=== PATIENT | male | born 1940 | race Caucasian/White ===

== ENCOUNTER → 2017-11-11 09:52 | Outpatient (CLI) | payer MEDICARE, SELFPAY ==
[2017-11-11 10:32] LABS: Absolute Lymphocyte Count 1.37 X10^3/ul (0.83-4.51); Absolute Neutrophil Count 3.7 X10^3/uL (2.0-7.7); Basophil# 0.04 X10^3/uL; Basophil% 0.7 % (0-1); Eosinophil# 0.11 X10^3/uL; Eosinophils% 1.9 % (0-5); Hematocrit 41.7 % (40-54); Hemoglobin 14.2 g/dl (13.0-16.5); Lymphocyte # 1.37 X10^3/ul (4.0); Lymphocyte % 23.7 % (19-41); Mean Corp Hgb Conc 34.1 g/gl (32-36); Mean Corpuscular Hgb 31.8 pg (27.0-32.0); Mean Corpuscular Volume 93.3 fL (80-94); Mean Platelet Vol. 10.1 fl (6.2-12.0); Monocyte# 0.54 X10^3/uL; Monocyte% 9.4 % (0-10); Neutrophil % 64.1 % (47-70); Platelet Count 175 K/mm3 (150-450); RBC Distribution Width CV 12.8 % (11.6-14.6); RBC Distribution Width SD 43.6 fl (35.1-43.9); Red Blood Count 4.47 M/mm3 (4.6-6.2); White Blood Count 5.8 K/mm3 (4.4-11.0)
[2017-11-11 10:34] LABS: POSITIVE COUNT NO; POSITIVE DIFFERENTIAL NO; POSITIVE MORPHOLOGY NO
[2017-11-11 10:56] LABS: AST(SGOT) 18 U/L (15-37); Alanine Aminotransfer ALT/SGPT 25 U/L (16-61); Albumin, Serum 3.9 g/dL (3.2-5.0); Alkaline Phosphatase 70 U/L (45-117); Anion Gap 8 (5-15); BUN 16 mg/dL (7-18); Calcium,Total 8.9 mg/dL (8.5-10.1); Chloride 100 mmol/L (98-107); Cholesterol 176 mg/dL (200); Creatinine, Serum 0.84 mg/dL (0.70-1.30); EST Glomerular Filtration Rate 94 mL/min (>60); Est Glom Filt Rate - Afr Amer 113 mL/min (>60); Glucose 153 mg/dL (74-106); High Density Lipoprotein 67 mg/dL; Potassium 4.1 mmol/L (3.5-5.1); Protein, Total 7.9 g/dL (6.4-8.2); Sodium Level 135 mmol/L (136-145); Triglycerides 114 mg/dL; Very Low Density Lipoprotein 23 mg/dL (5-40)
[2017-11-11 11:01] LABS: Hemoglobin A1c 5.9 % (4.2-6.3)
== END ==
PROVIDERS: Family Provider Family Medicine; PCP Family Medicine; Visit Provider Family Medicine
DX: E11.9 Type 2 diabetes mellitus without complications (principal); E78.5 Hyperlipidemia, unspecified; D64.9 Anemia, unspecified
CPT/HCPCS: 36415; 80053; 80061; 83036; 85025

== ENCOUNTER → 2018-01-29 11:37 | Outpatient (CLI) | payer MEDICARE, SELFPAY ==
--- NOTE | 2018-01-29 11:45 | RAD_ITS ---
STUDY: X-RAY - LUMBAR SPINE REASON FOR EXAM: Male, 77 years old. Low back pain TECHNIQUE: 5 view(s) of the lumbar spine were obtained. COMPARISON: None FINDINGS: Normal lumbar lordosis. There is no substantial scoliosis. There is a normal alignment of the vertebrae. There is diffuse endplate spondylosis. There is severe narrowing of the L3-4 through L5-S1 disc spaces, and moderately severe narrowing of the L2-3 disc space. There is no demonstrated spondylolysis of the pars interarticulares. There are calcified plaques of the abdominal aorta and common iliac arteries. RAD/L/S Spine Min 4 Views IMPRESSION: Degenerative changes of the spine, as detailed above. Electronically Signed: Vikram Don MD at 19:10 EDT , Service support ,
== END ==
PROVIDERS: Family Provider Family Medicine; PCP Family Medicine; Visit Provider Chiropractor
DX: M51.36 Other intervertebral disc degeneration, lumbar region (principal)
CPT/HCPCS: 72110

== ENCOUNTER 2018-02-14 11:00 | Outpatient (RCR) | payer MEDICARE, SELFPAY ==
--- NOTE | 2018-02-05 09:46 | HP.PTEVAL_ITS ---
Patient's Visit Information KERRI FINK is a 77 year old M referred to Physical Therapy by Vikram Burkett with a diagnosis of Lumbar DDD. Date of Evaluation: 01/24/18 Physical Therapist: Jake Wilson - Visit Plan Frequency: 2x /Week Duration: 3 Weeks Plan: Start with MET to increase pelvic positioing, core strengtheing in neutral spine, lumbar distraction, HS stretching, hip flexor strengthening. - Subjective Subjective: Pt. is here today for his initial evaluation with diagnosis of lumbar DDD. Pt. has a history of lumbar fusion and recent L knee replacement ~4 weeks ago. Pt. reports seeing chiropractor for last 2 weeks or so with mobilizations and SI rotation. pt. reports having a leg length discrepency. Pt. reports having increased pain with walking, getting up in mornings and progressively worse throughout the day. Pt. reports no mechanism of injury, but does report pain radiating across lumbar spine. No pain doing down either LE. Pt. denies N/T and no LE weakness. Pt. reports being able to sleep with minimal symptoms. Pt. reports no core strengtheing or stretching prior to PT. Pt. is hopeful to reduce symptoms in order to get back to all recreational activities without increase in symptoms. - Pain lumbar spine Pain Intensity (Out of 10): 3 Pain Intensity Range: 1, 5 - Objective POSTURE: Pt. has general flexed posture. Pt. has normal iliac crest heights. Pt. has slight anterior rotation L ilium. Pt. has decreased lumbar lordosis. PALPATION: Pt. has increased tenderness to palpation throughout lumbar spine, mild pain with spring testing to L4-S1 and lumbar parspsinal. No gluteal symptoms. Pt. has presence of diastisis recti with contraction of abdominals. NEUROLOGICAL: Pt. has normal sensation throughout BLEs to ligth and sharp touch. Pt. has 2+ bilateral achilles and patellar DTR bilaterally. Pt. is able to rise on heels and toe without issues. ROM: Lumbar spine: flexion min loss increase NW, ext mod loss NE, SB min loss bilat NE, rotation min/mod loss bilat NE. Pt. has normal hip ROM bilaterally. Pt. has tight HS bilaterally (L worse than R). MMT: Pt. has 5/5 strength throughout RLE. LLE- ankle 5/5 throughout; knee- ext 4+/5, flexion 4+/5; hip- flexion 4/5, abd 4/5, ext 4+/5. GAIT: Pt. presents drop off on L side with gait. Pt. has increased lumbar symptoms with walking, standing is worse. Pt. has decreased L knee flexion with swing phase. Pt. has R hip drop during L stance phase. - Special Tests L/S Slump test left side: Negative L/S Slump test right side: Negative L/S Left Straight Leg Raise: Negative L/S Right Straight Leg Raise: Negative Lumbar Standing: Flexion - Mechanical Response: No effect Lumbar Standing: Flexion - Symptoms During Testing: Abolishes Lumbar Standing: Flexion - Symptoms After Testing: No worse Lumbar Standing: Extension - Mechanical Response: No effect Lumbar Standing: Extension - Symptoms During Testing: No effect Lumbar Standing: Right Side Glides - Mechanical Response: No effect Lumbar Standing: Right Side [place] - Symptoms During Testing: No effect Lumbar Standing: Right Side [place] - Symptoms After Testing: No effect Lumbar Standing: Left Side [place] - Mechanical Response: No effect Lumbar Standing: Left Side [place] - Symptoms During Testing: No effect Lumbar Standing: Left Side [place] - Symptoms After Testing: No effect - Goals Goal 1:: Pt. to be I with HEP. Goal Time Frame: 2-4 Weeks Goal 2:: Pt. to have increased lumbar ROM by 25% in all directions with 0-2/10 pain allowing for increased tolerance to all mobility. Goal Time Frame: 2-4 Weeks Goal 3:: Pt. to have increased L hip flexor and core strength by 1/2 grade reducing stress applied to lumbar spine. Goal Time Frame: 2-4 Weeks Goal 4:: Pt. to have increased L HS length by 30deg in 90/90 positioning allowing for improved pelvic positioning. Goal Time Frame: 2-4 Weeks Goal 5:: Pt. to ambulate unlimited distances with 0-1/10 pain. Goal Time Frame: 2-4 Weeks - Rehabilitation Potential Physical Therapy Diagnosis: Pt. has signs and symptoms consistent with lumbar DDD. Pt. has SI rotation as well, most like exaccerbated after L TKR. Pt. has tight HS on L side, weak L hip flexors and weak core musculature. Pt. would benefit from PT to reduce pelvic rotation, and increase Lhip/core strength to reduce stres applied to lumbar spine with all functional mobility. Rehabilitation Potential: Good - Anticipated Interventions Patient/Client Instruction: Educate patient on: Condition, Plan of Care, Risk Factors, Benefits of Fitness Program For the Purpose of:: To improve health and function, To foster healthy habits, To improve decision making, To facilitate caregiver knowledge, To improve self management, To prevent re-injury, To improve ability to perform tasks related to life management, To improve tolerance to ADL's Therapeutic Exercise to Include: Strength training, Power training, Postural training, Flexibilty training, Gait and locomotor training, Passive ROM, Active ROM, Dynamic Lumbar Stabilization For the Purpose of:: To decrease pain, To increase ROM, To improve nutrient delivery to tissue, To increase oxygenation perfusion, To improve muscle performance and motor function, To improve ability of physical actions for home/ community/work/leisure, To improve gait and locomotor functions, To improve health of tissue, To decrease soft tissue restriction, To increase flexibility/ ROM Manual Therapy Techniques to Include: Mobilization, Passive ROM, Soft tissue mobilization For the Purpose of:: To decrease pain, To decrease swelling/inflammation, To increase ROM, To improve nutrient delivery to tissue, To increase oxygenation perfusion Ultrasound (thermal/non thermal): Yes For the Purpose of:: To decrease pain, To decrease swelling/inflammation, To increase ROM Thank you for the opportunity to evaluate your patient. For Medicare and Medicare HMO plans, please review the plan of care and approve it. It will need to be FAXED BACK to us at [phone] for Medicare purposes. Please let me know if there are questions or concerns regarding this plan of care. Physician Signature: Date:
--- NOTE | 2018-07-17 08:47 | HP.PT.NRP ---
HP - Discharge Summary (1) - Patient Information KERRI FINK was seen in my office for initial evaluation on 01/24/18. The following Plan of Care was established for this patient: Initial Frequency: 2x /Week Initial Duration: 3 Weeks - Anticipated Interventions Patient/Client Instruction: Educate patient on: Condition, Plan of Care, Risk Factors, Benefits of Fitness Program For the Purpose of:: To improve health and function, To foster healthy habits, To improve decision making, To facilitate caregiver knowledge, To improve self management, To prevent re-injury, To improve ability to perform tasks related to life management, To improve tolerance to ADL's Therapeutic Exercise to Include: Strength training, Power training, Postural training, Flexibilty training, Gait and locomotor training, Passive ROM, Active ROM, Dynamic Lumbar Stabilization For the Purpose of:: To decrease pain, To increase ROM, To improve nutrient delivery to tissue, To increase oxygenation perfusion, To improve muscle performance and motor function, To improve ability of physical actions for home/community/work/leisure, To improve gait and locomotor functions, To improve health of tissue, To decrease soft tissue restriction, To increase flexibility/ROM Manual Therapy Techniques to Include: Mobilization, Passive ROM, Soft tissue mobilization For the Purpose of:: To decrease pain, To decrease swelling/inflammation, To increase ROM, To improve nutrient delivery to tissue, To increase oxygenation perfusion Ultrasound (thermal/non thermal): Yes For the Purpose of:: To decrease pain, To decrease swelling/inflammation, To increase ROM This patient was last seen in our office 01/24/18. Pertinent comments regarding their Physical therapy will appear below: Pt. was seen for his DDD of his lumbar spine. Pt. was treated with directional exercises, core stability and stretching. Pt. was making minimal changes. I have not seen him in several months and will be DC from PT at this point in time. At this point I will be discontinuing this patient from physical therapy. I would be happy to see this patient again in the future if found appropriate by the physician. Thank you! Jake Wilson
== END 2018-02-14 19:00 | disposition home or self-care (01) ==
LOC: PT 11:00
PROVIDERS: Family Provider Family Medicine; PCP Family Medicine; Visit Provider Chiropractor
DX: M51.36 Other intervertebral disc degeneration, lumbar region (principal)
CPT/HCPCS: 97035; 97110; 97163

== ENCOUNTER → 2018-02-17 11:15 | Outpatient (CLI) | payer MEDICARE, SELFPAY ==
[2018-02-17 11:48] LABS: Protein, Urine (Random) 20.1 mg/dL (<11.9); Protein:Creat Ratio 307 mg/g CRE (0-200)
[2018-02-17 11:56] LABS: Hematocrit 37.5 % (40-54); Hemoglobin 12.9 g/dl (13.0-16.5); Mean Corp Hgb Conc 34.4 g/gl (32-36); Mean Corpuscular Hgb 31.8 pg (27.0-32.0); Mean Corpuscular Volume 92.4 fL (80-94); Platelet Count 209 K/mm3 (150-450); RBC Distribution Width CV 12.8 % (11.6-14.6); RBC Distribution Width SD 42.4 fl (35.1-43.9); Red Blood Count 4.06 M/mm3 (4.6-6.2); White Blood Count 9.2 K/mm3 (4.4-11.0)
[2018-02-17 11:57] LABS: Scan Indicated on CBC? Y/N NO
[2018-02-17 12:30] LABS: Vitamin D,25 Hydroxy 23.1 ng/mL (29.95-100.01)
[2018-02-17 13:01] LABS: Albumin, Serum 3.3 g/dL (3.2-5.0); BUN 14 mg/dL (7-18); BUN/Creat Ratio 14.7 RATIO (10-20); Calcium,Total 8.4 mg/dL (8.5-10.1); Chloride 100 mmol/L (98-107); Creatinine, Serum 0.95 mg/dL (0.70-1.30); EST Glomerular Filtration Rate 81 mL/min (>60); Est Glom Filt Rate - Afr Amer 98 mL/min (>60); Glucose 183 mg/dL (74-106); Magnesium 1.7 mg/dL (1.6-2.6); Phosphorus 2.4 mg/dL (2.5-4.9); Potassium 4.2 mmol/L (3.5-5.1); Sodium Level 134 mmol/L (136-145)
== END ==
PROVIDERS: Family Provider Family Medicine; PCP Family Medicine; Visit Provider Internal Medicine Nephrology
DX: Z13.0 Encounter for screening for diseases of the blood and blood-forming organs and certain disorders involving the immune mechanism (principal); N18.2 Chronic kidney disease, stage 2 (mild); E55.9 Vitamin D deficiency, unspecified
CPT/HCPCS: 36415; 80069; 82306; 82570; 83735; 84156; 85027

== ENCOUNTER → 2018-05-05 07:50 | Outpatient (CLI) | payer MEDICARE, SELFPAY ==
[2018-05-05 09:00] LABS: Absolute Lymphocyte Count 1.39 X10^3/ul (0.83-4.51); Basophil# 0.02 X10^3/uL; Basophil% 0.3 % (0-1); Eosinophil# 0.11 X10^3/uL; Eosinophils% 1.8 % (0-5); Hematocrit 39.7 % (40-54); Hemoglobin 14.2 g/dl (13.0-16.5); Lymphocyte # 1.39 X10^3/ul (4.0); Lymphocyte % 22.6 % (19-41); Mean Corp Hgb Conc 35.8 g/gl (32-36); Mean Corpuscular Hgb 32.6 pg (27.0-32.0); Mean Corpuscular Volume 91.1 fL (80-94); Mean Platelet Vol. 10.3 fl (6.2-12.0); Monocyte# 0.64 X10^3/uL; Monocyte% 10.4 % (0-10); Neutrophil # 3.96 X10^3/uL (2.7-7.7); Neutrophil % 64.6 % (47-70); Platelet Count 183 K/mm3 (150-450); RBC Distribution Width CV 12.7 % (11.6-14.6); RBC Distribution Width SD 41.7 fl (35.1-43.9); Red Blood Count 4.36 M/mm3 (4.6-6.2); White Blood Count 6.1 K/mm3 (4.4-11.0)
[2018-05-05 09:10] LABS: POSITIVE COUNT NO; POSITIVE DIFFERENTIAL NO; POSITIVE MORPHOLOGY NO
[2018-05-05 09:21] LABS: Hemoglobin A1c 5.8 % (4.2-6.3)
[2018-05-05 09:30] LABS: ALB/GLOB Ratio 0.9 RATIO (0.9-2.4); AST(SGOT) 19 U/L (15-37); Alanine Aminotransfer ALT/SGPT 21 U/L (16-61); Albumin, Serum 3.9 g/dL (3.2-5.0); Alkaline Phosphatase 81 U/L (45-117); Anion Gap 5 (5-15); BUN 19 mg/dL (7-18); BUN/Creat Ratio 22.4 RATIO (10-20); Calcium,Total 9.2 mg/dL (8.5-10.1); Chloride 100 mmol/L (98-107); Cholesterol 178 mg/dL (200); Creatinine, Serum 0.85 mg/dL (0.70-1.30); EST Glomerular Filtration Rate 92 mL/min (>60); Est Glom Filt Rate - Afr Amer 112 mL/min (>60); Globulin 4.3 g/dL (2.2-4.2); Glucose 131 mg/dL (74-106); High Density Lipoprotein 59 mg/dL; Potassium 4.3 mmol/L (3.5-5.1); Protein, Total 8.2 g/dL (6.4-8.2); Sodium Level 133 mmol/L (136-145); Triglycerides 115 mg/dL; Very Low Density Lipoprotein 23 mg/dL (5-40)
== END ==
PROVIDERS: Family Provider Family Medicine; PCP Family Medicine; Visit Provider Family Medicine
DX: E11.9 Type 2 diabetes mellitus without complications (principal); E78.5 Hyperlipidemia, unspecified; D64.9 Anemia, unspecified
CPT/HCPCS: 36415; 80053; 80061; 83036; 85025

== ENCOUNTER → 2018-08-12 12:00 | Outpatient (CLI) | payer MEDICARE, SELFPAY ==
[2018-08-12 12:30] LABS: Hematocrit 40.7 % (40-54); Hemoglobin 13.8 g/dl (13.0-16.5); Mean Corp Hgb Conc 33.9 g/gl (32-36); Mean Corpuscular Hgb 32.1 pg (27.0-32.0); Mean Corpuscular Volume 94.7 fL (80-94); Mean Platelet Vol. 9.8 fl (6.2-12.0); Platelet Count 152 K/mm3 (150-450); RBC Distribution Width CV 13.1 % (11.6-14.6); RBC Distribution Width SD 45.1 fl (35.1-43.9); White Blood Count 6.9 K/mm3 (4.4-11.0)
[2018-08-12 12:31] LABS: Color, Urine Yellow (Yellow); Glucose, Dipstick Normal (Normal); Ketone-Dipstick Negative (Negative); Leukocyte Esterase-Dipstick Negative /ul (Negative); Nitrite-Dipstick Negative (Negative); Occult Blood-Urine 10 /ul (Negative); Protein-Dipstick 15 mg/dl (Negative); Urine Bilirubin Dipstick Negative (Negative); Urine Clarity Clear (Clear); Urine Urobilinogen Normal (Normal)
[2018-08-12 12:33] LABS: Scan Indicated on CBC? Y/N NO
[2018-08-12 12:50] LABS: BUN 16 mg/dL (7-18); BUN/Creat Ratio 16.5 RATIO (10-20); Calcium,Total 8.8 mg/dL (8.5-10.1); Chloride 98 mmol/L (98-107); Creatinine, Serum 0.97 mg/dL (0.70-1.30); EST Glomerular Filtration Rate 79 mL/min (>60); Est Glom Filt Rate - Afr Amer 96 mL/min (>60); Glucose 113 mg/dL (74-106); Phosphorus 3.2 mg/dL (2.5-4.9); Potassium 4.1 mmol/L (3.5-5.1); Sodium Level 132 mmol/L (136-145)
[2018-08-12 12:52] LABS: Protein, Urine (Random) 11.1 mg/dL (<11.9); Protein:Creat Ratio 253 mg/g CRE (0-200)
[2018-08-12 13:00] LABS: Vitamin D,25 Hydroxy 42.2 ng/mL (29.95-100.01)
== END ==
PROVIDERS: Family Provider Family Medicine; PCP Family Medicine; Referring Provider Internal Medicine Nephrology; Visit Provider Internal Medicine Nephrology
DX: Z13.0 Encounter for screening for diseases of the blood and blood-forming organs and certain disorders involving the immune mechanism (principal); N18.2 Chronic kidney disease, stage 2 (mild); E55.9 Vitamin D deficiency, unspecified
CPT/HCPCS: 36415; 80069; 81002; 82306; 82570; 84156; 85027

== ENCOUNTER → 2018-10-03 09:07 | Outpatient (CLI) | payer MEDICARE, SELFPAY ==
[2018-10-03 09:50] LABS: Hemoglobin A1c 6.3 % (4.2-6.3)
[2018-10-03 10:16] LABS: Cholesterol 190 mg/dL (200); High Density Lipoprotein 61 mg/dL; PSA,Total - Annual Screen 3.67 ng/mL (0.00-4.00); Triglycerides 99 mg/dL; Very Low Density Lipoprotein 20 mg/dL (5-40)
== END ==
PROVIDERS: Family Provider Family Medicine; PCP Family Medicine; Referring Provider Family Medicine; Visit Provider Family Medicine
DX: E11.9 Type 2 diabetes mellitus without complications (principal); E78.5 Hyperlipidemia, unspecified; Z12.5 Encounter for screening for malignant neoplasm of prostate
CPT/HCPCS: 36415; 80061; 83036; 84153; G0103

== ENCOUNTER → 2019-03-31 09:07 | Outpatient (CLI) | payer MEDICARE, SELFPAY ==
[2019-01-05 11:43] VITALS: BMI 31.6
[2019-03-31 10:09] LABS: Absolute Lymphocyte Count 1.18 X10^3/ul (0.83-4.51); Basophil# 0.02 X10^3/uL; Basophil% 0.3 % (0-1); Eosinophil# 0.08 X10^3/uL; Eosinophils% 1.2 % (0-5); Hematocrit 38.8 % (40-54); Hemoglobin 13.4 g/dl (13.0-16.5); Lymphocyte # 1.18 X10^3/ul (4.0); Lymphocyte % 17.1 % (19-41); Mean Corp Hgb Conc 34.5 g/gl (32-36); Mean Corpuscular Volume 92.6 fL (80-94); Monocyte# 0.64 X10^3/uL; Monocyte% 9.3 % (0-10); Neutrophil # 4.97 X10^3/uL (2.7-7.7); Neutrophil % 71.8 % (47-70); Platelet Count 155 K/mm3 (150-450); RBC Distribution Width CV 12.4 % (11.6-14.6); Red Blood Count 4.19 M/mm3 (4.6-6.2); White Blood Count 6.9 K/mm3 (4.4-11.0)
[2019-03-31 10:13] LABS: POSITIVE COUNT NO; POSITIVE DIFFERENTIAL NO; POSITIVE MORPHOLOGY NO
[2019-03-31 10:38] LABS: Cholesterol 197 mg/dL (200); High Density Lipoprotein 54 mg/dL; Triglycerides 158 mg/dL; Very Low Density Lipoprotein 32 mg/dL (5-40)
[2019-03-31 10:39] LABS: Hemoglobin A1c 6.3 % (4.2-6.3)
== END ==
PROVIDERS: Family Provider Family Medicine; PCP Family Medicine; Referring Provider Family Medicine; Visit Provider Family Medicine
DX: E11.9 Type 2 diabetes mellitus without complications (principal); I25.10 Atherosclerotic heart disease of native coronary artery without angina pectoris; D64.9 Anemia, unspecified
CPT/HCPCS: 36415; 80061; 83036; 85025

== ENCOUNTER → 2019-05-05 11:54 | Outpatient (CLI) | payer MEDICARE, SELFPAY ==
[2019-01-05 11:43] VITALS: BMI 31.6
[2019-05-05 13:10] LABS: Hematocrit 38.8 % (40-54); Hemoglobin 13.6 g/dL (13.0-16.5); Mean Corp Hgb Conc 35.1 g/dL (32-36); Mean Corpuscular Hgb 32.5 pg (27.0-32.0); Mean Corpuscular Volume 92.8 fL (80-94); Mean Platelet Vol. 10.2 fl (6.2-12.0); Platelet Count 153 K/mm3 (150-450); RBC Distribution Width CV 11.9 % (11.6-14.6); RBC Distribution Width SD 40.8 fl (35.1-43.9); Red Blood Count 4.18 M/mm3 (4.6-6.2); White Blood Count 5.8 K/mm3 (4.4-11.0)
[2019-05-05 13:13] LABS: Color, Urine Yellow (Yellow); Glucose, Dipstick Normal (Normal); Ketone-Dipstick Negative (Negative); Leukocyte Esterase-Dipstick Negative /ul (Negative); Nitrite-Dipstick Negative (Negative); Occult Blood-Urine Negative /ul (Negative); Protein-Dipstick Negative (Negative); Urine Bilirubin Dipstick Negative (Negative); Urine Clarity Clear (Clear); Urine Urobilinogen Normal (Normal); Urine pH 6.5 (5.0 - 8.0)
[2019-05-05 13:29] LABS: Microalbumin:Creatinine Ratio 496.2 mg/g CRE (<30 mg/g CRE); Protein, Urine (Random) 10.1 mg/dL (<11.9); Protein:Creat Ratio 771 mg/g CRE (0-200)
[2019-05-05 13:38] LABS: Albumin, Serum 3.8 g/dL (3.2-5.0); BUN 16 mg/dL (7-18); BUN/Creat Ratio 16.3 RATIO (10-20); Calcium,Total 8.9 mg/dL (8.5-10.1); Chloride 96 mmol/L (98-107); Creatinine, Serum 0.98 mg/dL (0.70-1.30); EST Glomerular Filtration Rate 78 mL/min (>60); Est Glom Filt Rate - Afr Amer 95 mL/min (>60); Glucose 147 mg/dL (74-106); Phosphorus 3.2 mg/dL (2.5-4.9); Potassium 4.2 mmol/L (3.5-5.1); Sodium Level 131 mmol/L (136-145)
[2019-05-05 13:43] LABS: PTHIN 44.3 pg/mL (18.4-80.1)
[2019-05-05 13:44] LABS: Vitamin D,25 Hydroxy 41.3 ng/mL (29.95-100.01)
== END ==
PROVIDERS: Family Provider Family Medicine; PCP Family Medicine; Referring Provider Internal Medicine Nephrology; Visit Provider Internal Medicine Nephrology
DX: N18.2 Chronic kidney disease, stage 2 (mild) (principal); E55.9 Vitamin D deficiency, unspecified; Z13.0 Encounter for screening for diseases of the blood and blood-forming organs and certain disorders involving the immune mechanism
CPT/HCPCS: 36415; 80069; 81002; 82043; 82306; 82570; 83970; 84156; 85027

== ENCOUNTER 2019-05-25 14:02 | Day surgery (SDC) | payer MEDICARE, SELFPAY ==
[2019-01-05 11:43] VITALS: BMI 31.6
[2019-05-25] VITALS (10 sets, daily range): BP systolic 98–164; BP diastolic 51–73; PULSE 41–55; RESP 16–18; TEMP 36.7–37; O2SAT 94–98; BMI 31.2
[2019-05-25] MEDS: Cefazolin 2 GM in 0.9% Normal Saline 100 ML IV (15:00)
[2019-05-25 15:11] LABS: Bedside Glucose 159 mg/dL (70-110)
--- NOTE | 2019-05-25 15:22 | RAD_ITS ---
STUDY: SPINAL CORD STIMULATOR INSERTION REASON FOR EXAM: Male, 79 years old. Pain RADIATION DOSAGE (If Supplied By Facility): CTDIvol = ( ) mGy, DLP = ( ) mGycm. Individualized dose optimization techniques were used for this CT.? FLUOROSCOPY TIME (if supplied): (5:49) minutes/seconds TECHNIQUE: 3 intraoperative fluoroscopy image(s) acquired as permanent record. COMPARISON: None. FINDINGS: Intraoperative fluoroscopy utilized as image guidance during spinal cord stimulator insertion. Please refer to the procedure report regarding details of the procedure. RAD/Lumbar Spine 2 or 3 Views IMPRESSION: As above Electronically Signed: Gomez Ford MD at 18:38 EDT Tel [phone], Service support ,
[2019-05-25] MEDS: Bupivacaine 0.25% 30 ML Vial (15:40)
[2019-05-25] MEDS: HYDROcodone Bitartrate/Apap 5/325 Tablet PO (18:45)
--- NOTE | 2019-05-25 18:46 | OP.PCM_ITS ---
Problem List (1) Degeneration of intervertebral disc of lumbosacral region Status: Chronic (2) Radiculopathy of lumbosacral region Status: Chronic (3) Spinal stenosis of lumbosacral region Status: Chronic Report of Operation Date of Procedure: 05/25/19 Description of Surgical Findings:: Pre-Operative Diagnosis: Lumbosacral radiculopathy, lumbosacral degenerative disc disease, lumbosacral spinal stenosis, lumbosacral spondylosis Post-Operative Diagnosis: Lumbosacral radiculopathy, lumbosacral degenerative disc disease, lumbosacral spinal stenosis, l lumbosacral spondylosis Surgery/Procedure Performed:: 1-Spinal cord stimulator thoracal lumbar leads permanent placement x2,. 2-spinal cord stimulator generator implant. 3- fluoroscopic guidance Description of Surgical Findings:: PROCEDURES: 1. Spinal cord stimulator thoracolumbar leads placement x2 #2 spinal cord stimu lator Medtronic intellus generator placement #3 spinal cord stimulator generator pocket creation at the left gluteal region #4 spinal cord stimulator simple programming #5 fluoroscopic guidance PREOPERATIVE DIAGNOSES: Lumbosacral radiculopathy, lumbosacral degenerative disc disease, lumbosacral spinal stenosis. POSTOPERATIVE DIAGNOSES: Lumbosacral radiculopathy, lumbosacral degenerative disc disease, lumbosacral spinal stenosis. ANESTHESIA: MAC COMPLICATIONS: None BLOOD LOSS: Minimal Implanted device: Spinal cord stimulator lead lot number , lead #2 lot number Medtronic spinal cord stimulator generator intellus serial number PROCEDURE IN DETAIL: History and physical today was reviewed. Risks and benefits of procedure explained. The patient understood, agreed to procedure, informed consent was obtained. IV inserted per routine protocol. The patient was taken to the operating room, placed in the prone position with a pillow positioned underneath the abdomen. A 2 g of Ancef IV piggyback was infused per anesthesia. The lower back and left gluteal area was prepped and draped in a sterile fashion using iodine x3. The C-arm was brought in position for AP view at the L1-2 vertebral bodies under direct visualization fluoroscopy on a true AP view the L1-2 interlaminar space was identified skin and subcutaneous tissue and size approximately 10 cc of a mix of 2% lidocaine and 0.25% Marcaine using a 25- gauge regular needle followed by a 25-gauge 3-1/2 inch spinal needle towards the interlaminar space at L1-2, the skin and subcutaneous tissue were then anesthetized and using an 11-gauge blade was then taken down to the skin and subcutaneous tissue using a 14-gauge 3-1/2 inch Touhy needle provided by the [employer] kit the needle was passed through the skin towards the interlaminar space at L1-2 and a paramedian approach the needle was then advanced under direct visualization fluoroscopy towards the interlaminar space at L1-2 [id number] technique was then carried to air towards the interlaminar space at L3-4 once the tip of the needle was in the epidural space and loss of resistance was encountered to air and after confirmation of AP as well as oblique view of the spinal cord stimulator lead was then advanced under direct visualization fluoroscopy to be at the tip of the lead at T8 and the bottom of the lead around mid T10 after confirmation of AP as well as lateral view to confirm correct placement of the lead in the posterior compartment of the epidural space the previous procedure was then repeated to a level above at L2-3 interlaminar space the second lead was then inserted under direct visualization with fluoroscopy to be at the mid T8 and mid T10 area the leads were were then connected to the external neurostimulator and patient was then awakened to confirm satisfactory coverage of the painful area once satisfactory coverage was then achieved the stylette of each needle was then removed and the skin and subcutaneous tissue on to the left of the paramedian needles was then taken anesthetized with a total of 10 cc of the previous mixture of 0.25% Marcaine and 2% lidocaine using a 25-gauge regular needle the incision was then taken down through the skin and subcutaneous tissue towards the fascia making sure hemostasis was then maintained via cautery the spinal cord stimulator leads were then passed through the above incision and secured using the bitewing and sutured down with a 2-0 nylon to the fascia at that level the spinal cord stimulator leads were then tunneled via a tunneler provided by the [employer] kit towards the previously incised spinal cord stimulator battery at the left gluteal region skin and subcutaneous tissue were anesthetized with approximately 10 cc of a mix of 2% lidocaine and 0.25% Marcaine using a 25 gauge regular needle, skin and subcutaneous tissue was then taken down with the 11-gauge blade hemostasis was maintained with Bovie and direct pressure the incision was then taken down to the fascia and the battery was then visualized the 2-0 nylon sutures that were the spinal cord stimulator leads the upper lead was then marked the new until spinal cord stimulator battery was then provided Via [employer] kit the battery was then reattached of the spinal cord stimulator make ensure that the top lead is attached to the top position from 0-7 electrodes and the bottom from 8-15 electrodes once impedance was then checked to be in the proper average number the intellus battery was then inserted into the pocket and impedance with when checked again the pocket was then inspected to confirm hemostasis in place, the intellus battery was then secured to the fascia using a 2-0 silk to the upper and lower eyes of the battery confirming an upward writing of the intellus facing posterior, once complete confirmation the battery was then placed in the position and the the mid paramedian and the gluteal incisions were then closed primarily through a 3-0 Vicryl in a interrupted fashion followed by a 4-0 Vicryl to the skin, hemostasis was then maintained during the procedure the skin was then covered with a Steri-Strips and bacitracin patient was then returned into the supine position in a stable condition and returned to recovery in a stable condition patient experienced no signs or symptoms of intrathecal or intravascular injection patient experienced no paresthesia the procedure was completed without any apparent difficulty any complication the patient appeared to tolerate well ESTIMATED BLOOD LOSS: Minimal less than 25 mL ASSESSMENT AND PLAN: This is an 79-year-old male with lumbosacral radiculopathy, lumbosacral degenerative disc disease lumbosacral spinal stenosis status post 1. Spinal cord stimulator thoracolumbar leads placement x2 #2 spinal cord stimulator Medtronic intellus generator placement #3 spinal cord stimulator generator pocket creation at the left gluteal region #4 spinal cord stimulator simple programming and fluoroscopic guidance patient will continue her current medications a prescription was provided to the patient for Chromo 5/325 1 p.o. every 4-6 hours as needed acute postoperative pain and Keflex 500 mg 1 p.o. every 8 hours for 7 days postop instruction were given in writing to the patient as well as verbally and in writing to his , patient will follow approximately 1 week for reevaluation
== END 2019-05-25 18:46 | disposition home or self-care (01) ==
LOC: SDC 14:13 → AC 14:15
PROVIDERS: Family Provider Family Medicine; PCP Family Medicine; Referring Provider Anesthesiology Pain Medicine; Visit Provider Anesthesiology Pain Medicine
PROC: (CPT 63685; principal; 2019-05-25 15:15)
DX: M51.17 Intervertebral disc disorders with radiculopathy, lumbosacral region (principal); M47.27 Other spondylosis with radiculopathy, lumbosacral region; M48.07 Spinal stenosis, lumbosacral region; I25.10 Atherosclerotic heart disease of native coronary artery without angina pectoris; I12.9 Hypertensive chronic kidney disease with stage 1 through stage 4 chronic kidney disease, or unspecified chronic kidney disease; E11.22 Type 2 diabetes mellitus with diabetic chronic kidney disease; N18.9 Chronic kidney disease, unspecified; E78.00 Pure hypercholesterolemia, unspecified; K21.9 Gastro-esophageal reflux disease without esophagitis; M19.90 Unspecified osteoarthritis, unspecified site; Z95.1 Presence of aortocoronary bypass graft; Z95.5 Presence of coronary angioplasty implant and graft; Z79.84 Long term (current) use of oral hypoglycemic drugs; Z79.82 Long term (current) use of aspirin; Z79.891 Long term (current) use of opiate analgesic; Z79.899 Other long term (current) drug therapy
CPT/HCPCS: 63650; 63685; 72100; 76000; 82962; C1778; C1820; J7120; J3490

== ENCOUNTER → 2019-06-30 12:46 | Outpatient (CLI) | payer MEDICARE, SELFPAY ==
[2019-05-25 14:39] VITALS: BMI 31.2
--- NOTE | 2019-06-30 12:50 | RAD_ITS ---
STUDY: X-RAY - RIGHT KNEE REASON FOR EXAM: Increasing right knee pain. TECHNIQUE: 4 view(s) of the knee. COMPARISON: None. FINDINGS: Normal visualized distal femur. Normal visualized proximal tibia and fibula. Normal proximal tibiofibular articulation. There are small marginal osteophytes without joint space narrowing of the medial femorotibial compartment. Normal lateral femorotibial compartment. There are small marginal osteophytes and moderately severe joint space narrowing of the patellofemoral articulation. There is chondrocalcinosis. There is a bipartite patella. There is a small joint effusion. There is vascular calcification. RAD/Knee 4 or More Views IMPRESSION: Patellofemoral arthrosis. Small joint effusion. Chondrocalcinosis. Bipartite patella. Electronically Signed: Eliecer Lau MD at 13:48 EDT Tel , Service support ,
== END ==
PROVIDERS: Family Provider Family Medicine; PCP Family Medicine; Referring Provider Anesthesiology Pain Medicine; Visit Provider Anesthesiology Pain Medicine
DX: M17.11 Unilateral primary osteoarthritis, right knee (principal); M11.261 Other chondrocalcinosis, right knee; Q74.1 Congenital malformation of knee
CPT/HCPCS: 73564

== ENCOUNTER → 2019-07-17 08:38 | Outpatient (CLI) | payer MEDICARE, SELFPAY ==
[2019-07-13 10:56] VITALS: BMI 30.7
--- NOTE | 2019-07-17 08:40 | CDU_ITS ---
Reason For Study: Vertigo Rt. Velocities/BP Lt. Velocities/BP Prox CCA 126.6/13.3 cm/sec. Prox CCA 117.4/17 cm/sec. Mid CCA 108.3/11.5 cm/sec. Mid CCA 112/15.2 cm/sec. Dist CCA 106.5/9.7 cm/sec. Dist CCA 106.5/15.2 cm/sec. Bulb 145.8/13.7 cm/sec. Prox ICA 87.1/15.7 cm/sec. Prox ICA 82.7/9.7 cm/sec. Mid ICA 72.8/18.8 cm/sec. Mid ICA 77.3/17 cm/sec. Dist ICA 67.9/15.1 cm/sec. Dist ICA 73.6/17 cm/sec. Lt. ICA/CCA = 0.8. Rt. ICA/CCA = 0.8. Prox ECA 182.8 cm/sec. Prox ECA 161.4 cm/sec. Lt. Vert. 67.9/16.3 cm/sec. Rt. Vert. 66.3/11.3 cm/sec. Right Extracranial There is homogeneous, smooth atherosclerotic plaque noted in the right common carotid artery. There is heterogeneous, irregular atherosclerotic plaque noted in the right internal carotid artery. There is heterogeneous, irregular atherosclerotic plaque noted in the right external carotid artery. The right external carotid artery is not well visualized. Antegrade flow is noted in the right vertebral artery. There is heterogeneous, irregular atherosclerotic plaque noted in the right bulb. Left Extracranial There is heterogeneous, irregular atherosclerotic plaque noted in the left common carotid artery. There is heterogeneous, irregular atherosclerotic plaque noted in the left internal carotid artery. The atherosclerotic plaque causes acoustic shadowing. There is heterogeneous, irregular atherosclerotic plaque noted in the left external carotid artery. Antegrade flow is noted in the left vertebral artery. Procedure Carotid Duplex 33108. Exam performed in department. Interpretation Summary Irregular plague right internal and external carotids Increased velocity right carotid bulb suspicious for moderate disease but not fitting criteria for evaluation <50% stenosis right internal carotid <50% stenosis right external carotid Irregular calcific plague left internal and external carotids <50% stenosis left internal carotid <50% stenosis left external carotid Patent and antegrade bilateral vertebrals Ordering Physician: Fabio Jordan Referring Physician: Juanpablo Stack Performed By: Kortney Geiger RVT
== END ==
PROVIDERS: Family Provider Family Medicine; PCP Family Medicine; Referring Provider Nurse Practitioner Family; Visit Provider Nurse Practitioner Family
DX: I65.22 Occlusion and stenosis of left carotid artery (principal); R42 Dizziness and giddiness
CPT/HCPCS: 93880

== ENCOUNTER → 2019-07-23 08:44 | Outpatient (CLI) | payer MEDICARE, SELFPAY ==
[2019-07-13 10:56] VITALS: BMI 30.7
--- NOTE | 2019-07-23 08:46 | ECHOD_ITS ---
Reason For Study: RHEUMATIC VALVE INS Procedure This was a 2D Doppler, Color Flow transthoracic echocardiogram. The study was technically difficult. Exam performed in department. Left Ventricle Normal LV size. Left ventricular systolic function is normal. The estimated ejection fraction is 60 %. No regional wall motion abnormalities noted. Right Ventricle Normal RV size. Normal systolic function. Atria The left atrium is mildly enlarged. Normal right atrium. No doppler evidence for ASD. Mitral Valve There is moderate mitral annular calcification. Extension of the mitral annular calcification onto the mitral valve leaflet. Moderate focal mitral valve calcification of the anterior leaflet. The mitral papillary muscle appears thickened and/or calcified. Mild mitral valve stenosis. Mild (1+) mitral valve insufficiency. Tricuspid Valve Normal tricuspid valve. Trivial tricuspid valve insufficiency. Right ventricular systolic pressure estimated to be 33 mmHg. Aortic Valve Trisinus/trileaflet aortic valve. Mild diffuse aortic valve thickening. Mild diffuse aortic valve calcification. Moderate aortic stenosis. Trivial aortic valve insufficiency. Pulmonic Valve The pulmonic valve is not well visualized. Great Vessels Normal sized aortic root. Calcified aortic root. Pericardium/Pleural No pericardial effusion. MMode/2D Measurements & Calculations LVIDd: 3.8 cm IVSd: 0.96 cm LVOT diam: 2.0 cm LVIDs: 2.7 cm LVPWd: 1.1 cm LVOT area: 3.2 cm2 RVDd: 4.5 cm FS: 28.8 % Ao root diam: 4.0 cm LAV(MOD-bp): 110.1 ml LA A4 area: 26.9 cm2 LAV(MOD-bp) Indexed: 47.0 ml/m2 LAV(MOD-sp2): 127.4 ml LAV(MOD-sp4): 85.1 ml LA dimension(2D): 4.7 cm RA A4 area: 18.6 cm2 Doppler Measurements & Calculations MV E max qing: 148.0 cm/sec MV V2 max: 108.9 cm/sec Ao V2 max: 288.0 cm/sec MV A max qing: 99.2 cm/sec MV max P.7 mmHg Ao max P.2 mmHg MV E/A: 1.5 MV V2 mean: 69.4 cm/sec Ao V2 mean: 217.7 cm/sec MV mean P.2 mmHg Ao mean P.5 mmHg MV V2 VTI: 50.7 cm Ao V2 VTI: 70.7 cm MVA(VTI): 1.5 cm2 HUMBERTO(I,D): 1.1 cm2 HUMBERTO(V,D): 1.0 cm2 AI max qing: 395.5 cm/sec LV V1 max: 93.2 cm/sec SV(LVOT): 76.5 ml AI max P.6 mmHg LV V1 max P.5 mmHg LV V1 mean P.8 mmHg AI dec slope: 176.9 cm/sec2 LV V1 mean: 63.0 cm/sec AI P1/2t: 654.6 msec LV V1 VTI: 23.9 cm PA V2 max: 106.7 cm/sec TR max qing: 271.8 cm/sec MV P1/2t-pr_phl: 112.1 msec TR max P.7 mmHg Interpretation Summary The study was technically difficult. Left ventricular systolic function is normal. The estimated ejection fraction is 60 %. The left atrium is mildly enlarged. There is moderate mitral annular calcification. Extension of the mitral annular calcification onto the mitral valve leaflet. Moderate focal mitral valve calcification of the anterior leaflet. The mitral papillary muscle appears thickened and/or calcified. Mild mitral valve stenosis. Mild (1+) mitral valve insufficiency. Trivial tricuspid valve insufficiency. Moderate aortic stenosis. Trivial aortic valve insufficiency. Calcified aortic root. Right ventricular systolic pressure estimated to be 33 mmHg. Transmitral diastolic flow velocities suggest diastolic dysfunction (pseudonormal pattern). Ordering Physician: Fabio Jordan/Earle Anaya Referring Physician: MARCIA MCDOEWLL Performed By: Lili Vazquez, RDCS, RVT
== END ==
PROVIDERS: Family Provider Family Medicine; PCP Family Medicine; Referring Provider Nurse Practitioner Family; Visit Provider Nurse Practitioner Family
DX: I08.0 Rheumatic disorders of both mitral and aortic valves (principal)
CPT/HCPCS: 93306

== ENCOUNTER → 2019-10-13 10:17 | Outpatient (CLI) | payer MEDICARE, SELFPAY ==
[2019-01-05 11:43] VITALS: BMI 31.6
[2019-07-13 10:56] VITALS: BMI 30.7
[2019-10-13 10:46] LABS: Absolute Lymphocyte Count 1.17 X10^3/uL (0.83-4.51); Basophil# 0.06 X10^3/uL; Basophil% 0.8 % (0-1); Eosinophils% 1.4 % (0-5); Hematocrit 41.4 % (40-54); Hemoglobin 14.1 g/dL (13.0-16.5); Lymphocyte # 1.17 X10^3/ul (4.0); Lymphocyte % 16.4 % (19-41); Mean Corp Hgb Conc 34.1 g/dL (32-36); Mean Corpuscular Hgb 32.1 pg (27.0-32.0); Mean Corpuscular Volume 94.3 fL (80-94); Mean Platelet Vol. 9.9 fl (6.2-12.0); Monocyte# 0.78 X10^3/uL; NRBC Flagged by Analyzer 0 % (0-5); Neutrophil # 4.98 X10^3/uL (2.7-7.7); Platelet Count 157 K/mm3 (150-450); RBC Distribution Width CV 12.2 % (11.6-14.6); RBC Distribution Width SD 42.4 fl (35.1-43.9); Red Blood Count 4.39 M/mm3 (4.6-6.2); White Blood Count 7.1 K/mm3 (4.4-11.0)
[2019-10-13 11:08] LABS: Hemoglobin A1c 6.9 % (4.2-6.3)
[2019-10-13 11:11] LABS: Cholesterol 221 mg/dL (200); High Density Lipoprotein 56 mg/dL; PSA,Total - Annual Screen 2.27 ng/mL (0.00-4.00); Triglycerides 145 mg/dL; Very Low Density Lipoprotein 29 mg/dL (5-40)
== END ==
LOC: LAB.FUTURE 10:21 → LAB 10:28
PROVIDERS: Family Provider Family Medicine; PCP Family Medicine; Referring Provider Family Medicine; Visit Provider Family Medicine
DX: E11.9 Type 2 diabetes mellitus without complications (principal); Z12.5 Encounter for screening for malignant neoplasm of prostate; Z51.81 Encounter for therapeutic drug level monitoring
CPT/HCPCS: 36415; 80061; 83036; 84153; 85025; G0103

== ENCOUNTER → 2020-02-16 11:13 | Outpatient (CLI) | payer MEDICARE, SELFPAY ==
[2019-07-13 10:56] VITALS: BMI 30.7
[2020-02-16 11:20] LABS: Bacteria 0 SEEN /hpf (None Seen); Mucous, Urine 0 SEEN /hpf (<or=2+); Red Blood Cells-Urine 0 SEEN /hpf (0-5); White Blood Cells 0 SEEN /hpf (0-5)
[2020-02-16 15:03] LABS: Hematocrit 39.5 % (40-54); Hemoglobin 13.5 g/dL (13.0-16.5); Mean Corp Hgb Conc 34.2 g/dL (32-36); Mean Corpuscular Hgb 32.8 pg (27.0-32.0); Mean Corpuscular Volume 96.1 fL (80-94); Platelet Count 163 K/mm3 (150-450); RBC Distribution Width SD 42.3 fl (35.1-43.9); Red Blood Count 4.11 M/mm3 (4.6-6.2); White Blood Count 6.9 K/mm3 (4.4-11.0)
[2020-02-16 15:20] LABS: Vitamin D,25 Hydroxy 45.1 ng/mL
[2020-02-16 15:23] LABS: PTHIN 47.1 pg/mL (18.4-80.1)
[2020-02-16 15:24] LABS: Albumin, Serum 3.8 g/dL (3.2-5.0); BUN 16 mg/dL (7-18); BUN/Creat Ratio 14.7 RATIO (10-20); Calcium,Total 9.1 mg/dL (8.5-10.1); Chloride 92 mmol/L (98-107); Creatinine, Serum 1.09 mg/dL (0.70-1.30); EST Glomerular Filtration Rate 69 mL/min (>60); Est Glom Filt Rate - Afr Amer 83 mL/min (>60); Glucose 304 mg/dL (74-106); Potassium 4.5 mmol/L (3.5-5.1); Sodium Level 127 mmol/L (136-145)
[2020-02-16 17:11] LABS: Color, Urine Yellow (Yellow); Glucose, Dipstick 250 mg/dl (Normal); Ketone-Dipstick Negative (Negative); Leukocyte Esterase-Dipstick Negative /ul (Negative); Nitrite-Dipstick Negative (Negative); Occult Blood-Urine Negative /ul (Negative); Protein-Dipstick Negative (Negative); Urine Bilirubin Dipstick Negative (Negative); Urine Clarity Clear (Clear); Urine Urobilinogen Normal (Normal)
[2020-02-16 17:24] LABS: Squamous Epithelial Cells - UA 0-5 SEEN /hpf (0-5)
[2020-02-16 17:31] LABS: Microalbumin,Random Urine 64.4 mg/L (NO RANGE EST.); Microalbumin:Creatinine Ratio 326.9 mg/g CRE (<30 mg/g CRE); Protein, Urine (Random) 8.1 mg/dL (<11.9); Protein:Creat Ratio 411 mg/g CRE (0-200)
== END ==
PROVIDERS: PCP Family Medicine; Visit Provider Internal Medicine Nephrology
DX: I12.9 Hypertensive chronic kidney disease with stage 1 through stage 4 chronic kidney disease, or unspecified chronic kidney disease (principal); N18.2 Chronic kidney disease, stage 2 (mild); E55.9 Vitamin D deficiency, unspecified; Z13.0 Encounter for screening for diseases of the blood and blood-forming organs and certain disorders involving the immune mechanism
CPT/HCPCS: 36415; 80069; 81001; 82043; 82306; 82570; 83970; 84156; 85027

== ENCOUNTER → 2020-03-08 13:20 | Outpatient (CLI) | payer MEDICARE, SELFPAY ==
[2019-07-13 10:56] VITALS: BMI 30.7
[2020-03-08 13:23] LABS: Bacteria 0 SEEN /hpf (None Seen); Mucous, Urine 0 SEEN /hpf (<or=2+); Red Blood Cells-Urine 0 SEEN /hpf (0-5); Squamous Epithelial Cells - UA 0 SEEN /hpf (0-5); White Blood Cells 0 SEEN /hpf (0-5)
[2020-03-08 14:55] LABS: Color, Urine Yellow (Yellow); Glucose, Dipstick Normal (Normal); Ketone-Dipstick Negative (Negative); Leukocyte Esterase-Dipstick Negative /ul (Negative); Nitrite-Dipstick Negative (Negative); Occult Blood-Urine Negative /ul (Negative); Protein-Dipstick 15 mg/dl (Negative); Specific Gravity, Urine 1.005 (1.002-1.030); Urine Bilirubin Dipstick Negative (Negative); Urine Clarity Clear (Clear); Urine Urobilinogen Normal (Normal)
[2020-03-08 15:04] LABS: Anion Gap 8 (5-15); BUN 11 mg/dL (7-18); BUN/Creat Ratio 11.2 RATIO (10-20); Calcium,Total 9.4 mg/dL (8.5-10.1); Chloride 91 mmol/L (98-107); Creatinine, Serum 0.98 mg/dL (0.70-1.30); EST Glomerular Filtration Rate 78 mL/min (>60); Est Glom Filt Rate - Afr Amer 94 mL/min (>60); Glucose 123 mg/dL (74-106); Potassium 4.7 mmol/L (3.5-5.1); Sodium Level 128 mmol/L (136-145)
[2020-03-08 15:05] LABS: Protein, Urine (Random) 16.8 mg/dL (<11.9); Protein:Creat Ratio 394 mg/g CRE (0-200)
== END ==
PROVIDERS: PCP Family Medicine; Visit Provider Internal Medicine
DX: N18.2 Chronic kidney disease, stage 2 (mild) (principal)
CPT/HCPCS: 36415; 80048; 81001; 82570; 84156

== ENCOUNTER → 2020-04-07 09:05 | Outpatient (CLI) | payer MEDICARE, SELFPAY ==
[2019-07-13 10:56] VITALS: BMI 30.7
[2020-04-07 13:34] LABS: Cholesterol 180 mg/dL (200); High Density Lipoprotein 47 mg/dL; Triglycerides 119 mg/dL; Very Low Density Lipoprotein 24 mg/dL (5-40)
[2020-04-07 13:47] LABS: Hemoglobin A1c 6.4 % (3.8-5.6)
== END ==
PROVIDERS: PCP Family Medicine; Visit Provider Family Medicine
DX: E11.9 Type 2 diabetes mellitus without complications (principal); E78.5 Hyperlipidemia, unspecified
CPT/HCPCS: 36415; 80061; 83036

== ENCOUNTER → 2020-05-05 11:15 | Outpatient (CLI) | payer MEDICARE, SELFPAY ==
[2020-04-27 10:02] VITALS: BMI 31.0
[2020-05-05 11:54] LABS: Bacteria 0 SEEN /hpf (None Seen); Mucous, Urine 0 SEEN /hpf (<or=2+); Red Blood Cells-Urine 0 SEEN /hpf (0-5); White Blood Cells 0 SEEN /hpf (0-5)
[2020-05-05 16:03] LABS: Color, Urine Yellow (Yellow); Glucose, Dipstick Normal (Normal); Ketone-Dipstick Negative (Negative); Leukocyte Esterase-Dipstick Negative /ul (Negative); Nitrite-Dipstick Negative (Negative); Occult Blood-Urine Negative /ul (Negative); Protein-Dipstick Negative (Negative); Specific Gravity, Urine 1.005 (1.002-1.030); Urine Bilirubin Dipstick Negative (Negative); Urine Clarity Clear (Clear); Urine Urobilinogen Normal (Normal); Urine pH 6.5 (5.0 - 8.0)
[2020-05-05 16:11] LABS: Anion Gap 5 (5-15); BUN 13 mg/dL (7-18); BUN/Creat Ratio 13.1 RATIO (10-20); Calcium,Total 9.2 mg/dL (8.5-10.1); Chloride 97 mmol/L (98-107); Creatinine, Serum 0.99 mg/dL (0.70-1.30); EST Glomerular Filtration Rate 77 mL/min (>60); Est Glom Filt Rate - Afr Amer 93 mL/min (>60); Glucose 126 mg/dL (74-106); Potassium 4.2 mmol/L (3.5-5.1); Sodium Level 129 mmol/L (136-145)
[2020-05-05 16:12] LABS: Protein, Urine (Random) 7.1 mg/dL (<11.9); Protein:Creat Ratio 353 mg/g CRE (0-200)
[2020-05-05 16:28] LABS: Squamous Epithelial Cells - UA 0-5 SEEN /hpf (0-5)
[2020-05-09 18:45] LABS: Creat.Clear Total Volume 4350 mL; Creatinine Clearance 77 ml/min (100-200); Creatinine Urine 25.6 mg/dL (NO RANGE EST.); EST Glomerular Filtration Rate 76 mL/min (>60); Est Glom Filt Rate - Afr Amer 76 mL/min (>60)
[2020-05-09 20:37] LABS: 24 Hour Urine Protein 452.4 mg/24HR (<150 MG/24HR); 24HR. UA Prot. Total Volume 4350 mL; Urine Protein (24 Hour) 10.4 mg/dL (<11.9)
== END ==
PROVIDERS: PCP Family Medicine; Visit Provider Internal Medicine
DX: N18.2 Chronic kidney disease, stage 2 (mild) (principal)
CPT/HCPCS: 36415; 80048; 81001; 82570; 82575; 84156

== ENCOUNTER → 2020-05-17 10:42 | Outpatient (CLI) | payer MEDICARE, SELFPAY ==
[2020-04-27 10:02] VITALS: BMI 31.0
--- NOTE | 2020-05-17 10:45 | ECHOD_ITS ---
Reason For Study: Murmur Procedure This was a 2D Doppler, Color Flow transthoracic echocardiogram. The exam was of adequate technical quality. Exam performed in department. Left Ventricle Normal LV size. Left ventricular systolic function is normal. The estimated ejection fraction is 55 %. There is evidence of diastolic dysfunction. No regional wall motion abnormalities noted. Right Ventricle Normal RV size. Normal systolic function. Atria The left atrium is mildly enlarged. Normal right atrium. No doppler evidence for ASD. Mitral Valve There is severe mitral annular calcification. Extension of the mitral annular calcification onto the mitral valve leaflets. Mild focal mitral valve calcification of the anterior leaflet. Mild (1+) mitral valve insufficiency. Tricuspid Valve Normal tricuspid valve. Trivial tricuspid valve insufficiency. Right ventricular systolic pressure estimated to be 29 mmHg. Aortic Valve Trisinus/trileaflet aortic valve. Mild diffuse aortic valve thickening. Moderate diffuse aortic valve calcification. Moderate aortic stenosis. Trivial aortic valve insufficiency. Pulmonic Valve The pulmonic valve is not well visualized. Great Vessels Normal sized aortic root. Pericardium/Pleural No pericardial effusion. MMode/2D Measurements & Calculations LVIDd: 4.1 cm IVSd: 1.1 cm LVOT diam: 2.2 cm LVIDs: 2.4 cm LVPWd: 1.2 cm LVOT area: 3.9 cm2 RVDd: 3.6 cm FS: 40.3 % Ao root diam: 3.8 cm LAV(MOD-bp): 93.7 ml LVAd ap4: 34.1 cm2 LAV(MOD-bp) Indexed: 40.6 ml/m2 EDV(MOD-sp4): 110.1 ml LAV(MOD-sp2): 104.2 ml EDV(sp4-el): 117.7 ml LAV(MOD-sp4): 78.4 ml LVAs ap4: 19.6 cm2 ESV(MOD-sp4): 45.2 ml ESV(sp4-el): 46.4 ml EF(MOD-sp4): 58.9 % EF(sp4-el): 60.6 % SV(MOD-sp4): 64.8 ml SV(sp4-el): 71.3 ml LA A4 area: 24.1 cm2 LA dimension(2D): 4.5 cm RA A4 area: 19.4 cm2 Doppler Measurements & Calculations MV E max nahid: 83.0 cm/sec Lat Peak E' Nahid: 9.5 cm/sec Med Peak E' Nahid: 5.2 cm/sec MV A max nahid: 85.4 cm/sec E/E' lat: 8.7 E/E' med: 15.8 MV E/A: 0.97 Ao V2 max: 302.2 cm/sec AI max nahid: 450.7 cm/sec LV V1 max: 79.3 cm/sec Ao max P.6 mmHg AI max P.5 mmHg LV V1 max P.5 mmHg Ao V2 mean: 213.3 cm/sec LV V1 mean P.3 mmHg Ao mean P.1 mmHg AI dec slope: 166.8 cm/sec2 LV V1 mean: 53.7 cm/sec Ao V2 VTI: 72.6 cm AI P1/2t: 791.5 msec LV V1 VTI: 18.9 cm HUMBERTO(I,D): 1.0 cm2 HUMBERTO(V,D): 1.0 cm2 SV(LVOT): 74.3 ml PA V2 max: 119.2 cm/sec TR max nahid: 255.3 cm/sec TR max P.1 mmHg Interpretation Summary Left ventricular systolic function is normal. The estimated ejection fraction is 55 %. The left atrium is mildly enlarged. There is severe mitral annular calcification. Extension of the mitral annular calcification onto the mitral valve leaflets. Mild focal mitral valve calcification of the anterior leaflet. Mild (1+) mitral valve insufficiency. Trivial tricuspid valve insufficiency. Moderate aortic stenosis. Trivial aortic valve insufficiency. Right ventricular systolic pressure estimated to be 29 mmHg. There is evidence of diastolic dysfunction. Ordering Physician: Earle Anaya Referring Physician: Juanpablo Stack Performed By: Hilaria Medina MARCELINO
== END ==
PROVIDERS: PCP Family Medicine; Referring Provider Internal Medicine Cardiovascular Disease; Visit Provider Internal Medicine Cardiovascular Disease
DX: I06.1 Rheumatic aortic insufficiency (principal); I25.118 Atherosclerotic heart disease of native coronary artery with other forms of angina pectoris; I05.9 Rheumatic mitral valve disease, unspecified; E78.00 Pure hypercholesterolemia, unspecified; I10 Essential (primary) hypertension; Z95.1 Presence of aortocoronary bypass graft; Z95.5 Presence of coronary angioplasty implant and graft
CPT/HCPCS: 93306

== ENCOUNTER → 2020-09-08 10:05 | Outpatient (CLI) | payer MEDICARE, SELFPAY ==
[2020-04-27 10:02] VITALS: BMI 31.0
--- NOTE | 2020-09-08 10:15 | MRI_ITS ---
STUDY: MRI LUMBAR SPINE WITHOUT CONTRAST REASON FOR EXAM: Male, 80 years old. back pain, PREV MR 2010 TECHNIQUE: Standardized fat and water weighted pulse sequences were obtained in the sagittal and axial planes. COMPARISON: X-ray 01/29/2018, MRI 07/16/2011 FINDINGS: T12-L1: Normal endplates. Normal disc height, hydration and morphology. Normal bilateral facet joints. Normal central canal and bilateral lateral recesses. Normal bilateral intervertebral neural foramina. Normal lumbar lordosis. Mild dextroscoliosis. Normal conus medullaris that terminates at the L1-2: Normal endplates. Normal disc height, hydration and morphology. Normal bilateral facet joints. Normal central canal and bilateral lateral recesses. Normal bilateral intervertebral neural foramina. L2-3: Moderate bilobed disc protrusion asymmetric to the left produces mild spinal stenosis, mild right lateral recess stenosis, moderate left lateral recess stenosis with abutment of the left L3 nerve root, mild right neural foraminal stenosis, and moderate left neural foraminal stenosis with abutment of the exiting left L2 nerve root laterally. L3-4: Status post posterior decompression. Mild broad disc osteophyte complex produces mild spinal stenosis and moderate bilateral neural foraminal stenosis with abutment of the exiting L3 nerve roots bilaterally. L4-5: Status post posterior decompression. Mild broad disc osteophyte complex produces mild spinal stenosis and moderate bilateral neural foraminal stenosis with abutment of the exiting L4 nerve roots bilaterally. L5-S1: Status post posterior decompression. 2 mm retrolisthesis of L5 on S1 with a mild broad disc defect complex produces mild spinal stenosis and moderate bilateral neural foraminal stenosis with abutment of the exiting L5 nerve roots bilaterally. Normal visualized sacral ala. Normal visualized paraspinous soft tissue structures. MRI/Spine Lumbar (Routine) IMPRESSION: Postsurgical changes and degenerative disc disease as described above. Electronically Signed: Bjorn Harris MD at 15:43 EST Tel , Service support ,
== END ==
PROVIDERS: PCP Family Medicine; Referring Provider Anesthesiology Pain Medicine; Visit Provider Anesthesiology Pain Medicine
DX: M51.37 Other intervertebral disc degeneration, lumbosacral region (principal); M48.07 Spinal stenosis, lumbosacral region
CPT/HCPCS: 72148

== ENCOUNTER → 2020-10-05 09:51 | Outpatient (CLI) | payer MEDICARE, SELFPAY ==
[2020-04-27 10:02] VITALS: BMI 31.0
[2020-10-05 13:20] LABS: Hemoglobin A1c 6.4 % (3.8-5.6)
[2020-10-05 13:32] LABS: Cholesterol 231 mg/dL (200); High Density Lipoprotein 58 mg/dL; Triglycerides 154 mg/dL; Very Low Density Lipoprotein 31 mg/dL (5-40)
== END ==
PROVIDERS: PCP Family Medicine; Visit Provider Family Medicine
DX: E11.9 Type 2 diabetes mellitus without complications (principal); E78.5 Hyperlipidemia, unspecified
CPT/HCPCS: 36415; 80061; 83036; 86900; 86901

== ENCOUNTER → 2020-11-08 10:47 | Outpatient (CLI) | payer MEDICARE, SELFPAY ==
[2019-07-13 10:56] VITALS: BMI 30.7
[2020-10-27 10:40] VITALS: BMI 32.3
[2020-11-08 12:20] LABS: Hematocrit 37.7 % (40-54); Hemoglobin 13.2 g/dL (13.0-16.5); Mean Corpuscular Hgb 33.4 pg (27.0-32.0); Mean Corpuscular Volume 95.4 fL (80-94); Mean Platelet Vol. 10.7 fl (6.2-12.0); Platelet Count 130 K/mm3 (150-450); RBC Distribution Width SD 42.1 fl (35.1-43.9); Red Blood Count 3.95 M/mm3 (4.6-6.2); White Blood Count 7.7 K/mm3 (4.4-11.0)
[2020-11-08 12:40] LABS: Vitamin D,25 Hydroxy 42.9 ng/mL
[2020-11-08 12:41] LABS: AST(SGOT) 19 U/L (15-37); Alanine Aminotransfer ALT/SGPT 29 U/L (16-61); Albumin, Serum 3.9 g/dL (3.2-5.0); Alkaline Phosphatase 76 U/L (45-117); Bilirubin, Direct 0.12 mg/dL (0.00-0.30); Globulin 3.9 g/dL (2.2-4.2); Magnesium 1.7 mg/dL (1.6-2.6); Protein, Total 7.8 g/dL (6.4-8.2)
[2020-11-08 12:52] LABS: PTHIN 38.3 pg/mL (18.4-80.1)
[2020-11-08 12:54] LABS: Microalbumin,Random Urine 55.4 mg/L (NO RANGE EST.); Microalbumin:Creatinine Ratio 366.9 mg/g CRE (<30 mg/g CRE)
[2020-11-10 16:45] LABS: Anion Gap 7 (5-15); BUN 15 mg/dL (7-18); BUN/Creat Ratio 13.4 RATIO (10-20); Chloride 99 mmol/L (98-107); Creatinine, Serum 1.12 mg/dL (0.70-1.30); EST Glomerular Filtration Rate 67 mL/min (>60); Est Glom Filt Rate - Afr Amer 81 mL/min (>60); Glucose 240 mg/dL (74-106); Potassium 4.7 mmol/L (3.5-5.1); Sodium Level 130 mmol/L (136-145)
== END ==
PROVIDERS: Family Provider Family Medicine; PCP Family Medicine; Visit Provider Internal Medicine Nephrology
DX: E11.9 Type 2 diabetes mellitus without complications (principal); E78.5 Hyperlipidemia, unspecified; E55.9 Vitamin D deficiency, unspecified
CPT/HCPCS: 36415; 80048; 80076; 82043; 82306; 82570; 83735; 83970; 84100; 85027

== ENCOUNTER 2020-12-28 17:21 | Emergency (ER) | payer MEDICARE, SELFPAY ==
[2020-12-16 08:52] VITALS: BMI 32.1
[2020-12-28 17:22] VITALS: BP 189/84; PULSE 81; RESP 18; TEMP 37.2; O2SAT 98; BMI 31.3
--- NOTE | 2020-12-28 18:08 | CT_ITS ---
INDICATION: hypertension, dizziness EXAMINATION: CT BRAIN - CT Head or Brain W/O Contrast Injection TECHNIQUE: Multiple axial images were obtained of the head without intravenous contrast. A radiation dose optimization technique was used for this scan. IV Contrast dosage and agent: None. COMPARISON: FINDINGS: BRAIN PARENCHYMA: Mild atrophy. Mild diffuse white matter disease. No intra- or extra-axial hemorrhage. No evidence of acute infarct. No intracranial mass or mass effect. There is preservation of the payne/white matter interface. Posterior fossa structures are unremarkable. Small area of encephalomalacia in the posterior right parietal lobe from previous infarct. Small area of septal malacia in the right frontal lobe from previous infarct. CSF SPACES: Appropriate for age. No hydrocephalus. Basal cisterns are patent. CALVARIUM, SKULL BASE, PARANASAL SINUSES AND MASTOID AIR CELLS: Clear. No discrete lytic or blastic abnormalities. ORBITS: Both globes, extraocular muscles, optic nerves and retrobulbar fat appear unremarkable. ASPECTS Score for Acute Strokes: 07/16 CT/Brain/Head without Contrast IMPRESSION: No acute abnormalities. Atrophy. White matter disease. Old infarcts. Electronically Signed: Colton Mcknight MD at 19:22 EDT , Service support ,
--- NOTE | 2020-12-28 18:08 | EKG12_ITS ---
Test Reason : DYSRHYTHMIA Blood Pressure : / mmHG Vent. Rate : 072 BPM Atrial Rate : 072 BPM P-R Int : 358 ms QRS Dur : 104 ms QT Int : 394 ms P-R-T Axes : 053 -16 052 degrees QTc Int : 431 ms Sinus rhythm with 1st degree A-V block Left ventricular hypertrophy with repolarization abnormality Abnormal ECG Confirmed by TREVON POLLOCK, BENOIT ([id number]), senior editor JOSUÉ GALEANO ([id number]) on 12/30/2020 9:34:24 AM Referred By: SUSAN Confirmed By:LOUIS LESTER MD
[2020-12-28 18:18] VITALS: BP 148/90; PULSE 74; RESP 10; O2SAT 99
[2020-12-28 18:31] LABS: Absolute Lymphocyte Count 0.89 X10^3/uL (0.83-4.51); Absolute Neutrophil Count 5.8 X10^3/uL (2.0-7.7); Basophil# 0.05 X10^3/uL; Basophil% 0.7 % (0-1); Eosinophil# 0.05 X10^3/uL; Eosinophils% 0.7 % (0-5); Hematocrit 36.6 % (40-54); Lymphocyte # 0.89 X10^3/ul (4.0); Lymphocyte % 11.9 % (19-41); Mean Corp Hgb Conc 35.5 g/dL (32-36); Mean Corpuscular Hgb 33.2 pg (27.0-32.0); Mean Corpuscular Volume 93.6 fL (80-94); Mean Platelet Vol. 10.3 fl (6.2-12.0); Monocyte# 0.65 X10^3/uL; Monocyte% 8.7 % (0-10); NRBC Flagged by Analyzer 0 % (0-5); Neutrophil % 77.3 % (47-70); Platelet Count 134 K/mm3 (150-450); RBC Distribution Width CV 11.9 % (11.6-14.6); RBC Distribution Width SD 41.1 fl (35.1-43.9); Red Blood Count 3.91 M/mm3 (4.6-6.2); White Blood Count 7.5 K/mm3 (4.4-11.0)
--- NOTE | 2020-12-28 18:35 | ED.DCSUM_ITS ---
- ER Visit Summary Date of Service: 12/28/20 Chief Complaint: [Hypertension] History of Present Illness: The patient is a 80 M [presents to the emergency department with concern about his elevated blood pressure today. Patient states that he was sitting when he decided to go outside to the grill and get some hamburgers and he started feeling dizzy at that time and flushed and sat back down. His took his blood pressure and it was elevated to 201/90. Patient had a possible TIA little over 7 days ago where his right hand was not working right he had a hard time writing his name he had some numbness in his right hand. He subsequently saw his primary care physician and has MRI and MRAs ordered for later this week. Patient states there is been some improvement in the use of his hand. Currently he denies any dizziness. His blood pressure when medicated is in the 160s to 170 systolic. He had recent changes in his medications and he takes 2 tablets at night instead of 1 tablet of his blood pressure medicine at night. The headache. Denies chest pain or shortness of breath.] Physical Examination: [HEENT-PERRLA, EOMI. Cranial nerves II through XII grossly intact. TMs clear. Mucous membranes moist. No adenopathy. Cardiovascular-regular rate and rhythm without murmur or ectopy Lungs-clear to auscultation, chest wall stable without crepitus or subcu emphysema Abdomen-normoactive bowel sounds, soft, nontender, no rebound or rigidity, no peritoneal signs. Neuro ycqc-kreauu-affh and heel mcnulty testing within normal limits, negative Romberg, negative , Fundi benign. NIH stroke scale was 0. Extremities-intact ?4, normal range of motion, normal pulses, atraumatic] Test Results: [CT scan of the brain without contrast showed nothing acute other than there were some old infarcts noted in the right parietal and right frontal lobes. EKG obtained arrival shows sinus rhythm with a ventricular rate of 72 bpm with some LVH and a first-degree AV block noted. CBC with differential showed a white count 7.5, hemoglobin 13, hematocrit 39, plates 134. Chemistry showed a sodium 129, potassium 4.2, chloride 96, CO2 24, glucose 225, BUN 17 and creatinine 1.07.] Emergency Department Course and Treatment: [The line established on arrival. Patient was placed on a supervisor firearms. Without any treatment his blood pressure improved into the 140s and 120 systolic. Patient was able to ambulate to the bathroom without difficulty. He is no longer dizzy and has no other signs or symptoms of stroke.] I suspect his dizziness may have been vasovagal he mediated being that occurred immediately after standing. Treatment Plan: [Patient to follow-up with his primary care physician. He is to keep his appointment to have his MRIs in 5 days. Patient advised to return if persistent hypertension severe headaches, chest pain, persistent dizziness or focal weakness or condition should worsen anyway.] Disposition: [Discharged home in stable condition] Impression: [Dizziness-resolved Hypertension-established] This note was generated with [employer] dictation software. It may contain incorrect words, spelling, and punctuation that were not noted in review of the chart prior to signing ED Disposition - Plan for ED Patient: Referrals: Juanpablo Stack DO [Primary Care Provider] -
[2020-12-28 18:49] LABS: Anion Gap 9 (5-15); BUN 17 mg/dL (7-18); BUN/Creat Ratio 15.9 RATIO (10-20); Chloride 96 mmol/L (98-107); Creatinine, Serum 1.07 mg/dL (0.70-1.30); EST Glomerular Filtration Rate 70 mL/min (>60); Est Glom Filt Rate - Afr Amer 85 mL/min (>60); Estimated Creatinine Clearance 61.88 ml/min; Glucose 225 mg/dL (74-106); Potassium 4.2 mmol/L (3.5-5.1); Sodium Level 129 mmol/L (136-145)
--- NOTE | 2020-12-28 19:38 | ED.DEP ---
ED Disposition - Plan for ED Patient: Instructions: ED Hypertension, Established, ED Dizziness, Uncertain Cause Referrals: Juanpablo Stack DO [Primary Care Provider] - 3-5 Days
[2020-12-28 19:46] VITALS: BP 127/86; O2SAT 98
== END 2020-12-28 19:50 | disposition home or self-care (01) ==
LOC: ED 18:31
PROVIDERS: Emergency Provider Emergency Medicine; PCP Family Medicine
DX: R42 Dizziness and giddiness (principal); I10 Essential (primary) hypertension; I25.10 Atherosclerotic heart disease of native coronary artery without angina pectoris
CPT/HCPCS: 70450; 80048; 84484; 85025; 93005; 99284; A4216

== ENCOUNTER → 2021-01-02 12:02 | Outpatient (CLI) | payer MEDICARE, SELFPAY ==
[2020-12-16 08:52] VITALS: BMI 32.1
[2020-12-28 17:22] VITALS: BMI 31.3
--- NOTE | 2021-01-02 12:35 | MRI_ITS ---
STUDY: MRI BRAIN WITHOUT CONTRAST REASON FOR EXAM: Male, 80 years old. TIA/STROKE -- patient claustrophobic unable to do contrast portion TECHNIQUE: Standardized multiplanar fat and water weighted pulse sequences were obtained. COMPARISON: CT of the brain 12/28/2020 FINDINGS: Mild atrophy and moderate periventricular white matter ischemic changes without mass effect or restricted diffusion.. There are multiple focal areas of gliosis in the bilateral frontal and parietal lobes consistent with subacute to chronic ischemic changes however there is methemoglobin and hemosiderin in association with left frontal lobe lesion consistent with prior hemorrhage. Normal bilateral basal ganglia. Normal thalami. There is no extra-axial fluid accumulation. Normal flow voids within the major intracranial circulation suggesting patency by spin echo criteria. Normal sella turcica, pituitary gland, infundibular stalk, optic chiasm and hypothalamus. Normal tectal plate and pineal gland. Normal midbrain, francisca and medulla. Normal cerebellum. Normal basal cisterns. Normal bilateral temporal bones. Normal bilateral internal auditory canals. Postsurgical changes of the orbits.. Normal visualized paranasal sinuses. Normal calvarium and skull base. Normal visualized soft tissue structures. Normal visualized upper cervical spine. MRI/Brain without Contrast IMPRESSION: Atrophy and moderate periventricular white matter ischemic changes. Bilateral multifocal subacute to chronic areas of ischemia. No evidence for acute infarct There is a small area of gliosis in the left frontal lobe demonstrating both methemoglobin and hemosiderin consistent with prior hemorrhage. Recommend clinical correlation and follow-up studies Electronically Signed: Mike Lomas MD at 16:08 EDT , Service support ,
--- NOTE | 2021-01-02 13:46 | CDU_ITS ---
Reason For Study: CAROTID ATHEROSCLEROSIS Rt. Velocities/BP Lt. Velocities/BP Prox CCA 82.5/12.1 cm/sec. Prox CCA 73.1/17.1 cm/sec. Mid CCA 79.0/9.9 cm/sec. Mid CCA 105.0/22.6 cm/sec. Dist CCA 88.1/11.2 cm/sec. Dist CCA 95.1/20.4 cm/sec. Prox ICA 86.2/13.2 cm/sec. Prox ICA 98.4/10.8 cm/sec. Mid ICA 64.1/15.0 cm/sec. Mid ICA 78.4/18.1 cm/sec. Dist ICA 71.5/18.7 cm/sec. Dist ICA 74.7/21.7 cm/sec. Rt. ICA/CCA = 86.2/88.1=1.0. Lt. ICA/CCA = 98.4/105.0=0.9. Prox ECA 147.2/10.2 cm/sec. Prox ECA 174.1/7.9 cm/sec. Rt. Vert. 42.0/12.3 cm/sec. Lt. Vert. 62.5/13.4 cm/sec. Right Extracranial There is heterogeneous, irregular atherosclerotic plaque noted in the right common carotid artery. There is homogeneous, irregular atherosclerotic plaque noted in the right internal carotid artery. The atherosclerotic plaque causes acoustic shadowing. The distal right internal carotid artery is not well visualized. There is heterogeneous, irregular atherosclerotic plaque noted in the right external carotid artery. Antegrade flow is noted in the right vertebral artery. There is heterogeneous, irregular atherosclerotic plaque noted in the right bulb. Acoustic shadowing. Left Extracranial There is heterogeneous, irregular atherosclerotic plaque noted in the left common carotid artery. There is heterogeneous, irregular atherosclerotic plaque noted in the left internal carotid artery. The atherosclerotic plaque causes acoustic shadowing. The distal left internal carotid artery is not well visualized. There is heterogeneous, irregular atherosclerotic plaque noted in the left external carotid artery. Antegrade flow is noted in the left vertebral artery. There is heterogeneous, irregular atherosclerotic plaque noted in the left bulb. Acoustic shadowing. Procedure Carotid Duplex 71624. The study was technically difficult. Exam performed in department. VL/Carotid Duplex Ultrasound Interpretation Summary Mild (<50%) stenosis right extracranial internal carotid. Mild (<50%) stenosis left extracranial internal carotid. Flow within the vertebral arteries is antegrade bilaterally. Ordering Physician: Juanpablo Stack Referring Physician: Juanpablo Stack Performed By: Yaneli Oseguera, CLAUDIA, RVT
== END ==
PROVIDERS: PCP Family Medicine; Referring Provider Family Medicine; Visit Provider Family Medicine
DX: G93.40 Encephalopathy, unspecified (principal); I65.23 Occlusion and stenosis of bilateral carotid arteries
CPT/HCPCS: 70551; 93880

== ENCOUNTER → 2021-01-12 10:15 | Outpatient (CLI) | payer MEDICARE, SELFPAY ==
[2020-12-28 17:22] VITALS: BMI 31.3
[2021-01-12 12:58] LABS: Anion Gap 6 (5-15); BUN 19 mg/dL (7-18); BUN/Creat Ratio 15.4 RATIO (10-20); Calcium,Total 9.4 mg/dL (8.5-10.1); Chloride 95 mmol/L (98-107); Creatinine, Serum 1.23 mg/dL (0.70-1.30); EST Glomerular Filtration Rate 60 mL/min (>60); Est Glom Filt Rate - Afr Amer 72 mL/min (>60); Glucose 222 mg/dL (74-106); Potassium 4.6 mmol/L (3.5-5.1); Sodium Level 128 mmol/L (136-145)
== END ==
PROVIDERS: PCP Family Medicine; Referring Provider Family Medicine; Visit Provider Family Medicine
DX: I10 Essential (primary) hypertension (principal)
CPT/HCPCS: 36415; 80048

== ENCOUNTER 2021-02-01 04:07 | Observation (INO) | payer MEDICARE, SELFPAY ==
[2021-02-01] VITALS (18 sets, daily range): BP systolic 113–184; BP diastolic 48–142; PULSE 57–102; RESP 16–22; TEMP 36.7–37.3; O2SAT 94–100; BMI 33.2; BMI 31.8
--- NOTE | 2021-02-01 04:09 | EKG12_ITS ---
Test Reason : STROKE Blood Pressure : / mmHG Vent. Rate : 070 BPM Atrial Rate : 242 BPM P-R Int : 000 ms QRS Dur : 106 ms QT Int : 430 ms P-R-T Axes : 000 -01 070 degrees QTc Int : 464 ms Atrial flutter with variable A-V block Abnormal ECG Confirmed by HELGA POLLOCK, FANTA ([id number]), continuity editor JOSUÉ GALEANO ([id number]) on 02/02/2021 9:16:41 AM Referred By: MEET Confirmed By:FANTA PARTIDA MD
--- NOTE | 2021-02-01 04:09 | CT_ITS ---
STUDY: CT HEAD STROKE PROTOCOL W/O CONTRAST INJECTION REASON FOR EXAM: Male, 80 years old. Neuro deficit, acute, stroke suspected RADIATION DOSAGE (If Supplied By Facility): CTDIvol = ( ) mGy, DLP = ( ) mGycm TECHNIQUE: Transaxial CT imaging of the brain was performed without administration of intravenous contrast material.. Exam is limited by motion artifacts. Individualized dose optimization techniques were used for this CT. COMPARISON: CT scan brain 12/28/2020. FINDINGS: Normal soft tissue structures. Normal calvarium. There are foci of encephalomalacia in the posterior right parietal lobe, high bilateral frontal lobes, and posterior mesial right occipital lobe, consistent with old infarctions. There is mild cerebral atrophy with widening of the extra-axial spaces and ventricular dilatation. There are areas of decreased attenuation within the white matter tracts of the supratentorial brain, consistent with microvascular disease changes. Normal basal ganglia and thalami. Normal brainstem. Normal cerebellum. There is atherosclerotic calcification of the vertebral and cavernous carotid arteries. There is no intracranial hemorrhage. There are no findings of an acute ischemic infarction. Normal visualized paranasal sinuses. ASPECT score: 10 CT/STROKE Brain/Head without Cont IMPRESSION: Limited exam due to motion artifacts. Small, old infarctions bilaterally. Chronic involutional changes of the brain. No visualized acute pathology. N.B. : The above information has been verbally conveyed by Ankit Coronado MD to Dr. Wisam Farrar DO, on 02/01/2021 04:32:01 (ET). Electronically Signed: Ankit Coronado MD at 4:33 EDT , Service support ,
--- NOTE | 2021-02-01 04:10 | CT_ITS ---
STUDY: CTA HEAD AND NECK WITH CONTRAST REASON FOR EXAM: Male, 80 years old. Neuro deficit, acute, stroke suspected RADIATION DOSAGE (If Supplied By Facility): CTDIvol = ( 21.86 ) mGy, DLP = ( 654.62 ) mGycm TECHNIQUE: CT angiography was performed with a multi-detector CT scanner. Data acquisition was obtained from the skull base through the vertex following intravenous administration of IV 100mL [id number]-[id number]. MIP images were reconstructed from the axial data set. Post-processing of the angiographic images was performed, with multiplanar reformation and 3D reconstruction. Individualized dose optimization techniques were used for this CT. COMPARISON: No relevant priors. FINDINGS: Normal bilateral petrous carotid arteries. There is calcified plaque formation of the right cavernous carotid artery, with a severe stenosis (greater than 75%). There is calcified plaque formation of the left cavernous carotid artery, with a moderate stenosis (50-75%). Normal right A1 segments of the anterior cerebral artery. Normal left A1 segments of the anterior cerebral artery. Normal intact anterior communicating artery (ACOM). Normal bilateral A2 segments of the anterior cerebral arteries. Normal right M1 and M2 segments of the middle cerebral arteries, with a normal M1 bifurcation. Normal left M1 and M2 segments of the middle cerebral arteries, with a normal M1 bifurcation. There is non-visualization of the right posterior communicating artery (PCOM). There is non-visualization of the left posterior communicating artery (PCOM). Severe stenosis of the intracranial vertebral arteries bilaterally. Normal basilar artery with a normal basilar bifurcation. The visualized bilateral superior cerebellar (SCA) arteries are normal. Normal bilateral P1, P2 and visualized P3 segments of the posterior cerebral arteries. There is no demonstrated aneurysm of the [place]. There is no demonstrated abnormality of the visualized brain. AORTIC ARCH: Aortic arch is not included in the study.. No evidence for hemodynamically significant stenosis of the visualized intrathoracic segments of the brachiocephalic, left common carotid, and left subclavian arteries. RIGHT CAROTID ARTERIES: Normal right common carotid artery (CCA). There is mild atherosclerotic plaque formation with minimal narrowing of the right carotid bulb. There is mild atherosclerotic plaque formation of the origin of the right internal carotid artery with less than 50% cross sectional diameter stenosis. Normal visualized cervical portion of the right internal carotid artery. Normal origin of the right external carotid artery (ECA). LEFT CAROTID ARTERIES: Normal left common carotid artery (CCA). There is mild atherosclerotic plaque formation with minimal narrowing of the left carotid bulb. There is mild atherosclerotic plaque formation of the origin of the left internal carotid artery with less than 50% cross sectional diameter stenosis. Normal visualized cervical portion of the left internal carotid artery. Normal origin of the left external carotid artery (ECA). VERTEBRAL ARTERIES: Moderate stenosis of the proximal right vertebral artery, near its origin. Severe stenosis of the proximal left vertebral artery at its origin. 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 Moderate stenosis of the left cavernous carotid artery. Severe stenosis of the intracranial vertebral arteries bilaterally. Nonvisualization of the posterior communicating arteries. No demonstrated aneurysm. No visualized occlusion of major arterial segments. CERVICAL: Severe stenosis of the intrathoracic segment of the left vertebral artery and moderate stenosis of the right intrathoracic vertebral artery at their origins. No evidence for hemodynamically significant stenosis of the cervical carotid arteries. N.B. : The above information has been verbally conveyed by Ankit Coronado MD to Dr. Wisam Farrar DO, on 02/01/2021 05:16:27 (ET). Electronically Signed: Ankit Coronado MD at 5:17 EDT , Service support ,
--- NOTE | 2021-02-01 04:10 | ED.VIS.STROK ---
HPI History of Present Illness Chief Complaint: Neuro S/Sx Narrative Narrative: 80-year-old male with history of CVA and peripheral vascular disease presenting via EMS for possible strokelike symptoms. Last known well was 10 PM last evening. Apparently the had found him turning on and off the bathroom sink. This was at about 3 AM. Patient not responding to questions. Per EMS he is not following any commands. The is not in the emergency room initially but EMS does not report any trauma. [facility] Medical History (Updated 02/01/21 @ 05:15 by Sahara Vee RN) Anemia Asymptomatic peripheral vascular disease Atherosclerotic heart disease of [place] coronary artery with other forms of angina pectoris Diabetes mellitus type II, controlled Edema of left lower extremity Encounter for long-term current use of high risk medication Essential (primary) hypertension Infection of anterior lower leg Malnutrition Old myocardial infarction Osteomyelitis of left tibia Peripheral vascular disease Presence of stent in coronary artery (~01/06/16) Pure hypercholesterolemia 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 Stroke/cerebrovascular accident Ulcer of left mcnulty Venous insufficiency Home Medications aspirin 81 mg PO DAILY 03/26/16 [History Last Taken Unknown] losartan 100 mg PO QHS 03/26/16 [History Last Taken Unknown] saxagliptin-metformin [Kombiglyze XR] 1 tab PO BID 04/18/16 [History Last Taken Unknown] cholestyramine (with sugar) 4 gram oral powder 4 g PO DIRECTED ea 01/16/18 [History Last Taken Unknown] glimepiride 2 mg tablet 2 mg PO BID tab 01/20/18 [History Last Taken Unknown] atenolol 25 mg tablet 25 mg PO QHS 01/05/19 [History Last Taken Unknown] furosemide 40 mg tablet 40 mg PO DAILY tab 01/05/19 [History Last Taken Unknown] nitroglycerin 0.4 mg sublingual tablet 0.4 mg SUBLINGUAL Q5M PRN #25 tab 01/05/19 [Rx Last Taken Unknown] omeprazole 20 mg capsule,delayed release 20 mg PO QHS cap 01/05/19 [History Last Taken Unknown] calcium citrate 600 mg PO DAILY 05/20/19 [History Last Taken Unknown] finasteride 5 mg tablet 5 mg PO DAILY 04/27/20 [History Last Taken Unknown] mecobalamin (vitamin B12) 5,000 mcg disintegrating tablet 5,000 mcg PO DAILY 04/27/20 [History Last Taken Unknown] multivitamin 1 tab PO DAILY 04/27/20 [History Last Taken Unknown] amlodipine 5 mg tablet 10 mg PO QHS tab 12/16/20 [History Last Taken Unknown] cholecalciferol (vitamin D3) [Vitamin D3] 125 mcg PO DAILY 02/01/21 [History Last Taken Unknown] coenzyme Q10 [CoQ-10] 100 mg PO DAILY 02/01/21 [History Last Taken Unknown] glucos sul 1FMb-slf-[id number]-C-Mn [Glucosamine Chondroitin] 1 cap PO DAILY 02/01/21 [History Last Taken Unknown] sbnhjoew-kzpjq-umy 2-C-D3-angelica [Czzniaxh-Gfmtya-YBZ with vit D] tab PO 02/01/21 [History Last Taken Unknown] zinc 50 mg PO DAILY 02/01/21 [History Last Taken Unknown] Allergy/AdvReac Type Severity Reaction Status Date / Time lisinopril [From Zestril] Allergy Other Verified 02/01/21 04:17 niacin Allergy Rash Verified 02/01/21 04:17 pravastatin sodium Allergy Other Verified 02/01/21 04:17 [From Pravachol] Tigjikg-Ete-Sja Reductase AdvReac Other Verified 02/01/21 04:17 Inhibitor Family History Father COPD (chronic obstructive pulmonary disease) Arthritis Lung disease Mother CVA (cerebral vascular accident) Hx of CABG Heart disease Hypertension Hypercholesterolemia Brother Arthritis Brother Heart disease Brother Hypertension Brother Hypercholesterolemia Sister Heart disease Sister Hypertension Sister Hypercholesterolemia Surgical History (Updated 02/01/21 @ 05:15 by Sahara Vee RN) H/O coronary artery bypass surgery (~01/18/16) History of appendectomy History of arthroscopy of left knee History of inguinal hernia repair, bilateral History of knee replacement History of lumbar surgery History of tonsillectomy Presence of coronary angioplasty implant and graft Social History (Updated 12/16/20 @ 12:25 by Fabio Jordan NP, [employer]) Smoking Status: Never smoker alcohol intake: never substance use type: does not use caffeine: Yes Type: carbonated beverages Number of servings: 3 what type of physical activity do you participate in: other details: treadmill, [place] frequency: 3-4 times per week duration: 30-45 minutes/day seatbelt use: always do you feel safe at home: Yes ROS ROS ED Review of Systems ROS Unobtainable: due to mental status EXAM Physical Exam Const Vital Signs: 02/01/21 04:07 02/01/21 04:37 02/01/21 04:38 Temperature 99.0 F 98.2 F Temperature Source Temporal Temporal Pulse Rate 80 70 Respiratory Rate 20 H 18 Blood Pressure 113/97 H 113/97 H Blood Pressure Mean 102 102 Pulse Ox 99 97 99 Oxygen Delivery Method Room Air Room Air Room Air 02/01/21 04:39 02/01/21 05:09 02/01/21 05:13 Temperature 98.6 F Temperature Source Oral Pulse Rate 74 60 Respiratory Rate 16 22 H 22 H Blood Pressure 122/48 H 140/60 H Blood Pressure Mean 72 86 Pulse Ox 99 98 Oxygen Delivery Method Room Air Room Air 02/01/21 05:30 02/01/21 06:00 02/01/21 07:36 Temperature 98.6 F 98.5 F 98.6 F Temperature Source Oral Oral Temporal Pulse Rate 74 86 79 Respiratory Rate 19 H 20 H 17 Blood Pressure 170/142 H 159/112 H 177/76 H Blood Pressure Mean 151 127 109 Pulse Ox 94 100 97 Oxygen Delivery Method Room Air Room Air Room Air Positive well nourished HEENT Reports moist mucous membranes atraumatic Eyes PERRL and EOMs intact bilaterally Chest Wall inspection of chest normal and palpation of chest normal Resp normal respiratory effort and clear to auscultation bilaterally Cardio Rate: regular rate Rhythm: regular rhythm GI normal to inspection, nondistended, normoactive bowel sounds and soft to palpation Extremity normal to inspection General Extremety ED: Negative for deformity or tenderness General Extremity: Negative for deformity Neuro Sensorium / Orientation: alert Psych Attention / Concentration: other Skin Lesions: no lesions Rashes: no rashes STROKE Vital Signs/Narrative: Vital Signs Temp Pulse Resp BP Pulse Ox 02/01/21 07:36 98.6 F 79 17 177/76 H 97 02/01/21 06:00 98.5 F 86 20 H 159/112 H 100 02/01/21 05:30 98.6 F 74 19 H 170/142 H 94 02/01/21 05:13 22 H 02/01/21 05:09 98.6 F 60 22 H 140/60 H 98 02/01/21 04:39 74 16 122/48 H 99 02/01/21 04:38 98.2 F 70 18 113/97 H 99 02/01/21 04:37 97 Neurological: Positive for - (Patient moves all 4 extremities. He does follow some commands. He is not speaking much but is able to answer some questions at times.) MDM MDM MDM Narrative Medical decision making narrative: 80-year-old male presenting with altered mental status. Last known well 10 PM last evening. Patient arrives after 3:00. Patient's was not here yet but it was reported that he was turning on and off the water faucet in the bathroom. Patient had CT and CTA immediately which showed no stroke or obvious occlusion but there was some narrowing of multiple vessels. Patient had previous stroke apparently and had MRI outpatient. He was left with deficits which made it difficult for him to tie his shoes and for him to write. He was able to drive a car and the riding lawnmower without difficulty. On 's arrival she states that this is definitely new. Patient was initially calm but became very agitated. He required several doses of Ativan to calm him down. He did at 1 point without his IV which delayed care. Patient had EKG on arrival which showed what looks like a flutter at 70 bpm ventricular rate as interpreted by myself. Lab work shows white blood cell count of 15.9, hemoglobin 11.7, hematocrit 32.7, platelets 139. he does have a left shift. Patient's chemistry shows a sodium of 120 which is new, potassium 4.1, chloride 89, CO2 20, anion gap 11, BUN 23, creatinine 1.11. Lactic acid returned at 3.1. Troponin is 0.122 and this is also new. Patient was pancultured. Patient's chest x-ray interpreted by myself shows no acute cardiopulmonary process. Radiology does agree. Discussed with hospitalist for admission. She wanted to hold antibiotics until we find a source of infection. Patient will be signed out to incoming ED physician for monitoring until he can be accepted upstairs. Impression: 1. Altered mental status 2. Hyponatremia 3. Leukocytosis 4. Lactic acidosis 5. Elevated troponin Lab Data Attestation: I reviewed the patient's lab results. Labs: Laboratory Results - last 24 hr 02/01/21 02/01/21 02/01/21 04:30 04:30 04:30 WBC 15.9 H RBC 3.56 L Hgb 11.7 L Hct 32.7 L MCV 91.9 MCH 32.9 H MCHC 35.8 RDW Std Deviation 39.8 RDW Coeff of Ryan 11.7 Plt Count 139 L MPV 10.4 Immature Gran % (Auto) 0.900 Neut % (Auto) 88.8 H Lymph % (Auto) 3.8 L Coffey % (Auto) 6.1 Eos % (Auto) 0.1 Baso % (Auto) 0.3 Absolute Neuts (auto) 14.1 H Absolute Lymphs (auto) 0.61 L Nucleated RBC % 0 PT 13.5 INR 1.1 APTT 29.7 Sodium 120 L Potassium 4.1 Chloride 89 L Carbon Dioxide 20.0 L Anion Gap 11 BUN 23 H Creatinine 1.11 Estim Creat Clear Calc 57.99 Est GFR (MDRD) Af Amer 81 Est GFR (MDRD) Non-Af 67 BUN/Creatinine Ratio 20.7 H Glucose 233 H Lactic Acid Calcium 8.5 Troponin I 0.122 H 02/01/21 07:08 WBC RBC Hgb Hct MCV MCH MCHC RDW Std Deviation RDW Coeff of Ryan Plt Count MPV Immature Gran % (Auto) Neut % (Auto) Lymph % (Auto) Coffey % (Auto) Eos % (Auto) Baso % (Auto) Absolute Neuts (auto) Absolute Lymphs (auto) Nucleated RBC % PT INR APTT Sodium Potassium Chloride Carbon Dioxide Anion Gap BUN Creatinine Estim Creat Clear Calc Est GFR (MDRD) Af Amer Est GFR (MDRD) Non-Af BUN/Creatinine Ratio Glucose Lactic Acid 3.1 H* Calcium Troponin I Radiography Diagnostic Testing: Radiology Impression Brain CT 02/01/21 04:09 IMPRESSION: Limited exam due to motion artifacts. Small, old infarctions bilaterally. Chronic involutional changes of the brain. No visualized acute pathology. N.B. : The above information has been verbally conveyed by Ankit Coronado MD to Dr. Wisam Farrar DO, on 02/01/2021 04:32:01 (ET). Electronically Signed: Ankit Coronado MD at 4:33 EDT , Service support , Head/Neck CTA 02/01/21 04:10 IMPRESSION: INTRACRANIAL: Severe stenosis of the right cavernous carotid artery. Moderate stenosis of the left cavernous carotid artery. Severe stenosis of the intracranial vertebral arteries bilaterally. Nonvisualization of the posterior communicating arteries. No demonstrated aneurysm. No visualized occlusion of major arterial segments. CERVICAL: Severe stenosis of the intrathoracic segment of the left vertebral artery and moderate stenosis of the right intrathoracic vertebral artery at their origins. No evidence for hemodynamically significant stenosis of the cervical carotid arteries. N.B. : The above information has been verbally conveyed by Ankit Coronado MD to Dr. Wisam Farrar DO, on 02/01/2021 05:16:27 (ET). Electronically Signed: Ankit Coronado MD at 5:17 EDT , Service support , ADDENDUM: 02/01/21 0524 IMPRESSION: INTRACRANIAL: Severe stenosis of the right cavernous carotid artery. Moderate stenosis of the left cavernous carotid artery. Severe stenosis of the intracranial vertebral arteries bilaterally. Nonvisualization of the posterior communicating arteries. No demonstrated aneurysm. No visualized occlusion of major arterial segments. CERVICAL: Severe stenosis of the intrathoracic segment of the left vertebral artery and moderate stenosis of the right intrathoracic vertebral artery at their origins. No evidence for hemodynamically significant stenosis of the cervical carotid arteries. N.B. : The above information has been verbally conveyed by Ankit Coronado MD to Dr. Wisam Farrar DO, on 02/01/2021 05:16:27 (ET). Electronically Signed: Ankit Coronado MD at 5:17 EDT , Service support , Chest X-Ray 02/01/21 07:48 IMPRESSION: No acute abnormality is seen. Electronically Signed: Elgin Pfeiffer MD at 8:18 EDT , Service support , Discharge Plan Disposition Patient Disposition: Acute Care Hospital [facility]
[2021-02-01] MEDS: LORazepam 2 MG/ML Syringe 1 MG IV ×2 (04:35→05:37)
[2021-02-01 04:47] LABS: Absolute Lymphocyte Count 0.61 X10^3/uL (0.83-4.51); Absolute Neutrophil Count 14.1 X10^3/uL (2.0-7.7); Basophil# 0.05 X10^3/uL; Basophil% 0.3 % (0-1); Eosinophil# 0.02 X10^3/uL; Eosinophils% 0.1 % (0-5); Hematocrit 32.7 % (40-54); Hemoglobin 11.7 g/dL (13.0-16.5); Lymphocyte # 0.61 X10^3/ul (0.83-4.51); Lymphocyte % 3.8 % (19-41); Mean Corp Hgb Conc 35.8 g/dL (32-36); Mean Corpuscular Hgb 32.9 pg (27.0-32.0); Mean Corpuscular Volume 91.9 fL (80-94); Mean Platelet Vol. 10.4 fl (6.2-12.0); Monocyte# 0.96 X10^3/uL; Monocyte% 6.1 % (0-10); NRBC Flagged by Analyzer 0 % (0-5); Neutrophil # 14.07 X10^3/uL (2.7-7.7); Neutrophil % 88.8 % (47-70); Platelet Count 139 K/mm3 (150-450); RBC Distribution Width CV 11.7 % (11.6-14.6); RBC Distribution Width SD 39.8 fl (35.1-43.9); Red Blood Count 3.56 M/mm3 (4.6-6.2); White Blood Count 15.9 K/mm3 (4.4-11.0)
[2021-02-01 04:54] LABS: International Normalized Ratio 1.1; Prothrombin Time (Protime)PT. 13.5 SECONDS (11.7-14.9)
[2021-02-01 04:55] LABS: Partial Thromboplast Time 29.7 Seconds (24.1-36.2)
[2021-02-01 05:03] LABS: Anion Gap 11 (5-15); BUN 23 mg/dL (7-18); BUN/Creat Ratio 20.7 RATIO (10-20); Calcium,Total 8.5 mg/dL (8.5-10.1); Chloride 89 mmol/L (98-107); Creatinine, Serum 1.11 mg/dL (0.70-1.30); EST Glomerular Filtration Rate 67 mL/min (>60); Est Glom Filt Rate - Afr Amer 81 mL/min (>60); Estimated Creatinine Clearance 57.99 ml/min; Glucose 233 mg/dL (74-106); Potassium 4.1 mmol/L (3.5-5.1); Sodium Level 120 mmol/L (136-145)
--- NOTE | 2021-02-01 05:17 | ED.RN ---
PT IS ABLE TO COMPREHEND SOME COMMANDS AND HAS LIMITED SPEECH THAT IS CLEAR.
--- NOTE | 2021-02-01 05:30 | NUR.TO.PHY ---
PT RESTLESS AND NOT SITING STILL, CONFUSED AND MORE AGITATED. TALKING MORE -- LAB ALERTS -- TROP AND SODIUM. DR MERAZ AWARE.
[2021-02-01] MEDS: 0.9% Normal Saline 1,000 ML 999 ML IV (06:40)
[2021-02-01] MEDS: LORazepam 2 MG/ML Syringe IV (06:48)
[2021-02-01] MEDS: Aspirin 300 MG Suppository RC (07:25)
--- NOTE | 2021-02-01 07:48 | RAD_ITS ---
STUDY: X-RAY CHEST REASON FOR EXAM: Male, 80 years old. Neuro deficit, acute, stroke suspected TECHNIQUE: Single AP portable view of the chest. COMPARISON: Comparison is made with prior study dated 04/20/2016. FINDINGS: EKG electrodes are seen. Electrodes from a TENS unit are seen at the T6-T7 level. The lungs are clear and expanded. There is no demonstrated pleural abnormality. Sternal cerclage wires and vascular clips are present from a prior sternotomy and coronary artery bypass graft procedure (CABG). Normal mediastinum and [place]. Normal visualized pulmonary arteries. There is atherosclerotic calcification of the aortic arch with tortuosity. There are diffuse degenerative changes of the visualized thoracic spine. Normal visualized ribs, clavicles, and shoulders. There is no demonstrated abnormality of the visualized soft tissue structures of the upper abdomen. RAD/Chest 1 View IMPRESSION: No acute abnormality is seen. Electronically Signed: Elgin Pfeiffer MD at 8:18 EDT , Service support ,
[2021-02-01 07:49] LABS: Lactic Acid 3.1 mmol/L (0.4-1.9)
--- NOTE | 2021-02-01 07:58 | NURSING ---
DR JENKINS FOR DR MERAZ
--- NOTE | 2021-02-01 08:08 | NURSING ---
PCU [facility] ALTERED MENTAL STATUS, HYPONATREMIA, ELEVATED TROP, LACTIC ACIDOSIS
[2021-02-01 08:28] LABS: Bacteria 0 SEEN /hpf (None Seen); Mucous, Urine 0 SEEN /hpf (<or=2+); Red Blood Cells-Urine 0 SEEN /hpf (0-5); Squamous Epithelial Cells - UA 0 SEEN /hpf (0-5); White Blood Cells 0 SEEN /hpf (0-5)
[2021-02-01] MEDS: Haloperidol Lactate 5 MG/ML Vial 2 MG IV ×2 (08:30→13:30)
[2021-02-01 08:33] LABS: Color, Urine Yellow (Yellow); Glucose, Dipstick 250 mg/dl (Normal); Ketone-Dipstick 15 mg/dl (Negative); Leukocyte Esterase-Dipstick Negative /ul (Negative); Nitrite-Dipstick Negative (Negative); Occult Blood-Urine 10 /ul (Negative); Protein-Dipstick 100 mg/dl (Negative); Urine Bilirubin Dipstick Negative (Negative); Urine Clarity Clear (Clear); Urine Urobilinogen Normal (Normal); Urine pH 6.5 (5.0 - 8.0)
--- NOTE | 2021-02-01 08:57 | ECHOD_ITS ---
Reason For Study: TIA/CVA Procedure This was a 2D Doppler, Color Flow transthoracic echocardiogram. The study was technically difficult. Exam performed portable in patient room. Left Ventricle Normal LV size. Moderate concentric left ventricular hypertrophy. Left ventricular systolic function is normal. The estimated ejection fraction is 65 %. Unable to assess diastolic dysfunction. No regional wall motion abnormalities noted. Right Ventricle Normal RV size. Normal systolic function. Atria The left atrium is mildly enlarged. Normal right atrium. No doppler evidence for ASD. Bubble contrast study negative for right to left interatrial shunt. Mitral Valve There is moderate to severe mitral annular calcification. Extension of the mitral annular calcification onto the mitral valve leaflets. Mild focal mitral valve calcification of the anterior leaflet. The mitral papillary muscle appears thickened and/or calcified. Trivial mitral valve insufficiency. Tricuspid Valve Normal tricuspid valve. Trivial tricuspid valve insufficiency. Unable to estimate RV systolic pressure/pulmonary artery pressure due to technically difficult study. Aortic Valve Trisinus/trileaflet aortic valve. Mild diffuse aortic valve thickening. Mild focal aortic valve calcification. Moderate to severe aortic valve stenosis. Trivial aortic valve insufficiency. Pulmonic Valve The pulmonic valve is not well visualized. Great Vessels Normal ascending aorta. Calcified aortic root. Pericardium/Pleural No pericardial effusion. Medication Performed a rapid injection of agitated mix of 9 cc saline and 1cc air to assess for atrial septal defect. MMode/2D Measurements & Calculations LVIDd: 3.9 cm IVSd: 1.6 cm LVOT diam: 2.2 cm LVIDs: 2.8 cm LVPWd: 1.4 cm RVDd: 3.7 cm FS: 27.1 % LVOT area: 3.7 cm2 Ao root diam: 3.8 cm LAV(MOD-bp): 82.8 ml LA A4 area: 23.3 cm2 LAV(MOD-bp) Indexed: 35.6 ml/m2 LAV(MOD-sp2): 95.0 ml LAV(MOD-sp4): 72.9 ml LA dimension(2D): 3.9 cm RA A4 area: 15.2 cm2 Doppler Measurements & Calculations MV E max qing: 129.9 cm/sec Ao V2 max: 391.7 cm/sec AI max qing: 388.5 cm/sec Ao max P.5 mmHg AI max P.4 mmHg Ao V2 mean: 280.1 cm/sec AI dec slope: 134.5 cm/sec2 Ao mean P.8 mmHg AI P1/2t: 846.4 msec Ao V2 VTI: 90.7 cm HUMBERTO(I,D): 0.92 cm2 HUMBERTO(V,D): 0.92 cm2 LV V1 max: 96.9 cm/sec SV(LVOT): 83.3 ml PA V2 max: 115.4 cm/sec LV V1 max P.8 mmHg LV V1 mean P.9 mmHg LV V1 mean: 64.1 cm/sec LV V1 VTI: 22.3 cm ECHO/Echo Complete Interpretation Summary The study was technically difficult. Left ventricular systolic function is normal. The estimated ejection fraction is 65 %. Moderate concentric left ventricular hypertrophy. The left atrium is mildly enlarged. There is moderate to severe mitral annular calcification. Extension of the mitral annular calcification onto the mitral valve leaflets. Mild focal mitral valve calcification of the anterior leaflet. The mitral papillary muscle appears thickened and/or calcified. Trivial mitral valve insufficiency. Trivial tricuspid valve insufficiency. Moderate to severe aortic valve stenosis. Trivial aortic valve insufficiency. Calcified aortic root. Unable to estimate RV systolic pressure/pulmonary artery pressure due to techni marcelina difficult study. Unable to assess diastolic dysfunction. Bubble contrast study negative for right to left interatrial shunt. Ordering Physician: Mabel Hoover Referring Physician: Juanpablo Stack Performed By: Hilaria Medina RDCS
--- NOTE | 2021-02-01 09:15 | NURSING ---
Unable to complete [facility] at this time. Patient uncooperative and unable to follow commands. director of occupational health notified.
[2021-02-01] MEDS: Insulin Lispro 100 UNIT/ML INSULN.PEN SC ×3 (11:07→21:53)
[2021-02-01] MEDS: 0.9% Saline Lock 10 ML Syringe IV (11:08)
[2021-02-01] MEDS: Heparin Injection (Vial) 5,000 UNIT/ML VIAL 5000 UNIT SC ×2 (11:08→21:53)
[2021-02-01] MEDS: 0.9% Normal Saline 1,000 ML 100 ML IV (11:13)
[2021-02-01 11:17] LABS: Reflex Lactate? Y
[2021-02-01 11:20] LABS: Bedside Glucose 204 mg/dL (70-110)
--- NOTE | 2021-02-01 12:24 | MRI_ITS ---
STUDY: MRI BRAIN WITHOUT CONTRAST REASON FOR EXAM: Male, 80 years old. acute cva TECHNIQUE: Standardized multiplanar fat and water weighted pulse sequences were obtained. COMPARISON: CT earlier today, MRI 01/02/2021 FINDINGS: There is moderate cerebral atrophy with widening of the extra-axial spaces and ventricular dilatation. There are multiple white matter hyperintensities, distributed throughout the deep white matter tracts of the cerebral hemispheres, consistent with moderate chronic white matter ischemic changes. There is no evidence for recent intracranial ischemia or other cause of cytotoxic edema on diffusion weighted imaging (DWI). Normal bilateral basal ganglia. Normal thalami. There is no extra-axial fluid accumulation. Normal flow voids within the major intracranial circulation suggesting patency by spin echo criteria. Normal sella turcica, pituitary gland, infundibular stalk, optic chiasm and hypothalamus. Normal tectal plate and pineal gland. Normal midbrain, francisca and medulla. Normal cerebellum. Normal basal cisterns. Normal bilateral temporal bones. Normal bilateral internal auditory canals. There are bilateral ocular lens implants with otherwise normal intraorbital contents. Normal visualized paranasal sinuses. Normal calvarium and skull base. Normal visualized soft tissue structures. Normal visualized upper cervical spine. MRI/Brain without Contrast IMPRESSION: Involutional changes of the brain, as described above. No acute infarct. Electronically Signed: Bjorn Harris MD at 14:49 EDT Tel , Service support ,
--- NOTE | 2021-02-01 14:44 | NURSING ---
VS late due to patient being at MRI
--- NOTE | 2021-02-01 15:52 | PCM.HP.STD ---
HPI - General General Date of Admission: 02/01/21 Chief Complaint: Confusion HPI Narrative KERRI FINK, is a 80 M who presents with confusion. Patient has PMHx of CVA and PAD. History was from the patient's Patient was in his usual state of health the day prior to admission. He had gone on his lawnmower and mowed his yard and his son. He however complained of inability to walk and had his help him. He slept early. His woke up around 3 AM and found him in the bathroom, trying to turn on the faucet on and off. Patient has had no new medications except for spironolactone which was added by his primary care doctor for uncontrolled blood pressure. Patient later on in the day became very confused and combative. Vitals in the ED showed elevated BP. Labs -WBC 15.9, sodium is 120, creatinine is 1.11, lactic acid is 3.1, elevated troponin 0.370 CT of the brain is unremarkable CT of the head and neck is remarkable for moderate stenosis of the proximal right vertebral artery near its origin, severe stenosis of the proximal left vertebral artery at its origin Admitting chest x-ray shows no cardiopulmonary abnormality [facility] Medical History (Updated 02/01/21 @ 17:[address] 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 Stroke/cerebrovascular accident Ulcer of left mcnulty Venous insufficiency Home Medications aspirin 81 mg PO DAILY 03/26/16 [History Last Taken 01/31/21 08:00] losartan 100 mg PO QHS 03/26/16 [History Last Taken 01/31/21] saxagliptin-metformin [Kombiglyze XR] 1 tab PO BID 04/18/16 [History Last Taken Unknown] cholestyramine (with sugar) 4 gram oral powder 4 g PO DAILY ea 01/16/18 [History Last Taken Unknown] glimepiride 2 mg tablet 2 mg PO BID tab 01/20/18 [History Last Taken 01/31/21] atenolol 25 mg tablet 25 mg PO QHS 01/05/19 [History Last Taken 01/31/21] furosemide 40 mg tablet 40 mg PO DAILY tab 01/05/19 [History Last Taken 01/31/21 12:00] nitroglycerin 0.4 mg sublingual tablet 0.4 mg SUBLINGUAL Q5M PRN #25 tab 01/05/19 [Rx Last Taken Unknown] omeprazole 20 mg capsule,delayed release 20 mg PO QHS cap 01/05/19 [History Last Taken 01/31/21] calcium citrate 600 mg PO DAILY 05/20/19 [History Last Taken 01/31/21] finasteride 5 mg tablet 5 mg PO DAILY 04/27/20 [History Last Taken 01/31/21] mecobalamin (vitamin B12) 5,000 mcg disintegrating tablet 5,000 mcg PO DAILY 04/27/20 [History Last Taken 01/31/21] multivitamin 1 tab PO DAILY 04/27/20 [History Last Taken 01/31/21] amlodipine 5 mg tablet 10 mg PO QHS tab 12/16/20 [History Last Taken 01/31/21 21:00] cholecalciferol (vitamin D3) [Vitamin D3] 125 mcg PO DAILY 02/01/21 [History Last Taken 01/31/21] coenzyme Q10 [CoQ-10] 100 mg PO DAILY 02/01/21 [History Last Taken 01/31/21 08:00] glucos sul [id number] [Glucosamine Chondroitin] 1 cap PO DAILY 02/01/21 [History Last Taken 01/31/21] zinc 50 mg PO DAILY 02/01/21 [History Last Taken 01/31/21] Allergy/AdvReac Type Severity Reaction Status Date / Time lisinopril [From Zestril] Allergy Other Verified 02/01/21 04:17 niacin Allergy Rash Verified 02/01/21 04:17 pravastatin sodium Allergy Other Verified 02/01/21 04:17 [From Pravachol] Uvrdsbd-[id number]-Gky Reductase AdvReac Other Verified 02/01/21 04:17 Inhibitor Family History (Reviewed 12/16/20 @ 09:08 by Fabio Jrodan CENTRAL OFFICE INSPECTOR, CENTRAL OFFICE INSPECTOR-C) Father COPD (chronic obstructive pulmonary disease) Arthritis Lung disease Mother CVA (cerebral vascular accident) Hx of CABG Heart disease Hypertension Hypercholesterolemia Brother Arthritis Brother Heart disease Brother Hypertension Brother Hypercholesterolemia Sister Heart disease Sister Hypertension Sister Hypercholesterolemia Surgical History (Updated 02/01/21 @ 05:15 by Sahara Vee RN) H/O coronary artery bypass surgery (~01/18/16) History of appendectomy History of arthroscopy of left knee History of inguinal hernia repair, bilateral History of knee replacement History of lumbar surgery History of tonsillectomy Presence of coronary angioplasty implant and graft Social History (Updated 12/16/20 @ 12:25 by Fabio Jordan CENTRAL OFFICE INSPECTOR, CENTRAL OFFICE INSPECTOR-C) Smoking Status: Never smoker alcohol intake: never substance use type: does not use caffeine: Yes Type: carbonated beverages Number of servings: 3 what type of physical activity do you participate in: other details: treadmill, [place] frequency: 3-4 times per week duration: 30-45 minutes/day seatbelt use: always do you feel safe at home: Yes ROS Review of Systems ROS Unobtainable: due to encephalopathy Vital Signs Vital Signs Vital Signs: 02/01/21 04:07 02/01/21 04:37 02/01/21 04:38 Temperature 99.0 F 98.2 F Temperature Source Temporal Temporal Pulse Rate 80 70 Pulse Strength Respiratory Rate 20 H 18 Respiratory Effort Respiratory Depth Respiratory Pattern Blood Pressure 113/97 H 113/97 H Blood Pressure Mean 102 102 Blood Pressure Source Blood Pressure Position Blood Pressure Location Pulse Ox 99 97 99 Oxygen Delivery Method Room Air Room Air Room Air 02/01/21 04:39 02/01/21 05:09 02/01/21 05:13 Temperature 98.6 F Temperature Source Oral Pulse Rate 74 60 Pulse Strength Respiratory Rate 16 22 H 22 H Respiratory Effort Respiratory Depth Respiratory Pattern Blood Pressure 122/48 H 140/60 H Blood Pressure Mean 72 86 Blood Pressure Source Blood Pressure Position Blood Pressure Location Pulse Ox 99 98 Oxygen Delivery Method Room Air Room Air 02/01/21 05:30 02/01/21 06:00 02/01/21 07:36 Temperature 98.6 F 98.5 F 98.6 F Temperature Source Oral Oral Temporal Pulse Rate 74 86 79 Pulse Strength Respiratory Rate 19 H 20 H 17 Respiratory Effort Respiratory Depth Respiratory Pattern Blood Pressure 170/142 H 159/112 H 177/76 H Blood Pressure Mean 151 127 109 Blood Pressure Source Blood Pressure Position Blood Pressure Location Pulse Ox 94 100 97 Oxygen Delivery Method Room Air Room Air Room Air 02/01/21 08:37 02/01/21 09:10 02/01/21 10:00 Temperature 99.0 F 99.1 F Temperature Source Temporal Temporal Pulse Rate 63 72 Pulse Strength Respiratory Rate 21 H 18 Respiratory Effort Normal Non-Labored Respiratory Depth Normal Respiratory Pattern Normal Blood Pressure 158/69 H 170/86 H Blood Pressure Mean 98 114 Blood Pressure Source Monitor Blood Pressure Position Semi-Fowlers Blood Pressure Location Left Arm Pulse Ox 95 97 97 Oxygen Delivery Method Room Air Room Air Room Air 02/01/21 10:13 02/01/21 10:54 02/01/21 10:55 Temperature Temperature Source Pulse Rate 82 Pulse Strength Normal (2+) Respiratory Rate Respiratory Effort Respiratory Depth Respiratory Pattern Blood Pressure Blood Pressure Mean Blood Pressure Source Blood Pressure Position Blood Pressure Location Pulse Ox 95 Oxygen Delivery Method Room Air 02/01/21 13:41 02/01/21 14:40 02/01/21 14:45 Temperature 98.8 F Temperature Source Temporal Pulse Rate 102 H 69 Pulse Strength Respiratory Rate 18 Respiratory Effort Normal Non-Labored Respiratory Depth Normal Respiratory Pattern Normal Blood Pressure 184/141 H 145/77 H Blood Pressure Mean 155 99 Blood Pressure Source Monitor Blood Pressure Position Supine Semi-Fowlers Blood Pressure Location Left Arm Left Arm Pulse Ox 94 Oxygen Delivery Method Room Air Room Air Physical Exam Narrative General: Sedated, Cooperative, No apparent distress, Well developed HEENT: Atraumatic Oral: Moist Mucosa Neck: Supple Lungs: Clear to auscultation Cardiovascular: HS I+II, regular, 2/6 holosystolic murmur murmurs Abdomen: Bowel Sounds Present, Soft, Non Tender Extremities: No edema Skin: Scar at the back, nontender Neurological: Grossly intact Psych/Mental Status: Appropriate Lab / Micro Data Result Diagrams: 02/01/21 04:30 02/01/21 04:30 Labs: Laboratory Results - last 24 hr 02/01/21 02/01/21 02/01/21 04:30 04:30 04:30 WBC 15.9 H RBC 3.56 L Hgb 11.7 L Hct 32.7 L MCV 91.9 MCH 32.9 H MCHC 35.8 RDW Std Deviation 39.8 RDW Coeff of Ryan 11.7 Plt Count 139 L MPV 10.4 Immature Gran % (Auto) 0.900 Neut % (Auto) 88.8 H Lymph % (Auto) 3.8 L [place] % (Auto) 6.1 Eos % (Auto) 0.1 Baso % (Auto) 0.3 Absolute Neuts (auto) 14.1 H Absolute Lymphs (auto) 0.61 L Nucleated RBC % 0 PT 13.5 INR 1.1 APTT 29.7 Sodium 120 L Potassium 4.1 Chloride 89 L Carbon Dioxide 20.0 L Anion Gap 11 BUN 23 H Creatinine 1.11 Estim Creat Clear Calc 57.99 Est GFR (MDRD) Af Amer 81 Est GFR (MDRD) Non-Af 67 BUN/Creatinine Ratio 20.7 H Glucose 233 H Lactic Acid Calcium 8.5 Troponin I 0.122 H Urine Color Urine Clarity Urine pH Ur Specific [place] Urine Protein Urine Glucose (UA) Urine Ketones Urine Occult Blood Urine Nitrite Urine Bilirubin Urine Urobilinogen Ur Leukocyte Esterase Urine RBC Urine WBC Ur Squamous Epith Cells Urine Bacteria Urine Mucus POC Glucose 02/01/21 02/01/21 02/01/21 07:08 07:10 10:28 WBC RBC Hgb Hct MCV MCH MCHC RDW Std Deviation RDW Coeff of Ryan Plt Count MPV Immature Gran % (Auto) Neut % (Auto) Lymph % (Auto) [place] % (Auto) Eos % (Auto) Baso % (Auto) Absolute Neuts (auto) Absolute Lymphs (auto) Nucleated RBC % PT INR APTT Sodium Potassium Chloride Carbon Dioxide Anion Gap BUN Creatinine Estim Creat Clear Calc Est GFR (MDRD) Af Amer Est GFR (MDRD) Non-Af BUN/Creatinine Ratio Glucose Lactic Acid 3.1 H* Calcium Troponin I 0.370 H Urine Color Yellow Urine Clarity Clear Urine pH 6.5 Ur Specific [place] 1.010 Urine Protein 100 H Urine Glucose (UA) 250 H Urine Ketones 15 H Urine Occult Blood 10 H Urine Nitrite Negative Urine Bilirubin Negative Urine Urobilinogen Normal Ur Leukocyte Esterase Negative Urine RBC 0 SEEN Urine WBC 0 SEEN Ur Squamous Epith Cells 0 SEEN Urine Bacteria 0 SEEN Urine Mucus 0 SEEN POC Glucose 02/01/21 02/01/21 10:28 11:07 WBC RBC Hgb Hct MCV MCH MCHC RDW Std Deviation RDW Coeff of Ryan Plt Count MPV Immature Gran % (Auto) Neut % (Auto) Lymph % (Auto) [place] % (Auto) Eos % (Auto) Baso % (Auto) Absolute Neuts (auto) Absolute Lymphs (auto) Nucleated RBC % PT INR APTT Sodium Potassium Chloride Carbon Dioxide Anion Gap BUN Creatinine Estim Creat Clear Calc Est GFR (MDRD) Af Amer Est GFR (MDRD) Non-Af BUN/Creatinine Ratio Glucose Lactic Acid 2.0 Calcium Troponin I Urine Color Urine Clarity Urine pH Ur Specific [place] Urine Protein Urine Glucose (UA) Urine Ketones Urine Occult Blood Urine Nitrite Urine Bilirubin Urine Urobilinogen Ur Leukocyte Esterase Urine RBC Urine WBC Ur Squamous Epith Cells Urine Bacteria Urine Mucus POC Glucose 204 H Radiology Impression Brain CT 02/01/21 04:09 IMPRESSION: Limited exam due to motion artifacts. Small, old infarctions bilaterally. Chronic involutional changes of the brain. No visualized acute pathology. N.B. : The above information has been verbally conveyed by Ankit Coronado MD to Dr. Wisam Farrar DO, on 02/01/2021 04:32:01 (ET). Electronically Signed: Ankit Coronado MD at 4:33 EDT , Service support , Head/Neck CTA 02/01/21 04:10 IMPRESSION: INTRACRANIAL: Severe stenosis of the right cavernous carotid artery. Moderate stenosis of the left cavernous carotid artery. Severe stenosis of the intracranial vertebral arteries bilaterally. Nonvisualization of the posterior communicating arteries. No demonstrated aneurysm. No visualized occlusion of major arterial segments. CERVICAL: Severe stenosis of the intrathoracic segment of the left vertebral artery and moderate stenosis of the right intrathoracic vertebral artery at their origins. No evidence for hemodynamically significant stenosis of the cervical carotid arteries. N.B. : The above information has been verbally conveyed by Ankit Coronado MD to Dr. Wisam Farrar DO, on 02/01/2021 05:16:27 (ET). Electronically Signed: Ankit Coronado MD at 5:17 EDT , Service support , ADDENDUM: 02/01/2124 IMPRESSION: INTRACRANIAL: Severe stenosis of the right cavernous carotid artery. Moderate stenosis of the left cavernous carotid artery. Severe stenosis of the intracranial vertebral arteries bilaterally. Nonvisualization of the posterior communicating arteries. No demonstrated aneurysm. No visualized occlusion of major arterial segments. CERVICAL: Severe stenosis of the intrathoracic segment of the left vertebral artery and moderate stenosis of the right intrathoracic vertebral artery at their origins. No evidence for hemodynamically significant stenosis of the cervical carotid arteries. N.B. : The above information has been verbally conveyed by Ankit Coronado MD to Dr. Wisam Farrar DO, on 02/01/2021 05:16:27 (ET). Electronically Signed: Ankit Coronado MD at 5:17 EDT , Service support , Chest X-Ray 02/01/21 07:48 IMPRESSION: No acute abnormality is seen. Electronically Signed: Elgin Pfeiffer MD at 8:18 EDT , Service support , Brain MRI 02/01/21 12:24 IMPRESSION: Involutional changes of the brain, as described above. No acute infarct. Electronically Signed: Bjorn Harris MD at 14:49 EDT Tel , Service support , Assessment & Plan Assessment/Plan (1) Encephalopathy: Status: Acute Code(s): G93.40 - Encephalopathy, unspecified (2) Hyponatremia: Status: Acute Code(s): E87.1 - Hypo-osmolality and hyponatremia (3) Elevated troponin: Status: Acute Code(s): R77.8 - Other specified abnormalities of plasma proteins (4) HTN (hypertension): Status: Chronic Code(s): I10 - Essential (primary) hypertension (5) Leucocytosis: Status: Acute Code(s): D72.829 - Elevated white blood cell count, unspecified (6) Lactic acidosis: Status: Acute Code(s): E87.2 - Acidosis (7) Diabetes mellitus type II, controlled: Status: Chronic Code(s): E11.9 - Type 2 diabetes mellitus without complications Qualifiers: Diabetes mellitus 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 Haldol as needed as needed for agitation OBSV E&M: 13282 Initial observation care L3
[2021-02-01 16:40] LABS: Bedside Glucose 184 mg/dL (70-110)
[2021-02-01 18:20] LABS: Thyroid Stim Hormone (TSH) 1.45 uIU/mL (0.358-3.74)
[2021-02-01 21:55] LABS: Bedside Glucose 200 mg/dL (70-110)
[2021-02-02] VITALS (14 sets, daily range): BP systolic 124–162; BP diastolic 62–80; PULSE 35–70; RESP 14–18; TEMP 36.8–37.1; O2SAT 94–100
[2021-02-02] MEDS: 0.9% Normal Saline 1,000 ML 100 ML IV (00:45)
[2021-02-02 06:44] LABS: Absolute Lymphocyte Count 1.16 X10^3/uL (0.83-4.51); Absolute Neutrophil Count 3.8 X10^3/uL (2.0-7.7); Basophil# 0.05 X10^3/uL; Basophil% 0.9 % (0-1); Eosinophil# 0.07 X10^3/uL; Eosinophils% 1.2 % (0-5); Hematocrit 31.3 % (40-54); Hemoglobin 10.7 g/dL (13.0-16.5); Lymphocyte # 1.16 X10^3/ul (0.83-4.51); Lymphocyte % 19.8 % (19-41); Mean Corp Hgb Conc 34.2 g/dL (32-36); Mean Corpuscular Hgb 32.3 pg (27.0-32.0); Mean Corpuscular Volume 94.6 fL (80-94); Mean Platelet Vol. 10.7 fl (6.2-12.0); Monocyte# 0.79 X10^3/uL; Monocyte% 13.5 % (0-10); NRBC Flagged by Analyzer 0 % (0-5); Neutrophil # 3.77 X10^3/uL (2.7-7.7); Neutrophil % 64.3 % (47-70); Platelet Count 128 K/mm3 (150-450); RBC Distribution Width CV 12.3 % (11.6-14.6); Red Blood Count 3.31 M/mm3 (4.6-6.2); White Blood Count 5.9 K/mm3 (4.4-11.0)
[2021-02-02 06:55] LABS: Bedside Glucose 159 mg/dL (70-110)
[2021-02-02 07:13] LABS: AST(SGOT) 23 U/L (15-37); Alanine Aminotransfer ALT/SGPT 25 U/L (16-61); Albumin, Serum 3.2 g/dL (3.2-5.0); Alkaline Phosphatase 51 U/L (45-117); Anion Gap 7 (5-15); BUN 17 mg/dL (7-18); Calcium,Total 8.6 mg/dL (8.5-10.1); Chloride 99 mmol/L (98-107); Cholesterol 139 mg/dL (200); Creatinine, Serum 0.94 mg/dL (0.70-1.30); EST Glomerular Filtration Rate 81 mL/min (>60); Est Glom Filt Rate - Afr Amer 98 mL/min (>60); Estimated Creatinine Clearance 68.47 ml/min; Globulin 3.2 g/dL (2.2-4.2); Glucose 145 mg/dL (74-106); High Density Lipoprotein 45 mg/dL; Potassium 4.1 mmol/L (3.5-5.1); Protein, Total 6.4 g/dL (6.4-8.2); Sodium Level 128 mmol/L (136-145); Triglycerides 131 mg/dL; Very Low Density Lipoprotein 26 mg/dL (5-40)
[2021-02-02 08:16] LABS: Vitamin B12 1153 pg/mL (211-911)
--- NOTE | 2021-02-02 08:46 | TELEMED_ITS ---
SOC Telemed has confirmed receipt of a request for visit. This document confirms receipt of the order initiating the consult. To find the results of the consultation, please view the patient's reports for the scanned Telemed Consult.
--- NOTE | 2021-02-02 09:27 | PCM.PN.HOSP ---
Subjective Subjective: Patient was seen and examined. He is alert oriented x3. He remained calm. Slept throughout the night. No episodes of agitation. Objective Data Objective Data Vital Signs: Vital Signs Temp Pulse Resp BP Pulse Ox 98.7 F 68 14 158/70 H 99 02/02/21 08:08 02/02/21 08:08 02/02/21 08:08 02/02/21 08:08 02/02/21 08:08 Oxygen Delivery Method Room Air Weight: 109.3 kg Body Mass Index (BMI) 31.8 Finger Stick Blood Glucose 226 Intake & Output: Intake and Output for Last 24 Hours 01/31/21 02/01/21 02/02/21 23:59 23:59 23:59 Intake Total 1028.33 / 1028.33 971.67 / 971.67 Output Total 1350 / 1350 Balance -321.67 / -321.67 971.67 / 971.67 Lab / Micro Data Result Diagrams: 02/02/21 05:45 02/02/21 05:45 Labs: Laboratory Results - last 24 hr 02/01/21 02/01/21 02/01/21 10:28 10:28 10:28 WBC RBC Hgb Hct MCV MCH MCHC RDW Std Deviation RDW Coeff of Ryan Plt Count MPV Immature Gran % (Auto) Neut % (Auto) Lymph % (Auto) [place] % (Auto) Eos % (Auto) Baso % (Auto) Absolute Neuts (auto) Absolute Lymphs (auto) Nucleated RBC % Sodium Potassium Chloride Carbon Dioxide Anion Gap BUN Creatinine Estim Creat Clear Calc Est GFR (MDRD) Af Amer Est GFR (MDRD) Non-Af BUN/Creatinine Ratio Glucose Lactic Acid 2.0 Calcium Total Bilirubin AST ALT Alkaline Phosphatase Troponin I 0.370 H Total Protein Albumin Globulin Albumin/Globulin Ratio Triglycerides Cholesterol LDL Cholesterol VLDL Cholesterol HDL Cholesterol Vitamin B12 TSH 1.45 POC Glucose 02/01/21 02/01/21 02/01/21 11:07 16:34 21:40 WBC RBC Hgb Hct MCV MCH MCHC RDW Std Deviation RDW Coeff of Ryan Plt Count MPV Immature Gran % (Auto) Neut % (Auto) Lymph % (Auto) [place] % (Auto) Eos % (Auto) Baso % (Auto) Absolute Neuts (auto) Absolute Lymphs (auto) Nucleated RBC % Sodium Potassium Chloride Carbon Dioxide Anion Gap BUN Creatinine Estim Creat Clear Calc Est GFR (MDRD) Af Amer Est GFR (MDRD) Non-Af BUN/Creatinine Ratio Glucose Lactic Acid Calcium Total Bilirubin AST ALT Alkaline Phosphatase Troponin I Total Protein Albumin Globulin Albumin/Globulin Ratio Triglycerides Cholesterol LDL Cholesterol VLDL Cholesterol HDL Cholesterol Vitamin B12 TSH POC Glucose 204 H 184 H 200 H 02/02/21 02/02/21 02/02/21 05:45 05:45 05:45 WBC 5.9 RBC 3.31 L Hgb 10.7 L Hct 31.3 L MCV 94.6 H MCH 32.3 H MCHC 34.2 RDW Std Deviation 43.0 RDW Coeff of Ryan 12.3 Plt Count 128 L MPV 10.7 Immature Gran % (Auto) 0.300 Neut % (Auto) 64.3 Lymph % (Auto) 19.8 [place] % (Auto) 13.5 H Eos % (Auto) 1.2 Baso % (Auto) 0.9 Absolute Neuts (auto) 3.8 Absolute Lymphs (auto) 1.16 Nucleated RBC % 0 Sodium 128 L Potassium 4.1 Chloride 99 Carbon Dioxide 22.0 Anion Gap 7 BUN 17 Creatinine 0.94 Estim Creat Clear Calc 68.47 Est GFR (MDRD) Af Amer 98 Est GFR (MDRD) Non-Af 81 BUN/Creatinine Ratio 18.0 Glucose 145 H Lactic Acid Calcium 8.6 Total Bilirubin 0.80 AST 23 ALT 25 Alkaline Phosphatase 51 Troponin I Total Protein 6.4 Albumin 3.2 Globulin 3.2 Albumin/Globulin Ratio 1.0 Triglycerides 131 Cholesterol 139 LDL Cholesterol 68 VLDL Cholesterol 26 HDL Cholesterol 45 Vitamin B12 1153 H TSH POC Glucose 02/02/21 06:45 WBC RBC Hgb Hct MCV MCH MCHC RDW Std Deviation RDW Coeff of Ryan Plt Count MPV Immature Gran % (Auto) Neut % (Auto) Lymph % (Auto) [place] % (Auto) Eos % (Auto) Baso % (Auto) Absolute Neuts (auto) Absolute Lymphs (auto) Nucleated RBC % Sodium Potassium Chloride Carbon Dioxide Anion Gap BUN Creatinine Estim Creat Clear Calc Est GFR (MDRD) Af Amer Est GFR (MDRD) Non-Af BUN/Creatinine Ratio Glucose Lactic Acid Calcium Total Bilirubin AST ALT Alkaline Phosphatase Troponin I Total Protein Albumin Globulin Albumin/Globulin Ratio Triglycerides Cholesterol LDL Cholesterol VLDL Cholesterol HDL Cholesterol Vitamin B12 TSH POC Glucose 159 H Radiography Diagnostic Testing: Radiology Impression Brain MRI 02/01/21 12:24 IMPRESSION: Involutional changes of the brain, as described above. No acute infarct. Electronically Signed: Bjorn Harris MD at 14:49 EDT Tel , Service support , Physical Exam Narrative General: Alert, oriented, x3, Cooperative, No apparent distress, Well developed HEENT: Atraumatic Oral: Moist Mucosa Neck: Supple Lungs: Clear to auscultation Cardiovascular: HS I+II, regular, 2/6 holosystolic murmur murmurs Abdomen: Bowel Sounds Present, Soft, Non Tender Extremities: No edema Skin: Scar at the back, nontender Neurological: Grossly intact Psych/Mental Status: Appropriate Assessment & Plan Assessment/Plan (1) Encephalopathy: Status: Acute Code(s): G93.40 - Encephalopathy, unspecified Plan: Acute CVA ruled out (2) Hyponatremia: Status: Acute Code(s): E87.1 - Hypo-osmolality and hyponatremia (3) Elevated troponin: Status: Acute Code(s): R77.8 - Other specified abnormalities of plasma proteins (4) HTN (hypertension): Status: Chronic Code(s): I10 - Essential (primary) hypertension (5) Leucocytosis: Status: Acute Code(s): D72.829 - Elevated white blood cell count, unspecified (6) Lactic acidosis: Status: Acute Code(s): E87.2 - Acidosis (7) Diabetes mellitus type II, controlled: Status: Chronic Code(s): E11.9 - Type 2 diabetes mellitus without complications Qualifiers: Diabetes mellitus manager terminal insulin use: without residential use Diabetes mellitus complication status: without complication Qualified Code(s): E11.9 - Type 2 diabetes mellitus without complications Plan: Acute CVA ruled out with negative MRI brain Resume home blood pressure medications -continue with as needed hydralazine and labetalol Continue to hold Lasix Resume saxagliptin?Metformin and glimepiride Continue with insulin sliding scale and blood glucose checks DC IV fluids Repeat blood work in a.m. Follow-up with 2D echo, speech therapy, PT and OT SOC consult for encephalopathy Inpatient E&M: 28146 Subs Hosp L2
[2021-02-02] MEDS: Calcium Carbonate 500 MG Tablet PO (10:32)
[2021-02-02] MEDS: Aspirin E.C. 81 MG Tablet PO (10:32)
[2021-02-02] MEDS: Cholestyramine/Sucrose 4 GM/PACKET PO (10:33)
[2021-02-02] MEDS: Cholecalciferol (VIT D3) 25 MCG TABLET (1,000 UNITS) 125 MCG PO (10:33)
[2021-02-02] MEDS: Finasteride 5 MG Tablet PO (10:34)
[2021-02-02] MEDS: Heparin Injection (Vial) 5,000 UNIT/ML VIAL 5000 UNIT SC ×2 (10:35→21:46)
[2021-02-02] MEDS: Glimepiride 2 MG Tablet PO ×2 (10:42→17:33)
[2021-02-02] MEDS: Atenolol 25 MG Tablet PO (10:42)
[2021-02-02] MEDS: Insulin Lispro 100 UNIT/ML INSULN.PEN SC ×2 (11:28→17:35)
[2021-02-02 11:35] LABS: Bedside Glucose 239 mg/dL (70-110)
--- NOTE | 2021-02-02 11:50 | CASEMGMT ---
CARRIE ESCOBEDO in to discuss RODRIGES form with patient. RN FANNY explained RODRIGES form, patient voiced understanding. Pt requested to sign form, filed in chart. Pt provided with a copy of signed RODRIGES form. Patient had no further questions or concerns at this time.
--- NOTE | 2021-02-02 12:11 | CASEMGMT ---
SW met w/pt and in room in regard to discharge plan. 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 However, pt has [employer] Medicare and he does not have a rehab diagnosis. SW spoke w/rehab, it is very unlikely pt would be approved for rehab by insurance since he does not has a qualifying diagnosis. PCP: Dr. Stack Specialists: Dr. Anaya, cardiology, and Dr. Franz, nephrology Pharmacy: [facility] or [facility] in [place] Insurance: [employer] Medicare LNOK: [facility], son in [place], daughter in [place] LW/POA: states just redid the papers in the last year, daughter is healthcare POA, son across the street is financial POA, and son in [place] is over everything. She is aware that they are not on file here. Living arrangements/prior level of care: Pt lives home alone w/ in one story home w/a basement. Pt usually goes downstairs once per day. Pt is fully independent with all ADLs, drives. DME: Pt has no DME SW spoke w/pt and about options, rehab, SNF and home w/outpt or HHC. SW explained that pt does not have a rehab diagnosis so would likely not be approved. SW also explained that pt walked 220 feet with PT and may not be approved for SNF either but we could try. Or, pt can go home w/outpt therapy or HHC. Pt and in agreement to have pt go home w/HHC. CM notified. Plan: Home w/HHC, CM will follow up. CARMINA Veronica
--- NOTE | 2021-02-02 12:15 | CASEMGMT ---
Addendum entered by Nicole Borja 02/02/21 16:17: Received tc from Zeenat escobar at [facility]. They are able to accept pt. Pt/ are aware. Original Note: RN FANNY notified by PAUL Sanz that pt is interested in HHC. CARRIE ESCOBEDO in to pt room. at bedside. Patient/ was provided a list of HHC providers including quality and resource use data and consistent with the patient?s preferred geographic region, medical needs, and insurance network. The patient?s preferred provider is [facility]. Pt states he has a cane and walker at home. Denies need for DME. States he feels he can shower himself and denies need for PROP CUTTER. TC to Zeenat escobar at [facility], left message with referral information. Awaiting acceptance.
[2021-02-02] MEDS: 0.9% Normal Saline 1,000 ML 75 ML IV (14:08)
--- NOTE | 2021-02-02 14:40 | NURSING ---
patient felt dizzy room spinning vs taken and assisted to wc to go to er to be evaluated called daughter let her know. patient given support
--- NOTE | 2021-02-02 16:02 | CASEMGMT ---
SW did not complete a PHQ 9 as per chart patient did not have a Stroke or TIA. Raisa Trinidad INFORMATION TECHNOLOGY AUDIT MANAGER GLYNN
[2021-02-02] MEDS: LINAGLIPTIN 5 MG TABLET PO (17:33)
[2021-02-02 17:50] LABS: Bedside Glucose 166 mg/dL (70-110)
[2021-02-02] MEDS: Pantoprazole Sodium 20 MG Tablet PO (21:46)
[2021-02-02] MEDS: amLODIPine 10 MG Tablet PO (21:46)
[2021-02-02] MEDS: Losartan Potassium 100 MG Tablet PO (21:54)
[2021-02-02 22:26] LABS: Bedside Glucose 149 mg/dL (70-110)
[2021-02-03 03:22] VITALS: PULSE 59
[2021-02-03] MEDS: 0.9% Normal Saline 1,000 ML 75 ML IV (03:28)
[2021-02-03 03:50] VITALS: BP 152/73; PULSE 78; RESP 18; TEMP 36.6; O2SAT 99
[2021-02-03 04:49] LABS: Absolute Lymphocyte Count 1.65 X10^3/uL (0.83-4.51); Absolute Neutrophil Count 5.1 X10^3/uL (2.0-7.7); Basophil# 0.06 X10^3/uL; Basophil% 0.8 % (0-1); Eosinophil# 0.17 X10^3/uL; Eosinophils% 2.1 % (0-5); Hematocrit 32.9 % (40-54); Hemoglobin 11.4 g/dL (13.0-16.5); Lymphocyte # 1.65 X10^3/ul (0.83-4.51); Lymphocyte % 20.8 % (19-41); Mean Corp Hgb Conc 34.7 g/dL (32-36); Mean Corpuscular Hgb 33.4 pg (27.0-32.0); Mean Corpuscular Volume 96.5 fL (80-94); Mean Platelet Vol. 10.5 fl (6.2-12.0); Monocyte# 0.88 X10^3/uL; Monocyte% 11.1 % (0-10); NRBC Flagged by Analyzer 0 % (0-5); Neutrophil # 5.11 X10^3/uL (2.7-7.7); Neutrophil % 64.4 % (47-70); Platelet Count 133 K/mm3 (150-450); RBC Distribution Width CV 12.1 % (11.6-14.6); RBC Distribution Width SD 42.1 fl (35.1-43.9); Red Blood Count 3.41 M/mm3 (4.6-6.2); White Blood Count 7.9 K/mm3 (4.4-11.0)
[2021-02-03 05:05] LABS: ALB/GLOB Ratio 0.9 RATIO (0.9-2.4); AST(SGOT) 25 U/L (15-37); Alanine Aminotransfer ALT/SGPT 26 U/L (16-61); Albumin, Serum 3.3 g/dL (3.2-5.0); Alkaline Phosphatase 57 U/L (45-117); Anion Gap 9 (5-15); BUN 18 mg/dL (7-18); BUN/Creat Ratio 19.5 RATIO (10-20); Calcium,Total 8.6 mg/dL (8.5-10.1); Chloride 102 mmol/L (98-107); Creatinine, Serum 0.92 mg/dL (0.70-1.30); EST Glomerular Filtration Rate 83 mL/min (>60); Est Glom Filt Rate - Afr Amer 101 mL/min (>60); Estimated Creatinine Clearance 69.96 ml/min; Globulin 3.5 g/dL (2.2-4.2); Glucose 140 mg/dL (74-106); Protein, Total 6.8 g/dL (6.4-8.2); Sodium Level 132 mmol/L (136-145)
[2021-02-03] MEDS: Insulin Lispro 100 UNIT/ML INSULN.PEN SC ×2 (06:35→11:36)
[2021-02-03 06:47] VITALS: PULSE 64
[2021-02-03 07:00] LABS: Bedside Glucose 178 mg/dL (70-110)
[2021-02-03 08:37] VITALS: O2SAT 98
[2021-02-03 09:31] VITALS: BP 141/49; PULSE 68; RESP 14; TEMP 37; O2SAT 98
[2021-02-03] MEDS: Cholestyramine/Sucrose 4 GM/PACKET PO (09:40)
[2021-02-03] MEDS: LINAGLIPTIN 5 MG TABLET PO (09:40)
[2021-02-03] MEDS: Calcium Carbonate 500 MG Tablet PO (09:41)
[2021-02-03] MEDS: Glimepiride 2 MG Tablet PO (09:41)
[2021-02-03] MEDS: Aspirin E.C. 81 MG Tablet PO (09:41)
[2021-02-03] MEDS: Heparin Injection (Vial) 5,000 UNIT/ML VIAL 5000 UNIT SC (09:41)
[2021-02-03] MEDS: metFORMIN (XR) 500 MG Tablet 1000 MG PO (09:41)
[2021-02-03] MEDS: Finasteride 5 MG Tablet PO (09:41)
[2021-02-03] MEDS: Cholecalciferol (VIT D3) 25 MCG TABLET (1,000 UNITS) 125 MCG PO (09:42)
--- NOTE | 2021-02-03 09:56 | CASEMGMT ---
RN CM notified that pt will need ST at ut. TC to Zeenat intake at [facility] to add ST. Added to order.
[2021-02-03 12:25] LABS: Bedside Glucose 263 mg/dL (70-110)
--- NOTE | 2021-02-03 12:44 | DS.PCM_ITS ---
Providers Date of Admission: 02/01/21 Primary Care Physician: Dr. Juanpablo Stack DO Reason For Visit: ACUTE ENCEPHALOPATHY Diagnosis Discharge Diagnosis (1) Encephalopathy: Status: Resolved Code(s): G93.40 - Encephalopathy, unspecified (2) Hyponatremia: Status: Acute Code(s): E87.1 - Hypo-osmolality and hyponatremia (3) Elevated troponin: Status: Acute Code(s): R77.8 - Other specified abnormalities of plasma proteins Plan: Indeterminate troponins secondary to demand ischemia. (4) HTN (hypertension): Status: Chronic Code(s): I10 - Essential (primary) hypertension (5) Leucocytosis: Status: Resolved Code(s): D72.829 - Elevated white blood cell count, unspecified (6) Lactic acidosis: Status: Resolved Code(s): E87.2 - Acidosis (7) Diabetes mellitus type II, controlled: Status: Chronic Code(s): E11.9 - Type 2 diabetes mellitus without complications Qualifiers: Diabetes mellitus complication status: without complication Diabetes mellitus longterm insulin use: without longterm use Qualified Code(s): E11.9 - Type 2 diabetes mellitus without complications Medications at Discharge Home Medications aspirin 81 mg PO DAILY 03/26/16 losartan 100 mg PO QHS 03/26/16 glimepiride 2 mg tablet 2 mg PO BID tab 01/20/18 atenolol 25 mg tablet 25 mg PO QHS 01/05/19 nitroglycerin 0.4 mg sublingual tablet 0.4 mg SUBLINGUAL Q5M PRN #25 tab 01/05/19 omeprazole 20 mg capsule,delayed release 20 mg PO QHS cap 01/05/19 calcium citrate 600 mg PO DAILY 05/20/19 finasteride 5 mg tablet 5 mg PO DAILY 04/27/20 mecobalamin (vitamin B12) 5,000 mcg disintegrating tablet 5,000 mcg PO DAILY 04/27/20 multivitamin 1 tab PO DAILY 04/27/20 amlodipine 5 mg tablet 10 mg PO QHS tab 12/16/20 Glucosamine Chondroitin 1 cap PO DAILY 02/01/21 cholecalciferol (vitamin D3) [Vitamin D3] 125 mcg PO DAILY 02/01/21 Kombiglyze XR 1 tab PO DAILY #0 tab 02/03/21 Hospital Course Operations None Procedures 2-D Echocardiogram Summary of Care Provided Minutes Spent on Discharge: 50 Hospital Course: 80-year-old male with multiple cardiovascular comorbidities, history of CVA, PAD, type II DM who presented with confusion. Patient was said to be in his usual state of health prior to admission, he had mowed his lawn and his son's lawn, a total of more than 3 acres the day before. He was recently started on spironolactone for uncontrolled blood pressure. Patient was noted to be opening and closing the faucet in the bathroom at 3 AM. He was found to be very confused and brought to the emergency room. His presentation in the ED was significant for leukocytosis, sodium of 120, creatinine 1.11, lactic acid was 3.1, troponins was elevated at 0.370. Patient's initial CT was unremarkable. CTA of the head and neck is remarkable for moderate stenosis of the proximal right vertebral artery near its origin, severe stenosis of the proximal left vertebral artery at its origin Admitting chest x-ray shows no cardiopulmonary abnormality. He was admitted to the telemetry floor and worked up for acute stroke. MRI brain was unremarkable. Patient had required a couple of doses of Haldol/Ativan in the ED. He needed and a dose of Haldol for the MRI on account of claustrophobia. Patient's hospital stay was unremarkable. His confusion appeared resolved the next day. His leukocytosis was improved. Lactic acidosis resolved, hyponatremia improved from 1 20-132. Teleneurology was consulted and felt that patient's presentation was consistent with metabolic reasons such as dehydration, elevated lactic acidosis. His home Metformin dose was decreased. His Lasix was stopped. Further history showed that patient has underlying cognitive impairment. Recommended follow-up with neurology for formal diagnosis of dementia. I spent a long time at the bedside going over patient's presentation and plan of care. His and daughter were at bedside. All questions were answered. He will follow-up with PCP in 1 week. Physical Exam Narrative General: Alert, oriented, x3, Cooperative, No apparent distress, Well developed HEENT: Atraumatic Oral: Moist Mucosa Neck: Supple Lungs: Clear to auscultation Cardiovascular: HS I+II, regular, 2/6 holosystolic murmur murmurs Abdomen: Bowel Sounds Present, Soft, Non Tender Extremities: No edema Skin: Scar at the back, nontender Neurological: Grossly intact Psych/Mental Status: Appropriate ABG / Lab / Microbiology Data Result Diagrams: 02/03/21 04:15 02/03/21 04:15 Laboratory: Laboratory Results - last 24 hr 02/02/21 02/02/21 02/03/21 17:30 21:42 04:15 WBC 7.9 RBC 3.41 L Hgb 11.4 L Hct 32.9 L MCV 96.5 H MCH 33.4 H MCHC 34.7 RDW Std Deviation 42.1 RDW Coeff of Ryan 12.1 Plt Count 133 L MPV 10.5 Immature Gran % (Auto) 0.800 Neut % (Auto) 64.4 Lymph % (Auto) 20.8 [place] % (Auto) 11.1 H Eos % (Auto) 2.1 Baso % (Auto) 0.8 Absolute Neuts (auto) 5.1 Absolute Lymphs (auto) 1.65 Nucleated RBC % 0 Sodium Potassium Chloride Carbon Dioxide Anion Gap BUN Creatinine Estim Creat Clear Calc Est GFR (MDRD) Af Amer Est GFR (MDRD) Non-Af BUN/Creatinine Ratio Glucose Calcium Total Bilirubin AST ALT Alkaline Phosphatase Total Protein Albumin Globulin Albumin/Globulin Ratio POC Glucose 166 H 149 H 02/03/21 02/03/21 02/03/21 04:15 06:34 11:33 WBC RBC Hgb Hct MCV MCH MCHC RDW Std Deviation RDW Coeff of Ryan Plt Count MPV Immature Gran % (Auto) Neut % (Auto) Lymph % (Auto) [place] % (Auto) Eos % (Auto) Baso % (Auto) Absolute Neuts (auto) Absolute Lymphs (auto) Nucleated RBC % Sodium 132 L Potassium 4.0 Chloride 102 Carbon Dioxide 21.0 Anion Gap 9 BUN 18 Creatinine 0.92 Estim Creat Clear Calc 69.96 Est GFR (MDRD) Af Amer 101 Est GFR (MDRD) Non-Af 83 BUN/Creatinine Ratio 19.5 Glucose 140 H Calcium 8.6 Total Bilirubin 0.80 AST 25 ALT 26 Alkaline Phosphatase 57 Total Protein 6.8 Albumin 3.3 Globulin 3.5 Albumin/Globulin Ratio 0.9 POC Glucose 178 H 263 H Microbiology: Microbiology 02/01/21 07:10 Urine Culture - Final Urine, Clean Catch Mixed Gram Positive Organisms 02/01/21 06:55 Blood Culture - Preliminary Blood Culture (Wb) - Anticubital Right No growth in 48 hours. 02/01/21 07:08 Blood Culture - Preliminary Blood Culture (Wb) - Right Hand No growth in 48 hours. Microbiology 02/01/21 07:10 Urine, Clean Catch Urine Culture - Final Mixed Gram Positive Organisms 02/01/21 06:55 Blood Culture (Wb) - Anticubital Right Blood Culture - Preliminary No growth in 48 hours. 02/01/21 07:08 Blood Culture (Wb) - Right Hand Blood Culture - Preliminary No growth in 48 hours. Radiography Diagnostic Testing: Radiology Impression Echocardiogram 02/01/21 08:57 Interpretation Summary The study was technically difficult. Left ventricular systolic function is normal. The estimated ejection fraction is 65 %. Moderate concentric left ventricular hypertrophy. The left atrium is mildly enlarged. There is moderate to severe mitral annular calcification. Extension of the mitral annular calcification onto the mitral valve leaflets. Mild focal mitral valve calcification of the anterior leaflet. The mitral papillary muscle appears thickened and/or calcified. Trivial mitral valve insufficiency. Trivial tricuspid valve insufficiency. Moderate to severe aortic valve stenosis. Trivial aortic valve insufficiency. Calcified aortic root. Unable to estimate RV systolic pressure/pulmonary artery pressure due to technically difficult study. Unable to assess diastolic dysfunction. Bubble contrast study negative for right to left interatrial shunt. Ordering Physician: Mabel Hoover Referring Physician: Juanpablo Stack Performed By: Hilaria Medina RDCS D/C Instructions Discharge Diet: Low fat / Low cholesterol, 1600 Calorie Control Diet and 2000 mg Sodium Diet Discharge Activity: Return to Normal Activity Meaningful Use Info Meaningful Use Diagnoses (Choose all that apply): None applicable Discharge Plan Admission Admit Date/Time: 02/01/21 08:07 Primary Reason for Your Visit: Confusion Attending Provider: Mabel Hoover Primary Care Provider: Juanpablo Stack Instructions Additional Instructions / Restrictions: Take note of changes to your medications. Continue to keep yourself hydrated. Keep a log of your blood pressures and blood sugars. Follow-up with your primary care doctor 1 week for a repeat blood work to check on your kidneys. You need a referral to see the neurologist. Discharge Orders/Prescriptions Prescriptions: Continued atenolol 25 mg tablet 25 mg PO QHS RF: 0 omeprazole 20 mg capsule,delayed release(DR/EC) 20 mg PO QHS RF: 0 nitroglycerin 0.4 mg tablet, sublingual 0.4 mg SUBLINGUAL Q5M PRN (Reason: Chest Pain) Qty: 25 RF: 4 finasteride 5 mg tablet 5 mg PO DAILY RF: 0 multivitamin [Daily Multi-Vitamin] Tablet 1 tab PO DAILY RF: 0 mecobalamin (vitamin B12) 5,000 mcg tablet,disintegrating 5,000 mcg PO DAILY RF: 0 amlodipine 5 mg tablet 10 mg PO QHS RF: 0 aspirin 81 MG tablet,delayed release (DR/EC) 81 mg PO DAILY RF: 0 losartan 100 MG tablet 100 mg PO QHS RF: 0 glimepiride 2 mg tablet 2 mg PO BID RF: 0 calcium citrate 200 MG tablet 600 mg PO DAILY RF: 0 cholecalciferol (vitamin D3) [Vitamin D3] 125 mcg (5,000 unit) Tablet 125 mcg PO DAILY RF: 0 Glucosamine Chondroitin 550-30-1 mg Capsule 1 cap PO DAILY RF: 0 Changed Kombiglyze XR 1 EACH tablet, ER multiphase 24 hr 1 tab PO DAILY Qty: 0 RF: 0 Discontinued cholestyramine (with sugar) 4 gram powder 4 g PO DAILY RF: 0 furosemide 40 mg tablet 40 mg PO DAILY RF: 0 coenzyme Q10 [CoQ-10] 100 mg Capsule 100 mg PO DAILY RF: 0 zinc 50 mg Capsule 50 mg PO DAILY RF: 0 Referrals: Juanpablo Stack DO [Primary Care Provider] - Disposition Patient Disposition: Home, self care Visit Charges OBSV E&M: 84666 Observation care discharge
== END 2021-02-03 12:16 | disposition home health service (06) ==
LOC: ED 08:27 → PCU 08:36
PROVIDERS: Admitting Provider Internal Medicine; Emergency Provider Student in an Organized Health Care Education/Training Program; PCP Family Medicine; Visit Provider Internal Medicine
DX: E87.1 Hypo-osmolality and hyponatremia (principal); G93.40 Encephalopathy, unspecified; I24.8 Other forms of acute ischemic heart disease; I10 Essential (primary) hypertension; D72.829 Elevated white blood cell count, unspecified; E87.2 Acidosis; I25.10 Atherosclerotic heart disease of native coronary artery without angina pectoris; I25.2 Old myocardial infarction; R47.01 Aphasia; I08.3 Combined rheumatic disorders of mitral, aortic and tricuspid valves; R26.2 Difficulty in walking, not elsewhere classified; I87.2 Venous insufficiency (chronic) (peripheral); R01.1 Cardiac murmur, unspecified; I65.23 Occlusion and stenosis of bilateral carotid arteries; E11.51 Type 2 diabetes mellitus with diabetic peripheral angiopathy without gangrene; D64.9 Anemia, unspecified; Z79.899 Other long term (current) drug therapy; Z79.84 Long term (current) use of oral hypoglycemic drugs; Z79.82 Long term (current) use of aspirin; Z86.73 Personal history of transient ischemic attack (TIA), and cerebral infarction without residual deficits; Z95.5 Presence of coronary angioplasty implant and graft
CPT/HCPCS: 36415; 70450; 70496; 70498; 70551; 71045; 80048; 80053; 80061; 81001; 82607; 82962; 83605; 84443; 84484; 85025; 85610; 85730; 87040; 87086; 87088; 92523; 92526; 92610; 93005; 93306; 94762; 96361; 96372; 96374; 96375; 96376; 97162; 97167; 97802; 99218; 99285; J7030; Q9957; Q9967; A4216; G0378

== ENCOUNTER → 2021-02-14 12:03 | Outpatient (CLI) | payer MEDICARE, SELFPAY ==
[2021-02-01 09:00] VITALS: BMI 31.8
[2021-02-14 15:30] LABS: Anion Gap 8 (5-15); BUN 20 mg/dL (7-18); BUN/Creat Ratio 17.7 RATIO (10-20); Calcium,Total 9.1 mg/dL (8.5-10.1); Chloride 93 mmol/L (98-107); Creatinine, Serum 1.13 mg/dL (0.70-1.30); EST Glomerular Filtration Rate 66 mL/min (>60); Est Glom Filt Rate - Afr Amer 80 mL/min (>60); Glucose 169 mg/dL (74-106); Potassium 4.5 mmol/L (3.5-5.1); Sodium Level 124 mmol/L (136-145)
== END ==
PROVIDERS: PCP Family Medicine; Referring Provider Family Medicine; Visit Provider Family Medicine
DX: E87.1 Hypo-osmolality and hyponatremia (principal)
CPT/HCPCS: 36415; 80048

== ENCOUNTER → 2021-02-23 09:38 | Outpatient (CLI) | payer MEDICARE, SELFPAY ==
[2021-02-23 08:15] VITALS: BMI 33.7
[2021-02-23 12:12] LABS: Hematocrit 33.5 % (40-54); Hemoglobin 11.7 g/dL (13.0-16.5); Mean Corp Hgb Conc 34.9 g/dL (32-36); Mean Corpuscular Hgb 33.1 pg (27.0-32.0); Mean Corpuscular Volume 94.9 fL (80-94); Mean Platelet Vol. 10.6 fl (6.2-12.0); Platelet Count 195 K/mm3 (150-450); RBC Distribution Width CV 12.8 % (11.6-14.6); RBC Distribution Width SD 43.7 fl (35.1-43.9); Red Blood Count 3.53 M/mm3 (4.6-6.2); White Blood Count 9.9 K/mm3 (4.4-11.0)
[2021-02-23 12:31] LABS: Vitamin B12 1823 pg/mL (211-911)
[2021-02-23 13:08] LABS: AST(SGOT) 24 U/L (15-37); Alanine Aminotransfer ALT/SGPT 44 U/L (16-61); Albumin, Serum 3.8 g/dL (3.2-5.0); Alkaline Phosphatase 67 U/L (45-117); Anion Gap 10 (5-15); BUN 16 mg/dL (7-18); BUN/Creat Ratio 13.9 RATIO (10-20); Calcium,Total 9.2 mg/dL (8.5-10.1); Chloride 94 mmol/L (98-107); Creatinine, Serum 1.15 mg/dL (0.70-1.30); EST Glomerular Filtration Rate 65 mL/min (>60); Est Glom Filt Rate - Afr Amer 78 mL/min (>60); Ferritin 62 ng/mL (26-388); Glucose 157 mg/dL (74-106); Iron 104 ug/dL (65-175); Potassium 4.3 mmol/L (3.5-5.1); Protein, Total 7.8 g/dL (6.4-8.2); Sodium Level 127 mmol/L (136-145); Thyroid Stim Hormone (TSH) 2.13 uIU/mL (0.358-3.74)
== END ==
PROVIDERS: PCP Family Medicine; Referring Provider Psychiatry & Neurology Neurology; Visit Provider Psychiatry & Neurology Neurology
DX: I63.9 Cerebral infarction, unspecified (principal); R41.89 Other symptoms and signs involving cognitive functions and awareness; R60.0 Localized edema; D64.9 Anemia, unspecified
CPT/HCPCS: 36415; 80053; 82607; 82728; 82746; 83540; 84443; 85027

== ENCOUNTER → 2021-03-01 12:17 | Outpatient (CLI) | payer MEDICARE, SELFPAY ==
[2021-02-23 08:15] VITALS: BMI 33.7
[2021-03-01 14:57] LABS: Absolute Lymphocyte Count 1.13 X10^3/uL (0.83-4.51); Absolute Neutrophil Count 6.3 X10^3/uL (2.0-7.7); Basophil# 0.05 X10^3/uL; Basophil% 0.6 % (0-1); Eosinophil# 0.05 X10^3/uL; Eosinophils% 0.6 % (0-5); Hematocrit 33.6 % (40-54); Hemoglobin 11.9 g/dL (13.0-16.5); Lymphocyte # 1.13 X10^3/ul (0.83-4.51); Lymphocyte % 13.4 % (19-41); Mean Corp Hgb Conc 35.4 g/dL (32-36); Mean Corpuscular Hgb 33.6 pg (27.0-32.0); Mean Corpuscular Volume 94.9 fL (80-94); Mean Platelet Vol. 10.1 fl (6.2-12.0); Monocyte# 0.79 X10^3/uL; Monocyte% 9.4 % (0-10); NRBC Flagged by Analyzer 0 % (0-5); Neutrophil # 6.33 X10^3/uL (2.7-7.7); Neutrophil % 75.3 % (47-70); Platelet Count 158 K/mm3 (150-450); RBC Distribution Width CV 12.8 % (11.6-14.6); RBC Distribution Width SD 44.2 fl (35.1-43.9); Red Blood Count 3.54 M/mm3 (4.6-6.2); White Blood Count 8.4 K/mm3 (4.4-11.0)
[2021-03-01 15:06] LABS: BNP,B-Type NATRIURETIC PEPTIDE 386.5 pg/mL (0-100)
[2021-03-01 15:15] LABS: ALB/GLOB Ratio 1.1 RATIO (0.9-2.4); AST(SGOT) 22 U/L (15-37); Alanine Aminotransfer ALT/SGPT 32 U/L (16-61); Albumin, Serum 3.9 g/dL (3.2-5.0); Alkaline Phosphatase 61 U/L (45-117); Anion Gap 9 (5-15); BUN 12 mg/dL (7-18); BUN/Creat Ratio 11.5 RATIO (10-20); Calcium,Total 9.3 mg/dL (8.5-10.1); Chloride 96 mmol/L (98-107); Creatinine, Serum 1.04 mg/dL (0.70-1.30); EST Glomerular Filtration Rate 73 mL/min (>60); Est Glom Filt Rate - Afr Amer 88 mL/min (>60); Globulin 3.7 g/dL (2.2-4.2); Glucose 171 mg/dL (74-106); Potassium 4.5 mmol/L (3.5-5.1); Protein, Total 7.6 g/dL (6.4-8.2); Sodium Level 130 mmol/L (136-145)
[2021-03-01 15:21] LABS: D-Dimer Quantitative (DVT/PE) 1.35 FEU/ug/m (0.27-0.49)
== END ==
PROVIDERS: PCP Family Medicine; Referring Provider Family Medicine; Visit Provider Family Medicine
DX: I48.92 Unspecified atrial flutter (principal); R00.1 Bradycardia, unspecified; R06.00 Dyspnea, unspecified; R06.01 Orthopnea; I10 Essential (primary) hypertension; Z51.81 Encounter for therapeutic drug level monitoring
CPT/HCPCS: 36415; 80053; 83880; 84484; 85025; 85379; 93225; 93226

== ENCOUNTER → 2021-03-02 07:52 | Outpatient (CLI) | payer MEDICARE, SELFPAY ==
[2021-02-23 08:15] VITALS: BMI 33.7
--- NOTE | 2021-03-02 08:02 | CT_ITS ---
STUDY: CTA CHEST REASON FOR EXAM: Male, 80 years old. DYSPNEA ELEVATED D DIMER RADIATION DOSAGE (If Supplied By Facility): CTDIvol = ( 13.82 ) mGy, DLP = ( 549.84 ) mGycm TECHNIQUE: The examination was performed with the intravenous administration of IV 100mL Isovue-370. Post-processing of the angiographic images was performed, with multiplanar reformation and 3D reconstruction. Individualized dose optimization techniques were used for this CT. COMPARISON: None. FINDINGS: Normal enhancement of the main pulmonary artery and right and left pulmonary arteries. Normal enhancement of the bilateral peripheral pulmonary arteries. There is no demonstrated pulmonary embolism. There is atherosclerotic calcification of the aortic arch with tortuosity. There is no demonstrated aortic dissection. Sternal cerclage wires and vascular clips are present from a prior sternotomy and coronary artery bypass graft procedure (CABG). There are calcifications of the coronary arteries. There are visualized mediastinal lymph nodes, which are within normal size limits, and with normal morphology. Normal hilar regions. Normal visualized trachea and bronchi. The lungs are well expanded. There are small bilateral pleural effusions with bibasilar atelectasis. Normal chest wall structures. There are degenerative changes of thoracic spine. Electrodes from a TENS unit are seen. Normal visualized upper abdomen. CT/CTA Chest W/WO Contrast IMPRESSION: Bilateral pleural effusions with bibasilar atelectasis. Status post CABG. Coronary artery calcification. Electronically Signed: Elgin Pfeiffer MD at 8:59 EDT , Service support ,
== END ==
PROVIDERS: PCP Family Medicine; Referring Provider Family Medicine; Visit Provider Family Medicine
DX: R06.00 Dyspnea, unspecified (principal); R79.89 Other specified abnormal findings of blood chemistry
CPT/HCPCS: 71275; Q9967

== ENCOUNTER → 2021-03-15 11:46 | Outpatient (CLI) | payer MEDICARE, SELFPAY ==
[2021-03-15 10:05] VITALS: BMI 31.0
--- NOTE | 2021-03-15 11:50 | RAD_ITS ---
EXAM: XR CHEST, 2 VIEWS : 1940 CLINICAL INDICATION: Dyspnea on exertion TECHNIQUE: Frontal and lateral views of the chest. This report was created using [employer] report generation technology. COMPARISON: 02/01/2021 FINDINGS: LUNGS AND PLEURAL SPACES: There are trace interstitial opacities. Overall there appears to been mild improved aeration from the reference exam. No pneumothorax. No effusion. HEART: Unremarkable. Cardiac silhouette not enlarged. MEDIASTINUM: Central airways and mediastinal contour are unremarkable. BONES/JOINTS: Unremarkable. SOFT TISSUES: Unremarkable. TUBES, LINES AND DEVICES: Stimulator leads are seen overlying the lower thoracic spine. RAD/Chest PA and Lateral IMPRESSION: No acute findings in the chest. at 0858 Reported and signed by: Eleazar Valles MD Electronically Signed: Eleazar Valles MD at 8:57 EDT Tel , Service support ,
[2021-03-15 12:39] LABS: Absolute Lymphocyte Count 0.91 X10^3/uL (0.83-4.51); Absolute Neutrophil Count 6.4 X10^3/uL (2.0-7.7); Basophil# 0.05 X10^3/uL; Basophil% 0.6 % (0-1); Eosinophil# 0.05 X10^3/uL; Eosinophils% 0.6 % (0-5); Hematocrit 35.9 % (40-54); Hemoglobin 12.4 g/dL (13.0-16.5); Lymphocyte # 0.91 X10^3/ul (0.83-4.51); Lymphocyte % 11.1 % (19-41); Mean Corp Hgb Conc 34.5 g/dL (32-36); Mean Corpuscular Hgb 32.9 pg (27.0-32.0); Mean Corpuscular Volume 95.2 fL (80-94); Mean Platelet Vol. 10.1 fl (6.2-12.0); Monocyte# 0.81 X10^3/uL; Monocyte% 9.8 % (0-10); NRBC Flagged by Analyzer 0 % (0-5); Neutrophil # 6.39 X10^3/uL (2.7-7.7); Neutrophil % 77.7 % (47-70); Platelet Count 189 K/mm3 (150-450); RBC Distribution Width CV 12.7 % (11.6-14.6); RBC Distribution Width SD 44.4 fl (35.1-43.9); Red Blood Count 3.77 M/mm3 (4.6-6.2); White Blood Count 8.2 K/mm3 (4.4-11.0)
[2021-03-15 13:07] LABS: Anion Gap 7 (5-15); BUN 14 mg/dL (7-18); Calcium,Total 9.5 mg/dL (8.5-10.1); Chloride 99 mmol/L (98-107); EST Glomerular Filtration Rate 76 mL/min (>60); Est Glom Filt Rate - Afr Amer 92 mL/min (>60); Glucose 168 mg/dL (74-106); Potassium 4.3 mmol/L (3.5-5.1); Sodium Level 131 mmol/L (136-145)
[2021-03-15 13:09] LABS: BNP,B-Type NATRIURETIC PEPTIDE 391.5 pg/mL (0-100)
== END ==
PROVIDERS: PCP Family Medicine; Referring Provider Nurse Practitioner Family; Visit Provider Nurse Practitioner Family
DX: R06.00 Dyspnea, unspecified (principal); I10 Essential (primary) hypertension; I48.91 Unspecified atrial fibrillation
CPT/HCPCS: 36415; 71046; 80048; 83880; 85025

== ENCOUNTER → 2021-03-28 16:08 | Outpatient (CLI) | payer MEDICARE, SELFPAY ==
[2021-03-15 10:05] VITALS: BMI 31.0
[2021-03-28 18:13] LABS: Ferritin 52 ng/mL (26-388); Iron 65 ug/dL (65-175); Sodium Level 128 mmol/L (136-145)
== END ==
PROVIDERS: PCP Family Medicine; Referring Provider Psychiatry & Neurology Neurology; Visit Provider Psychiatry & Neurology Neurology
DX: D64.9 Anemia, unspecified (principal); E87.1 Hypo-osmolality and hyponatremia
CPT/HCPCS: 36415; 82728; 83540; 84295

== ENCOUNTER → 2021-03-30 07:00 | Outpatient (CLI) | payer MEDICARE, SELFPAY ==
[2021-03-15 10:05] VITALS: BMI 31.0
--- NOTE | 2021-03-30 19:38 | STRESSREP ---
Stress Test Report Date: 03-30-2021 Procedure: Pharmacologic stress nuclear imaging study Indications: Atrial fibrillation; CAD; PCI; CABG Consent: Per the patient Procedure: The patient underwent pharmacologic (Regadenoson 0.4mg ) evaluation with a peak heart rate of 85 beats per minute (61%predicted maximal heart rate) and a peak blood pressure of 138/78 mmHg. The baseline ECG demonstrated atrial fibrillation; PVCs. The peak pharmacologic ECG demonstrated no obvious ECG changes. There were occasional PVCs pretest, during pharmacologic infusion, and recovery. There was no complaint of chest discomfort during pharmacologic infusion or recovery. The examination was discontinued secondary to completion of protocol. Impression: 1. Pharmacologic (Regadenoson) evaluation 2. Peak pharmacologic ECG with no obvious ECG changes. 3. There were occasional PVCs pretest, during pharmacologic infusion, and recovery. 4. Nuclear images pending Myocardial perfusion imaging study: Technique: The patient was injected with 15.0 millicuries of technetium 99m Cardiolite and subsequently rest SPECT Cardiolite nuclear imaging was obtained in the horizontal long, vertical long, and short axis views. The patient underwent pharmacologic (Regadenoson) evaluation with a peak heart rate of 85 beats per minute (61% percent predicted maximal heart rate) and a peak blood pressure of 138/78 mmHg. The patient was injected with 44.8 millicuries of technetium 99m Cardiolite and subsequently stress SPECT Cardiolite nuclear imaging was obtained in the horizontal long, vertical long, and short axis views. A gated Cardiolite study at peak stress was not obtained. Interpretation: Rest and stress SPECT Cardiolite nuclear imaging status post realignment, normalization, and attenuation correction demonstrate the appearance of relative uniform tracer uptake and myocardial perfusion appearing within normal limits. Impression: 1. Rest and stress SPECT Cardiolite nuclear imaging demonstrate relative uniform tracer uptake and myocardial perfusion appearing within normal limits. 2. The gated Cardiolite study at peak stress was not obtained. This note was generated with [employer] software. It may contain incorrect words, spelling, and punctuation that were not noted in checking the note before signing.
== END ==
PROVIDERS: PCP Family Medicine; Referring Provider Nurse Practitioner Family; Visit Provider Nurse Practitioner Family
DX: I25.118 Atherosclerotic heart disease of native coronary artery with other forms of angina pectoris (principal); I05.9 Rheumatic mitral valve disease, unspecified; E78.00 Pure hypercholesterolemia, unspecified; I10 Essential (primary) hypertension; D64.9 Anemia, unspecified; R06.00 Dyspnea, unspecified; Z95.1 Presence of aortocoronary bypass graft; Z95.5 Presence of coronary angioplasty implant and graft
CPT/HCPCS: 78452; 93017; A9500; A4216; J2785

== ENCOUNTER 2021-04-04 10:13 | Day surgery (SDC) | payer MEDICARE, SELFPAY ==
[2021-03-15 10:05] VITALS: BMI 31.0
[2021-04-03 12:20] VITALS: BMI 31.0
--- NOTE | 2021-04-03 18:00 | PCM.HP.BLA ---
History and Physical Date of Admission: 04/04/21 [facility] [id number] [place], [place] [id number] OFFICE VISITDate of Service: 03/15/21 MR#:[id number]:[id number]: KERRI FINK ARep #:[id number] Provider: DE Garcia RoofAge/Sex: 80/M [facility]Signed HPI HPI History of Present Illness Details: KERRI FINK, is a 80 year old white male who presents to the office today for a cardiovascular outpatient follow-up with a history of coronary artery disease status post PTCA/stenting to LAD, diagonal 1, and LCx in February 2002 and CABGx3 in January 2016 with NUNEZ to LAD, SVG to PDA of the RCA and to ramus marginalis, as well as a history of PACs, PVCs, ectopic atrial rhythm, hypertension, hyperlipidemia, and diabetes mellitus. She underwent a Holter monitor on 03/01/2021. This showed atrial fibrillation/flutter with an average heart rate of 57 bpm. Longest R-R interval was 2.2 seconds. He was started on anticoagulation therapy. He denies chest, arm, jaw, or neck discomfort. His exercise tolerance is reduced. He denies symptoms of palpitations, dizziness, near syncope, or syncopal episodes. He denies claudication issues. He denies orthopnea, PND, fever, chills, blood in urine, blood in stool, myalgia, or unexplainable fatigue. He does acknowledge left-sided weakness as result of previous TIA, balance issues, fatigue, and intermittent lightheadedness. He states SOB with activity that improves with rest. He states bilateral lower extremities/ankles. 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 Accompanied by: Is patient in pain?: No Allergies lisinopril [From Zestril] Allergy (Verified 03/15/21 10:10) Other niacin Allergy (Verified 03/15/21 10:10) Rash pravastatin sodium [From Pravachol] Allergy (Verified 03/15/21 10:10) Other clonidine Adverse Reaction (Unknown, Verified 03/15/21 10:44) unknown Yobesse-Wup-Atj Reductase Inhibitor Adverse Reaction (Verified 03/15/21 10:10) Other Medications aspirin 81 mg PO DAILY 03/26/16 [History Confirmed 03/15/21] losartan 100 mg PO QHS 03/26/16 [History Confirmed 03/15/21] atenolol 25 mg tablet 25 mg PO QHS 01/05/19 [History Confirmed 03/15/21] nitroglycerin 0.4 mg sublingual tablet 0.4 mg SUBLINGUAL Q5M PRN #25 tab 01/05/19 [Rx Confirmed 03/15/21] omeprazole 20 mg capsule,delayed release 20 mg PO QHS cap 01/05/19 [History Confirmed 03/15/21] mecobalamin (vitamin B12) 5,000 mcg disintegrating tablet 5,000 mcg PO DAILY 04/27/20 [History Confirmed 03/15/21] multivitamin 1 tab PO DAILY 04/27/20 [History Confirmed 03/15/21] Glucosamine Chondroitin 1 cap PO DAILY 02/01/21 [History Confirmed 03/15/21] cholecalciferol (vitamin D3) [Vitamin D3] 125 mcg PO DAILY 02/01/21 [History Confirmed 03/15/21] Kombiglyze XR 1 tab PO DAILY #0 tab 02/03/21 [Rx Confirmed 03/15/21] apixaban 5 mg tablet 5 mg PO BID #60 tab 03/03/21 [Rx Confirmed 03/15/21] amlodipine 5 mg tablet 5 mg PO BID tab 03/15/21 [History Confirmed 03/15/21] calcium carbonate 600 mg calcium (1,500 mg) tablet 600 mg PO DAILY 03/15/21 [History Confirmed 03/15/21] cholestyramine (with sugar) 4 gram powder for susp in a packet gm PO 03/15/21 [History Confirmed 03/15/21] coenzyme Q10 100 mg tablet 100 mg PO DAILY 03/15/21 [History Confirmed 03/15/21] furosemide 40 mg tablet 40 mg PO DAILY #30 tab 03/15/21 [Rx] glimepiride 2 mg tablet 3 mg PO BID tab 03/15/21 [History Confirmed 03/15/21] hydralazine 25 mg tablet 25 mg PO TID tab 03/15/21 [History Confirmed 03/15/21] hydrocodone-acetaminophen 5-325mg 5mg-325mg 1 tab PO BID PRN 03/15/21 [History Confirmed 03/15/21] Ejection fraction %: 65 to 70 PFSH Medical History Anemia Asymptomatic peripheral vascular disease Atherosclerotic heart disease of [place] coronary artery with other forms of angina pectoris Diabetes mellitus type II, controlled Edema of left lower extremity Encounter for long-term current use of high risk medication Essential (primary) hypertension Infection of anterior lower leg Malnutrition Old myocardial infarction Osteomyelitis of left tibia Peripheral vascular disease Presence of stent in coronary artery (~01/06/16) Pure hypercholesterolemia 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 Stroke/cerebrovascular accident Ulcer of left mcnulty Venous insufficiency Surgical History H/O coronary artery bypass surgery (~01/18/16) History of appendectomy History of arthroscopy of left knee History of inguinal hernia repair, bilateral History of knee replacement History of lumbar surgery History of tonsillectomy Presence of coronary angioplasty implant and graft Family History Father COPD (chronic obstructive pulmonary disease) Arthritis Lung disease Mother CVA (cerebral vascular accident) Hx of CABG Heart disease Hypertension Hypercholesterolemia Brother Arthritis Brother Heart disease Brother Hypertension Brother Hypercholesterolemia Sister Heart disease Sister Hypertension Sister Hypercholesterolemia Social History Smoking Status: Unknown if ever smoked Electronic Cigarette Use: not used second hand exposure: Yes (Father smoked when he was a child ) alcohol intake: never substance use type: does not use caffeine: Yes Type: carbonated beverages Number of servings: 3 what type of physical activity do you participate in: other details: treadmill, [place] frequency: 3-4 times per week duration: 30-45 minutes/day seatbelt use: always do you feel safe at home: Yes ROS Const Const: Positive for fatigue and weakness; Negative for headache(s), frequent falls, difficulty sleeping or excessive sweating Eyes Eyes: Negative for loss of peripheral vision, transient loss of vision, blurry vision, double vision or tunnel vision ENT ENT: Positive for balance problems; Negative for headache(s), dizziness or Nosebleed/epistaxis Cardio Chest Pain: No Palpitations: No Edema: Bilateral Muscle aches with walking: None Resp Respiratory: Positive for SOB with activity and wheezing (At night per patient's ); Negative for SOB at rest, SOB orthopnea\SOB lying down, Cough or paroxysmal nocturnal dyspnea GI GI: Negative nausea, vomiting, heartburn or black,tarry stools : Negative for hematuria Musc Musc: Positive for muscle weakness (Left arm related to TIA) and balance problems; Negative for muscle aches/ myalgia or joint pain Skin Skin: Negative non-healing lesions, rash or unusual bruising Neuro Neuro: Positive for lightheadedness (Intermittently) and weakness; Negative for dizziness, near syncope, syncope, frequent falls, headache(s), blurry vision, double vision or lack of coordination Elieser Hematologic/Lymphatic: Negative for easy bleeding or easy bruising Endo Endo: Positive for fatigue; Negative for excessive sweating or increased thirst/drinking Psych Psych: Negative for anxiety or depression Allergy Allergy/Immunology: Negative for hives and Negative for rash Cardiology Exam Const Appearance: cooperative, healthy appearing, comfortable and no acute distress Nutritional Appearance: well nourished and obese Orientation: alert, awake and oriented x3 Head Head: normal to inspection Ears: hearing grossly normal bilaterally Nose: external nose normal Face and Sinus: face symmetric Mouth: oral mucosae normal Eyes General: appearance normal, both eyes and all related structures Eyelids: eyelids normal EOM: EOM intact bilaterally Neck Neck: normal visual inspection and no JVD Carotids: normal carotid upstroke Chest Chest inspection: normal inspection of the chest, symmetric chest movement and normal respiratory effort; Negative cough Auscultation: Bilateral: Clear to Auscultation Cardio Rate: regular rate Rhythm: regular rhythm Heart sounds: S1 normal, S2 normal and murmur; Negative rub or gallop Murmur: Grade 2/6, soft and HIGINIO loudest primary aortic area GI GI: normal to inspection and obese Neuro General: patient alert, patient awake, patient oriented x3 and CN's II-XI intact bilaterally Skin Skin: no rashes or lesions noted Extremities Pulses: Normal: Right Posterior Tibial Pulse, Left Posterior Tibial Pulse, Right Radial Pulse and Left Radial Pulse Lower Extremity Edema: None: Bilateral Psych Psychological: normal affect Assessment and Plan Assessment and Plan (1) Atherosclerotic heart disease of [place] coronary artery with other forms of angina pectoris: Status: Chronic Comment: S/P PTCA stenting to LAD, diagonal 1, and LCx in February 2002; CABG x3 with NUNEZ to LAD, SVG to PDA of the RCA into ramus marginalis in 2015; Orders: Orders: Nuclear Stress Test - Chemical 03/15/21 Plan - Fabio Jordan HEATING AND VENTILATING TENDER, HEATING AND VENTILATING TENDER-C: He denies any chest, arm, jaw, or neck discomfort. However, does acknowledge ongoing shortness of breath with activity and fatigue. Given his previous history, risk factors, symptoms, and now new onset atrial fibrillation/flutter, he was asked undergo a stress test to help assess further. Based on results further recommendation be made. (2) Presence of stent in coronary artery: Status: Chronic Comment: PTCA/stent of prox LAD, PTCA/stent of 1st Diagonal, and baloon cutting angioplasty of the lateral branch of CX 02/25/02; PTCA/TAVON of the prox to mid RCA 01/06/16 Orders: Orders: Nuclear Stress Test - Chemical 03/15/21 Plan - Fabio Jordan NP, HEATING AND VENTILATING TENDER-C: He will continue current medical therapy. (3) H/O coronary artery bypass surgery: Status: Chronic Comment: 01/18/16 CABG x3, NUNEZ TO LAD, SVG to PDA of RCA and to ramus marginals Orders: Orders: Nuclear Stress Test - Chemical 03/15/21 [facility] Jordan NP, HEATING AND VENTILATING TENDER-C: He will continue risk factor lifestyle modification. (4) Rheumatic mitral valve disease: Status: Chronic Orders: Orders: Nuclear Stress Test - Chemical 03/15/21 [facility] - Fabio Jordan NP, HEATING AND VENTILATING TENDER-C: His most recent echocardiogram in January 2021 showed ejection fraction of 65%, moderate to severe mitral annular calcification, and trivial mitral valve insufficiency. This appears stable on exam. He will continue current medical therapy. (5) Rheumatic aortic valve insufficiency: Status: Chronic Plan - Fabio Jordan NP, HEATING AND VENTILATING TENDER-C: His echocardiogram in January 2021 showed an ejection fraction of 65%, moderate concentric LVH, and moderate to severe aortic valve stenosis with trivial aortic valve insufficiency. This too appears stable. It is unclear if his vascular disease is contributing to his shortness of breath. (6) Essential (primary) hypertension: Status: Chronic Orders: Orders: Basic Metabolic Profile (BMP) 03/15/21 BNP,B-Type NATRIURETIC PEPTIDE 03/15/21 Nuclear Stress Test - Chemical 03/15/21 [facility] - Fabio Jordan HEATING AND VENTILATING TENDER, HEATING AND VENTILATING TENDER-C: Patient's blood pressure is well-controlled. We will continue to monitor. We will not make any medication regimen changes. (7) Pure hypercholesterolemia: Status: Chronic Orders: Orders: Nuclear Stress Test - Chemical 03/15/21 Harrison Jordan HEATING AND VENTILATING TENDER, HEATING AND VENTILATING TENDER-C: Lipid panel from 02/02/2021 showed Cholesterol: 139, HDL: 45, LDL: 68, and Triglycerides: 131. He will continue with cholestyramine therapy. He will continue risk factor lifestyle modification. (8) Dyspnea on exertion: Status: Acute Orders: Orders: BNP,B-Type NATRIURETIC PEPTIDE 03/15/21 CBC W/Diff, Automated 03/15/21 Nuclear Stress Test - Chemical 03/15/21 Chest PA and Lateral 03/15/21 [facility] - Fabio Jordan HEATING AND VENTILATING TENDER, HEATING AND VENTILATING TENDER-C: This is the main concern today. His EKG shows atrial flutter at a rate of 64 bpm, VT interval 180, QTc 421, and QRS 98. He was asked to go laboratory evaluation to assess for fluid volume component. He was asked undergo a chest x-ray to discern if there is underlying pulmonary condition due to wheezing and recent hospitalization. He was also asked undergo a stress test to discern if there is any CAD component. Based on results and overall progress, further recommendation will be made. (9) Atrial fibrillation: Status: Acute Orders: Orders: 12 Lead E[place] performed by [facility] [place]21 Basic Metabolic Profile (BMP) 03/15/21 BNP,B-Type NATRIURETIC PEPTIDE 03/15/21 [facility] Jordan HEATING AND VENTILATING TENDER, HEATING AND VENTILATING TENDER-C: His twelve-lead EKG on 02/01/2021 showed atrial flutter at a rate of 70 bpm. His most recent Holter monitor also showed atrial fibrillation/flutter. His EKG today in office shows atrial flutter at a rate of 64 bpm. At this time, he will continue current medical therapy which includes atenolol for rate control and Eliquis for CVA protection. We will also consider cardioversion. Hopefully by maintaining sinus rhythm, his symptoms improved. Over time, if his rhythm becomes an ongoing concern, we can consider electrophysiology evaluation. Plan Details Other Orders: Orders: Nuclear Stress Test - Chemical 03/15/21 D64.9 Additional Comments: Thank you for allowing us to participate in the patients plan of care, if you have any questions please do not hesitate to call. This note was generated using a voice recognition system and there may be incorrect words, spelling or punctuation that were not noted when reviewing the office note prior to saving. Follow Up: 3 Weeks (HEATING AND VENTILATING TENDER/PA) Coding Level of Care Code Off vis,est,level 4 Diagnoses Atherosclerotic heart disease of [place] coronary artery with other forms of angina pectoris I25.118 Presence of stent in coronary artery Z95.5 H/O coronary artery bypass surgery Z95.1 Rheumatic mitral valve disease I05.9 Rheumatic aortic valve insufficiency I06.1 Essential (primary) hypertension I10 Pure hypercholesterolemia E78.00 Dyspnea on exertion R06.00 Atrial fibrillation I48.91 Coding Level of Care Code Off vis,est,level 4 Diagnoses Atherosclerotic heart disease of [place] coronary artery with other forms of angina pectoris I25.118 Presence of stent in coronary artery Z95.5 H/O coronary artery bypass surgery Z95.1 Rheumatic mitral valve disease I05.9 Rheumatic aortic valve insufficiency I06.1 Essential (primary) hypertension I10 Pure hypercholesterolemia E78.00 Dyspnea on exertion R06.00 Atrial fibrillation I48.91 Supplemental Info Supplemental Information Echocardiogram 02/01/2021: Interpretation Summary The study was technically difficult. Left ventricular systolic function is normal. The estimated ejection fraction is 65 %. Moderate concentric left ventricular hypertrophy. The left atrium is mildly enlarged. There is moderate to severe mitral annular calcification. Extension of the mitral annular calcification onto the mitral valve leaflets. Mild focal mitral valve calcification of the anterior leaflet. The mitral papillary muscle appears thickened and/or calcified. Trivial mitral valve insufficiency. Trivial tricuspid valve insufficiency. Moderate to severe aortic valve stenosis. Trivial aortic valve insufficiency. Calcified aortic root. Unable to estimate RV systolic pressure/pulmonary artery pressure due to technically difficult study. Unable to assess diastolic dysfunction. Bubble contrast study negative for right to left interatrial shunt. Transthoracic echocardiogram: 05-17-2020 Interpretation Summary Left ventricular systolic function is normal. The estimated ejection fraction is 55 %. The left atrium is mildly enlarged. There is severe mitral annular calcification. Extension of the mitral annular calcification onto the mitral valve leaflets. Mild focal mitral valve calcification of the anterior leaflet. Mild (1+) mitral valve insufficiency. Trivial tricuspid valve insufficiency. Moderate aortic stenosis. Trivial aortic valve insufficiency. Right ventricular systolic pressure estimated to be 29 mmHg. There is evidence of diastolic dysfunction. Transthoracic echocardiogram: 01-06-16 Left ventricle normal with an LVEF of 76% Right ventricle mildly dilated with normal systolic function Mitral valve with moderate annular calcification, moderately thickened, mild mitral valve stenosis-at most, mild MR Aortic valve moderately calcified with mild stenosis Aorta-poorly visualized Pericardium no pericardial DATE OF SERVICE: 02/21/2016 EXERCISE TOLERANCE TEST: The patient exercised on a Kelvin protocol for 3 minutes completing stage 1 achieving a peak heart rate of 96 beats per minute (67% predicted maximum heart rate) and a peak blood pressure of 184/82 mmHg and a peak MET capacity of approximately 4 METs. The baseline ECG demonstrated normal sinus rhythm. The peak exercise ECG demonstrated no obvious ECG changes at the heart rate achieved. There was an occasional PVC pretest, during exercise, and recovery. The functional capacity was considered decreased. The patient had no complaint of chest discomfort during exercise or recovery. The examination was discontinued secondary to dyspnea. IMPRESSION: 1. Technically inadequate (percent predicted maximum heart rate less than 85%) exercise tolerance test. 2. Peak exercise ECG with no obvious ECG changes at the heart rate achieved. 3. Occasional PVC pretest, during exercise, and recovery. 4. Decreased functional capacity. Cardiac catheterization: 01-06-16 Left ventricle normal with an LVEF of 60-65% LAD with proximal 90% stenosis and mid 70% stenosis First OM with proximal 60% stenosis Intermediate ramus with ostial 70% stenosis RCA with 95% stenosis Second right posterolateral branch with 90% stenosis CAB01-18-2016: [facility] PROCEDURE: QR (LEFT INTERNAL MAMMARY BYPASS TO LAD, SAPHENOUS VEIN BYPASS TO POSTERIOR DESCENDING BRANCH OF RIGHT CORONARY ARTERY, RAMMICHELINE [id number].) Carotid duplex ultrasound from 07/17/2019: Interpretation Summary Irregular plague right internal and external carotids Increased velocity right carotid bulb suspicious for moderate disease but not fitting criteria for evaluation <50% stenosis right internal carotid <50% stenosis right external carotid Irregular calcific plague left internal and external carotids <50% stenosis left internal carotid <50% stenosis left external carotid Patent and antegrade bilateral vertebrals Labs: LDL Cholesterol 68 mg/dL (0-130) HDL Cholesterol 45 mg/dL (40-) Triglycerides 131 mg/dL (-199) VLDL Cholesterol 26 mg/dL (5-40) Diagnostics: Electrocardiogram Echocardiogram Chest X-Ray Pulmonary: No Data to Display 03/16/21 6032<Electronically signed by Fabio KC>Date Fabio KC Cosigner Signature:Date (if applicable) CC: Dr. Juanpablo Stack, DO ~ Addendum: Stress Test Report Date: 03-30-2021 Procedure: Pharmacologic stress nuclear imaging study Indications: Atrial fibrillation; CAD; PCI; CABG Consent: Per the patient Procedure: The patient underwent pharmacologic (Regadenoson 0.4mg ) evaluation with a peak heart rate of 85 beats per minute (61%predicted maximal heart rate) and a peak blood pressure of 138/78 mmHg. The baseline ECG demonstrated atrial fibrillation; PVCs. The peak pharmacologic ECG demonstrated no obvious ECG changes. There were occasional PVCs pretest, during pharmacologic infusion, and recovery. There was no complaint of chest discomfort during pharmacologic infusion or recovery. The examination was discontinued secondary to completion of protocol. Impression: 1. Pharmacologic (Regadenoson) evaluation 2. Peak pharmacologic ECG with no obvious ECG changes. 3. There were occasional PVCs pretest, during pharmacologic infusion, and recovery. 4. Nuclear images pending Myocardial perfusion imaging study: Technique: The patient was injected with 15.0 millicuries of technetium 99m Cardiolite and subsequently rest SPECT Cardiolite nuclear imaging was obtained in the horizontal long, vertical long, and short axis views. The patient underwent pharmacologic (Regadenoson) evaluation with a peak heart rate of 85 beats per minute (61% percent predicted maximal heart rate) and a peak blood pressure of 138/78 mmHg. The patient was injected with 44.8 millicuries of technetium 99m Cardiolite and subsequently stress SPECT Cardiolite nuclear imaging was obtained in the horizontal long, vertical long, and short axis views. A gated Cardiolite study at peak stress was not obtained. Interpretation: Rest and stress SPECT Cardiolite nuclear imaging status post realignment, normalization, and attenuation correction demonstrate the appearance of relative uniform tracer uptake and myocardial perfusion appearing within normal limits. Impression: 1. Rest and stress SPECT Cardiolite nuclear imaging demonstrate relative uniform tracer uptake and myocardial perfusion appearing within normal limits. 2. The gated Cardiolite study at peak stress was not obtained. Overall plan: Proceed with further evaluation care of underlying atrial dysrhythmia with synchronized biphasic DC cardioversion. The procedure and risks were discussed with the patient. He was agreeable to this approach. The surgeon/proceduralist and patient have discussed in detail the risk of exposure to and/or potential harm posed by the COVID-19 virus with having a surgery/procedure at this time versus the risk of delaying the surgery/procedure. It is not possible to know either the risk of delaying the surgery or procedure or chance of getting an infection with perfect accuracy, but a joint decision was made between the patient and the surgeon/proceduralist to proceed at this time with the scheduled surgery/procedure as indicated on the consent form. I have re-examined the patient. There are no clinical changes since date of exam.
--- NOTE | 2021-04-04 12:56 | PRO.PCM_ITS ---
Procedure Report Date of Procedure: 04/04/21 CONSCIOUS SEDATION REPORT DATE OF SERVICE: April 04, 2021 BRIEF HISTORY OF PRESENT ILLNESS: The patient is an 80-year-old male who presented to [facility] for an elective outpatient cardioversion due to underlying atrial fibrillation. The patient denies ever having undergone a prior cardioversion. He denies any previous anesthetic complications. The patient is systemically anticoagulated on Eliquis. His last surface echocardiogram revealed an ejection fraction of 65%. He has never been diagnosed with COPD, asthma or obstructive sleep apnea. PHYSICAL EXAMINATION: VITAL SIGNS: Reviewed and were acceptable. GENERAL: The patient is a male, in no apparent distress, speaking in full sentences. HEENT: Normocephalic, atraumatic. Mucous membranes are moist and pink. Good mouth opening noted. Trachea is midline. CHEST: S1, S2 irregularly irregular. No murmurs, rubs or gallops were noted. LUNGS: Clear to auscultation bilaterally without appreciable wheezes, rales or rhonchi. ABDOMEN: Soft, nontender, nondistended. Positive bowel sounds. EXTREMITIES: There is no clubbing, cyanosis or edema. ASA Class: II DESCRIPTION OF PROCEDURE: After confirmation of informed consent, the patient's anesthesia plan was reviewed in detail. Propofol was chosen. Risks and benefits were reviewed and the patient agreed to proceed. At 1222, the patient was given 60 mg of propofol. The patient achieved an appropriate level of sedation and was given a 200 joule synchronized cardioversion by Dr. Anaya at the bedside. This was successful in achieving normal sinus rhythm. The patient was monitored until 1233, at which time he reached his baseline mental status and function. The patient tolerated the procedure well. COMPLICATIONS: None ESTIMATED BLOOD LOSS: None RECOMMENDATIONS: Okay to recover in usual fashion. Procedures Pulmonary CF Procedures Pulmonary: 54426 Con Sedation
--- NOTE | 2021-04-04 13:20 | CARDIOVERS ---
Cardioversion Cardioversion: Date: 04-04-2021 Procedure: Synchronized Biphasic DC Cardioversion Indications: Atrial fibrillation/ Consent: Per the Patient Anesthesia: per Dr. Peterson of pulmonology and critical care medicine with propofol 60 mg IV push total Procedure: Synchronized Biphasic DC Cardioversion: 200 J x 1: Result: Sinus rhythm; PACs; PVCs Complications: no apparent complications This note was generated with [employer] software. It may contain incorrect words, spelling, and punctuation that were not noted in checking the note before signing.
== END 2021-04-04 13:40 | disposition home or self-care (01) ==
PROVIDERS: PCP Family Medicine; Referring Provider Internal Medicine Cardiovascular Disease; Visit Provider Internal Medicine Cardiovascular Disease
DX: I48.91 Unspecified atrial fibrillation (principal); I10 Essential (primary) hypertension; I25.118 Atherosclerotic heart disease of native coronary artery with other forms of angina pectoris; E11.9 Type 2 diabetes mellitus without complications; Z79.01 Long term (current) use of anticoagulants; Z79.82 Long term (current) use of aspirin; Z79.899 Other long term (current) drug therapy; Z86.73 Personal history of transient ischemic attack (TIA), and cerebral infarction without residual deficits; Z95.5 Presence of coronary angioplasty implant and graft; Z95.1 Presence of aortocoronary bypass graft; Z79.84 Long term (current) use of oral hypoglycemic drugs
CPT/HCPCS: 92960; 93005; J7040

== ENCOUNTER → 2021-04-06 12:29 | Outpatient (CLI) | payer MEDICARE, SELFPAY ==
[2021-04-05 08:39] VITALS: BMI 31.0
== END ==
PROVIDERS: PCP Family Medicine; Referring Provider Internal Medicine Cardiovascular Disease; Visit Provider Internal Medicine Cardiovascular Disease
DX: I49.8 Other specified cardiac arrhythmias (principal); I49.3 Ventricular premature depolarization; I48.91 Unspecified atrial fibrillation; I25.118 Atherosclerotic heart disease of native coronary artery with other forms of angina pectoris; R06.00 Dyspnea, unspecified
CPT/HCPCS: 93225; 93226

== ENCOUNTER → 2021-04-11 09:35 | Outpatient (CLI) | payer MEDICARE, SELFPAY ==
[2021-04-05 08:39] VITALS: BMI 31.0
[2021-04-11 11:29] LABS: Anion Gap 7 (5-15); BUN 18 mg/dL (7-18); BUN/Creat Ratio 16.7 RATIO (10-20); Chloride 94 mmol/L (98-107); Creatinine, Serum 1.08 mg/dL (0.70-1.30); EST Glomerular Filtration Rate 69 mL/min (>60); Est Glom Filt Rate - Afr Amer 84 mL/min (>60); Glucose 207 mg/dL (74-106); Magnesium 1.8 mg/dL (1.6-2.6); Potassium 4.3 mmol/L (3.5-5.1); Sodium Level 126 mmol/L (136-145)
== END ==
PROVIDERS: Internal Medicine Cardiovascular Disease; PCP Family Medicine; Referring Provider Psychiatry & Neurology Neurology; Visit Provider Psychiatry & Neurology Neurology
DX: I49.8 Other specified cardiac arrhythmias (principal); I49.3 Ventricular premature depolarization; I48.91 Unspecified atrial fibrillation; E87.1 Hypo-osmolality and hyponatremia; R06.02 Shortness of breath
CPT/HCPCS: 36415; 80048; 83735

== ENCOUNTER → 2021-04-18 07:06 | Outpatient (CLI) | payer MEDICARE, SELFPAY ==
[2021-04-05 08:39] VITALS: BMI 31.0
[2021-04-18 08:37] LABS: Anion Gap 8 (5-15); BUN 22 mg/dL (7-18); BUN/Creat Ratio 18.6 RATIO (10-20); Calcium,Total 9.1 mg/dL (8.5-10.1); Chloride 95 mmol/L (98-107); Creatinine, Serum 1.18 mg/dL (0.70-1.30); EST Glomerular Filtration Rate 63 mL/min (>60); Est Glom Filt Rate - Afr Amer 76 mL/min (>60); Glucose 236 mg/dL (74-106); Potassium 4.2 mmol/L (3.5-5.1); Sodium Level 129 mmol/L (136-145)
== END ==
PROVIDERS: PCP Family Medicine; Referring Provider Internal Medicine Cardiovascular Disease; Visit Provider Internal Medicine Cardiovascular Disease
DX: I25.118 Atherosclerotic heart disease of native coronary artery with other forms of angina pectoris (principal); Z95.5 Presence of coronary angioplasty implant and graft; Z95.1 Presence of aortocoronary bypass graft
CPT/HCPCS: 36415; 80048

== ENCOUNTER → 2021-04-26 13:07 | Outpatient (CLI) | payer MEDICARE, SELFPAY ==
[2021-04-05 08:39] VITALS: BMI 31.0
[2021-04-26 13:52] LABS: Anion Gap 6 (5-15); BUN 25 mg/dL (7-18); BUN/Creat Ratio 19.8 RATIO (10-20); Calcium,Total 8.8 mg/dL (8.5-10.1); Chloride 94 mmol/L (98-107); Creatinine, Serum 1.26 mg/dL (0.70-1.30); EST Glomerular Filtration Rate 58 mL/min (>60); Est Glom Filt Rate - Afr Amer 70 mL/min (>60); Glucose 153 mg/dL (74-106); Potassium 4.1 mmol/L (3.5-5.1); Sodium Level 128 mmol/L (136-145)
== END ==
PROVIDERS: PCP Family Medicine; Referring Provider Internal Medicine Cardiovascular Disease; Visit Provider Internal Medicine Cardiovascular Disease
DX: E87.1 Hypo-osmolality and hyponatremia (principal)
CPT/HCPCS: 36415; 80048

== ENCOUNTER → 2021-05-02 08:30 | Outpatient (CLI) | payer MEDICARE, SELFPAY ==
[2020-04-27 10:02] VITALS: BMI 31.0
[2021-04-05 08:39] VITALS: BMI 31.0
[2021-05-02 09:21] LABS: Absolute Lymphocyte Count 1.08 X10^3/uL (0.83-4.51); Absolute Neutrophil Count 5.9 X10^3/uL (2.0-7.7); Basophil# 0.07 X10^3/uL; Basophil% 0.9 % (0-1); Eosinophils% 1.2 % (0-5); Hematocrit 34.9 % (40-54); Lymphocyte # 1.08 X10^3/ul (0.83-4.51); Lymphocyte % 13.5 % (19-41); Mean Corp Hgb Conc 34.4 g/dL (32-36); Mean Corpuscular Hgb 32.8 pg (27.0-32.0); Mean Corpuscular Volume 95.4 fL (80-94); Mean Platelet Vol. 10.3 fl (6.2-12.0); Monocyte# 0.84 X10^3/uL; Monocyte% 10.5 % (0-10); NRBC Flagged by Analyzer 0 % (0-5); Neutrophil # 5.89 X10^3/uL (2.7-7.7); Neutrophil % 73.4 % (47-70); Platelet Count 151 K/mm3 (150-450); RBC Distribution Width CV 12.4 % (11.6-14.6); RBC Distribution Width SD 43.5 fl (35.1-43.9); Red Blood Count 3.66 M/mm3 (4.6-6.2)
[2021-05-02 10:04] LABS: AST(SGOT) 23 U/L (15-37); Alanine Aminotransfer ALT/SGPT 31 U/L (16-61); Albumin, Serum 3.8 g/dL (3.2-5.0); Alkaline Phosphatase 78 U/L (45-117); Bilirubin, Direct 0.19 mg/dL (0.00-0.30); Cholesterol 178 mg/dL (200); Globulin 4.1 g/dL (2.2-4.2); High Density Lipoprotein 53 mg/dL; PSA,Total - Annual Screen 4.15 ng/mL (0.00-4.00); Protein, Total 7.9 g/dL (6.4-8.2); Triglycerides 114 mg/dL; Very Low Density Lipoprotein 23 mg/dL (5-40)
== END ==
PROVIDERS: PCP Family Medicine; Referring Provider Family Medicine; Visit Provider Family Medicine
DX: E11.9 Type 2 diabetes mellitus without complications (principal); E78.5 Hyperlipidemia, unspecified; Z51.81 Encounter for therapeutic drug level monitoring; Z12.5 Encounter for screening for malignant neoplasm of prostate
CPT/HCPCS: 36415; 80061; 80076; 84153; 85025; G0103

== ENCOUNTER → 2021-05-11 12:08 | Outpatient (CLI) | payer MEDICARE, SELFPAY ==
[2021-05-02 10:39] VITALS: BMI 31.0
[2021-05-11 13:13] LABS: Anion Gap 8 (5-15); BUN 22 mg/dL (7-18); BUN/Creat Ratio 18.3 RATIO (10-20); Calcium,Total 9.3 mg/dL (8.5-10.1); Chloride 98 mmol/L (98-107); EST Glomerular Filtration Rate 61 mL/min (>60); Est Glom Filt Rate - Afr Amer 74 mL/min (>60); Glucose 137 mg/dL (74-106); Potassium 4.1 mmol/L (3.5-5.1); Sodium Level 131 mmol/L (136-145)
[2021-05-11 13:20] LABS: Hemoglobin A1c 6.6 % (3.8-5.6)
== END ==
PROVIDERS: Internal Medicine Cardiovascular Disease; PCP Family Medicine; Visit Provider Family Medicine
DX: E87.1 Hypo-osmolality and hyponatremia (principal); E11.9 Type 2 diabetes mellitus without complications; I10 Essential (primary) hypertension; I25.118 Atherosclerotic heart disease of native coronary artery with other forms of angina pectoris; E78.00 Pure hypercholesterolemia, unspecified
CPT/HCPCS: 36415; 80048; 83036

== ENCOUNTER → 2021-06-14 11:44 | Outpatient (CLI) | payer MEDICARE, SELFPAY ==
[2021-06-14 12:36] LABS: Absolute Lymphocyte Count 0.88 X10^3/uL (0.83-4.51); Absolute Neutrophil Count 5.6 X10^3/uL (2.0-7.7); Basophil# 0.06 X10^3/uL; Basophil% 0.8 % (0-1); Eosinophil# 0.08 X10^3/uL; Eosinophils% 1.1 % (0-5); Hematocrit 34.5 % (40-54); Hemoglobin 11.7 g/dL (13.0-16.5); Lymphocyte # 0.88 X10^3/ul (0.83-4.51); Lymphocyte % 11.8 % (19-41); Mean Corp Hgb Conc 33.9 g/dL (32-36); Mean Corpuscular Hgb 32.3 pg (27.0-32.0); Mean Corpuscular Volume 95.3 fL (80-94); Monocyte% 10.7 % (0-10); NRBC Flagged by Analyzer 0 % (0-5); Neutrophil # 5.61 X10^3/uL (2.7-7.7); Neutrophil % 75.1 % (47-70); Platelet Count 130 K/mm3 (150-450); RBC Distribution Width CV 12.5 % (11.6-14.6); RBC Distribution Width SD 43.4 fl (35.1-43.9); Red Blood Count 3.62 M/mm3 (4.6-6.2); White Blood Count 7.5 K/mm3 (4.4-11.0)
[2021-06-14 12:54] LABS: Microalbumin,Random Urine 38.7 mg/L (NO RANGE EST.); Microalbumin:Creatinine Ratio 126.1 mg/g CRE (<30 mg/g CRE)
[2021-06-14 13:04] LABS: PTHIN 39.6 pg/mL (18.4-80.1)
[2021-06-14 13:05] LABS: Vitamin D,25 Hydroxy 57.5 ng/mL
[2021-06-14 13:11] LABS: Albumin, Serum 3.5 g/dL (3.2-5.0); Anion Gap 4 (5-15); BUN 23 mg/dL (7-18); Calcium,Total 9.2 mg/dL (8.5-10.1); Chloride 98 mmol/L (98-107); Creatinine, Serum 1.28 mg/dL (0.70-1.30); EST Glomerular Filtration Rate 57 mL/min (>60); Est Glom Filt Rate - Afr Amer 69 mL/min (>60); Glucose 269 mg/dL (74-106); Phosphorus 3.4 mg/dL (2.5-4.9); Potassium 4.2 mmol/L (3.5-5.1); Sodium Level 129 mmol/L (136-145)
== END ==
PROVIDERS: Physician Assistant Medical; PCP Family Medicine; Referring Provider Internal Medicine Nephrology; Visit Provider Internal Medicine Nephrology
DX: E55.9 Vitamin D deficiency, unspecified (principal); N18.2 Chronic kidney disease, stage 2 (mild); R06.02 Shortness of breath; R53.83 Other fatigue; Z95.5 Presence of coronary angioplasty implant and graft; Z95.1 Presence of aortocoronary bypass graft; L97.829 Non-pressure chronic ulcer of other part of left lower leg with unspecified severity
CPT/HCPCS: 36415; 80048; 82040; 82043; 82306; 82570; 83735; 83970; 84100; 85025

== ENCOUNTER → 2021-07-03 12:16 | Outpatient (CLI) | payer MEDICARE, SELFPAY | PROVIDERS: PCP Family Medicine; Referring Provider Physician Assistant Medical; Visit Provider Physician Assistant Medical | DX: R06.02 Shortness of breath (principal); R53.83 Other fatigue; Z95.1 Presence of aortocoronary bypass graft; Z95.5 Presence of coronary angioplasty implant and graft | CPT/HCPCS: 93225; 93226 ==

== ENCOUNTER → 2021-08-01 10:17 | Outpatient (CLI) | payer MEDICARE, SELFPAY ==
--- NOTE | 2021-08-01 10:18 | RAD_ITS ---
STUDY: X-RAY CHEST REASON FOR EXAM: Male, 81 years old. SOB TECHNIQUE: PA and lateral views of the chest. COMPARISON: Comparison is made with prior study dated 11/15/2020. FINDINGS: Stable minimal increased markings at the bases. There is no demonstrated pleural abnormality. Sternal cerclage wires and vascular clips are present from a prior sternotomy and coronary artery bypass graft procedure (CABG). Normal mediastinum and azalea. Normal visualized pulmonary arteries. There is atherosclerotic calcification of the aortic arch with tortuosity. There are diffuse degenerative changes of the visualized thoracic spine. Normal visualized ribs, clavicles, and shoulders. Electrodes from a pain stimulator device is seen at the T7-T8 level. There is no demonstrated abnormality of the visualized soft tissue structures of the upper abdomen. RAD/Chest PA and Lateral IMPRESSION: Stable examination. Electronically Signed: Elgin Pfeiffer MD at 13:36 EDT , Service support ,
[2021-08-01 12:23] LABS: Absolute Neutrophil Count 6.1 X10^3/uL (2.0-7.7); Basophil# 0.06 X10^3/uL; Basophil% 0.8 % (0-1); Eosinophil# 0.05 X10^3/uL; Eosinophils% 0.6 % (0-5); Hemoglobin 12.4 g/dL (13.0-16.5); Lymphocyte % 12.6 % (19-41); Mean Corp Hgb Conc 34.4 g/dL (32-36); Mean Corpuscular Hgb 32.5 pg (27.0-32.0); Mean Corpuscular Volume 94.2 fL (80-94); Mean Platelet Vol. 11.6 fl (6.2-12.0); Monocyte% 8.8 % (0-10); NRBC Flagged by Analyzer 0 % (0-5); Neutrophil # 6.08 X10^3/uL (2.7-7.7); Neutrophil % 76.6 % (47-70); Platelet Count 133 K/mm3 (150-450); RBC Distribution Width CV 12.5 % (11.6-14.6); RBC Distribution Width SD 43.1 fl (35.1-43.9); Red Blood Count 3.82 M/mm3 (4.6-6.2); White Blood Count 7.9 K/mm3 (4.4-11.0)
[2021-08-01 12:25] LABS: International Normalized Ratio 1.2; Prothrombin Time (Protime)PT. 14.7 SECONDS (11.7-14.9)
[2021-08-01 12:37] LABS: Anion Gap 12 (5-15); BUN 29 mg/dL (7-18); BUN/Creat Ratio 19.2 RATIO (10-20); Calcium,Total 9.4 mg/dL (8.5-10.1); Chloride 95 mmol/L (98-107); Creatinine, Serum 1.51 mg/dL (0.70-1.30); EST Glomerular Filtration Rate 47 mL/min (>60); Est Glom Filt Rate - Afr Amer 57 mL/min (>60); Glucose 247 mg/dL (74-106); Potassium 4.3 mmol/L (3.5-5.1); Sodium Level 130 mmol/L (136-145)
== END ==
PROVIDERS: PCP Family Medicine; Referring Provider Physician Assistant Medical; Visit Provider Physician Assistant Medical
DX: I35.0 Nonrheumatic aortic (valve) stenosis (principal); I25.10 Atherosclerotic heart disease of native coronary artery without angina pectoris; R06.02 Shortness of breath; L97.829 Non-pressure chronic ulcer of other part of left lower leg with unspecified severity; R60.0 Localized edema; I63.9 Cerebral infarction, unspecified
CPT/HCPCS: 36415; 71046; 80048; 85025; 85610; 85730

== ENCOUNTER 2021-08-11 07:40 | Day surgery (SDC) | payer MEDICARE, SELFPAY ==
[2021-08-07 14:03] LABS: Anion Gap 7 (5-15); BUN 23 mg/dL (7-18); BUN/Creat Ratio 17.7 RATIO (10-20); Calcium,Total 8.8 mg/dL (8.5-10.1); Chloride 99 mmol/L (98-107); EST Glomerular Filtration Rate 56 mL/min (>60); Est Glom Filt Rate - Afr Amer 68 mL/min (>60); Glucose 257 mg/dL (74-106); Potassium 4.5 mmol/L (3.5-5.1); Sodium Level 130 mmol/L (136-145)
[2021-08-09 13:55] VITALS: BMI 30.8
--- NOTE | 2021-08-10 18:30 | PCM.HP.BLA ---
History and Physical Date of Admission: 08/11/21 [facility] [address] [place] [address] [phone] OFFICE VISITDate of Service: 08/01/21 MR#:[id number]: KERRI FINK ARep #:[id number] Provider: ZAKIYA Crump/Sex: 81/M [facility] [place]Signed HPI HPI History of Present Illness Details: KERRI FINK, is a 81 year old white male who presents to the office today for concerns over increase in fatigue. He does have a history of coronary artery disease status post PTCA/stenting to LAD, diagonal 1, and LCx in February 2002 and CABGx3 in January 2016 with NUNEZ to LAD, SVG to PDA of the RCA and to ramus marginalis, as well as a history of PACs, PVCs, ectopic atrial rhythm, hypertension, hyperlipidemia, and diabetes mellitus. Pt notes that he is fatigued walking to the mailbox over the last few months. He will be having a back procedure where they will be burning the nerves. This is scheduled for next week. He wonders if this is related his fatigue. He does not have any chest pain. He does get SOB if he walks to far. He is able to do the nu step. But has cut down on the time he does this. He does not have any palpitations. He does have lightheadedness with his pain medications. He finds that since we increased his lasix to twice a day he can not tolerate the whole pain pill. He does not have any edema. 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: No Is patient in pain?: No Allergies lisinopril [From Zestril] Allergy (Verified 08/01/21 10:47) Other niacin Allergy (Verified 08/01/21 10:47) Rash pravastatin sodium [From Pravachol] Allergy (Verified 08/01/21 10:47) Other clonidine Adverse Reaction (Unknown, Verified 08/01/21 10:47) unknown Njijwyl-Sbl-Oet Reductase Inhibitor Adverse Reaction (Verified 08/01/21 10:47) Other Medications aspirin 81 mg PO DAILY 03/26/16 [History Confirmed 08/01/21] losartan 100 mg PO QHS 03/26/16 [History Confirmed 08/01/21] nitroglycerin 0.4 mg sublingual tablet 0.4 mg SUBLINGUAL Q5M PRN #25 tab 01/05/19 [Rx Confirmed 08/01/21] omeprazole 20 mg capsule,delayed release 20 mg PO QHS cap 01/05/19 [History Confirmed 08/01/21] mecobalamin (vitamin B12) 5,000 mcg disintegrating tablet 5,000 mcg PO DAILY 04/27/20 [History Confirmed 08/01/21] multivitamin 1 tab PO DAILY 04/27/20 [History Confirmed 08/01/21] Glucosamine Chondroitin 1 cap PO DAILY 02/01/21 [History Confirmed 08/01/21] cholecalciferol (vitamin D3) [Vitamin D3] 125 mcg PO DAILY 02/01/21 [History Confirmed 08/01/21] calcium carbonate 600 mg calcium (1,500 mg) tablet 600 mg PO DAILY 03/15/21 [History Confirmed 08/01/21] cholestyramine (with sugar) 4 gram powder for susp in a packet gm PO 03/15/21 [History Confirmed 08/01/21] glimepiride 2 mg tablet 3 mg PO BID tab 03/15/21 [History Confirmed 08/01/21] apixaban 5 mg tablet 5 mg PO BID #180 tab 03/31/21 [Rx Confirmed 08/01/21] atenolol 25 mg tablet 12.5 mg PO QHS tab 04/12/21 [History Confirmed 08/01/21] saxagliptin 2.5 mg-metformin ER 1,000 mg tablet,extend release 24hr mp 1 tab PO BID #0 tab 04/12/21 [Rx Confirmed 08/01/21] hydrocodone-acetaminophen 5-325mg 5mg-325mg 0.5 tab PO BID PRN tab 06/14/21 [History Confirmed 08/01/21] amoxicillin 500 mg capsule 500 mg PO .COMPLEX 07/28/21 [History Confirmed 08/01/21] furosemide 40 mg tablet 40 mg PO DAILY #1 tab 08/01/21 [Rx Confirmed 08/01/21] [facility] Medical History (Updated 08/01/21 @ 14:49 by Florence Brandt CLINICAL EDUCATION ACADEMIC COORDINATOR, CLINICAL EDUCATION ACADEMIC COORDINATOR-C) Anemia Aortic stenosis Asymptomatic peripheral vascular disease Atherosclerotic heart disease of [place] coronary artery with other forms of angina pectoris Atrial flutter Bilateral carotid artery stenosis Diabetes mellitus type II, controlled Edema of left lower extremity Encounter for long-term current use of high risk medication Essential (primary) hypertension Infection of anterior lower leg Malnutrition MCI (mild cognitive impairment) Old myocardial infarction Osteomyelitis of left tibia Peripheral vascular disease Presence of stent in coronary artery (~01/06/16) Pure hypercholesterolemia 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 Stroke/cerebrovascular accident Ulcer of left mcnulty Venous insufficiency Surgical History H/O coronary artery bypass surgery (~01/18/16) History of appendectomy History of arthroscopy of left knee History of inguinal hernia repair, bilateral History of knee replacement History of lumbar surgery History of tonsillectomy Presence of coronary angioplasty implant and graft Family History Father COPD (chronic obstructive pulmonary disease) Arthritis Lung disease Mother CVA (cerebral vascular accident) Hx of CABG Heart disease Hypertension Hypercholesterolemia Brother Arthritis Brother Heart disease Brother Hypertension Brother Hypercholesterolemia Sister Heart disease Sister Hypertension Sister Hypercholesterolemia Social History Smoking Status: Never smoker Electronic Cigarette Use: not used second hand exposure: Yes (Father smoked when he was a child ) alcohol intake: never substance use type: does not use caffeine: Yes Type: carbonated beverages Number of servings: 3 what type of physical activity do you participate in: other details: treadmill, newstep frequency: 3-4 times per week duration: 30-45 minutes/day seatbelt use: always do you feel safe at home: Yes ROS Const Const: Positive for fatigue; Negative for weakness, headache(s), frequent falls, excessive sweating, weight gain or weight loss Eyes Eyes: Negative for blind spots, loss of peripheral vision, transient loss of vision, blurry vision, change in vision or double vision ENT ENT: Negative for headache(s), dizziness, tinnitus, Nosebleed/epistaxis or balance problems Cardio Chest Pain: No Palpitations: No Edema: None Muscle aches with walking: None Resp Respiratory: Positive for SOB with activity; Negative for SOB at rest, SOB orthopnea\SOB lying down or Cough GI GI: Negative nausea, vomiting, heartburn, bloating, vomiting blood/hematemesis, bright, red blood in stools or black,tarry stools : Negative for hematuria Musc Musc: Negative for muscle aches/ myalgia, muscle weakness, joint pain or balance problems Skin Skin: Negative rash or wounds Neuro Neuro: Negative for dizziness, lightheadedness, near syncope, syncope, orthostatic symptoms, frequent falls, headache(s), weakness, confusion, memory loss, restless legs, blurry vision or double vision Elieser Hematologic/Lymphatic: Negative for easy bleeding or easy bruising Endo Endo: Positive for fatigue; Negative for cold intolerance, heat intolerance or excessive sweating Psych Psych: Negative for anxiety or depression Allergy Allergy/Immunology: Negative for rash Cardiology Exam Const Appearance: cooperative, healthy appearing, comfortable and no acute distress Nutritional Appearance: well nourished and obese Orientation: alert, awake and oriented x3 Head Head: normal to inspection Ears: hearing grossly normal bilaterally Nose: external nose normal Face and Sinus: face symmetric Mouth: oral mucosae normal Eyes General: appearance normal, both eyes and all related structures Eyelids: eyelids normal EOM: EOM intact bilaterally Neck Neck: normal visual inspection and no JVD Carotids: normal carotid upstroke Chest Chest inspection: normal inspection of the chest, symmetric chest movement and normal respiratory effort; Negative cough Auscultation: Bilateral: Clear to Auscultation Cardio Rate: regular rate Rhythm: regular rhythm Heart sounds: S1 normal, S2 normal and murmur; Negative rub or gallop Murmur: Grade 3/6, soft, harsh and HIGINIO loudest primary aortic area GI GI: normal to inspection and obese Neuro General: patient alert, patient awake, patient oriented x3 and CN's II-XI intact bilaterally Skin Skin: no rashes or lesions noted Extremities Pulses: Normal: Right Posterior Tibial Pulse, Left Posterior Tibial Pulse, Right Radial Pulse and Left Radial Pulse Lower Extremity Edema: None: Bilateral Psych Psychological: normal affect Assessment and Plan Assessment and Plan (1) Shortness of breath: Status: Acute Orders: Orders: Left Heart Cath w/Grafts 08/01/21 Basic Metabolic Profile (BMP) 08/01/21 Partial Thromboplast Time 08/01/21 Prothrombin Time w/INR 08/01/21 CBC W/Diff, Automated 08/01/21 Chest PA and Lateral 08/01/21 Harrison SIGALA, PA: Concerned that his SOB/Fatigue could be related to his Aortic Valve. Reviewed recent echo and symptoms appear to be ongoing and progressing. Would like to pursue a heart cath to further evaluate. Patient Instructions: I will call you with the date and time of your heart cath You will need a van driver helper Nothing to eat or drink after midnight In the morning with a small sip of water take: Do not take any medications since you usually take all you heart pills at night You will need to hold you eliquis for 3 days prior You will need to hold your metformin the night before and for 72 hours after procedure. You will need to get blood work/ and a CXR (2) Atrial fibrillation: Status: Acute Harrison SIGALA PA: Pt has not had any recurrence that he is aware of. He will continue with his atenolol and his eliquis. Reviewed recent HM (3) Essential (primary) hypertension: Status: Chronic Harrison SIGALA PA: Blood pressure is well controlled on current medications, we do not recommend any changes at this time. (4) Arteriosclerotic heart disease (ASHD): Status: Acute Orders: Orders: Left Heart Cath w/Grafts 08/01/21 Basic Metabolic Profile (BMP) 08/01/21 Partial Thromboplast Time 08/01/21 Prothrombin Time w/INR 08/01/21 CBC W/Diff, Automated 08/01/21 Chest PA and Lateral 08/01/21 Harrison SIGALA PA: Reviewed recent stress test, pt does continue to have fatigue and SOB. Will continue with his aggressive medical management. Would like to pursue heart cath, concerned that symptoms could be related to . (5) Pure hypercholesterolemia: Status: Chronic Harrison SIGALA PA: Pt will continue with current medications. (6) Aortic stenosis: Status: Acute Orders: Orders: Left Heart Cath w/Grafts 08/01/21 Basic Metabolic Profile (BMP) 08/01/21 Partial Thromboplast Time 08/01/21 Prothrombin Time w/INR 08/01/21 CBC W/Diff, Automated 08/01/21 Chest PA and Lateral 08/01/21 Basic Metabolic Profile (BMP) 1 Week Plan - Larissa SIGALA, PA: As mentioned above, would like to pursue heart cath to further evaluate, concerned that his symptoms are related to worsening . If so, ideally pt would benefit from possible TAVR with is previous CABG. (7) Rheumatic mitral valve disease: Status: Chronic Plan - Larissa SIGALA, PA: Will continue to monitor. Plan Details Other Medications: Changed: From: furosemide (Lasix) 60 mg (1.5 x 40 mg) PO DAILY 0 tabs 0RF To: furosemide (Lasix) 40 mg PO DAILY 1 TAB 0RF Other Orders: Orders: Partial Thromboplast Time 08/01/21 I63.9 Prothrombin Time w/INR 08/01/21 R60.0 CBC W/Diff, Automated 08/01/21 L97.829 Follow Up: 08/01/21 (keep as is) Coding Level of Care Code Off vis,est,level 4 Diagnoses Shortness of breath R06.02 Atrial fibrillation I48.91 Essential (primary) hypertension I10 Arteriosclerotic heart disease (ASHD) I25.10 Pure hypercholesterolemia E78.00 Aortic stenosis I35.0 Rheumatic mitral valve disease I05.9 Coding Level of Care Code Off vis,est,level 4 Diagnoses Shortness of breath R06.02 Atrial fibrillation I48.91 Essential (primary) hypertension I10 Arteriosclerotic heart disease (ASHD) I25.10 Pure hypercholesterolemia E78.00 Aortic stenosis I35.0 Rheumatic mitral valve disease I05.9 Supplemental Info Supplemental Information Echocardiogram 02/01/2021: Interpretation Summary The study was technically difficult. Left ventricular systolic function is normal. The estimated ejection fraction is 65 %. Moderate concentric left ventricular hypertrophy. The left atrium is mildly enlarged. There is moderate to severe mitral annular calcification. Extension of the mitral annular calcification onto the mitral valve leaflets. Mild focal mitral valve calcification of the anterior leaflet. The mitral papillary muscle appears thickened and/or calcified. Trivial mitral valve insufficiency. Trivial tricuspid valve insufficiency. Moderate to severe aortic valve stenosis. Trivial aortic valve insufficiency. Calcified aortic root. Unable to estimate RV systolic pressure/pulmonary artery pressure due to technically difficult study. Unable to assess diastolic dysfunction. Bubble contrast study negative for right to left interatrial shunt. Transthoracic echocardiogram: 05-17-2020 Interpretation Summary Left ventricular systolic function is normal. The estimated ejection fraction is 55 %. The left atrium is mildly enlarged. There is severe mitral annular calcification. Extension of the mitral annular calcification onto the mitral valve leaflets. Mild focal mitral valve calcification of the anterior leaflet. Mild (1+) mitral valve insufficiency. Trivial tricuspid valve insufficiency. Moderate aortic stenosis. Trivial aortic valve insufficiency. Right ventricular systolic pressure estimated to be 29 mmHg. There is evidence of diastolic dysfunction. Transthoracic echocardiogram: 01-06-16 Left ventricle normal with an LVEF of 76% Right ventricle mildly dilated with normal systolic function Mitral valve with moderate annular calcification, moderately thickened, mild mitral valve stenosis-at most, mild MR Aortic valve moderately calcified with mild stenosis Aorta-poorly visualized Pericardium no pericardial DATE OF SERVICE: 02/21/2016 EXERCISE TOLERANCE TEST: The patient exercised on a Kelvin protocol for 3 minutes completing stage 1 achieving a peak heart rate of 96 beats per minute (67% predicted maximum heart rate) and a peak blood pressure of 184/82 mmHg and a peak MET capacity of approximately 4 METs. The baseline ECG demonstrated normal sinus rhythm. The peak exercise ECG demonstrated no obvious ECG changes at the heart rate achieved. There was an occasional PVC pretest, during exercise, and recovery. The functional capacity was considered decreased. The patient had no complaint of chest discomfort during exercise or recovery. The examination was discontinued secondary to dyspnea. IMPRESSION: 1. Technically inadequate (percent predicted maximum heart rate less than 85%) exercise tolerance test. 2. Peak exercise ECG with no obvious ECG changes at the heart rate achieved. 3. Occasional PVC pretest, during exercise, and recovery. 4. Decreased functional capacity. Cardiac catheterization: 01-06-16 Left ventricle normal with an LVEF of 60-65% LAD with proximal 90% stenosis and mid 70% stenosis First OM with proximal 60% stenosis Intermediate ramus with ostial 70% stenosis RCA with 95% stenosis Second right posterolateral branch with 90% stenosis CAB01-18-2016: [facility] PROCEDURE: QR (LEFT INTERNAL MAMMARY BYPASS TO LAD, SAPHENOUS VEIN BYPASS TO POSTERIOR DESCENDING BRANCH OF RIGHT CORONARY ARTERY, RAMMICHELINE [id number].) Carotid duplex ultrasound from 07/17/2019: Interpretation Summary Irregular plague right internal and external carotids Increased velocity right carotid bulb suspicious for moderate disease but not fitting criteria for evaluation <50% stenosis right internal carotid <50% stenosis right external carotid Irregular calcific plague left internal and external carotids <50% stenosis left internal carotid <50% stenosis left external carotid Patent and antegrade bilateral vertebrals Labs: LDL Cholesterol 102 mg/dL (0-130) HDL Cholesterol 53 mg/dL (40-) Triglycerides 114 mg/dL (-199) VLDL Cholesterol 23 mg/dL (5-40) Diagnostics: Electrocardiogram Chest X-Ray Pulmonary: No Data to Display 08/03/21 0942<Electronically signed by Larissa SIGALA>Date Larissa SIGALA Cosign Signature:Date (if applicable) CC: Dr. Juanpablo Stack, DO ~ Assessment & Plan Addt'l Comments I have re-examined the patient. There are no clinical changes since date of exam
[2021-08-11 10:41] LABS: Blood Gas Specimen Type VEN; VBG BASE EXCESS -2 mmol/L (-1.0-3.5); VBG Bicarbonate 23 mmol/L (22-26); VBG PO2 31 mmHg (25-40); VBG SO2 62 % (50-70); VBG TCO2 24 mmol/L (23-33); VBG pCO2 33.5 mmHg (41-51); VBG pH 7.44 (7.32-7.42)
[2021-08-11 10:46] LABS: Blood Gas Specimen Type VEN; VBG BASE EXCESS -2 mmol/L (-1.0-3.5); VBG Bicarbonate 22 mmol/L (22-26); VBG PO2 32 mmHg (25-40); VBG SO2 66 % (50-70); VBG TCO2 23 mmol/L (23-33); VBG pCO2 32.4 mmHg (41-51); VBG pH 7.45 (7.32-7.42)
[2021-08-11 10:51] LABS: Base Excess -3 mmol/L (-2 to +2); Bicarbonate 20.5 mmol/L (22-26); Blood Gas Specimen Type ART; Blood Gas Specimen Type VEN; PO2 85 mmHG (75-100); SO2 97 % (95-99); Total Carbon Dioxide 21 mmol/L; VBG BASE EXCESS -2 mmol/L (-1.0-3.5); VBG Bicarbonate 22 mmol/L (22-26); VBG PO2 30 mmHg (25-40); VBG SO2 60 % (50-70); VBG TCO2 23 mmol/L (23-33); VBG pCO2 33.2 mmHg (41-51); VBG pH 7.43 (7.32-7.42); pCO2 28.5 mmHg (35-45); pH 7.47 (7.35-7.45)
--- NOTE | 2021-08-11 12:13 | CL.D_ITS ---
Patient Name: KERRI FINK Study Date: 08/11/2021 Performing: Earle Anaya MD Ht: 74.01 inches 188 cm : 1940 Wt: 240.3 lbs 109 kg Age: 81 Gender: male BSA: 2.35 PROCEDURE(S) PERFORMED IJ57-JTO/LHC/COR/CABG CLINICAL PROFILE AND INDICATIONS Indications: Valvular Disease Heart Failure: None Stress/Imaging Date: 03/30/2021tress Test with SPECT MPI: Negative Angina Classification Anginal Classification w/in 2 Weeks: No symptoms CAD Presentations: No Sxs, no angina. CONCLUSIONS Right heart pressures - moderately to severely elevated The patient has pulmonary hypertension which is moderate to severely elevated Intracardiac shunting: None Elevated Left Ventricular End Diastolic Pressure [place] Multivessel CAD NUNEZ to LAD: patent SVG to IR: patent SVG to RPDA: patent Aortic Valve Stenosis- Moderate Mitral Valve Annular Calcification Severe annular calcification RECOMMENDATIONS Risk factor modification Medical therapy Surgery consult for valvular disease DESCRIPTION OF PROCEDURE The patient arrived to the procedure lab. The risks and benefits of the procedure as well as a full d escription of our services here and current unavailability of surgical backup were fully explained to the patient and/or their significant other prior to the catheterization. The Timeout was completed, verifying the correct patient and procedure. The patient's procedural site was prepped and draped in the usual fashion. Local anesthetic was given subcutaneously to right groin region with Lidocaine 2%. Using a modified Seldinger technique, arterial access was obtained via the right femoral artery, a 4 Fr sheath was inserted Venous access was obtained via the right femoral vein, a 7Fr sheath was insert ed. A 7Fr thermal dilution catheter was inserted and right heart pressures were recorded, it was then advanced to PA position for cardiac outputs. Thermal dilution cardiac outputs were then recorded. O2 saturations were then obtained. LV to AO pullback pressures were then recorded. The Thermal dilution catheter was then removed. Left Coronary Artery selective angiography was performed in multiple views using a 4 Fr. JL5 catheter. Right Coronary Artery selective angiography was then pe rformed in multiple views using a 4 Fr. 3DRC catheter. Saphenous Vein graft to the Ramus selective an giography was performed in multiple views using a 4 Fr. 3DRC catheter. Saphenous Vein graft to the RP DA selective angiography was performed in multiple views using a 4 Fr. 3DRC catheter. Left internal m ammary artery graft to the LAD selective angiography was performed in multiple views using a 4 Fr. IM catheter.The arterial sheath was pulled and manual compression applied until hemostasis is achieved. . The venous sheath was then pulled and manual compression applied until hemostasis achieved CORONARY ANGIOGRAPHY DOMINANCE: Right Dominant LEFT HEART ASSESSMENT Left Ventricular Ejection Fraction: Not assessed Elevated Left Ventricular End Diastolic Pressure LVEDP: 23 mmHg RIGHT HEART ASSESSMENT Thermal CO: 4.81 Thermal CI: 2.05 PW: 13 PA: 47/14 28 RV: 50/0 5 RA: 3/6 2 PVR: 249 SVR: 1879 Aortic Valve Area: 1.50 Aortic Valve Index: 0.64 Aortic Valve Mean Gradient: 16.2 Mitral Valve Area: 2.70 Mitral Valve index: 1.15 Mitral Valve Mean Gradient: 5.7 Right Heart pressures - elevated Pulmonary Hypertension Moderate to Severe Intracardiac shunting: None LEFT MAIN: Mild calcification, Mild luminal irregularities LEFT ANTERIOR DESCENDING ARTERY: PROX LAD: Severe calcification, 85 % Stenosis MID LAD: Severe calcification, is occluded, to distal: fills from the NUNEZ graft with no angiographic ally significant appearing stenosis distal to the graft attachment CIRCUMFLEX ARTERY: PROX CIRC: Mild calcification, 25 % Stenosis MID CIRC: Mild luminal irregularities OM 1: Proximal - Mild luminal irregularities RIGHT CORONARY ARTERY: PROX RCA: is occluded GRAFTS: NUNEZ graft to the Mid LAD is patent Saphenous Vein graft to the Ramus is patent with no angiographically significant disease distal to th e graft attachment Saphenous Vein graft to the RPDA is patent with no angiographically significant appearing disease dis osvaldo to the graft attachment VALVE FINDINGS: Aortic Valve Stenosis - moderate Mitral Valve Annular Calcification Severe COMPLICATIONS No Complications PROCEDURE MEDICATIONS Versed 1 mg IV SUMMARY OF HEMODYNAMIC DATA Time AIR REST ECG 07:58:28 RA 3/6 (2) SV 10:38:50 RV 50/0, 5 10:39:17 PA 47/14 (28) PA 10:39:56 PW (13) PV 10:40:13 AO 174/75 (115) SA 10:51:11 LV 187/14, 23 10:59:25 PW 24/41 (24) 10:59:25 LV 183/14, 23 11:00:08 LVp 173/28, 58 11:00:23 AOp 165/68 (109) 11:00:28 AO 162/65 (104) 11:00:32 Valve Area (c P-P/ms Time AIR REST Mitral 2.69 5.7 mn/354 ms1.0 pk/354 ms 10:59:25 Aortic 1.50 16.2 mn/326 ms8.0 pk/326 ms 11:00:23 Type SV CO (l/m) CI (l/m/ HR Time AIR REST Thermal 229.00 4.81 2.05 21 07:58:28 Label % O2 Pres/Loc Time AIR REST AO 97 PV 11:24:47 PA 60 PA 11:24:50 SVC 62 11:24:55 IVC 66 SV 11:24:58 Signed By Earle Anaya MD On 08/11/2021 12:12:31 Earle Anaya MD
== END 2021-08-11 15:59 | disposition home or self-care (01) ==
PROVIDERS: Physician Assistant Medical; PCP Family Medicine; Referring Provider Internal Medicine Cardiovascular Disease; Visit Provider Internal Medicine Cardiovascular Disease
DX: I35.8 Other nonrheumatic aortic valve disorders (principal); I34.8 Other nonrheumatic mitral valve disorders; I27.20 Pulmonary hypertension, unspecified; I25.10 Atherosclerotic heart disease of native coronary artery without angina pectoris; E11.9 Type 2 diabetes mellitus without complications; I10 Essential (primary) hypertension; D64.9 Anemia, unspecified; E66.9 Obesity, unspecified; I48.92 Unspecified atrial flutter; I48.91 Unspecified atrial fibrillation; I25.2 Old myocardial infarction; Z86.73 Personal history of transient ischemic attack (TIA), and cerebral infarction without residual deficits; Z68.30 Body mass index [BMI] 30.0-30.9, adult; Z95.1 Presence of aortocoronary bypass graft; Z95.5 Presence of coronary angioplasty implant and graft; Z79.899 Other long term (current) drug therapy; Z79.84 Long term (current) use of oral hypoglycemic drugs; Z79.82 Long term (current) use of aspirin; Z79.01 Long term (current) use of anticoagulants
CPT/HCPCS: 36415; 80048; 82803; 93457; 93461; 99152; 99153; J7040; Q9967; C1751; C1769; C1894

== ENCOUNTER → 2021-08-22 09:42 | Outpatient (CLI) | payer MEDICARE, SELFPAY ==
--- NOTE | 2021-08-22 09:57 | CDU_ITS ---
Reason For Study: Carotid artery stenosis, Bruit left carotid artery Rt. Velocities/BP Lt. Velocities/BP Prox CCA 61.7/5.6 cm/sec. Prox CCA 70.2/10.7 cm/sec. Mid CCA 68.2/5.6 cm/sec. Mid CCA 66.4/8.8 cm/sec. Dist CCA 69.5/6.9 cm/sec. Dist CCA 65.4/7.8 cm/sec. Prox ICA 93.7/6 cm/sec. Prox ICA 81.6/8 cm/sec. Mid ICA 71.8/17 cm/sec. Mid ICA 47.6/11.3 cm/sec. Dist ICA 71.6/12.6 cm/sec. Dist ICA 69.6/17.9 cm/sec. Rt. ICA/CCA = 1.37. Lt. ICA/CCA = 1.23. Prox ECA 135.7 cm/sec. Prox ECA 163 cm/sec. Rt. Vert. 36.2/8.8 cm/sec. Lt. Vert. 57.5/12.4 cm/sec. Right Extracranial There is heterogeneous, irregular atherosclerotic plaque noted in the right common carotid artery. There is heterogeneous, irregular atherosclerotic plaque noted in the right internal carotid artery. There is heterogeneous, irregular atherosclerotic plaque noted in the right external carotid artery. The atherosclerotic plaque causes acoustic shadowing. Antegrade flow is noted in the right vertebral artery. Left Extracranial There is heterogeneous, irregular atherosclerotic plaque noted in the left common carotid artery. There is heterogeneous, irregular atherosclerotic plaque noted in the left internal carotid artery. The atherosclerotic plaque causes acoustic shadowing. There is heterogeneous, irregular atherosclerotic plaque noted in the left external carotid artery. Antegrade flow is noted in the left vertebral artery. Procedure Carotid Duplex 47066. This is a Carotid Duplex examination using B-mode, color flow and specral Doppler. Exam performed in department. VL/Carotid Duplex Ultrasound Interpretation Summary Mild (<50%) stenosis right extracranial internal carotid. Mild (<50%) stenosis left extracranial internal carotid. Flow within the vertebral arteries is antegrade bilaterally. Ordering Physician: Florence Brandt Referring Physician: Juanpablo Stack Performed By: Kortney Geiger RVT
== END ==
PROVIDERS: PCP Family Medicine; Referring Provider Nurse Practitioner Family; Visit Provider Nurse Practitioner Family
DX: R09.89 Other specified symptoms and signs involving the circulatory and respiratory systems (principal); I65.23 Occlusion and stenosis of bilateral carotid arteries
CPT/HCPCS: 93880

== ENCOUNTER → 2021-09-11 10:27 | Outpatient (CLI) | payer MEDICARE, SELFPAY ==
[2021-09-11 11:40] LABS: Anion Gap 10 (5-15); BUN 18 mg/dL (7-18); Calcium,Total 8.9 mg/dL (8.5-10.1); Chloride 95 mmol/L (98-107); Creatinine, Serum 1.29 mg/dL (0.70-1.30); EST Glomerular Filtration Rate 57 mL/min (>60); Est Glom Filt Rate - Afr Amer 68 mL/min (>60); Glucose 300 mg/dL (74-106); Potassium 4.5 mmol/L (3.5-5.1); Sodium Level 128 mmol/L (136-145)
== END ==
PROVIDERS: PCP Family Medicine; Referring Provider Nurse Practitioner Family; Visit Provider Nurse Practitioner Family
DX: U07.1 COVID-19 (principal); R06.02 Shortness of breath; E87.1 Hypo-osmolality and hyponatremia; E11.9 Type 2 diabetes mellitus without complications; I25.118 Atherosclerotic heart disease of native coronary artery with other forms of angina pectoris
CPT/HCPCS: 36415; 80048; 87633; 87635; U0005; U0003

== ENCOUNTER 2021-09-13 14:17 | Outpatient (CLI) | payer MEDICARE, SELFPAY ==
[2021-09-13 14:39] VITALS: BP 186/80; PULSE 66; RESP 16; TEMP 36.8; O2SAT 100; BMI 30.8
[2021-09-13] MEDS: 0.9% Saline Lock 10 ML Syringe IV (14:39)
[2021-09-13 15:18] VITALS: BP 149/64; PULSE 54; RESP 18; TEMP 37.1; O2SAT 100
[2021-09-13 16:18] VITALS: BP 144/67; PULSE 55; RESP 16; TEMP 37; O2SAT 100
== END 2021-09-13 16:22 | disposition home or self-care (01) ==
LOC: MS3OUT 14:17 → MS3 14:18
PROVIDERS: PCP Family Medicine; Referring Provider Nurse Practitioner Adult Health; Visit Provider Nurse Practitioner Adult Health
DX: Z23 Encounter for immunization (principal); U07.1 COVID-19
CPT/HCPCS: J7050; M0245; Q0245; A4216

== ENCOUNTER 2021-10-04 14:46 | Emergency (ER) | payer MEDICARE, SELFPAY ==
[2021-10-04 14:50] VITALS: BP 149/116; PULSE 36; RESP 18; TEMP 36.6; O2SAT 98; BMI 30.8
[2021-10-04 15:04] VITALS: BP 217/85; PULSE 73; RESP 17; O2SAT 100
--- NOTE | 2021-10-04 15:14 | EKG12_ITS ---
Test Reason : BRADYCARDIA Blood Pressure : / mmHG Vent. Rate : 070 BPM Atrial Rate : 070 BPM P-R Int : 290 ms QRS Dur : 094 ms QT Int : 426 ms P-R-T Axes : 000 -18 205 degrees QTc Int : 460 ms Sinus rhythm with 1st degree A-V block with frequent Premature ventricular complexes in a pattern of bigeminy Left ventricular hypertrophy with repolarization abnormality Abnormal ECG Confirmed by DONALD POLLOCK, REMY ([id number]), newspaper photo editor ARTIE WALLER ([id number]) on 10/10/2021 10:24:23 AM Referred By: MEET Confirmed By:REMY BENNETT MD
--- NOTE | 2021-10-04 15:15 | EX.ED.DYSGE1 ---
HPI History of Present Illness Chief Complaint: Syncope Detail of Chief Complaint: Low heart rate Informant: patient and spouse/S.O. Narrative Narrative: Patient presents to the emergency department with low heart rate that was noted today. Patient states that he was at home watching television when he asked his to get the finger pulse oximeter and they noted that he had a heart rate in the 30s. Patient called his [id number] who told him to call the squad to come in and get evaluated. Patient denies any chest pain. He denies feeling lightheaded or dizzy. He denies syncope. Patient states he is not felt well for some time and is scheduled to have a aortic valve replacement within the next 3 weeks. Patient is scheduled to go in in 5 days and have a CTA of his chest in preparation for the aortic valve replacement. Patient denies recent illness although he states that he did have Covid right after Thanksgiving. He does complain of exertional dyspnea which is not new. Patient currently on apixaban. Prior similar symptoms: No PFSH PFSH Medical History (Updated 10/04/21 @ 17:[address] Asher Fernandes, DO) Anemia Aortic stenosis Asymptomatic peripheral vascular disease Atherosclerotic heart disease of [place] coronary artery with other forms of angina pectoris Atrial flutter Bilateral carotid artery stenosis Diabetes mellitus type II, controlled Edema of left lower extremity Encounter for long-term current use of high risk medication Essential (primary) hypertension Infection of anterior lower leg Malnutrition MCI (mild cognitive impairment) Old myocardial infarction Osteomyelitis of left tibia Peripheral vascular disease Presence of stent in coronary artery (~01/06/16) Pure hypercholesterolemia 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 Stroke/cerebrovascular accident Ulcer of left mcnulty Venous insufficiency Home Medications aspirin 81 mg PO DAILY 03/26/16 [History Last Taken 08/11/21] losartan 100 mg PO QHS 03/26/16 [History Last Taken 01/31/21] omeprazole 20 mg capsule,delayed release 20 mg PO QHS cap 01/05/19 [History Last Taken 01/31/21] mecobalamin (vitamin B12) 5,000 mcg disintegrating tablet 5,000 mcg PO DAILY 04/27/20 [History Last Taken 01/31/21] multivitamin 1 tab PO DAILY 04/27/20 [History Last Taken 01/31/21] cholecalciferol (vitamin D3) [Vitamin D3] 125 mcg PO DAILY 02/01/21 [History Last Taken 01/31/21] calcium carbonate 600 mg calcium (1,500 mg) tablet 600 mg PO DAILY 03/15/21 [History Last Taken Unknown] cholestyramine (with sugar) 4 gram powder for susp in a packet 4 gm PO DAILY 03/15/21 [History Last Taken Unknown] glimepiride 2 mg tablet 3 mg PO BID tab 03/15/21 [History Last Taken Unknown] apixaban 5 mg tablet 5 mg PO BID #180 tab 03/31/21 [Rx Last Taken 08/06/21] atenolol 25 mg tablet 12.5 mg PO QHS tab 04/12/21 [History Last Taken Unknown] hydrocodone-acetaminophen 5-325mg 5mg-325mg 0.5 tab PO BID PRN tab 06/14/21 [History Last Taken 08/11/21] nitroglycerin 0.4 mg sublingual tablet 0.4 mg SUBLINGUAL Q5M PRN #25 tab 09/08/21 [Rx Last Taken Unknown] furosemide [Lasix] 20 mg PO DAILY 10/04/21 [History Last Taken Unknown] saxagliptin-metformin [Kombiglyze XR] 1 tab PO BID 10/04/21 [History Last Taken Unknown] Allergy/AdvReac Type Severity Reaction Status Date / Time lisinopril [From Zestril] Allergy Other Verified 10/04/21 14:54 niacin Allergy Rash Verified 10/04/21 14:54 pravastatin sodium Allergy Other Verified 10/04/21 14:54 [From Pravachol] clonidine AdvReac Unknown unknown Verified 10/04/21 14:54 Agcbeaz-TCT-VvX Reductase AdvReac Other Verified 10/04/21 14:54 Inhibitor [Vietojs-Dok-Kmv Reductase Inhibitor] Family History Father COPD (chronic obstructive pulmonary disease) Arthritis Lung disease Mother CVA (cerebral vascular accident) Hx of CABG Heart disease Hypertension Hypercholesterolemia Brother Arthritis Brother Heart disease Brother Hypertension Brother Hypercholesterolemia Sister Heart disease Sister Hypertension Sister Hypercholesterolemia Surgical History (Updated 08/11/21 @ 13:20 by Larissa Verde) H/O coronary artery bypass surgery (~01/18/16) History of appendectomy History of arthroscopy of left knee History of inguinal hernia repair, bilateral History of knee replacement History of left heart catheterization (LHC) (~08/11/21) History of lumbar surgery History of tonsillectomy Presence of coronary angioplasty implant and graft Social History Smoking Status: Never smoker Electronic Cigarette Use: not used second hand exposure: Yes (Father smoked when he was a child ) alcohol intake: never substance use type: does not use caffeine: Yes Type: carbonated beverages Number of servings: 3 what type of physical activity do you participate in: other details: treadmill, [place] frequency: 3-4 times per week duration: 30-45 minutes/day seatbelt use: always do you feel safe at home: Yes ROS ROS ED ROS Narrative Generalized weakness Constitutional Constitutional ED: Reports systems reviewed and no addt'l complaints, except as documented; Denies body ache(s), change in weight or chills Eyes Eyes: Denies acute decrease in peripheral vision, change in vision, double vision or loss of vision ENT ENT ED: Reports none; Denies ear pain, lip swelling, loss taste/smell, neck pain, otalgia or sore throat Cardiovascular Cardiovascular: Reports none and other Details: Bradycardia ; Denies abdominal pain, chest pain with activity, leg edema, lightheadedness, palpitations, rapid heart rate or syncope Respiratory/Chest Respiratory/Chest: Reports none; Denies change in mental status, dry cough, dyspnea, hemoptysis, shortness of breath at rest or shortness of breath with exertion Gastrointestinal Gastrointestinal: Reports none; Denies abdominal pain, change in stool character, diarrhea, hematemesis, hematochezia, melena, rectal bleeding or vomiting Genitourinary Genitourinary ED: Reports none; Denies abdominal discomfort, anuria, dysuria, genital pain or polyuria Musculoskeletal Musculoskeletal: Reports none; Denies arthralgias, back pain, difficulty walking, extremity pain, muscle weakness or myalgias Integumentary Reports none; Denies abscess or rash Neurologic Neurologic: Reports none; Denies abnormal gait, confusion, focal weakness, frequent falls, headache(s), loss of vision, numbness, paresthesias, radicular pain, vertigo or weakness Psychiatric Psychiatric: Reports systems reviewed and no addt'l complaints, except as documented and none; Denies behavioral changes, confusion, difficulty concentrating, hallucinations, suicidal ideation, tactile hallucinations or visual hallucinations Endocrine Endocrinology: Denies none, cold intolerance, excessive sweating, fatigue or heat intolerance Hematologic/Lymphatic Hematologic/Lymphatic: Reports none; Denies anemia, easy bleeding or easy bruising Allergic/Immunologic Allergic/Immunologic ED: Denies as per HPI, none, lip swelling, mouth swelling, throat swelling, tongue swelling or hives EXAM Physical Exam Const Vital Signs: 10/04/21 14:50 10/04/21 14:58 10/04/21 15:04 Temperature 97.9 F Temperature Source Temporal Pulse Rate 36 L 73 Pulse Rate [Lying] Pulse Rate [Sitting] Pulse Rate [Standing] Respiratory Rate 18 17 Respiratory Effort Normal Respiratory Pattern Normal Blood Pressure 149/116 H 217/85 H Blood Pressure [Lying] Blood Pressure [Sitting] Blood Pressure [Standing] Blood Pressure Mean 127 129 Blood Pressure Mean [Lying] Blood Pressure Mean [Sitting] Blood Pressure Mean [Standing] Pulse Ox 98 100 Oxygen Delivery Method Room Air Room Air 10/04/21 16:06 10/04/21 16:47 Temperature Temperature Source Pulse Rate 60 Pulse Rate [Lying] 65 Pulse Rate [Sitting] 65 Pulse Rate [Standing] 70 Respiratory Rate 15 Respiratory Effort Respiratory Pattern Blood Pressure Blood Pressure [Lying] 139/56 H Blood Pressure [Sitting] 160/57 H Blood Pressure [Standing] 165/65 H Blood Pressure Mean Blood Pressure Mean [Lying] 83 Blood Pressure Mean [Sitting] 91 Blood Pressure Mean [Standing] 98 Pulse Ox 97 Oxygen Delivery Method Room Air Positive well nourished and well developed General Appearance ED: well developed and NAD HEENT Reports TM's clear and moist mucous membranes normocephalic and atraumatic; Negative for trauma or tenderness Tympanic Membrane ED: Yes TM's clear Eyes PERRL and EOMs intact bilaterally General Eye ED: Negative for pale conjunctiva or scleral icterus Neck no lymphadenopathy, supple and no JVD General: Negative for tenderness Chest Wall inspection of chest normal and palpation of chest normal Chest: Negative for tenderness Resp normal respiratory effort and clear to auscultation bilaterally Effort and Inspection: Negative for respiratory distress or pain with movement Auscultation: Negative for rhonchi, wheezes or diminished lung sounds Cardio regular rate, regular rhythm, S1 normal heart sound and S2 normal heart sound Rate: other Other Details: Occasional ectopy noted on exam and patient has a 3 out of 6 systolic ejection murmur noted Peripheral Pulses: pulses 2+ throughout GI normal to inspection, nondistended, normoactive bowel sounds, soft to palpation, non-tender, non-distended and no masses Back/Spine no CVA tenderness and no thoracic nor lumbar tenderness Extremity normal to inspection General Extremety ED: Negative for edema General Extremity: Negative for edema Neuro oriented x3, CN's II-XII intact bilaterally, no sensory deficits noted and gait normal Sensorium / Orientation: awake, alert, oriented to person, oriented to place and oriented to time Motor Exam: strength 5/5 throughout and strength abnormal Psych mental status grossly normal Skin no rashes or lesions noted and no wounds MDM MDM MDM Narrative Medical decision making narrative: IV line established on arrival. Patient placed on a shelter monitor. Patient's heart rate remained in the 60s to 70s the entire time. I suspect because of the bigeminy pattern his reader was picking up the 2 complexes and reading it is 1 therefore giving a heart rate of 30. I did discuss case with jacquard card cutter on-call who stated that the family did call their office and they were told that he likely was just having PVCs but they still wanted to come in and get evaluated. At this point its felt patient can be safely discharged to home and he is in agreement. He otherwise feels well. Lab Data Attestation: I reviewed the patient's lab results. Labs: Laboratory Results - last 24 hr 10/04/21 10/04/21 15:04 15:04 WBC 7.0 RBC 3.35 L Hgb 10.9 L Hct 31.8 L MCV 94.9 H MCH 32.5 H MCHC 34.3 RDW Std Deviation 46.6 H RDW Coeff of Ryan 13.4 Plt Count 138 L MPV 11.6 Immature Gran % (Auto) 0.400 Neut % (Auto) 73.1 H Lymph % (Auto) 13.8 L [place] % (Auto) 11.2 H Eos % (Auto) 0.9 Baso % (Auto) 0.6 Absolute Neuts (auto) 5.1 Absolute Lymphs (auto) 0.96 Nucleated RBC % 0 Sodium 130 L Potassium 4.8 Chloride 99 Carbon Dioxide 24.0 Anion Gap 7 BUN 24 H Creatinine 1.39 H Estim Creat Clear Calc 46.82 Est GFR (MDRD) Af Amer 63 Est GFR (MDRD) Non-Af 52 L BUN/Creatinine Ratio 17.3 Glucose 189 H Calcium 9.4 Troponin I High Sens 58 Radiography Diagnostic Testing: Clinical Impression(s) from Imaging Studies Chest X-Ray 10/04/21 15:30 IMPRESSION: Prominence of the bronchovascular and interstitial lung markings visualized bilaterally suggestive of mild congestive changes, no evidence of focal consolidation, no evidence of pleural effusion. Electronically Signed: Blue Mahoney MD at 15:47 EST Tel , Service support , 1 view chest x-ray obtained interpreted by myself as vascular congestion otherwise no acute disease process. Radiology in agreement. EKG Initial EKG: Attestation: I personally reviewed and interpreted this EKG as follows: Comments: Sinus rhythm with first-degree AV block with frequent PVCs and bigeminy pattern and LVH Prior EKG tracings: available for review Prior: Changed Discharge Plan Triage Chief Complaint: Syncope ED Provider: Asher Fernandes Dx/Rx/DC Orders Clinical Impression: Frequent PVCs, Bigeminy, Aortic stenosis Instructions: Aortic Stenosis, PVCs Prescriptions: No Action omeprazole 20 mg capsule,delayed release(DR/EC) 20 mg PO QHS RF: 0 multivitamin [Daily Multi-Vitamin] Tablet 1 tab PO DAILY RF: 0 mecobalamin (vitamin B12) 5,000 mcg tablet,disintegrating 5,000 mcg PO DAILY RF: 0 cholestyramine (with sugar) 4 gram powder in packet 4 gm PO DAILY RF: 0 calcium carbonate 600 mg calcium (1,500 mg) tablet 600 mg PO DAILY RF: 0 hydrocodone-acetaminophen 5-325 mg tablet 0.5 tab PO BID PRN (Reason: Pain) RF: 0 aspirin 81 MG tablet,delayed release (DR/EC) 81 mg PO DAILY RF: 0 losartan 100 MG tablet 100 mg PO QHS RF: 0 glimepiride 2 mg tablet 3 mg PO BID RF: 0 cholecalciferol (vitamin D3) [Vitamin D3] 125 mcg (5,000 unit) Tablet 125 mcg PO DAILY RF: 0 Kombiglyze XR 2.5-1,000 mg tablet, ER multiphase 24 hr 1 tab PO BID RF: 0 furosemide [Lasix] 40 mg tablet 20 mg PO DAILY RF: 0 Eliquis 5 mg tablet 5 mg PO BID Qty: 180 RF: 3 atenolol 25 mg tablet 12.5 mg PO QHS RF: 0 nitroglycerin 0.4 mg tablet, sublingual 0.4 mg SUBLINGUAL Q5M PRN (Reason: Chest Pain) Qty: 25 RF: 4 Primary Care Provider: Juanpablo Stack Referrals: Juanpablo Stack DO [Primary Care Provider] - Earle Anaya MD [STAFF PHYSICIAN] - 3-5 Days Disposition Disposition: Home, Self Care
[2021-10-04 15:28] LABS: Absolute Lymphocyte Count 0.96 X10^3/uL (0.83-4.51); Absolute Neutrophil Count 5.1 X10^3/uL (2.0-7.7); Basophil# 0.04 X10^3/uL; Basophil% 0.6 % (0-1); Eosinophil# 0.06 X10^3/uL; Eosinophils% 0.9 % (0-5); Hematocrit 31.8 % (40-54); Hemoglobin 10.9 g/dL (13.0-16.5); Lymphocyte # 0.96 X10^3/ul (0.83-4.51); Lymphocyte % 13.8 % (19-41); Mean Corp Hgb Conc 34.3 g/dL (32-36); Mean Corpuscular Hgb 32.5 pg (27.0-32.0); Mean Corpuscular Volume 94.9 fL (80-94); Mean Platelet Vol. 11.6 fl (6.2-12.0); Monocyte# 0.78 X10^3/uL; Monocyte% 11.2 % (0-10); NRBC Flagged by Analyzer 0 % (0-5); Neutrophil # 5.08 X10^3/uL (2.7-7.7); Neutrophil % 73.1 % (47-70); Platelet Count 138 K/mm3 (150-450); RBC Distribution Width CV 13.4 % (11.6-14.6); RBC Distribution Width SD 46.6 fl (35.1-43.9); Red Blood Count 3.35 M/mm3 (4.6-6.2)
--- NOTE | 2021-10-04 15:30 | RAD_ITS ---
INDICATION: dyspnea EXAMINATION/TECHNIQUE: X-RAY - XR Chest 1 View COMPARISON: 08/01/2021. FINDINGS: LINES/DEVICES: Sternal wires are seen in position. Spinal cord stimulator leads visualized superimposed over the lower thoracic spine. EKG leads are seen superimposing the chest. LUNGS: Prominence of the bronchovascular interstitial lung markings visualized bilaterally. Peribronchial cuffing bilateral hilar prominence is seen that demonstrates no significant change in comparison to the prior study. No evidence of focal lung infiltrate or consolidation. No evidence of pneumothorax or pleural effusion. MEDIASTINUM AND CARDIOVASCULAR STRUCTURES: Cardiac silhouette is slightly prominent in size. BONES AND SOFT TISSUES: Degenerative bone changes. RAD/Chest 1 View (Portable) IMPRESSION: Prominence of the bronchovascular and interstitial lung markings visualized bilaterally suggestive of mild congestive changes, no evidence of focal consolidation, no evidence of pleural effusion. Electronically Signed: Blue Mahoney MD at 15:47 EST Tel , Service support ,
[2021-10-04 15:43] LABS: Anion Gap 7 (5-15); BUN 24 mg/dL (7-18); BUN/Creat Ratio 17.3 RATIO (10-20); Calcium,Total 9.4 mg/dL (8.5-10.1); Chloride 99 mmol/L (98-107); Creatinine, Serum 1.39 mg/dL (0.70-1.30); EST Glomerular Filtration Rate 52 mL/min (>60); Est Glom Filt Rate - Afr Amer 63 mL/min (>60); Estimated Creatinine Clearance 46.82 ml/min; Glucose 189 mg/dL (74-106); Potassium 4.8 mmol/L (3.5-5.1); Sodium Level 130 mmol/L (136-145); Troponin-I HS 58 pg/mL (3.0-78.0)
[2021-10-04] MEDS: 0.9% Normal Saline 1,000 ML 15 ML IV (15:50)
[2021-10-04 16:06] VITALS: PULSE 60; RESP 15; O2SAT 97
[2021-10-04 16:47] VITALS: BP 139/56; BP 160/57; BP 165/65; PULSE 65; PULSE 70
[2021-10-04 17:23] VITALS: BP 165/86; PULSE 70; RESP 15; O2SAT 99
== END 2021-10-04 17:23 | disposition home or self-care (01) ==
PROVIDERS: Emergency Provider Emergency Medicine; PCP Family Medicine
DX: I49.3 Ventricular premature depolarization (principal); R00.8 Other abnormalities of heart beat; R06.09 Other forms of dyspnea; I25.2 Old myocardial infarction; E11.51 Type 2 diabetes mellitus with diabetic peripheral angiopathy without gangrene; I25.10 Atherosclerotic heart disease of native coronary artery without angina pectoris; I10 Essential (primary) hypertension; Z95.5 Presence of coronary angioplasty implant and graft; E78.00 Pure hypercholesterolemia, unspecified; Z79.899 Other long term (current) drug therapy; Z79.82 Long term (current) use of aspirin; Z79.01 Long term (current) use of anticoagulants; Z79.84 Long term (current) use of oral hypoglycemic drugs
CPT/HCPCS: 71045; 80048; 84484; 85025; 93005; 99285; J7030; A4216

== ENCOUNTER 2021-11-03 09:22 | Outpatient (CLI) | payer MEDICARE, SELFPAY ==
[2021-11-03 10:12] LABS: Absolute Lymphocyte Count 0.79 X10^3/uL (0.83-4.51); Absolute Neutrophil Count 5.6 X10^3/uL (2.0-7.7); Basophil# 0.05 X10^3/uL; Basophil% 0.7 % (0-1); Eosinophil# 0.12 X10^3/uL; Eosinophils% 1.6 % (0-5); Hematocrit 30.8 % (40-54); Hemoglobin 10.2 g/dL (13.0-16.5); Lymphocyte # 0.79 X10^3/ul (0.83-4.51); Lymphocyte % 10.7 % (19-41); Mean Corp Hgb Conc 33.1 g/dL (32-36); Mean Corpuscular Hgb 30.4 pg (27.0-32.0); Mean Corpuscular Volume 91.9 fL (80-94); Mean Platelet Vol. 11.4 fl (6.2-12.0); Monocyte# 0.84 X10^3/uL; Monocyte% 11.4 % (0-10); NRBC Flagged by Analyzer 0 % (0-5); Neutrophil # 5.57 X10^3/uL (2.7-7.7); Neutrophil % 75.2 % (47-70); Platelet Count 166 K/mm3 (150-450); RBC Distribution Width CV 13.1 % (11.6-14.6); RBC Distribution Width SD 43.7 fl (35.1-43.9); Red Blood Count 3.35 M/mm3 (4.6-6.2); White Blood Count 7.4 K/mm3 (4.4-11.0)
[2021-11-03 10:26] LABS: Hemoglobin A1c 6.3 % (3.8-5.6)
[2021-11-03 10:42] LABS: ALB/GLOB Ratio 0.9 RATIO (0.9-2.4); AST(SGOT) 19 U/L (15-37); Alanine Aminotransfer ALT/SGPT 21 U/L (16-61); Albumin, Serum 3.6 g/dL (3.2-5.0); Alkaline Phosphatase 72 U/L (45-117); Anion Gap 6 (5-15); BUN 19 mg/dL (7-18); BUN/Creat Ratio 16.1 RATIO (10-20); Chloride 102 mmol/L (98-107); Cholesterol 131 mg/dL (200); Creatinine, Serum 1.18 mg/dL (0.70-1.30); EST Glomerular Filtration Rate 63 mL/min (>60); Est Glom Filt Rate - Afr Amer 76 mL/min (>60); Globulin 4.2 g/dL (2.2-4.2); Glucose 129 mg/dL (74-106); High Density Lipoprotein 53 mg/dL; PSA,Total- Diagnostic 5.94 ng/mL (0.0-4.0); Potassium 4.4 mmol/L (3.5-5.1); Protein, Total 7.8 g/dL (6.4-8.2); Sodium Level 131 mmol/L (136-145); Triglycerides 73 mg/dL; Very Low Density Lipoprotein 15 mg/dL (5-40)
== END 2021-11-03 23:59 | disposition short-term general hospital (02) ==
LOC: LAB 09:25
PROVIDERS: PCP Family Medicine; Visit Provider Family Medicine
DX: E11.9 Type 2 diabetes mellitus without complications (principal); I10 Essential (primary) hypertension; R97.20 Elevated prostate specific antigen [PSA]
CPT/HCPCS: 36415; 80053; 80061; 83036; 84153; 85025

== ENCOUNTER 2021-12-14 08:42 | Outpatient (CLI) | payer MEDICARE, SELFPAY ==
--- NOTE | 2021-12-14 08:50 | CR.ITP_ITS ---
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 @ [facility] Personal Learning Style:: Audio/Visual, Written Barriers to Learning: Hearing Impairment, Physical Condition/Sensory Deficit - Slight stroke from low sodium levels, Vision Impairment Stage of change r/t lifestyle modifications:: Action Gave educational material for:: Treating Heart Disease, Emotions & Heart Disease, Stress Management & Relaxation, Sleep Disorders & Heart Disease, How The Heart Works, What it means to have Heart Disease, How Coronary Artery Disease is Diagnosed, Heart Procedures, What Heart Medications Do, Risk Factors & Modifications, Living an Active Life, Nutrition - Education/Goals Individual Counseling: Initial Assessment: Abnormal Cholesterol Levels, High Bl ood Pressure, Overweight/Obesity, Diabetes, Hypertension Cardiac Rehabilitation Goals: 1. Maintain the individual as the primary focus of care. 2. To improve the patient's quality of life. 3. Identification of cardiac risk factors and provide cardiac risk factor management. 4. Enhance the psychosocial status of the patient. 5. Reconditioning enough to allow the patient to resume customary activities. 6. Control symptoms of cardiac disease Personal Goals: Initial Assessment: Improve energy level, Participate in home exercise program, Get back to work, or to resume activities faster, Improve knowledge of cardiac disease, Improve muscle strength and endurance, Improve diet and eating habits (eat healthier), Control risk factors (learn risk factor modification) Scale for measuring improvement of personal goals: Enter appropriate number in Comments. 2 = Unchanged. 3 = Slightly Better. 4 = Moderate Improvement. 5 = Met my Goal - Diagnosis & Disease Process Outcomes/Goals: Pt IDs own risk factors & lifestyle modifications by Session 10, Verbalizes symptoms of angina & response by session 3., Pt independently manages Plan/Interventions: Assist Pt to ID & engage in lifestyle modification to reduce CVD risk, Instruct on individual risk factors, Review symptoms of angina & emergency actions, Review secondary diagnosis & identify educational needs. - Safety Referral to Physical Therapy: No Referral to [facility] Case Management: No Fall Risk Assessed:: Yes Assistive Devices:: None Exercise - Initial Assessment - Visit Date of Eval: 12/14/21 Session #:: 0 - Pre-cardiac rehab evaluation Mets: Pre-: >5 METS for 30 minutes by discharge - Physician Prescribed Exercise Modalities: Treadmill, Airdyne, NuStep, SciFit, Lateral Popcorn Candy Maker Frequency: 3x/week for 12 weeks [36 sessions] Intensity: 60-80% of age predicted maximum heart rate reserve Current METSs:: 2.0 Target Heart Rate:: 85-100 Resting Blood Pressure: 134/76 EKG Type: Sinus rhythm w/first degree block, frequent PVCs, bigeminy pattern - Outcomes & Goals Goals:: Verbalizes understanding of THR, RPE & goal METS by session 6, Documents in home exercise log/reports 30 min aerobic 5 day/wk by DC, Demonstrates accurate pulse taking by DC - Intervention & Plan Exercise Program Goals: Instruct on personal THR & RPE, Instruct on MET level & personal MET goal, Show patient to take own pulse /validate performance until accurate, Instruct on home exercise - Physical Activity Home Exercise Physical Activity - Home Exercise: Safe Exercise, Warm-up, Self-monitoring, Cool-Down, Home Exercise > 30 min Daily, Sitting Time <3 hours/daily - Outcomes & Goals Outcomes/Goals: Demonstrates correct Warm-up/exercise Cool-Down (S3) if = 2.5 METs, Verbalizes symptoms of exercise intolerance by Session 3 (S3), Demonstrate safe equipment use (S3) & follows exercise prescrition (6) - Intervention & Plan Plan/Intervention: Instruct warm-up & cool-down if exercising at > 2 METs, Instruct on symptoms of exercise intolerance & actions to take, Instruct & monitor on saf, Assess intial functional capacity & safety risk Nutrition - Initial Assessment - Program Goals Nutrition Program Goals: LDL <100 optimal. 100 - 129 Near optimal. 130 - 159 Borderline High. 160 - 189 High. Total Cholesterol <200 desirable. 200 - 239 Borderline High. >/= 240 High. HDL < 40 Low >/=60 High. Triglycerides <150 desirable. <199 optimal. VlDL 5 - 40. HgbA1C <7%. BMI <25 Patient has diagnosis of Hyperlipidemia (ICD E78)?: Yes - Visit Date of Assessment:: 12/14/21 Session #:: 0 - pre-cardiac rehab evaluation - Cholesterol/Lipids Triglycerides (mg/dL): 73 Total Cholesterol (mg/dL): 131 LDL Cholesterol (mg/dL): 63 HDL Cholesterol (mg/dL): 53 Determine presence & major risk factors that modify LDL goal: Hypertension or hypertensive medication, Low HDL cholesterol <40 mg/dL*, Family history of premature CHD in Male < 55 years: female <65 yearsFa, Age men > 45 years; women >/= 55 years Outcomes/Goals: Pt IDs own risk factors & lifestyle modifications by Session 10, Verbalizes symptoms of angina & response by session 3., Pt independently manages Intervention/Plan: Advocate for lipid panel cholesterol medication if applicable, Instruct on personal lipid levels & lipid goals/NCEP guidelines, Instruct on cholesterol Referral to dietitian:: Yes - Diabetes (Other Core Measures) Diabetes Type: Diagnosis Type II ICD-10 E11 Fasting blood glucose:: 129 Hgb A1C (4.2 - 6.3): 6.3 Non-Insulin Dependent?: Yes - sexagliptin-metformin Do you monitor your blood sugar at home?: Yes Referral to Diabetic Clinic:: Yes Outcomes/Goals:: Able to state symptoms of, Able to state, Able to state Intervention/Plan:: Instruct on, Refer to, Instruct on - Weight Mgt (Other Care) Not Applicable: Yes Height: 6 ft 2 in Weight:: 230 lb BMI: 29.5 Diagnosis Overweight/Obesity BMI> 30% ICD-10 E66: No Diagnosis High BMI/Morbid Obesity BMI> 35% ICD-10 Z68: No Outcomes/Goals: Pt sets, maintains & shows weight loss goal & trend during rehab Intervention/Plan: Instruct on ideal BMI & set weight loss goal w/patient, Assist pt to ID & incorporate diet changes for weight loss by S9, Encourage goal of using 250-300dcal per session for weight loss - Healthy Eating Habits Will attend diet classes:: Yes Outcomes/Goals:: Consume diet rich in vegs,fruits,whole grain/high fiber,fish,lean meat, Limit sat/trans fats,cholesterol & added salts & sugars Intervention/Plan:: Assess current eating habits - Education Gave educational materials for:: Signs & symptoms of hypoglycemia, Signs & sy mptoms of hyperglycemia, Relate diabetes to coronary artery disease, Healthy eating Nutrition - 30-Day Assessment Nutrition - 60-Day Assessment Nutrition - 90-Day Assessment Nutrition - Final Assessment Medical - Initial Assessment - Visit Date of Eval: 12/14/21 Session #:: 0 - pre-cardiac rehab evaluation - Medication Compliance Preventative Medication(s):: Aspirin, Clopidogrel/P2Y12 inhibit, Statin/lipid, Beta cedric H/O mental health issues: depression, anxiety, or addiction?: No Doesn?t believe in the benefits of treatment?: No Believes medications are unnecessary or harmful?: No Has a concern about medication side effects?: No Expresses concern over the cost of medications?: No Outcomes/Goals: Verbalizes medications,desired effect & common side effects @ DC, Pt self-reports following medication regimen, Keeps card in wallet w/medications listed by DC Interventions/plans: Instruct on medication effects & side effects, Review medication list w/patient every two weeks, Instruct importance of taking meds as ordered & assist problem solving - Tobacco Use Tobacco Use: Non-smoker - Hypertension Hypertension Diagnosis:: Hypertension ICD-10 I10 Resting Blood Pressure:: 134/76 [place] [employer] Hypertension Guidelines: [place] [employer] Hypertension Guidelines. Normal BP Less than 120/80. Elevated BP 120/80. Hypertension Stage 1: BP 130-139/80-89. Hypertesnion Stage 2: BP 140 or higher/90 or higher. Hypertension Crisis: BP higher than 180/120 Outcomes/Goals: Able to verbalize/achieve optimal blood pressure <130/80, Incorporates diet changes & exercise for blood pressure control by DC Interventions/plan: Instruct on optimal blood pressure, hypertension & medications, Instruct on effects of sodium, alcohol, stress, exercise &hypertension - Tobacco Cessation Referral Smoking Cessation Referral:: No Individual Education/Counseling:: No Education Schedule Given:: Yes Medical- 30-Day Assessment Medical- 60-Day Assessment Medical- 90-Day Assessment Medical - Final Assessment Psychosocial - Initial Assess - VIsit Date of Eval: 12/14/21 Session #:: 0 - pre-cardiac rehab evaluation Not Applicable: No - Psychosocial Test Tool Used:: [employer] Power QOL Cardiac, PHQ-9 Questionnaire phq-9 Severity: Severity. 1-4 Minimal Depression. 5-9 Mild Depression. 10-14 Moderate Depression. 15-19 Moderately Sever Depression. 20-27 Severe Depression. Rule: - Referral to Behavioral Health PS - Interventions: Yes Attend Stress Management Classes, No Referral to Behavioral Health if PHQ-9 score >9:, No Referral to [facility], No Referral to Physician if PHQ-9 if score is 5-9: - Outcomes/Goals: See list Psychosocial Outcomes/Goals:: ID's personal stressors & 2 strategies to manage stress by discharge - Intervention/Plan: See List Interventions/Plan:: Assess stressors,coping strategies & signs of derpression on admission, Instruct/assist pt to develop coping & personal stress Mgt strategies, Instruct patient to recognize signs & symptoms of depression, Instruct patient to recog Psychosocial - 30-Day Assess Psychosocial - 60-Day Assess Psychosocial - 90-Day Assess Psychosocial - Final Assessmen Patient Health Questionnaire Initial Assessment 1. Little interest or pleasure in doing things: More than half the days 2. Feeling down, depressed, or hopeless: Several days 3. Trouble falling or staying asleep, or sleeping too much: Not at all 4. Feeling tired or having little energy: Nearly every day 5. Poor appetite or overeating: Nearly every day 6. Feeling bad about yourself -- or that you are a failure or have let yourself or your family down: More than half the days 7. Trouble concentrating on things, such as reading the newspaper or watching television: Not at all 8. Moving or speaking so slowly that other people could have noticed. Or the opposite - being so fidgety or restless that you have been moving around a lot more than usual: Not at all 9. Thoughts that you would be better off , or of hurting yourself in some way: Not at all How difficult have these problems made it for you to do your work, take care of things at home, or get along with other people?: Somewhat difficult Total Score: 11 TIFFANY-Q SV Test - Statements CAD is a disease of the arteries in the heart: I Don't Know Examples of risk factors for heart disease: True Angina is chest pain or discomfort: I Don't Know The benefits of resistance training include: True Eating more meat and dairy products: False Anti-platelet medications such as aspirin are important: True The only effective way to manage stress: True An exercise warm-up slowly increases heart rate: True Prepared, processed foods usually have high sodium: I Don't Know Depression is common after a heart attack: True The statin medications lower cholesterol: True To control blood pressure, lower the amount of sodium: True If someone gets chest discomfort during walking: False Transfats are partially hydrogenated vegetable oils: I Don't Know Sleep apnea that is not treated increases the risk: I Don't Know To control cholesterol, one should become a vegetarian: I Don't Know Someone knows if he/she is exercising at the right level: True Diabetes cannot be prevented with exercise & health eating: True Stress is a large risk for heart attack: True A diet that can help lower blood pressure is rich in: True - Total Score Total Correct Responses: 12 Self-Efficacy Initial Assessment We would like to know how confident you are in doing certain activities. Please select your confidence level for:: Select your confidence level for the following using the scale 1-10 where 1 is not at all confident and 10 is totally confident. Your score is the average of all 6 responses. Fatigue: How confident are you that you can keep the fatigue caused by your disease from interfering with the things you want to do? Select Number: 5 Physical Discomfort or Pain: How confident are you that you can keep the physical discomfort or pain of your disease from interfering with the things you want to do? Select Number: 5 Emotional Distress: How confident are you that you can keep the emotional distress caused by your disease from interfering with the things you want to do? Select Number: 8 Other Symptoms or Health Problems: How confident are you that you can keep other symptoms or health problems from interfering with the things you want to do? Select Number: 7 Different Tasks and Activities: How confident are you that you can do the different tasks and activities needed to manage your health condition so as to reduce your need to see a doctor? Select Number: 7 Medication: How confident are you that you can do things other than just taking medication to reduce how much your illness affects your everyday life? Select Number: 9 Total Score:: 6 Nutrition Survey - Nutrition Survey Initial Have you lost >10 lbs over the past 2 months without trying?: Yes Are you following a special diet at home for diabetes, low fat, or low salt?: No Are you interested in meeting with a dietitian for help understanding your diet?: No Do you eat less than 3 meals a day?: Yes - two meals daily with meal supplement drinks between meals. Do you eat fatty meats (mckeon, sausage, ribs, etc), fried foods, desserts, large amounts of salad dressings, margarine, butter, or cheese most days?: Yes - not so much lately Do you have food allergies? [Enter types in comment field]: No Do you eat in restaurants more than 3 times a week?: No Do you season food with salt, seasoning salt, or garlic salt?: No Do you used canned, boxed, frozen meals, or soups, seasoning packets?: No Total Score:: 3
--- NOTE | 2021-12-14 08:51 | PCM.CR.HP2 ---
CR - History & Physical - General Arrival date:: 12/14/21 Arrival time:: 08:52 Date of Referral:: 11/29/21 Date of CR Evaluation:: 12/14/21 Referring Physician: Dr. Earle Anaya Primary Diagnosis: Heart Valve Replacement - TAVR - History of Present Cardiac Event Onset Date: Enter Onset Date of cardiac illnesses in Comment field below Heart valve replacement or repair:: Yes - TAVR @ [facility] 10/16/2021 Type of Symptoms:: shortness of breath, loss of color. Interventions with present event:: TVR procedure to replace aortic valve Were there any complications?: none - Sleep Disorder Evaluation Hx of Sleep Apnea: No Do you snore loudly (louder than talking or can be heard through closed doors)?: No Do you often feel tired/ fatigued/ sleepy during daytime?: Yes Has anyone observed you stop breathing during sleep?: No History of Hypertension (for STOP score): Yes STOP Results: Positive - Medications Home Medications: Ambulatory Orders Medication Instructions Recorded aspirin 81 mg PO DAILY 03/26/16 losartan 100 mg PO QHS 03/26/16 omeprazole 20 mg capsule,delayed 20 mg PO QHS cap 01/05/19 release mecobalamin (vitamin B12) 5,000 5,000 mcg PO DAILY 04/27/20 mcg disintegrating tablet multivitamin 1 tab PO DAILY 04/27/20 cholecalciferol (vitamin D3) 125 mcg PO DAILY 02/01/21 [Vitamin D3] calcium carbonate 600 mg calcium 600 mg PO DAILY 03/15/21 (1,500 mg) tablet cholestyramine (with sugar) 4 gram 4 gm PO DAILY 03/15/21 powder for susp in a packet apixaban 5 mg tablet 5 mg PO BID #180 tab 03/31/21 hydrocodone-acetaminophen 5-325mg 0.5 tab PO BID PRN tab 06/14/21 5mg-325mg nitroglycerin 0.4 mg sublingual 0.4 mg SUBLINGUAL Q5M PRN #25 tab 09/08/21 tablet furosemide [Lasix] 20 mg PO DAILY 10/04/21 saxagliptin-metformin [Kombiglyze 1 tab PO BID 10/04/21 XR] glimepiride 2 mg tablet 4 mg PO BID tab 10/30/21 amlodipine 5 mg tablet 5 mg PO DAILY 11/27/21 finasteride 5 mg tablet 5 mg PO DAILY 11/27/21 - Allergies Allergies/Adverse Reactions: Allergies lisinopril [From Zestril] Allergy (Verified 11/27/21 15:42) Other niacin Allergy (Verified 11/27/21 15:42) Rash pravastatin sodium [From Pravachol] Allergy (Verified 11/27/21 15:42) Other clonidine Adverse Reaction (Unknown, Verified 11/27/21 15:42) unknown Dzkohow-FYU-MtN Reductase Inhibitor [Kzrcwse-Eie-Rdw Reductase Inhibitor] Adverse Reaction (Verified 11/27/21 15:42) Other Advanced Directives - Advanced Directives 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 Living Will: Yes Advance Directives Information Provided: No Advance Directives on File: No DNR Order?:: No Past Medical History - Covid-19 Screening Fever: No Unexplained muscle aches: No Has tested positive for COVID-19 in last 30 days: Yes Date of testin09/01/22 - fully vaccinated w/booster and had monoclonal infusion Had contact w/person w/symptoms or Covid-19 (+) last 14 days: No Has High Risk Exposures ID'd by Health dept/Inf Control team: No 65 years or older:: Yes Lives in Assisted Living facility:: No Has a chronic lung disease or moderate to severe asthma:: No Has a serious heart condition:: Yes Immunocompromised:: Yes Severely obese (Body Mass Index of 40 or higher):: No Diabetic:: Yes Has chronic kidney disease undergoing dialysis:: No Has liver disease:: No - Past Medical Illness Medical History: Past Medical History (Last Reviewed 11/27/21 @ 11:19 by Kamilla Azar) Anemia D64.9 Aortic stenosis I35.0 Asymptomatic peripheral vascular disease I73.9 Atherosclerotic heart disease of [place] coronary artery with other forms of angina pectoris I25.118 S/P PTCA stenting to LAD, diagonal 1, and LCx in February 2002; CABG x3 with NUNEZ to LAD, SVG to PDA of the RCA into ramus marginalis in 2016; Atrial flutter I48.92 Bilateral carotid artery stenosis I65.23 Diabetes mellitus type II, controlled E11.9 Edema of left lower extremity R60.0 Encounter for long-term current use of high risk medication Z79.899 Essential (primary) hypertension I10 History of transcatheter aortic valve replacement (TAVR) Onset Date: ~10/16/21 Z95.2 29mm Allyson S3 valve @ [facility] 10/16/21 Infection of anterior lower leg L08.9 LBBB (left bundle branch block) I44.7 Malnutrition E46 MCI (mild cognitive impairment) G31.84 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 Peripheral vascular disease I73.9 Presence of stent in coronary artery Onset Date: ~01/06/16 Z95.5 PTCA/stent of prox LAD, PTCA/stent of 1st Diagonal, and baloon cutting angioplasty of the lateral branch of CX 02/25/02; PTCA/TAVON of the prox to mid RCA 01/06/16 Pure hypercholesterolemia E78.00 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 Stroke/cerebrovascular accident I63.9 December 11, 2020 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 Venous insufficiency - Past Surgical History Surgical History: Past Surgical History (Last Reviewed 11/27/21 @ 11:19 by Kamilla Azar) H/O coronary artery bypass surgery Onset Date: ~01/18/16 Z95.1 01/18/16 CABG x3, NUNEZ TO LAD, SVG to PDA of RCA and to ramus marginals History of appendectomy Z90.49 History of arthroscopy of left knee Z98.890 History of inguinal hernia repair, bilateral Z98.890, Z87.19 History of knee replacement Z96.659 left History of left heart catheterization (LHC) Onset Date: ~08/11/21 Z98.890 LEFT MAIN: Mild calcification, Mild luminal irregularities; LEFT ANTERIOR DESCENDING ARTERY: PROX LAD: Severe calcification, 85 % Stenosis, MID LAD: Severe calcification, is occluded, to distal: fills from the NUNEZ graft with no angiographically significant appearing stenosis distal to the graft attachment; CIRCUMFLEX ARTERY: PROX CIRC: Mild calcification, 25 % Stenosis, MID CIRC: Mild luminal irregularities, OM 1: Proximal - Mild luminal irregularities; RIGHT CORONARY ARTERY: PROX RCA: is occluded, GRAFTS: NUNEZ graft to the Mid LAD is patent Saphenous Vein graft to the Ramus is patent with no angiographically significant disease distal to the graft attachment Saphenous Vein graft to the RPDA is patent with no angiographically significant appearing disease distal to the graft attachment; VALVE FINDINGS: Aortic Valve Stenosis - moderate; Mitral Valve Annular Calcification Severe; per cardiac cath 08/11/21 History of lumbar surgery Z98.890 History of tonsillectomy Z90.89 Presence of coronary angioplasty implant and graft Z95.5 PTCA/stent of prox LAD, PTCA/stent of 1st Diagonal, and baloon cutting angioplasty of the lateral branch of CX 02/25/02; PTCA/TAVON of the prox to mid RCA 01/06/16 Surgical History: appendectomy, herniorrhaphy, total knee arthroplasty, tonsillectomy, - - Family History Summary Family History: Family History (Last Reviewed 11/27/21 @ 11:19 by Kamilla Azar) Father COPD (chronic obstructive pulmonary disease) Arthritis Lung disease Mother CVA (cerebral vascular accident) Hx of CABG Heart disease Hypertension Hypercholesterolemia Brother Arthritis Brother Heart disease Brother Hypertension Brother Hypercholesterolemia Sister Heart disease Sister Hypertension Sister Hypercholesterolemia Social History - Smoking History Smoking Status: Never smoker Hx Tobacco Use: No Hx Smoking Exposure: No - Alcohol Use Alcohol Usage: Yes - very occasional; - Substance Abuse Hx Substance Use: No - Occupation Occupation (List type of work in comments):: Retired - Hobbies, Recreation, Social Activities Hobbies: Sports - bowled twice a week/league, Exercise - Has a NUSTEP at home was using 2-3 times week until the valve started getting worse., Other - lawn work, being outside, Recreational Activities: I am able to engage in a few activities Social Environment - Status Marital Status: - Current Living Arrangements Living Environment:: Spouse - Children How many children do you have?: 3 Do any of your children live nearby?: Yes - Safety Do you feel safe in your surroundings?: Yes - Assistance Do you need any assistance at home?: independent; motor skill are weak on the left side. assists w/dressing Review of Systems - Review of Systems Hints: Right click = Denies ([place]). Left click = Reports ([place]) Review of Present Symptoms: Reports: Shortness of Breath with Exertion, Wound Healing, Dizziness/Lightheadedness - associated w/elevated sugar level, Fatigue, Heart Arrhythmia/Irregularities - sinus rhythm w/1st degree block, bigeminy pattern, Sleep - Normal - going to bed a little earlier than before, more tired fatigued, Sexual Changes - not as often. Denies: Shortness of Breath at Rest, Operative Discomfort, Angina, Appetite - Normal - two meals daily, uses supplements between meals, Appetite - Special Diet - Pain Is Patient Pain Free?: Yes Pain Location: none, back - lower back stenosis Pain Level: 0/10 Risk Factor Assessment - Chief Complaint Chief Complaint: 81 yr old male patient of Dr. Anaya presentst o cardiac rehab today follwoing recent TAVR surgery at [facility] in [place] on 10/18/2021. THe patient previously did cardiac rehab in 2016 following S/P CABG. - Vital Signs Temperature: 98.1 F Respiratory Rate: 18 Pulse Ox: 98 Blood Pressure: 134/76 - Pulse Pulse Rate: 68 Pulse Rhythm: Regular - Hypertension How long have you been treated?: 30-35 On medication(s)?: yes Blood Pressure Sitting - Left Arm: 134/76 - Blood Cholesterol/Lipids Total Cholesterol (mg/dL) Goal = less than 200 mg/dL: 131 HDL Cholesterol (mg/dL) Goal = less than 40 mg/dL: 53 LDL Cholesterol (mg/dL) Goal = less than 70 mg/dL: 63 Triglycerides (mg/dL) Goal = less than 150 mg/dL: 73 - Diabetes Diabetic History: Type II, Medication Dependent - Obesity Height: 6 ft 2 in Weight:: 230 lb Weight in Pounds: 230.0 lbs Weight Source: Stated by Patient Body Mass Index (BMI): 29.5 Nutritional Referral for Obesity: No - Physical Inactivity Physical Inactivity: None - Risk Stratification Risk Guidelines: Lowest Risk: Risk Factor for Smoking, Risk Factor for Diabetes, Moderate Risk: Risk Factor for Dyslipidemia, Risk Factor for Obesity, Risk Factor for Hypertension, Risk Factor for Sedentary Lifestyle, Highest Risk: Risk Factor for Sedentary Lifestyle - Family History Family History: Family History (Last Reviewed 11/27/21 @ 11:19 by Kamilla Azar) Father COPD (chronic obstructive pulmonary disease) Arthritis Lung disease Mother CVA (cerebral vascular accident) Hx of CABG Heart disease Hypertension Hypercholesterolemia Brother Arthritis Brother Heart disease Brother Hypertension Brother Hypercholesterolemia Sister Heart disease Sister Hypertension Sister Hypercholesterolemia Motivation - Motivation to Participate On a scale of 1 to 10, how prepared are you to commit to attending program?: 10 What do you see as the benefits of succesfully completing the program? In other words, what do you hope to get out of participating in the program?: know the benefit from doing CR 2016 Are there issues you are dealing with that will interfere with completing the program?: not driving yet, driving me, current gas prices Do you have a spouse or signficant other, family or friends who will help support you to complete the program?: yes
[2021-12-14 09:29] VITALS: BP 134/76; BMI 29.5
[2021-12-14 09:57] VITALS: BP 134/76; PULSE 68; RESP 18; TEMP 36.7; O2SAT 98; BMI 29.5
== END 2021-12-14 23:59 | disposition home or self-care (01) ==
LOC: CR 08:44
PROVIDERS: PCP Family Medicine; Referring Provider Internal Medicine Cardiovascular Disease; Visit Provider Internal Medicine Cardiovascular Disease
DX: E46 Unspecified protein-calorie malnutrition (principal); E11.9 Type 2 diabetes mellitus without complications; I10 Essential (primary) hypertension; E78.00 Pure hypercholesterolemia, unspecified

== ENCOUNTER 2022-01-03 09:30 | Outpatient (RCR) | payer MEDICARE, SELFPAY | END 2022-01-04 23:59 | disposition home or self-care (01) | LOC: CR 09:30 | PROVIDERS: PCP Family Medicine; Referring Provider Internal Medicine Cardiovascular Disease; Visit Provider Internal Medicine Cardiovascular Disease | DX: Z95.2 Presence of prosthetic heart valve (principal) | CPT/HCPCS: 93798 ==

== ENCOUNTER 2022-01-24 09:30 | Outpatient (RCR) | payer MEDICARE, SELFPAY | END 2022-02-03 23:59 | LOC: CR 09:30 | PROVIDERS: PCP Family Medicine; Referring Provider Internal Medicine Cardiovascular Disease; Visit Provider Internal Medicine Cardiovascular Disease | DX: Z95.2 Presence of prosthetic heart valve (principal) | CPT/HCPCS: 93798 ==

== ENCOUNTER → 2022-01-26 | Outpatient (CLI) | payer MEDICARE, SELFPAY ==
[2022-01-26 10:18] LABS: Absolute Lymphocyte Count 0.91 X10^3/uL (0.83-4.51); Absolute Neutrophil Count 6.4 X10^3/uL (2.0-7.7); Basophil# 0.03 X10^3/uL; Basophil% 0.4 % (0-1); Eosinophil# 0.03 X10^3/uL; Eosinophils% 0.4 % (0-5); Hematocrit 28.8 % (40-54); Hemoglobin 9.2 g/dL (13.0-16.5); Lymphocyte # 0.91 X10^3/ul (0.83-4.51); Lymphocyte % 11.2 % (19-41); Mean Corp Hgb Conc 31.9 g/dL (32-36); Mean Corpuscular Hgb 27.9 pg (27.0-32.0); Mean Corpuscular Volume 87.3 fL (80-94); Mean Platelet Vol. 11.2 fl (6.2-12.0); Monocyte# 0.76 X10^3/uL; Monocyte% 9.3 % (0-10); NRBC Flagged by Analyzer 0 % (0-5); Neutrophil # 6.38 X10^3/uL (2.7-7.7); Neutrophil % 78.2 % (47-70); Platelet Count 156 K/mm3 (150-450); RBC Distribution Width CV 14.6 % (11.6-14.6); RBC Distribution Width SD 46.8 fl (35.1-43.9); White Blood Count 8.2 K/mm3 (4.4-11.0)
[2022-01-26 10:33] LABS: BNP,B-Type NATRIURETIC PEPTIDE 285.5 pg/mL (0-100)
[2022-01-26 10:43] LABS: Anion Gap 8 (5-15); BUN 24 mg/dL (7-18); BUN/Creat Ratio 19.8 RATIO (10-20); Calcium,Total 9.3 mg/dL (8.5-10.1); Chloride 104 mmol/L (98-107); Creatinine, Serum 1.21 mg/dL (0.70-1.30); EST Glomerular Filtration Rate 61 mL/min (>60); Est Glom Filt Rate - Afr Amer 74 mL/min (>60); Glucose 153 mg/dL (74-106); Potassium 4.5 mmol/L (3.5-5.1); Sodium Level 133 mmol/L (136-145)
== END | disposition home or self-care (01) ==
PROVIDERS: PCP Family Medicine; Referring Provider Physician Assistant Medical; Visit Provider Physician Assistant Medical
DX: D64.9 Anemia, unspecified (principal); L97.829 Non-pressure chronic ulcer of other part of left lower leg with unspecified severity; R06.00 Dyspnea, unspecified; R06.02 Shortness of breath
CPT/HCPCS: 36415; 80048; 82274; 83880; 85025

== ENCOUNTER 2022-03-02 09:30 | Outpatient (RCR) | payer MEDICARE, SELFPAY ==
--- NOTE | 2022-02-12 07:36 | PCM.CR.ITP ---
Diagnosis Exercise - 60-day Assessment - Visit Date of Eval: 02/12/22 Session #:: 15 Comments:: Patient has not attended cardiac rehab since 01/24/22 due to acute anemia. Patient's physician wanted to explore the cause and suggested patient did not attend CR until the cause of the anemia was discovered. Nutrition - Initial Assessment Nutrition - 30-Day Assessment Nutrition - 60-Day Assessment Nutrition - 90-Day Assessment Nutrition - Final Assessment Medical - Initial Assessment Medical- 30-Day Assessment Medical- 60-Day Assessment Medical- 90-Day Assessment Medical - Final Assessment Psychosocial - Initial Assess Psychosocial - 30-Day Assess Psychosocial - 60-Day Assess Psychosocial - 90-Day Assess Psychosocial - Final Assessmen Nutrition Survey
== END 2022-03-06 23:59 ==
LOC: CR 09:30
PROVIDERS: PCP Family Medicine; Referring Provider Internal Medicine Cardiovascular Disease; Visit Provider Internal Medicine Cardiovascular Disease
DX: Z95.2 Presence of prosthetic heart valve (principal)
CPT/HCPCS: 93798

== ENCOUNTER 2022-04-04 09:30 | Outpatient (RCR) | payer MEDICARE, SELFPAY ==
--- NOTE | 2022-03-14 06:54 | PCM.CR.ITP ---
Diagnosis Exercise - 60-day Assessment - Visit Date of Eval: 03/14/22 Session #:: 21 Comments:: Patient was placed on medical hold on 01/26/2022 due to acute anemia. He was released to resume his CR on 02/26/2022 after treatment for the anemia. - Physician Prescribed Exercise Modalities: NuStep Frequency: 3x/week for 12 weeks [36 sessions] Intensity: 60-80% of age predicted maximum heart rate reserve Current METSs:: 4.0 Target Heart Rate:: 85-100 Current RPE:: 13 Maximum Excercise HR:: 95 Resting Blood Pressure: 150/54 Maximum Exercise Blood Pressure: 148/74 EKG Type: Atrial flutter with rare PVCs. Current Physical Activity or Exercising minutes: 43:00 - Outcomes & Goals Goals:: Verbalizes understanding of THR, RPE & goal METS by session 6, Documents in home exercise log/reports 30 min aerobic 5 day/wk by DC, Demonstrates accurate pulse taking by DC - Intervention & Plan Exercise Program Goals: Instruct on personal THR & RPE, Instruct on MET level & personal MET goal, Show patient to take own pulse /validate performance until accurate, Instruct on home exercise - 30-day Reassessments 30 day Reassessments:: Met - Patient has met his maximum exercise intensity. - Physical Activity Home Exercise Physical Activity - Home Exercise: Safe Exercise, Warm-up, Self-monitoring, Cool-Down, Home Exercise > 30 min Daily, Sitting Time <3 hours/daily - Outcomes & Goals Outcomes/Goals: Demonstrates correct Warm-up/exercise Cool-Down (S3) if = 2.5 METs, Verbalizes symptoms of exercise intolerance by Session 3 (S3), Demonstrate safe equipment use (S3) & follows exercise prescrition (6) - Intervention & Plan Plan/Intervention: Instruct warm-up & cool-down if exercising at > 2 METs, Instruct on symptoms of exercise intolerance & actions to take, Instruct & monitor on saf, Assess intial functional capacity & safety risk - 30-day Reassessments 30 day Reassessments:: Met Nutrition - Initial Assessment Nutrition - 30-Day Assessment Nutrition - 60-Day Assessment - Program Goals Nutrition Program Goals: LDL <100 optimal. 100 - 129 Near optimal. 130 - 159 Borderline High. 160 - 189 High. Total Cholesterol <200 desirable. 200 - 239 Borderline High. >/= 240 High. HDL < 40 Low >/=60 High. Triglycerides <150 desirable. <199 optimal. VlDL 5 - 40. HgbA1C <7%. BMI <25 Patient has diagnosis of Hyperlipidemia (ICD E78)?: Yes - Visit Date of Assessment:: 03/14/22 Session #:: 21 - Cholesterol/Lipids Triglycerides (mg/dL): 73 Total Cholesterol (mg/dL): 131 LDL Cholesterol (mg/dL): 63 HDL Cholesterol (mg/dL): 53 Determine presence & major risk factors that modify LDL goal: Hypertension or hypertensive medication, Family history of premature CHD in Male < 55 years: female <65 yearsFa, Age men > 45 years; women >/= 55 years Outcomes/Goals: Pt IDs own risk factors & lifestyle modifications by Session 10, Verbalizes symptoms of angina & response by session 3., Pt independently manages Intervention/Plan: Instruct on personal lipid levels & lipid goals/NCEP guidelines, Instruct on cholesterol Referral to dietitian:: No - Patient has declined services 30-day Reassessments:: Progressing - Diabetes (Other Core Measures) Diabetes Type: Diagnosis Type II ICD-10 E11 Fasting blood glucose:: 129 Hgb A1C (4.2 -6.3): 6.3 Insulin dependent injection/pump?: No Non-Insulin Dependent?: Yes Do you monitor your blood sugar at home?: Yes Referral to Diabetic Clinic:: Yes Outcomes/Goals:: Able to state symptoms of, Able to state, Able to state Intervention/Plan:: Instruct on, Instruct on 30-day Reassessments:: Progressing - Weight Mgt (Other Care) Not Applicable: Yes Height: 6 ft 2 in Weight:: 232 lb 8 oz BMI: 29.8 Diagnosis Overweight/Obesity BMI> 30% ICD-10 E66: No Diagnosis High BMI/Morbid Obesity BMI> 35% ICD-10 Z68: No Outcomes/Goals: Pt sets, maintains & shows weight loss goal & trend during rehab Intervention/Plan: Instruct on ideal BMI & set weight loss goal w/patient 30 day Reassessments:: Progressing - Healthy Eating Habits Will attend diet classes:: Yes Outcomes/Goals:: Consume diet rich in vegs,fruits,whole grain/high fiber,fish,lean meat, Limit sat/trans fats,cholesterol & added salts & sugars Intervention/Plan:: Assess current eating habits 30-day Reassessments:: Progressing - Education Gave educational materials for:: Healthy eating Nutrition - 90-Day Assessment Nutrition - Final Assessment Medical - Initial Assessment Medical- 30-Day Assessment Medical- 60-Day Assessment - Visit Date of Eval: 03/14/22 Session #:: 21 - Medication Compliance Preventative Medication(s):: Aspirin, Statin/lipid, Beta cedric, Eliquis H/O mental health issues: depression, anxiety, or addiction?: No Doesn?t believe in the benefits of treatment?: No Believes medications are unnecessary or harmful?: No Has a concern about medication side effects?: No Expresses concern over the cost of medications?: No Outcomes/Goals: Verbalizes medications,desired effect & common side effects @ DC, Pt self-reports following medication regimen, Keeps card in wallet w/medications listed by DC Interventions/plans: Instruct on medication effects & side effects, Review medication list w/patient every two weeks, Instruct importance of taking meds as ordered & assist problem solving 30-day Reassessments:: Progressing - Tobacco Use Tobacco Use: Non-smoker - Hypertension Hypertension Diagnosis:: Hypertension ICD-10 I10 Resting Blood Pressure:: 150/54 [place] [employer] Hypertension Guidelines: [place] [employer] Hypertension Guidelines. Normal BP Less than 120/80. Elevated BP 120/80. Hypertension Stage 1: BP 130-139/80-89. Hypertesnion Stage 2: BP 140 or higher/90 or higher. Hypertension Crisis: BP higher than 180/120 Peak Exercise Blood Pressure:: 154/74 Outcomes/Goals: Able to verbalize/achieve optimal blood pressure <130/80, Incorporates diet changes & exercise for blood pressure control by DC Interventions/plan: Instruct on optimal blood pressure, hypertension & medications, Instruct on effects of sodium, alcohol, stress, exercise &hypertension 30 day Reassessments:: Not Met - Resting BPs remain elevated - Tobacco Cessation Referral Smoking Cessation Referral:: No Individual Education/Counseling:: No Education Schedule Given:: Yes - Patient does not participate in group education. Medical- 90-Day Assessment Medical - Final Assessment Psychosocial - Initial Assess Psychosocial - 30-Day Assess Psychosocial - 60-Day Assess - VIsit Date of Eval: 03/14/22 Session #:: 21 Not Applicable: Yes History of previous Mental disease:: No - Psychosocial Test Tool Used:: PHQ-9 Questionnaire phq-9 Severity: Severity. 1-4 Minimal Depression. 5-9 Mild Depression. 10-14 Moderate Depression. 15-19 Moderately Sever Depression. 20-27 Severe Depression. Rule: Total Score:: 11 - Moderate Depression identified on PHQ-9 survey - Referral to Behavioral Health PS - Interventions: Yes Referral to Physician if PHQ-9 if score is 5-9: - Report to PCP., Yes Attend Stress Management Classes, No Referral to Behavioral Health if PHQ-9 score >9:, No Referral to [facility] - Outcomes/Goals: See list Psychosocial Outcomes/Goals:: ID's personal stressors & 2 strategies to manage stress by discharge - Intervention/Plan: See List Interventions/Plan:: Assess stressors,coping strategies & signs of derpression on admission, Instruct/assist pt to develop coping & personal stress Mgt strategies, Instruct patient to recognize signs & symptoms of depression, Instruct patient to recog - 30-day Reassessments: 30 day Reassessments:: Progressing Psychosocial - 90-Day Assess Psychosocial - Final Assessmen Patient Health Questionnaire 60-Day Re-eval Assessment 1. Little interest or pleasure in doing things: More than half the days 2. Feeling down, depressed, or hopeless: Several days 3. Trouble falling or staying asleep, or sleeping too much: Not at all 4. Feeling tired or having little energy: Nearly every day 5. Poor appetite or overeating: Nearly every day 6. Feeling bad about yourself -- or that you are a failure or have let yourself or your family down: More than half the days 7. Trouble concentrating on things, such as reading the newspaper or watching television: Not at all 8. Moving or speaking so slowly that other people could have noticed. Or the opposite - being so fidgety or restless that you have been moving around a lot more than usual: Not at all 9. Thoughts that you would be better off , or of hurting yourself in some way: Not at all How difficult have these problems made it for you to do your work, take care of things at home, or get along with other people?: Somewhat difficult Total Score: 11 Self-Efficacy 60-Day Re-eval Assessment We would like to know how confident you are in doing certain activities. Please select your confidence level for:: Select your confidence level for the following using the scale 1-10 where 1 is not at all confident and 10 is totally confident. Your score is the average of all 6 responses. Fatigue: How confident are you that you can keep the fatigue caused by your disease from interfering with the things you want to do? Select Number: 5 Physical Discomfort or Pain: How confident are you that you can keep the physical discomfort or pain of your disease from interfering with the things you want to do? Select Number: 5 Emotional Distress: How confident are you that you can keep the emotional distress caused by your disease from interfering with the things you want to do? Select Number: 8 Other Symptoms or Health Problems: How confident are you that you can keep other symptoms or health problems from interfering with the things you want to do? Select Number: 7 Different Tasks and Activities: How confident are you that you can do the different tasks and activities needed to manage your health condition so as to reduce your need to see a doctor? Select Number: 7 Medication: How confident are you that you can do things other than just taking medication to reduce how much your illness affects your everyday life? Select Number: 7 Total Score:: 6 Nutrition Survey
[2022-03-14 07:06] VITALS: BP 150/54; BP 154/74; BMI 29.8
== END 2022-04-05 23:59 ==
LOC: CR 09:30
PROVIDERS: PCP Family Medicine; Referring Provider Internal Medicine Cardiovascular Disease; Visit Provider Internal Medicine Cardiovascular Disease
DX: Z95.2 Presence of prosthetic heart valve (principal)
CPT/HCPCS: 93798

== ENCOUNTER 2022-04-04 09:59 | Emergency (ER) | payer MEDICARE, SELFPAY ==
[2022-03-14 07:06] VITALS: BMI 29.8
[2022-04-04 10:01] VITALS: BP 130/81; PULSE 58; RESP 18; TEMP 36.6; O2SAT 100; BMI 29.6
--- NOTE | 2022-04-04 10:31 | EX.ED.UPPERE ---
HPI History of Present Illness Chief Complaint: Wound Detail of Chief Complaint: Left forearm wound Informant: patient Narrative Narrative: Patient presents with skin tears to his left forearm. He was at the hospital when the elevator door started to close on him striking him in the left forearm. He has 3 separate skin tears. He is currently on Eliquis. [facility] Medical History Anemia Aortic stenosis Asymptomatic peripheral vascular disease Atherosclerotic heart disease of [place] coronary artery with other forms of angina pectoris Atrial flutter Bilateral carotid artery stenosis Diabetes mellitus type II, controlled Edema of left lower extremity Encounter for long-term current use of high risk medication Essential (primary) hypertension History of transcatheter aortic valve replacement (TAVR) (~10/16/21) Infection of anterior lower leg LBBB (left bundle branch block) Malnutrition MCI (mild cognitive impairment) Old myocardial infarction Osteomyelitis of left tibia Peripheral vascular disease Presence of stent in coronary artery (~01/06/16) Pure hypercholesterolemia 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 Stroke/cerebrovascular accident Ulcer of left mcnulty Venous insufficiency Home Medications aspirin 81 mg tablet,delayed release 81 mg PO DAILY 03/26/16 [History Last Taken 08/11/21] losartan 100 mg tablet 100 mg PO QHS 03/26/16 [History Last Taken 01/31/21] omeprazole 20 mg capsule,delayed release 20 mg PO QHS 01/05/19 [History Last Taken 01/31/21] mecobalamin (vitamin B12) 5,000 mcg disintegrating tablet 5,000 mcg PO DAILY 04/27/20 [History Last Taken 01/31/21] multivitamin (Daily Multi-Vitamin) 1 tab PO DAILY 04/27/20 [History Last Taken 01/31/21] cholecalciferol (vitamin D3) 125 mcg (5,000 unit) tablet (Vitamin D3) 125 mcg PO DAILY 02/01/21 [History Last Taken 01/31/21] calcium carbonate 600 mg calcium (1,500 mg) tablet 600 mg PO DAILY 03/15/21 [History Last Taken Unknown] cholestyramine (with sugar) 4 gram powder for susp in a packet 4 gm PO DAILY 03/15/21 [History Last Taken Unknown] apixaban 5 mg tablet (Eliquis) 5 mg PO BID #180 tabs 06/25/21 [Rx Last Taken 08/06/21] hydrocodone-acetaminophen 5-325mg 5mg-325mg 0.5 tab PO BID PRN Pain 06/14/21 [History Last Taken 08/11/21] nitroglycerin 0.4 mg sublingual tablet 0.4 mg sublingual Q5M PRN Chest Pain #25 tabs 09/08/21 [Rx Last Taken Unknown] saxagliptin 2.5 mg-metformin ER 1,000 mg tablet,extend release 24hr mp (Kombiglyze XR) 1 tab PO BID 10/04/21 [History Last Taken Unknown] glimepiride 2 mg tablet 4 mg PO BID 10/30/21 [History Last Taken Unknown] amlodipine 5 mg tablet 5 mg PO DAILY 11/27/21 [History Last Taken Unknown] furosemide 40 mg tablet (Lasix) 20 mg PO DAILY 01/30/22 [History Last Taken Unknown] sodium chloride 1 gram tablet 1,000 mg PO DAILY PRN electrolyte replenishment #30 tabs 02/13/22 [Rx Last Taken Unknown] polysaccharide iron complex 150 mg iron capsule (Ferrex) 150 mg PO BID #120 caps 03/21/22 [Rx Last Taken Unknown] Allergy/AdvReac Type Severity Reaction Status Date / Time lisinopril [From Zestril] Allergy Other Verified 04/04/22 10:00 niacin Allergy Rash Verified 04/04/22 10:00 pravastatin sodium Allergy Other Verified 04/04/22 10:00 [From Pravachol] atenolol AdvReac Severe low HR, Verified 04/04/22 10:00 pauses clonidine AdvReac Unknown unknown Verified 04/04/22 10:00 Uksefnj-RKT-VkA Reductase AdvReac Other Verified 04/04/22 10:00 Inhibitor [Sxmqujn-Qom-Lra Reductase Inhibitor] Family History Father COPD (chronic obstructive pulmonary disease) Arthritis Lung disease Mother CVA (cerebral vascular accident) Hx of CABG Heart disease Hypertension Hypercholesterolemia Brother Arthritis Brother Heart disease Brother Hypertension Brother Hypercholesterolemia Sister Heart disease Sister Hypertension Sister Hypercholesterolemia Surgical History H/O coronary artery bypass surgery (~01/18/16) History of appendectomy History of arthroscopy of left knee History of inguinal hernia repair, bilateral History of knee replacement History of left heart catheterization (LHC) (~08/11/21) History of lumbar surgery History of tonsillectomy Presence of coronary angioplasty implant and graft Social History Smoking Status: Never smoker Electronic Cigarette Use: not used second hand exposure: Yes (Father smoked when he was a child ) alcohol intake: never substance use type: does not use caffeine: Yes Type: carbonated beverages Number of servings: 3 what type of physical activity do you participate in: other details: treadmill, newstep frequency: 3-4 times per week duration: 30-45 minutes/day seatbelt use: always do you feel safe at home: Yes ROS ROS ED Constitutional Constitutional ED: Denies chills or fever(s) Eyes Eyes: Denies change in vision or discharge from eye(s) ENT ENT ED: Denies discharge from eye(s), rhinorrhea or sore throat Cardiovascular Cardiovascular: Denies chest pain or palpitations Respiratory/Chest Respiratory/Chest: Denies cough or dyspnea Gastrointestinal Gastrointestinal: Denies abdominal pain, diarrhea, nausea or vomiting Genitourinary Genitourinary ED: Reports difficulty urinating; Denies dysuria Musculoskeletal Musculoskeletal: Reports extremity pain; Denies back pain Integumentary Reports other Details: Skin tears left ; Denies Abrasions or rash Neurologic Neurologic: Denies headache(s) or weakness Allergic/Immunologic Allergic/Immunologic ED: Denies lip swelling or urticaria EXAM Physical Exam Const Vital Signs: 04/04/22 10:01 Temperature 97.9 F Temperature Source Temporal Pulse Rate 58 L Respiratory Rate 18 Blood Pressure 130/81 H Blood Pressure Mean 97 Pulse Ox 100 Oxygen Delivery Method Room Air Positive well nourished and well developed General Appearance ED: well developed HEENT normocephalic Chest Wall inspection of chest normal and palpation of chest normal Resp normal respiratory effort Cardio regular rate and regular rhythm GI non-tender Extremity Extremity Narrative: 3 separate skin tears noted to the left forearm. One measures 4 x 2 cm, the other 2 measured 2 cm in length. Mild bleeding noted. No bony tenderness. Patient does have some chronic left upper extremity weakness that is unchanged from baseline. Neuro oriented x3 Psych mental status grossly normal [facility] Treatment and Re-Evaluation Narrative: Left forearm wounds are cleansed. Surgifoam was placed and dressing applied. Wound care instructions given. Patient be discharged home with family. Discharge Plan Triage Chief Complaint: Wound ED Provider: Delores Middleton Dx/Rx/DC Orders Clinical Impression: Avulsion of skin Instructions: ED Skin Avulsion Prescriptions: No Action omeprazole 20 mg capsule,delayed release(DR/EC) 20 mg PO QHS multivitamin [Daily Multi-Vitamin] Tablet 1 tab PO DAILY mecobalamin (vitamin B12) 5,000 mcg tablet,disintegrating 5,000 mcg PO DAILY cholestyramine (with sugar) 4 gram powder in packet 4 gm PO DAILY calcium carbonate 600 mg calcium (1,500 mg) tablet 600 mg PO DAILY hydrocodone-acetaminophen 5-325 mg tablet 0.5 tab PO BID PRN (Reason: Pain) amlodipine 5 mg tablet 5 mg PO DAILY sodium chloride 1 gram tablet 1,000 mg PO DAILY PRN (Reason: electrolyte replenishment) Qty: 30 3RF polysaccharide iron complex [Ferrex 150] 150 mg iron capsule 150 mg PO BID Qty: 120 5RF aspirin 81 MG tablet,delayed release (DR/EC) 81 mg PO DAILY Label Comments: FOLLOW INSTRUCTIONS ABOUT STOPPING losartan 100 MG tablet 100 mg PO QHS cholecalciferol (vitamin D3) [Vitamin D3] 125 mcg (5,000 unit) Tablet 125 mcg PO DAILY Kombiglyze XR 2.5-1,000 mg tablet, ER multiphase 24 hr 1 tab PO BID Eliquis 5 mg tablet 5 mg PO BID Qty: 180 3RF Hold Instructions: anemia nitroglycerin 0.4 mg tablet, sublingual 0.4 mg SUBLINGUAL Q5M PRN (Reason: Chest Pain) Qty: 25 4RF glimepiride 2 mg tablet 4 mg PO BID furosemide [Lasix] 40 mg tablet 20 mg PO DAILY Primary Care Provider: Juanpablo Stack Referrals: Juanpablo Stack DO [Primary Care Provider] - 1-2 Weeks Disposition Disposition: Home, Self Care
== END 2022-04-04 11:21 | disposition home or self-care (01) ==
PROVIDERS: Emergency Provider Emergency Medicine; PCP Family Medicine; Visit Provider Emergency Medicine
DX: S51.802A Unspecified open wound of left forearm, initial encounter (principal); I25.10 Atherosclerotic heart disease of native coronary artery without angina pectoris; I25.2 Old myocardial infarction; Z86.73 Personal history of transient ischemic attack (TIA), and cerebral infarction without residual deficits; Z79.01 Long term (current) use of anticoagulants; Z95.1 Presence of aortocoronary bypass graft; X58.XXXA Exposure to other specified factors, initial encounter
CPT/HCPCS: 99282; A4216

== ENCOUNTER 2022-04-18 09:30 | Outpatient (RCR) | payer MEDICARE, SELFPAY ==
[2022-03-14 07:06] VITALS: BMI 29.8
[2022-04-06 00:34] VITALS: BP 150/54; BP 154/74
== END 2022-05-06 23:59 ==
LOC: CR 09:30
PROVIDERS: PCP Family Medicine; Referring Provider Internal Medicine Cardiovascular Disease; Visit Provider Internal Medicine Cardiovascular Disease
DX: Z95.2 Presence of prosthetic heart valve (principal)
CPT/HCPCS: 93798

== ENCOUNTER → 2022-05-14 | Outpatient (CLI) | payer MEDICARE, SELFPAY ==
[2022-03-14 07:06] VITALS: BMI 29.8
[2022-05-14 10:23] LABS: Absolute Lymphocyte Count 1.23 X10^3/uL (0.83-4.51); Absolute Neutrophil Count 6.6 X10^3/uL (2.0-7.7); Basophil# 0.07 X10^3/uL; Basophil% 0.8 % (0-1); Eosinophil# 0.08 X10^3/uL; Eosinophils% 0.9 % (0-5); Hematocrit 38.7 % (40-54); Hemoglobin 13.7 g/dL (13.0-16.5); Lymphocyte # 1.23 X10^3/ul (0.83-4.51); Lymphocyte % 13.8 % (19-41); Mean Corp Hgb Conc 35.4 g/dL (32-36); Mean Corpuscular Hgb 33.1 pg (27.0-32.0); Mean Corpuscular Volume 93.5 fL (80-94); Monocyte# 0.89 X10^3/uL; NRBC Flagged by Analyzer 0 % (0-5); Neutrophil # 6.58 X10^3/uL (2.7-7.7); Neutrophil % 74.1 % (47-70); Platelet Count 160 K/mm3 (150-450); RBC Distribution Width CV 14.9 % (11.6-14.6); RBC Distribution Width SD 50.9 fl (35.1-43.9); Red Blood Count 4.14 M/mm3 (4.6-6.2); White Blood Count 8.9 K/mm3 (4.4-11.0)
[2022-05-14 10:48] LABS: Microalbumin:Creatinine Ratio 587.4 mg/g CRE (<30 mg/g CRE)
[2022-05-14 10:54] LABS: Hemoglobin A1c 6.5 % (3.8-5.6)
[2022-05-14 11:06] LABS: ALB/GLOB Ratio 0.9 RATIO (0.9-2.4); AST(SGOT) 20 U/L (15-37); Alanine Aminotransfer ALT/SGPT 28 U/L (16-61); Alkaline Phosphatase 73 U/L (45-117); Anion Gap 8 (5-15); BUN 20 mg/dL (7-18); BUN/Creat Ratio 17.1 RATIO (10-20); Chloride 97 mmol/L (98-107); Cholesterol 168 mg/dL (200); Creatinine, Serum 1.17 mg/dL (0.70-1.30); EST Glomerular Filtration Rate 63 mL/min (>60); Est Glom Filt Rate - Afr Amer 76 mL/min (>60); Globulin 4.3 g/dL (2.2-4.2); Glucose 125 mg/dL (74-106); High Density Lipoprotein 64 mg/dL; PSA,Total- Diagnostic 6.32 ng/mL (0.0-4.0); Protein, Total 8.3 g/dL (6.4-8.2); Sodium Level 131 mmol/L (136-145); Triglycerides 129 mg/dL; Very Low Density Lipoprotein 26 mg/dL (5-40)
[2022-05-15 07:26] LABS: Ferritin 42 ng/mL (26-388); Iron 174 ug/dL (65-175)
== END | disposition home or self-care (01) ==
LOC: LAB 09:08
PROVIDERS: PCP Family Medicine; Referring Provider Family Medicine; Visit Provider Family Medicine
DX: D50.9 Iron deficiency anemia, unspecified (principal); E11.9 Type 2 diabetes mellitus without complications; R97.20 Elevated prostate specific antigen [PSA]
CPT/HCPCS: 36415; 80053; 80061; 82043; 82570; 82728; 83036; 83540; 84153; 85025

== ENCOUNTER → 2022-07-16 | Outpatient (CLI) | payer MEDICARE, SELFPAY ==
[2022-03-14 07:06] VITALS: BMI 29.8
[2022-07-16 12:07] LABS: Absolute Lymphocyte Count 0.82 X10^3/uL (0.83-4.51); Absolute Neutrophil Count 7.7 X10^3/uL (2.0-7.7); Basophil# 0.04 X10^3/uL; Basophil% 0.4 % (0-1); Eosinophil# 0.06 X10^3/uL; Eosinophils% 0.6 % (0-5); Hematocrit 34.6 % (40-54); Hemoglobin 11.9 g/dL (13.0-16.5); Lymphocyte # 0.82 X10^3/ul (0.83-4.51); Lymphocyte % 8.3 % (19-41); Mean Corp Hgb Conc 34.4 g/dL (32-36); Mean Corpuscular Hgb 35.2 pg (27.0-32.0); Mean Corpuscular Volume 102.4 fL (80-94); Mean Platelet Vol. 10.7 fl (6.2-12.0); Monocyte# 1.11 X10^3/uL; Monocyte% 11.3 % (0-10); NRBC Flagged by Analyzer 0 % (0-5); Neutrophil # 7.74 X10^3/uL (2.7-7.7); Neutrophil % 78.8 % (47-70); Platelet Count 168 K/mm3 (150-450); RBC Distribution Width SD 53.1 fl (35.1-43.9); Red Blood Count 3.38 M/mm3 (4.6-6.2); White Blood Count 9.8 K/mm3 (4.4-11.0)
[2022-07-16 12:27] LABS: Vitamin B12 1351 pg/mL (211-911)
[2022-07-16 12:30] LABS: ALB/GLOB Ratio 0.9 RATIO (0.9-2.4); AST(SGOT) 16 U/L (15-37); Alanine Aminotransfer ALT/SGPT 24 U/L (16-61); Albumin, Serum 3.7 g/dL (3.2-5.0); Alkaline Phosphatase 72 U/L (45-117); Anion Gap 8 (5-15); BUN 22 mg/dL (7-18); BUN/Creat Ratio 19.5 RATIO (10-20); Calcium,Total 9.3 mg/dL (8.5-10.1); Chloride 100 mmol/L (98-107); Creatinine, Serum 1.13 mg/dL (0.70-1.30); EST Glomerular Filtration Rate 66 mL/min (>60); Est Glom Filt Rate - Afr Amer 80 mL/min (>60); Ferritin 43 ng/mL (26-388); Globulin 4.2 g/dL (2.2-4.2); Glucose 273 mg/dL (74-106); Iron 120 ug/dL (65-175); Iron Binding Capacity,Total 373 ug/dL (250-450); LDH 326 U/L (87-241); PERCENT IRON SATURATION 32.2 % (15.0-55.0); Potassium 4.7 mmol/L (3.5-5.1); Protein, Total 7.9 g/dL (6.4-8.2); Sodium Level 131 mmol/L (136-145)
[2022-07-16 20:01] LABS: Xtra Tube EP Lab EXTRA TUBE
== END | disposition home or self-care (01) ==
LOC: PAVLAB 11:36
PROVIDERS: PCP Family Medicine; Referring Provider Internal Medicine Medical Oncology; Visit Provider Internal Medicine Medical Oncology
DX: I10 Essential (primary) hypertension (principal); D50.8 Other iron deficiency anemias
CPT/HCPCS: 80053; 82607; 82728; 83540; 83550; 83615; 85025

== ENCOUNTER → 2022-09-18 | Outpatient (CLI) | payer MEDICARE, SELFPAY ==
[2022-03-14 07:06] VITALS: BMI 29.8
--- NOTE | 2022-09-18 12:36 | RAD_ITS ---
STUDY: X-RAY - RIGHT SHOULDER REASON FOR EXAM: Male, 82 years old. PAIN TECHNIQUE: 5 view(s) of the shoulder. COMPARISON: None. FINDINGS: Normal glenohumeral articulation. There is hypertrophic osteoarthrosis of the acromioclavicular joint with inferior osseous spur formation. Normal acromion. Normal humeral head and visualized proximal humerus. The soft tissue structures are unremarkable. Normal visualized pulmonary apex. RAD/Shoulder min 2 Views IMPRESSION: Degenerative changes AC joint. Otherwise no acute disease Electronically Signed: Santos White MD at 19:45 EST ,
== END | disposition home or self-care (01) ==
LOC: MTRAD 12:34
PROVIDERS: PCP Family Medicine; Referring Provider Anesthesiology Pain Medicine; Visit Provider Anesthesiology Pain Medicine
DX: M25.511 Pain in right shoulder (principal)
CPT/HCPCS: 73030

== ENCOUNTER 2022-11-05 16:04 | Observation (INO) | payer MEDICARE, SELFPAY ==
[2022-03-14 07:06] VITALS: BMI 29.8
[2022-11-05 16:07] VITALS: TEMP 37; BMI 30.5
[2022-11-05 16:13] VITALS: PULSE 64; RESP 18; O2SAT 97
--- NOTE | 2022-11-05 16:23 | CT_ITS ---
STUDY: CT BRAIN WITHOUT CONTRAST REASON FOR EXAM: Male, 82 years old. confusion Individualized dose optimization techniques were used for this CT. TECHNIQUE: Transaxial CT imaging of the brain was performed without administration of intravenous contrast material. COMPARISON: MRI 02/01/2021 FINDINGS: There are calcifications noted in the distal vertebral arteries. There are calcifications noted in the cavernous carotid arteries. This is consistent for atherosclerotic disease. Normal calvarium. Normal soft tissues. There is mild cerebral atrophy with widening of the extra-axial spaces and ventricular dilatation. There are areas of decreased attenuation within the white matter tracts of the supratentorial brain, consistent with microvascular disease changes. Normal basal ganglia and thalami. Normal brainstem. There is mild cerebellar atrophy. There is no intracranial hemorrhage. There are no findings of an acute ischemic infarction. Normal visualized paranasal sinuses. ASPECTS Score for Acute Strokes: 07/16 CT/Brain/Head without Contrast IMPRESSION: There are no acute findings. Chronic involutional changes of the brain. Electronically Signed: Jean Claude Boucher MD at 17:05 EST ,
--- NOTE | 2022-11-05 16:26 | EDS_ITS ---
HPI History of Present Illness Chief Complaint: Abn Labs Informant: patient and spouse/S.O. Narrative Narrative: Patient has been confused lately, gradually worsening over the past week, he provides some history such as ROS, but the majority of the history is provided by the significant other. She states he has had several issues recently. Swelling in both legs whereas he usually does not have it at all. History of CHF, on a diuretic. states he had an echo within the past week at an outside hospital that looked good. Dyspnea with exertion, disorientation, getting generally weak, and she states she noticed him having trouble using his right hand and arm since 4 days ago, when asked when she first noticed it she states it got worse 4 days ago. No known history of stroke. He is on apixaban. He has had black stools. He is also on iron, he has seen no blood in the toilet. The significant other called out of concern today, to the security control room officer office. He went there and had blood work and a chest x-ray and upon reviewing the blood work and seeing that his hemoglobin is a lot lower than it had been, and his sodium is low, he was sent here to the emergency department. This is all according to the . Patient denies any chest pain, abdominal pain, numbness or tingling prior to the exam, just weak in his right arm. [facility] Medical History Anemia Aortic stenosis Asymptomatic peripheral vascular disease Atherosclerotic heart disease of [place] coronary artery with other forms of angina pectoris Atrial flutter Bilateral carotid artery stenosis Diabetes mellitus type II, controlled Edema of left lower extremity Encounter for long-term current use of high risk medication Essential (primary) hypertension History of transcatheter aortic valve replacement (TAVR) (~10/16/21) Infection of anterior lower leg LBBB (left bundle branch block) Malnutrition MCI (mild cognitive impairment) Old myocardial infarction Osteomyelitis of left tibia Peripheral vascular disease Presence of stent in coronary artery (~01/06/16) Pure hypercholesterolemia 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 Stroke/cerebrovascular accident Ulcer of left mcnulty Venous insufficiency Home Medications aspirin 81 mg tablet,delayed release 81 mg PO DAILY 03/26/16 [History Last Taken 08/11/21] losartan 100 mg tablet 100 mg PO QHS 03/26/16 [History Last Taken 01/31/21] omeprazole 20 mg capsule,delayed release 20 mg PO QHS 01/05/19 [History Last Ta bolivar 01/31/21] multivitamin (Daily Multi-Vitamin tablet) 1 tab PO DAILY 04/27/20 [History Last Taken 01/31/21] cholecalciferol (vitamin D3) 125 mcg (5,000 unit) tablet (Vitamin D3) 125 mcg PO DAILY 02/01/21 [History Last Taken 01/31/21] cholestyramine (with sugar) 4 gram powder for susp in a packet 4 gm PO DAILY 03/15/21 [History Last Taken Unknown] hydrocodone-acetaminophen 5-325mg 5mg-325mg 0.5 tab PO BID PRN Pain 06/14/21 [History Last Taken 08/11/21] nitroglycerin 0.4 mg sublingual tablet 0.4 mg sublingual Q5M PRN Chest Pain #25 tabs 09/08/21 [Rx Last Taken Unknown] saxagliptin 2.5 mg-metformin ER 1,000 mg tablet,extend release 24hr mp (Kombiglyze XR) 1 tab PO BID 10/04/21 [History Last Taken Unknown] amlodipine 5 mg tablet 5 mg PO DAILY 11/27/21 [History Last Taken Unknown] furosemide 40 mg tablet (Lasix) 20 mg PO DAILY 01/30/22 [History Last Taken Unknown] apixaban 5 mg tablet (Eliquis) 5 mg PO BID #180 tabs 07/02/22 [Rx Last Taken Unknown] antiarthritic combination no.2 900 mg tablet (glucosamine-chondroitin) 900 mg PO DAILY 07/18/22 [History Last Taken Unknown] polysaccharide iron complex 150 mg iron capsule (Ferrex) 150 mg PO DAILY 120 days #120 caps 07/18/22 [Rx Last Taken Unknown] sodium chloride 1 gram tablet 1,000 mg PO DAILY PRN electrolyte replenishment #30 tabs 07/18/22 [Rx Last Taken Unknown] zinc gluconate 50 mg tablet 50 mg PO DAILY PRN 07/18/22 [History Last Taken Unknown] glimepiride 2 mg tablet 3 mg PO BID 08/16/22 [History Last Taken Unknown] mecobalamin (vitamin B12) 5,000 mcg disintegrating tablet 5,000 mcg PO .2xweek 08/16/22 [History Last Taken Unknown] duloxetine 30 mg capsule,delayed release 30 mg PO DAILY 11/05/22 [History Last Taken Unknown] Allergy/AdvReac Type Severity Reaction Status Date / Time lisinopril [From Zestril] Allergy Other Verified 11/05/22 16:06 niacin Allergy Rash Verified 11/05/22 16:06 pravastatin sodium Allergy Other Verified 11/05/22 16:06 [From Pravachol] atenolol AdvReac Severe low HR, Verified 11/05/22 16:06 pauses clonidine AdvReac Unknown unknown Verified 11/05/22 16:06 Emfqsja-NDG-FoZ Reductase AdvReac Other Verified 11/05/22 16:06 Inhibitor [Cthflcy-Xlr-Bbr Reductase Inhibitor] Family History Father COPD (chronic obstructive pulmonary disease) Arthritis Lung disease Mother CVA (cerebral vascular accident) Hx of CABG Heart disease Hypertension Hypercholesterolemia Brother Arthritis Brother Heart disease Brother Hypertension Brother Hypercholesterolemia Sister Heart disease Sister Hypertension Sister Hypercholesterolemia Surgical History H/O coronary artery bypass surgery (~01/18/16) History of appendectomy History of arthroscopy of left knee History of inguinal hernia repair, bilateral History of knee replacement History of left heart catheterization (LHC) (~08/11/21) History of lumbar surgery History of tonsillectomy Presence of coronary angioplasty implant and graft Social History Smoking Status: Never smoker Electronic Cigarette Use: not used second hand exposure: Yes (Father smoked when he was a child ) alcohol intake: never substance use type: does not use caffeine: Yes Type: carbonated beverages Number of servings: 3 what type of physical activity do you participate in: other details: treadmill, newstep frequency: 3-4 times per week duration: 30-45 minutes/day seatbelt use: always do you feel safe at home: Yes ROS ROS ED Review of Systems ROS Unobtainable: due to mental status Eyes Eyes: Denies change in vision or diplopia ENT ENT ED: Denies rhinorrhea or sore throat Cardiovascular Cardiovascular: Reports leg edema; Denies chest pain or orthopnea Respiratory/Chest Respiratory/Chest: Reports dyspnea on exertion; Denies cough or orthopnea Gastrointestinal Gastrointestinal: Reports melena; Denies abdominal pain, diarrhea, nausea or vomiting Genitourinary Genitourinary ED: Reports urinary frequency; Denies dysuria or hematuria Musculoskeletal Musculoskeletal: Reports back pain; Denies neck pain Integumentary Denies abscess or rash Neurologic Neurologic: Reports as per HPI, confusion and weakness; Denies headache(s) or paresthesias Psychiatric Psychiatric: Denies anxiety or suicidal thoughts EXAM Physical Exam Const Vital Signs: 11/05/22 16:07 11/05/22 16:13 Temperature 98.6 F Temperature Source Temporal Pulse Rate 64 Respiratory Rate 18 Pulse Ox 97 Oxygen Delivery Method Room Air Positive well nourished, well developed and obese General Appearance ED: well developed and NAD Nutritional Appearance: obese HEENT Reports moist mucous membranes normocephalic and atraumatic Eyes PERRL and EOMs intact bilaterally Neck full ROM and supple Neck Narrative: +jvd Resp normal respiratory effort Resp Narrative: Mild bibasilar Rales, otherwise clear Cardio regular rate, regular rhythm and no murmurs Rate: Negative for tachycardic GI non-tender and non-distended Auscultation: normoactive bowel sounds Palpation: soft Back/Spine no CVA tenderness General Back: other FROM Extremity General Extremety ED: Yes edema; Negative for pulses abnormal or tenderness General Extremity: edema bilateral lower extremity Details: severe (With clear fluid seeping from superficial breaks in the skin distal left lower extremity. No signs of cellulitis, no tenderness.); Negative for pulses abnormal Neuro oriented x3 and CN's II-XII intact bilaterally Neuro Narrative: Difficulty resisting gravity with regards to the right upper extremity only. 5/5 strength throughout otherwise. He can hold his arm up. Subjective decreased sensation left lower extremity compared with the right. Otherwise sensation normal. No aphasia. No ataxia out of proportion to his weakness. See NIHSS. Answers orientation questions correctly, he initially gets his age wrong and is redirectable, but is somewhat confused with general conversation. No aphasia or dysarthria. Sensorium / Orientation: awake and alert Skin no rashes or lesions noted and no wounds NIHSS NIHSS Initial: 1a Level of Consciousness: 0 1b LOC Questions (Score 2 if aphasic/stupor): 1 1c LOC Commands (Only score 1st attempt): 0 2 Best Gaze (If aphasic, use reflexive mvmts.): 0 3 Visual: 0 4 Facial Palsy: 0 5 Motor Arm Right (UN = amputation/fusion): 1 5 Motor Arm Left: 0 6 Motor Leg Right: 0 6 Motor Leg Left: 0 7 Limb ataxia (Only + if out of proportion): 0 8 Sensory (Aphasia/stupor=0 or 1, coma=2): 1 9 Best Language: 0 10 Dysarthria (mute, coma=2, intubated=UN): 0 11 Extinction and Inattention (only scored if +): 0 Total Score: 3 MDM MDM MDM Narrative Medical decision making narrative: I reviewed outside labs that were done as an outpatient. He has some hyponatremia with a sodium of 126, this could be contributing or causing his disorientation. He is anemic compared to normal, his hemoglobin is 8.5 and several months ago he was 11.9. It is possible this is delusional it is possible it is due to blood loss due to his anticoagulation and black stools. We sent the Hemoccult. It is negative. I reviewed his outpatient 2 view chest x-ray, it does not appear to show any acute CHF. Radiology interpreted it and they are in agreement that there is nothing acute. His EKG is unchanged, his troponin is within normal limits, his BNP is elevated, and he appears to be fluid overloaded, and since his Hemoccult is negative this makes his anemia more likely to be delusional in context of being fluid overloaded. Since he has been disoriented I did a CT of his head. It appears to be unremarkable for any acute bleed, collection, shift. My interpretation of the CT agrees with that of the radiologist. We ambulated the patient. He did not become very dyspneic he did not become hypoxic, however he did not go very far, and he was obviously confused. He is having visual hallucinations of things on the floor, he is having confusion just with trying to put his finger in the pulse oximeter. This may be related to his hyponatremia. He is unsteady with walking, appears possibly related to his confusion, so I think admitting him for this would be best until his mental status improves. I discussed Dr. Schilling, he states it sounds like the patient needs to be diuresed and that may fix his hyponatremia, fluid overload state, and disorientation. Discussed with hospitalist for admission to PCU. Lab Data Attestation: I reviewed the patient's lab results. Labs: Laboratory Results - last 24 hr 11/05/22 16:20 Troponin I High Sens 65 Radiography Diagnostic Testing: Clinical Impression(s) from Imaging Studies Brain CT 11/05/22 16:23 IMPRESSION: There are no acute findings. Chronic involutional changes of the brain. Electronically Signed: Jean Claude Boucher MD at 17:05 EST Reading Location ID and State: [facility] / [place] , Service support , Rhythm Strip Rhythm Strip: Sinus Rhythm Rate: 80 Ectopy: PVC(s) EKG Initial EKG: Attestation: I personally reviewed and interpreted this EKG as follows: Interpretation: Sinus Rhythm and No Acute Injury Pattern Prior EKG tracings: available for review Prior: Unchanged Discharge Plan Dx/Rx/DC Orders Clinical Impression: Encephalopathy acute, Acute hyponatremia, Acute exacerbation of CHF (congestive heart failure), Anemia Disposition Disposition: Acute Care Hospital [facility] Stroke Documentation Questions Stroke Team Activated: No (due to timing of sx) IV Thrombolytic Administered: No (timing)
--- NOTE | 2022-11-05 16:39 | EKG12_ITS ---
Test Reason : ABN LABS Blood Pressure : / mmHG Vent. Rate : 079 BPM Atrial Rate : 208 BPM P-R Int : 000 ms QRS Dur : 104 ms QT Int : 438 ms P-R-T Axes : 000 -09 139 degrees QTc Int : 502 ms Atrial fibrillation Nonspecific ST and T wave abnormality Prolonged QT Abnormal ECG Confirmed by DONALD POLLOCK, REMY ([id number]), book or script editor ARTIE WALLER ([id number]) on 11/07/2022 2:13:45 PM Referred By: Confirmed By:REMY BENNETT MD
[2022-11-05] MEDS: 0.9% Normal Saline 1,000 ML 80 ML IV (17:02)
[2022-11-05 17:18] LABS: Troponin-I HS 65 pg/mL (3.0-78.0)
[2022-11-05] MEDS: Furosemide 40 MG/4 ML Vial IV (18:02)
[2022-11-05 18:03] VITALS: O2SAT 97
[2022-11-05 18:06] LABS: Bacteria 0 SEEN /hpf (None Seen); Mucous, Urine 0 SEEN /hpf (<or=2+); Red Blood Cells-Urine 0 SEEN /hpf (0-5); Squamous Epithelial Cells - UA 0 SEEN /hpf (0-5); White Blood Cells 0 SEEN /hpf (0-5)
[2022-11-05 18:21] LABS: Color, Urine Yellow (Yellow); Glucose, Dipstick 100 mg/dl (Normal); Ketone-Dipstick Negative (Negative); Leukocyte Esterase-Dipstick Negative /ul (Negative); Nitrite-Dipstick Negative (Negative); Occult Blood-Urine Negative /ul (Negative); Protein-Dipstick 100 mg/dl (Negative); Urine Bilirubin Dipstick Negative (Negative); Urine Clarity Clear (Clear); Urine Urobilinogen Normal (Normal)
--- NOTE | 2022-11-05 18:35 | PCM.HP.STD ---
HPI - General General Date of Admission: 11/05/22 Date of Service: 11/05/22 Chief Complaint: confusion HPI Narrative KRERI FINK, is a 82 M who presents with increasing confusion. Patient is confused and defers much of the questioning to his spouse, who is at bedside. His spouse says that the patient has been confused and says that that is not my bed when looking at their bed and stating that his bed is upstairs or downstairs but they live in a one floor house. was concerned because this just been going on and not getting any better so she brought him into the hospital. In the emergency room, patient had hemoglobin of 8.5, which is down from 11.9 from July, his sodium was 126 despite taking sodium tablets daily. Chest x-ray was concerning for CHF and patient had an elevated BNP of 565. Patient did receive furosemide in the emergency room. When asked to the patient's had episodes of confusion before the states that he has but this was more severe than those previous bouts. Patient does have a history of left-sided weakness which she attributes to history of hyponatremia. Patient does have right shoulder pain and arthritis which she has been seeing physical therapy for. FORMERLY [facility], 1928–1983 Medical History Anemia Aortic stenosis Asymptomatic peripheral vascular disease Atherosclerotic heart disease of [place] coronary artery with other forms of angina pectoris Atrial flutter Bilateral carotid artery stenosis Diabetes mellitus type II, controlled Edema of left lower extremity Encounter for long-term current use of high risk medication Essential (primary) hypertension History of transcatheter aortic valve replacement (TAVR) (~10/16/21) Infection of anterior lower leg LBBB (left bundle branch block) Malnutrition MCI (mild cognitive impairment) Old myocardial infarction Osteomyelitis of left tibia Peripheral vascular disease Presence of stent in coronary artery (~01/06/16) Pure hypercholesterolemia 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 Stroke/cerebrovascular accident Ulcer of left mcnulty Venous insufficiency Home Medications aspirin 81 mg tablet,delayed release 81 mg PO DAILY 03/26/16 [History Last Taken 08/11/21] losartan 100 mg tablet 100 mg PO QHS 03/26/16 [History Last Taken 01/31/21] omeprazole 20 mg capsule,delayed release 20 mg PO QHS 01/05/19 [History Last Taken 01/31/21] cholecalciferol (vitamin D3) 125 mcg (5,000 unit) tablet (Vitamin D3) 125 mcg PO DAILY 02/01/21 [History Last Taken 01/31/21] cholestyramine (with sugar) 4 gram powder for susp in a packet 4 gm PO DAILY 03/15/21 [History Last Taken Unknown] nitroglycerin 0.4 mg sublingual tablet 0.4 mg sublingual Q5M PRN Chest Pain #25 tabs 09/08/21 [Rx Last Taken Unknown] saxagliptin 2.5 mg-metformin ER 1,000 mg tablet,extend release 24hr mp (Kombiglyze XR) 1 tab PO BID 10/04/21 [History Last Taken Unknown] amlodipine 5 mg tablet 5 mg PO DAILY 11/27/21 [History Last Taken Unknown] furosemide 40 mg tablet (Lasix) 20 mg PO DAILY 01/30/22 [History Last Taken Unknown] zinc gluconate 50 mg tablet 50 mg PO DAILY PRN 07/18/22 [History Last Taken Unknown] glimepiride 2 mg tablet 3 mg PO BID 08/16/22 [History Last Taken Unknown] mecobalamin (vitamin B12) 5,000 mcg disintegrating tablet 5,000 mcg PO .2xweek 08/16/22 [History Last Taken Unknown] apixaban 5 mg tablet (Eliquis) 5 mg PO BID BLOOD THINNER 11/05/22 [History Last Taken 11/05/22] cetirizine 10 mg tablet 10 mg PO DAILY ALLERGIES 11/05/22 [History Last Taken 11/04/22] duloxetine 30 mg capsule,delayed release 30 mg PO DAILY 11/05/22 [History Last Taken Unknown] abmgzpotvopr-afeudvnv-psoovb tablet (Multivitamin 50 Plus tablet) 1 tab PO DAILY HEALTH MAINTENANCE 11/05/22 [History Last Taken 11/04/22] oxycodone-acetaminophen 5 mg-325 mg tablet 1 tab PO TID PRN PAIN 11/05/22 [History Last Taken 11/05/22] polysaccharide iron complex 150 mg iron capsule (Ferrex) 150 mg PO DAILY SUPPLEMENT 11/05/22 [History Last Taken 11/04/22] sennosides 8.6 mg tablet (senna) 8.6 mg PO DAILY PRN Constipation 11/05/22 [History Last Taken Unknown] sodium chloride 1,000 mg soluble tablet 1,000 mg PO DAILY ELECTROLYTES 11/05/22 [History Last Taken 11/04/22] Allergy/AdvReac Type Severity Reaction Status Date / Time lisinopril [From Zestril] Allergy Other Verified 11/05/22 16:06 niacin Allergy Rash Verified 11/05/22 16:06 pravastatin sodium Allergy Other Verified 11/05/22 16:06 [From Pravachol] atenolol AdvReac Severe low HR, Verified 11/05/22 16:06 pauses clonidine AdvReac Unknown unknown Verified 11/05/22 16:06 Siplebh-MFZ-XiT Reductase AdvReac Other Verified 11/05/22 16:06 Inhibitor [Lvklvva-Pnr-Jnm Reductase Inhibitor] Family History Father COPD (chronic obstructive pulmonary disease) Arthritis Lung disease Mother CVA (cerebral vascular accident) Hx of CABG Heart disease Hypertension Hypercholesterolemia Brother Arthritis Brother Heart disease Brother Hypertension Brother Hypercholesterolemia Sister Heart disease Sister Hypertension Sister Hypercholesterolemia Surgical History H/O coronary artery bypass surgery (~01/18/16) History of appendectomy History of arthroscopy of left knee History of inguinal hernia repair, bilateral History of knee replacement History of left heart catheterization (LHC) (~08/11/21) History of lumbar surgery History of tonsillectomy Presence of coronary angioplasty implant and graft Social History Smoking Status: Never smoker Electronic Cigarette Use: not used second hand exposure: Yes (Father smoked when he was a child ) alcohol intake: never substance use type: does not use caffeine: Yes Type: carbonated beverages Number of servings: 3 what type of physical activity do you participate in: other details: treadmill, newstep frequency: 3-4 times per week duration: 30-45 minutes/day seatbelt use: always do you feel safe at home: Yes ROS ROS Narrative Lower extremity edema. All review of systems were negative except as mentioned above in the history of present illness and the other review of systems. Vital Signs Vital Signs Vital Signs: 11/05/22 16:07 11/05/22 16:13 Temperature 37.0 C Temperature Source Temporal Pulse Rate 64 Respiratory Rate 18 Pulse Ox 97 Oxygen Delivery Method Room Air Weight Weight: 107.955 kg Body Mass Index (BMI) 30.5 Physical Exam Const Constitutional Narrative: Oriented to self and place. Did not know the date. Hard of General Appearance: cooperative HEENT normocephalic, head/scalp atraumatic, hearing grossly normal bilaterally and moist oral mucous membranes Eyes PERRL and EOMs intact bilaterally Neck no lymphadenopathy Neck Narrative: No thyromegaly Resp normal respiratory effort, no retractions, no use of accessory muscles and clear to auscultation bilaterally Cardio regular rate, regular rhythm, S1 normal heart sound and S2 normal heart sound GI normal to inspection, nondistended, normoactive bowel sounds, soft to palpation, non-tender and non-distended Extremity Extremity Narrative: 2+ lower extremity edema bilaterally Skin Skin Narrative: Lymphedema changes to lower extremities. Patient has healed wound on left anterior mcnulty. Neuro moves all extremities Neuro Narrative: Oriented x2 Patient has difficulty moving his right arm due to pain. Patient does have ataxia of his left upper extremity and weakness. Sensorium / Orientation: awake and alert Psych affect normal Results Lab / Micro Data Attestation: I reviewed the patient's lab results. Labs: Laboratory Results - last 24 hr 11/05/22 16:20: Troponin I High Sens 65 11/05/22 17:55: Urine Color Yellow, Urine Clarity Clear, Urine pH 6.0, Ur Specific [place] 1.020, Urine Protein 100 H, Urine Glucose (UA) 100 H, Urine Ketones Negative, Urine Occult Blood Negative, Urine Nitrite Negative, Urine Bilirubin Negative, Urine Urobilinogen Normal, Ur Leukocyte Esterase Negative, Urine RBC 0 SEEN, Urine WBC 0 SEEN, Ur Squamous Epith Cells 0 SEEN, Urine Bacteria 0 SEEN, Urine Mucus 0 SEEN Micro: Microbiology 11/05/22 16:28 Stool Stool Occult Blood (PATTI) - Final Rhythm Strip Rhythm Strip: Sinus Rhythm Rate: 80 Ectopy: PVC(s) EKG Initial EKG: Attestation: I personally reviewed and interpreted this EKG as follows: EKG Rhythm Intrepretation: Sinus Rhythm (With frequent PVCs) Radiology Impression Brain CT 11/05/22 16:23 IMPRESSION: There are no acute findings. Chronic involutional changes of the brain. Electronically Signed: Jean Claude Boucher MD at 17:05 EST Reading Location ID and State: [facility] / [place] , Service support , Assessment & Plan Assessment/Plan (1) Acute exacerbation of CHF (congestive heart failure): PLAN: Acute HFpEF EF of 50 to 55% from 2D echocardiogram from November 23, 2021. IV furosemide Continue with losartan Recheck echocardiogram Beta-cedric has previously been held given history of complete heart block. (2) Encephalopathy acute: PLAN: Worse than previous. Unclear etiology. 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 Concerned patient may have some underlying dementia. Discussed with the patient's , the patient is to be term if he has dementia he will need to follow up with geriatric to have formal testing We will hold his Cymbalta for now Will continue with his Percocet so as not to precipitate withdrawal but to hold the medication if he is very confused. Check ferritin, B12, folate, TSH Patient had confusion back in 2020 with concern for stroke. MRI at that time was negative. There was concern for cognitive impairment at that time. (3) Acute hyponatremia: PLAN: Appears worse than baseline. Acute on chronic Continue with the sodium tablets which she takes daily Check serum and urine osmolality. Check urine urea Monitor (4) Anemia: QUALIFIERS: Anemia type: unspecified type Qualified Code(s): D64.9 - Anemia, unspecified PLAN: Appears to be chronic. Patient was seeing Dr. Cowart for this. Check iron, ferritin, B12, folate, TSH PLAN: Plan Chronic conditions CAD History of TAVR Hypertension Chronic malnutrition Atrial flutter: Noted on Holter monitor from March 01, 2021. Continue with apixaban VTE prophylaxis: Continue with apixaban Charges/Coding Visit Charges Inpatient E&M: 92518 Init Hosp L3
[2022-11-05 18:54] VITALS: BP 167/70; PULSE 71; RESP 17; TEMP 37.1; O2SAT 96
--- NOTE | 2022-11-05 19:19 | ECHOCS_ITS ---
Reason For Study: CHF Procedure This was a 2D Doppler, Color Flow transthoracic echocardiogram. Technically difficult study, patient was very confused and unable to follow directions. Contrast injection performed. Exam performed portable in patient room. Left Ventricle Normal LV size. Mild concentric left ventricular hypertrophy. Left ventricular systolic function is normal. The estimated ejection fraction is 55 %. No regional wall motion abnormalities noted. Right Ventricle Normal RV size. Normal systolic function. Atria The left atrium is severely enlarged. The right atrium is moderately enlarged. Mitral Valve There is moderate mitral annular calcification. Bileaflet diffuse mitral valve thickening. Mild focal mitral valve calcification. Tricuspid Valve Normal tricuspid valve. Moderate (2+) tricuspid valve insufficiency. Pulmonary artery systolic pressure is 60 mmHg. Aortic Valve Peak aortic valve gradient 18 mmHg. Mean aortic valve gradient 10 mmHg. Normal prosthetic aortic valve. Pulmonic Valve Normal pulmonic valve. Great Vessels Normal aortic root. The pulmonary artery is normal size. Normal inferior vena cava. Pericardium/Pleural No pericardial effusion. Medication Diluted definity 3ml given slow IV push to enhance endocardial definition. MMode/2D Measurements & Calculations LVIDd: 4.5 cm IVSd: 1.3 cm LVOT diam: 2.2 cm LVIDs: 3.1 cm LVPWd: 1.1 cm FS: 31.6 % LVOT area: 3.7 cm2 Ao root diam: 3.8 cm LAV(MOD-bp): 115.6 ml LA A4 area: 31.2 cm2 LA dimension: 4.5 cm LAV(MOD-bp) Indexed: 49.5 ml/m2 LAV(MOD-sp2): 112.2 ml LAV(MOD-sp4): 109.0 ml RA A4 area: 26.2 cm2 Doppler Measurements & Calculations MV E max qing: 158.1 cm/sec MV V2 max: 188.4 cm/sec Ao V2 max: 213.4 cm/sec MV max P.2 mmHg Ao max P.4 mmHg MV V2 mean: 69.9 cm/sec Ao V2 mean: 145.1 cm/sec MV mean P.9 mmHg Ao mean P.8 mmHg MV V2 VTI: 50.5 cm Ao V2 VTI: 48.4 cm MVA(VTI): 1.8 cm2 AV (velocity ratio): 0.51 HUMBERTO(I,D): 1.9 cm2 HUMBERTO(V,D): 2.0 cm2 LV V1 max: 113.0 cm/sec MR max qing: 509.3 cm/sec SV(LVOT): 92.0 ml LV V1 max P.3 mmHg MR max P.6 mmHg LV V1 mean P.5 mmHg MR mean qing: 399.2 cm/sec LV V1 mean: 70.4 cm/sec MR mean P.5 mmHg LV V1 VTI: 24.6 cm MR VTI: 147.0 cm PA V2 max: 79.6 cm/sec TR max qing: 376.0 cm/sec TR max P.5 mmHg ECHO/Echo Complete W/ Contrast Interpretation Summary Normal LV size. Left ventricular systolic function is normal. The estimated ejection fraction is 55 %. Mild concentric left ventricular hypertrophy. Normal prosthetic aortic valve. Mean aortic valve gradient 10 mmHg. The left atrium is severely enlarged. Ordering Physician: Eliseo Alberto Performed By: Adonay Ludwig RCS
[2022-11-05 19:20] VITALS: BMI 31.0
[2022-11-05 19:23] VITALS: BP 163/77; PULSE 77; RESP 20; TEMP 36.7; O2SAT 100
[2022-11-05 20:55] VITALS: BP 159/73; PULSE 83; RESP 20; TEMP 36.8; O2SAT 100
[2022-11-05] MEDS: APIXABAN 5 MG TABLET PO (21:25)
[2022-11-05] MEDS: Pantoprazole Sodium 20 MG Tablet PO (21:25)
[2022-11-05] MEDS: Acetaminophen 500 MG Tablet 1000 MG PO (21:25)
[2022-11-05] MEDS: Losartan Potassium 100 MG Tablet PO (21:25)
[2022-11-05 21:58] LABS: Osmolality, Serum 280 mOsm/KG (280-301)
[2022-11-05 22:50] LABS: Bedside Glucose 243 mg/dL (74-106)
[2022-11-06 03:27] VITALS: BP 143/65; PULSE 71; RESP 18; TEMP 36.7; O2SAT 100
[2022-11-06 06:21] LABS: Absolute Lymphocyte Count 0.61 X10^3/uL (0.83-4.51); Absolute Neutrophil Count 7.3 X10^3/uL (2.0-7.7); Basophil# 0.04 X10^3/uL; Basophil% 0.4 % (0-1); Eosinophil# 0.06 X10^3/uL; Eosinophils% 0.7 % (0-5); Hematocrit 23.8 % (40-54); Hemoglobin 8.1 g/dL (13.0-16.5); Lymphocyte # 0.61 X10^3/ul (0.83-4.51); Lymphocyte % 6.7 % (19-41); Mean Corpuscular Volume 88.1 fL (80-94); Mean Platelet Vol. 11.3 fl (6.2-12.0); Monocyte# 1.03 X10^3/uL; Monocyte% 11.3 % (0-10); NRBC Flagged by Analyzer 0 % (0-5); Neutrophil # 7.29 X10^3/uL (2.7-7.7); Neutrophil % 80.3 % (47-70); Platelet Count 131 K/mm3 (150-450); RBC Distribution Width CV 14.6 % (11.6-14.6); RBC Distribution Width SD 46.5 fl (35.1-43.9); White Blood Count 9.1 K/mm3 (4.4-11.0)
[2022-11-06] MEDS: Acetaminophen 500 MG Tablet 1000 MG PO ×3 (06:47→21:51)
[2022-11-06] MEDS: Insulin Lispro 100 UNIT/ML INSULN.PEN SC ×2 (06:52→12:14)
[2022-11-06 07:01] LABS: ALB/GLOB Ratio 0.7 RATIO (0.9-2.4); AST(SGOT) 22 U/L (15-37); Alanine Aminotransfer ALT/SGPT 22 U/L (16-61); Albumin, Serum 2.9 g/dL (3.2-5.0); Alkaline Phosphatase 72 U/L (45-117); Anion Gap 11 (5-15); BUN 22 mg/dL (7-18); BUN/Creat Ratio 20.6 RATIO (10-20); Calcium,Total 8.9 mg/dL (8.5-10.1); Chloride 95 mmol/L (98-107); Creatinine, Serum 1.07 mg/dL (0.70-1.30); EST Glomerular Filtration Rate 70 mL/min (>60); Est Glom Filt Rate - Afr Amer 85 mL/min (>60); Estimated Creatinine Clearance 59.75 ml/min; Ferritin 46 ng/mL (26-388); Glucose 197 mg/dL (74-106); Iron 30 ug/dL (65-175); Iron Binding Capacity,Total 355 ug/dL (250-450); PERCENT IRON SATURATION 8.5 % (15.0-55.0); Protein, Total 6.9 g/dL (6.4-8.2); Sodium Level 130 mmol/L (136-145); Thyroid Stim Hormone (TSH) 1.71 uIU/mL (0.358-3.74)
[2022-11-06 07:15] LABS: Bedside Glucose 220 mg/dL (74-106)
[2022-11-06 08:31] LABS: Vitamin B12 818 pg/mL (211-911)
[2022-11-06 09:37] VITALS: BP 153/76; PULSE 87; RESP 16; TEMP 36.6; O2SAT 97
[2022-11-06] MEDS: Cholecalciferol (Vit D3) 125 MCG CAPSULE (5,000 UNITS) PO (09:42)
[2022-11-06] MEDS: Furosemide 40 MG/4 ML Vial IV ×2 (09:42→17:39)
[2022-11-06] MEDS: Glimepiride 2 MG Tablet 3 MG PO ×2 (09:42→17:38)
[2022-11-06] MEDS: Aspirin E.C. 81 MG Tablet PO (09:42)
[2022-11-06] MEDS: amLODIPine 5 MG Tablet PO (09:42)
[2022-11-06] MEDS: APIXABAN 5 MG TABLET PO ×2 (09:42→21:51)
[2022-11-06] MEDS: Iron Polysaccharide Complex 150 MG CAPSULE PO (09:42)
[2022-11-06] MEDS: Sodium Chloride 1 GM Tablet PO (09:42)
[2022-11-06] MEDS: LINAGLIPTIN 5 MG TABLET PO (09:46)
[2022-11-06] MEDS: metFORMIN (XR) 500 MG Tablet 1000 MG PO (09:46)
[2022-11-06 11:45] LABS: Bedside Glucose 294 mg/dL (74-106)
--- NOTE | 2022-11-06 11:50 | CASEMGMT ---
CARRIE ESCOBEDO Face to Face with patient for initial transition planning/care coordination assessment. RN FANNY introduced self and role at [facility]. Patient sitting in chair, alert and oriented, family at bedside. Patient willing to participate in assessment and is able to answer all questions appropriately. Care providers, pharmacy, and demographics verified. Patient wishes to discharge home with C. RN FANNY discussed progress with therapy and recommendations of SNF at discharge. CARRIE CM level of care regarding SNF vs HHC. Patient and family agreeable to SNF and prefer TCU. Patient states he has no further needs or concerns at this time. SW updated regarding request for TCU. CM to follow for discharge planning needs that may arise. PCP: Sreekanth Specialists: Keith, pain; Héctor, compliance attorney; Dahlia, neurologist; Sofya, receiving inspector; Osei, tetryl wringer operator Preferred Pharmacy: [facility] Insurance: [facility] Prescription Benefit: yes Living Will/HPOA: yes, daughter Alejandra Rushing LNOK: , daughter, son Living Arrangements: Patient lives with in a single story home with 2 steps and railing to enter the home. has been assisting with ADLs. Transportation: DME/HHC: Patient has shower chair, raised toilet, cane, walker, grab bars, pulse ox, and glucometer at home. No previous HHC or SNF Disposition Plan: Patient to discharge to SNF pending acceptance and precert. Kortney BURNS, RN, CM
[2022-11-06] MEDS: Cholestyramine/Sucrose 4 GM/PACKET PO (12:16)
--- NOTE | 2022-11-06 12:51 | CASEMGMT ---
Per CARRIE Sheets CM patient's family would like patient to go to [facility] TCU. SW checked with Jacki and TCU has no beds with no openings anytime soon. SW went to patient's room and notified patient's . SW provided her with a list of residential facility providers including quality and resource use data and consistent with patient?s preferred geographic region, medical needs, and insurance network were provided from the [facility] Guide. SW let her know that she would need to pick at least 3 facilities and SW would take care of checking on availability. Once her daughter returns they will look at the list. Raisa Trinidad BLOCK FEEDER GLYNN
--- NOTE | 2022-11-06 14:14 | PCM.PN.HOSP ---
Subjective Subjective Doing well, no issues overnight. Family states that his confusion is much improved though not completely back to baseline Objective Data Objective Data Vital Signs: Vital Signs Temp Pulse Resp BP Pulse Ox O2 Del Method 97.8 F 87 16 153/76 H 97 Room Air 11/06/22 09:37 11/06/22 09:37 11/06/22 09:37 11/06/22 09:37 11/06/22 09:37 11/06/22 09:37 Oxygen Delivery Method Room Air Weight: 241 lb 13.553 oz Body Mass Index (BMI) 31.0 Intake & Output: Intake and Output for Last 24 Hours 11/05/22 11/06/22 11/07/22 03:59 03:59 03:59 Intake Total 177.33 / 177.33 Output Total 450 / 450 Balance 177.33 / 177.33 -450 / -450 Lab / Micro Data Result Diagrams: 11/06/22 06:06 11/06/22 06:06 Labs: Laboratory Results - last 24 hr 11/05/22 16:20: Troponin I High Sens 65 11/05/22 17:55: Urine Color Yellow, Urine Clarity Clear, Urine pH 6.0, Ur Specific [place] 1.020, Urine Protein 100 H, Urine Glucose (UA) 100 H, Urine Ketones Negative, Urine Occult Blood Negative, Urine Nitrite Negative, Urine Bilirubin Negative, Urine Urobilinogen Normal, Ur Leukocyte Esterase Negative, Urine RBC 0 SEEN, Urine WBC 0 SEEN, Ur Squamous Epith Cells 0 SEEN, Urine Bacteria 0 SEEN, Urine Mucus 0 SEEN 11/05/22 21:10: Serum Osmolality 280 11/05/22 21:48: POC Glucose 243 H 11/06/22 06:06: WBC 9.1, RBC 2.70 L, Hgb 8.1 L, Hct 23.8 L, MCV 88.1, MCH 30.0, MCHC 34.0, RDW Std Deviation 46.5 H, RDW Coeff of Ryan 14.6, Plt Count 131 L, MPV 11.3, Immature Gran % (Auto) 0.600, Neut % (Auto) 80.3 H, Lymph % (Auto) 6.7 L, Webb % (Auto) 11.3 H, Eos % (Auto) 0.7, Baso % (Auto) 0.4, Absolute Neuts (auto) 7.3, Absolute Lymphs (auto) 0.61 L, Nucleated RBC % 0 11/06/22 06:06: Sodium 130 L, Potassium 4.0, Chloride 95 L, Carbon Dioxide 24.0, Anion Gap 11, BUN 22 H, Creatinine 1.07, Estim Creat Clear Calc 59.75, Est GFR (MDRD) Af Amer 85, Est GFR (MDRD) Non-Af 70, BUN/Creatinine Ratio 20.6 H, Glucose 197 H, Calcium 8.9, Iron 30 L, TIBC 355, Iron Saturation 8.5 L, Ferritin 46, Total Bilirubin 0.70, AST 22, ALT 22, Alkaline Phosphatase 72, Total Protein 6.9, Albumin 2.9 L, Globulin 4.0, Albumin/Globulin Ratio 0.7 L, Folate 18.80, TSH 1.71 11/06/22 06:06: Vitamin B12 818 11/06/22 06:46: POC Glucose 220 H 11/06/22 11:24: POC Glucose 294 H Micro: Microbiology 11/05/22 16:28 Stool Stool Occult Blood (PATTI) - Final Radiography Diagnostic Testing: Radiology Impression Brain CT 11/05/22 16:23 IMPRESSION: There are no acute findings. Chronic involutional changes of the brain. Electronically Signed: Jean Claude Boucher MD at 17:05 [facility] Reading Location ID and State: [facility] / [place] , Service support , Echocardiogram 11/05/22 19:19 Interpretation Summary Normal LV size. Left ventricular systolic function is normal. The estimated ejection fraction is 55 %. Mild concentric left ventricular hypertrophy. Normal prosthetic aortic valve. Mean aortic valve gradient 10 mmHg. The left atrium is severely enlarged. Ordering Physician: Eliseo Alberto Performed By: Adonay Ludwig RCS Rhythm Strip Rhythm Strip: Sinus Rhythm Rate: 80 Ectopy: PVC(s) Physical Exam Narrative General: Alert, Oriented, Cooperative, No apparent distress HEENT: Atraumatic, PERRLA, EOMI, Normocephalic Oral: Moist Mucosa Neck: Supple, No JVD Lungs: Clear to auscultation, Normal air movement, No rhonchi, No wheeze, No rales Cardiovascular: Regular rate, Regular Rhythm, Normal S1, Normal S2, No murmurs Abdomen: Soft, Non Tender, Non-Distended, No Hepato-splenomegaly Extremities: edema, Capillary Refill Less than 3 Seconds Skin: No rashes, No breakdown Musculoskeletal: No Tenderness to Palpation of Joints or Extremities Neurological: Cranial nerves II-XII grossly intact, has pain diminishing the movement of his right arm as well as ataxia of his left upper extremity which is consistent from his previous CVA Psych/Mental Status: Normal Affect, Appropriate Assessment & Plan Assessment/Plan (1) Acute exacerbation of CHF (congestive heart failure): PLAN: Acute HFpEF EF of 50 to 55% from 2D echocardiogram from November 23, 2021. IV furosemide Continue with losartan Echo with an EF of 55% with a mean aortic valve gradient of 10 mmHg Beta-cedric has previously been held given history of complete heart block. (2) Encephalopathy acute: PLAN: Worse than previous. Unclear etiology. 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 His and daughter do state that he was diagnosed with mild dementia but a year and a half ago We will hold his Cymbalta for now, can likely restart on discharge Will continue with his Percocet so as not to precipitate withdrawal but to hold the medication if he is very confused. B12 is 818, folate is 18.8, TSH is 1.71, and ferritin is 46 Patient had confusion back in 2020 with concern for stroke. MRI at that time was negative. There was concern for cognitive impairment at that time. PT/OT for evaluation and possible placement (3) Acute hyponatremia: PLAN: Appears worse than baseline. Acute on chronic Continue with the sodium tablets which he takes daily Sodium is improved to 130 today Monitor (4) Anemia: QUALIFIERS: Anemia type: unspecified type Qualified Code(s): D64.9 - Anemia, unspecified PLAN: Appears to be chronic. Patient was seeing Dr. Cowart for this. PLAN: Plan Chronic conditions CAD History of TAVR-echo with aortic valve mean gradient of 10 Hypertension Chronic malnutrition Atrial flutter: Noted on Holter monitor from March 01, 2021. Continue with apixaban VTE prophylaxis: Continue with apixaban Charges/Coding Visit Charges Inpatient E&M: 88987 Subs Hosp L2
[2022-11-06 14:50] VITALS: BP 123/69; PULSE 65; RESP 16; TEMP 37.2; O2SAT 98
[2022-11-06 16:50] LABS: Bedside Glucose 147 mg/dL (74-106)
[2022-11-06 17:37] VITALS: BP 146/62; PULSE 81; RESP 16; TEMP 36.9; O2SAT 98
[2022-11-06 17:40] LABS: Urea Nitrogen, Urine 494 mg/dL (NO RANGE EST.)
[2022-11-06 19:24] LABS: Osmolality, Urine 388 mOsm/KG
--- NOTE | 2022-11-06 20:46 | NURSING ---
family decided that they want pt to go to [facility] upon discharge.
[2022-11-06 21:48] VITALS: BP 145/97; PULSE 82; RESP 20; TEMP 37.1; O2SAT 100
[2022-11-06] MEDS: Pantoprazole Sodium 20 MG Tablet PO (21:51)
[2022-11-06] MEDS: Losartan Potassium 100 MG Tablet PO (21:51)
[2022-11-07 03:00] VITALS: BP 132/84; PULSE 75; RESP 20; TEMP 37.1; O2SAT 100
[2022-11-07 04:00] LABS: Absolute Lymphocyte Count 0.88 X10^3/uL (0.83-4.51); Absolute Neutrophil Count 7.2 X10^3/uL (2.0-7.7); Basophil# 0.05 X10^3/uL; Basophil% 0.5 % (0-1); Eosinophil# 0.09 X10^3/uL; Hematocrit 24.9 % (40-54); Lymphocyte # 0.88 X10^3/ul (0.83-4.51); Lymphocyte % 9.4 % (19-41); Mean Corp Hgb Conc 32.1 g/dL (32-36); Mean Corpuscular Volume 90.2 fL (80-94); Mean Platelet Vol. 11.5 fl (6.2-12.0); Monocyte# 1.08 X10^3/uL; Monocyte% 11.5 % (0-10); NRBC Flagged by Analyzer 0 % (0-5); Neutrophil # 7.21 X10^3/uL (2.7-7.7); Neutrophil % 76.9 % (47-70); Platelet Count 145 K/mm3 (150-450); RBC Distribution Width CV 14.6 % (11.6-14.6); RBC Distribution Width SD 47.6 fl (35.1-43.9); Red Blood Count 2.76 M/mm3 (4.6-6.2); White Blood Count 9.4 K/mm3 (4.4-11.0)
[2022-11-07 04:18] LABS: Anion Gap 11 (5-15); BUN 28 mg/dL (7-18); BUN/Creat Ratio 24.3 RATIO (10-20); Chloride 94 mmol/L (98-107); Creatinine, Serum 1.15 mg/dL (0.70-1.30); EST Glomerular Filtration Rate 64 mL/min (>60); Est Glom Filt Rate - Afr Amer 78 mL/min (>60); Estimated Creatinine Clearance 55.59 ml/min; Glucose 179 mg/dL (74-106); Potassium 3.9 mmol/L (3.5-5.1); Sodium Level 129 mmol/L (136-145)
[2022-11-07] MEDS: Insulin Lispro 100 UNIT/ML INSULN.PEN SC ×3 (06:41→16:12)
[2022-11-07] MEDS: Acetaminophen 500 MG Tablet 1000 MG PO ×2 (06:41→21:41)
[2022-11-07 07:00] LABS: Bedside Glucose 181 mg/dL (74-106)
[2022-11-07 07:37] VITALS: BP 169/80; PULSE 41; RESP 18; TEMP 36.8; O2SAT 98
[2022-11-07] MEDS: Aspirin E.C. 81 MG Tablet PO (09:05)
[2022-11-07] MEDS: Glimepiride 2 MG Tablet 3 MG PO ×2 (09:05→17:39)
[2022-11-07] MEDS: APIXABAN 5 MG TABLET PO ×2 (09:06→21:41)
[2022-11-07] MEDS: Cholecalciferol (Vit D3) 125 MCG CAPSULE (5,000 UNITS) PO (09:06)
[2022-11-07] MEDS: Iron Polysaccharide Complex 150 MG CAPSULE PO (09:06)
[2022-11-07] MEDS: amLODIPine 5 MG Tablet PO (09:06)
[2022-11-07] MEDS: Sodium Chloride 1 GM Tablet PO (09:06)
[2022-11-07] MEDS: Cholestyramine/Sucrose 4 GM/PACKET PO (09:06)
[2022-11-07] MEDS: Furosemide 40 MG/4 ML Vial IV ×2 (09:07→17:39)
--- NOTE | 2022-11-07 10:59 | CASEMGMT ---
PAUL called patient's , but patient's daughter Sneha answered. Sneha said that she went and looked at [facility] last night and they want him to go there. PAUL explained PAUL will make the referral, [facility] will let SW know if they can accept patient, if they can they will send everything to insurance. Patient will wait at [facility] until insurance approves patient to go. Sneha thanked PAUL for calling. [facility] responded they are looking at the referral. [facility]re also asked if patient and family would be okay with a semi-private room. PAUL will check with family. Raisa Trinidad DIRECTOR LONG TERM CARE AIRCRAFT PAINTER
[2022-11-07 11:30] LABS: Bedside Glucose 292 mg/dL (74-106)
--- NOTE | 2022-11-07 13:36 | CASEMGMT ---
Family is agreeable to a semi-private room with the hopes of transferring to a private room when one opens. SW asked Tamiko to please start pre-cert. Plan: [facility] pending pre-cert. Raisa Trinidad POWER TOOL REPAIRER GLYNN
--- NOTE | 2022-11-07 13:55 | PN.HOSP_ITS ---
Subjective Subjective Doing well, no issues overnight. Still little bit confused Objective Data Objective Data Vital Signs: Vital Signs Temp Pulse Resp BP Pulse Ox O2 Del Method 98.3 F 41 L 18 169/80 H 98 Room Air 11/07/22 07:37 11/07/22 07:37 11/07/22 07:37 11/07/22 07:37 11/07/22 07:37 11/07/22 07:37 Oxygen Delivery Method Room Air Weight: 241 lb 13.553 oz Body Mass Index (BMI) 31.0 Intake & Output: Intake and Output for Last 24 Hours 11/06/22 11/07/22 11/08/22 03:59 03:59 03:59 Intake Total 177.33 / 177.33 820 / 820 360 / 360 Output Total 1350 / 1350 1200 / 1200 Balance 177.33 / 177.33 -530 / -530 -840 / -840 Lab / Micro Data Result Diagrams: 11/07/22 03:28 11/07/22 03:28 Labs: Laboratory Results - last 24 hr 11/06/22 16:26: POC Glucose 147 H 11/06/22 17:09: Urine Osmolality 388, Urine Urea Nitrogen 494 11/07/22 03:28: WBC 9.4, RBC 2.76 L, Hgb 8.0 L, Hct 24.9 L, MCV 90.2, MCH 29.0, MCHC 32.1 D, RDW Std Deviation 47.6 H, RDW Coeff of Ryan 14.6, Plt Count 145 L, MPV 11.5, Immature Gran % (Auto) 0.700, Neut % (Auto) 76.9 H, Lymph % (Auto) 9.4 L, Grayson % (Auto) 11.5 H, Eos % (Auto) 1.0, Baso % (Auto) 0.5, Absolute Neuts (auto) 7.2, Absolute Lymphs (auto) 0.88, Nucleated RBC % 0 11/07/22 03:28: Sodium 129 L, Potassium 3.9, Chloride 94 L, Carbon Dioxide 24.0, Anion Gap 11, BUN 28 H, Creatinine 1.15, Estim Creat Clear Calc 55.59, Est GFR (MDRD) Af Amer 78, Est GFR (MDRD) Non-Af 64, BUN/Creatinine Ratio 24.3 H, Glucose 179 H, Calcium 9.0 11/07/22 06:40: POC Glucose 181 H 11/07/22 11:10: POC Glucose 292 H Micro: Microbiology 11/05/22 16:28 Stool Stool Occult Blood (PATTI) - Final Rhythm Strip Rhythm Strip: Sinus Rhythm Rate: 80 Ectopy: PVC(s) Physical Exam Narrative General: Alert, Oriented, Cooperative, No apparent distress HEENT: Atraumatic, PERRLA, EOMI, Normocephalic Oral: Moist Mucosa Neck: Supple, No JVD Lungs: Clear to auscultation, Normal air movement, No rhonchi, No wheeze, No rales Cardiovascular: Regular rate, Regular Rhythm, Normal S1, Normal S2, No murmurs Abdomen: Soft, Non Tender, Non-Distended, No Hepato-splenomegaly Extremities: edema, Capillary Refill Less than 3 Seconds Skin: No rashes, No breakdown Musculoskeletal: No Tenderness to Palpation of Joints or Extremities Neurological: Cranial nerves II-XII grossly intact, has pain diminishing the movement of his right arm as well as ataxia of his left upper extremity which is consistent from his previous CVA Psych/Mental Status: Normal Affect, Appropriate Assessment & Plan Assessment/Plan (1) Acute exacerbation of CHF (congestive heart failure): PLAN: Acute HFpEF EF of 50 to 55% from 2D echocardiogram from November 23, 2021. IV furosemide Continue with losartan Echo with an EF of 55% with a mean aortic valve gradient of 10 mmHg Beta-cedric has previously been held given history of complete heart block. (2) Encephalopathy acute: PLAN: Worse than previous. Unclear etiology. 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 UA is normal and no sign of infection His and daughter do state that he was diagnosed with mild dementia about a year and a half ago We will hold his Cymbalta for now, can likely restart on discharge Will continue with his Percocet so as not to precipitate withdrawal but to hold the medication if he is very confused. B12 is 818, folate is 18.8, TSH is 1.71, and ferritin is 46 Patient had confusion back in 2020 with concern for stroke. MRI at that time was negative. There was concern for cognitive impairment at that time. PT/OT for evaluation and possible placement (3) Acute hyponatremia: PLAN: Sodium is at baseline (4) Anemia: QUALIFIERS: Anemia type: unspecified type Qualified Code(s): D64.9 - Anemia, unspecified PLAN: Appears to be chronic. Patient was seeing Dr. Cowart for this. PLAN: Plan Chronic conditions * CAD * History of TAVR-echo with aortic valve mean gradient of 10 * Hypertension * Chronic malnutrition * Atrial flutter: Noted on Holter monitor from March 01, 2021. Continue with api xaban VTE prophylaxis: Continue with apixaban Charges/Coding Visit Charges Inpatient E&M: 17251 Subs Hosp L2
[2022-11-07 14:40] VITALS: BP 157/72; PULSE 87; RESP 16; TEMP 36.6; O2SAT 98
[2022-11-07 16:35] LABS: Bedside Glucose 242 mg/dL (74-106)
[2022-11-07 19:01] VITALS: PULSE 78
[2022-11-07 20:55] VITALS: BP 159/80; PULSE 84; RESP 18; TEMP 36.6; O2SAT 99
[2022-11-07 21:34] VITALS: BP 165/84; PULSE 86; RESP 18; TEMP 36.7; O2SAT 99
[2022-11-07] MEDS: Pantoprazole Sodium 20 MG Tablet PO (21:41)
[2022-11-07] MEDS: Losartan Potassium 100 MG Tablet PO (22:00)
[2022-11-07 22:45] LABS: Bedside Glucose 226 mg/dL (74-106)
[2022-11-08 02:00] VITALS: BP 140/75; PULSE 75; RESP 16; TEMP 36.7; O2SAT 100
[2022-11-08 02:09] VITALS: PULSE 81
[2022-11-08 03:30] VITALS: BP 146/78; PULSE 76; RESP 16; TEMP 36.7; O2SAT 100
[2022-11-08 06:33] LABS: Absolute Lymphocyte Count 0.79 X10^3/uL (0.83-4.51); Absolute Neutrophil Count 7.4 X10^3/uL (2.0-7.7); Basophil# 0.04 X10^3/uL; Basophil% 0.4 % (0-1); Eosinophil# 0.09 X10^3/uL; Eosinophils% 0.9 % (0-5); Hematocrit 26.7 % (40-54); Hemoglobin 8.6 g/dL (13.0-16.5); Lymphocyte # 0.79 X10^3/ul (0.83-4.51); Lymphocyte % 8.3 % (19-41); Mean Corp Hgb Conc 32.2 g/dL (32-36); Mean Corpuscular Hgb 29.2 pg (27.0-32.0); Mean Corpuscular Volume 90.5 fL (80-94); Mean Platelet Vol. 10.8 fl (6.2-12.0); Monocyte# 1.16 X10^3/uL; Monocyte% 12.2 % (0-10); NRBC Flagged by Analyzer 0 % (0-5); Neutrophil # 7.35 X10^3/uL (2.7-7.7); Neutrophil % 77.5 % (47-70); Platelet Count 132 K/mm3 (150-450); RBC Distribution Width CV 14.8 % (11.6-14.6); RBC Distribution Width SD 47.9 fl (35.1-43.9); Red Blood Count 2.95 M/mm3 (4.6-6.2); White Blood Count 9.5 K/mm3 (4.4-11.0)
[2022-11-08] MEDS: Acetaminophen 500 MG Tablet 1000 MG PO ×2 (07:03→13:34)
[2022-11-08] MEDS: Insulin Lispro 100 UNIT/ML INSULN.PEN SC ×2 (07:03→12:23)
[2022-11-08 07:19] LABS: Anion Gap 10 (5-15); BUN 24 mg/dL (7-18); BUN/Creat Ratio 22.9 RATIO (10-20); Calcium,Total 9.3 mg/dL (8.5-10.1); Chloride 97 mmol/L (98-107); Creatinine, Serum 1.05 mg/dL (0.70-1.30); EST Glomerular Filtration Rate 71 mL/min (>60); Est Glom Filt Rate - Afr Amer 86 mL/min (>60); Estimated Creatinine Clearance 60.89 ml/min; Glucose 185 mg/dL (74-106); Potassium 3.7 mmol/L (3.5-5.1); Sodium Level 131 mmol/L (136-145)
[2022-11-08 07:46] LABS: Bedside Glucose 183 mg/dL (74-106)
[2022-11-08 08:52] VITALS: BP 154/67; PULSE 71; RESP 17; TEMP 37.1; O2SAT 99
[2022-11-08] MEDS: APIXABAN 5 MG TABLET PO (08:59)
[2022-11-08] MEDS: Iron Polysaccharide Complex 150 MG CAPSULE PO (08:59)
[2022-11-08] MEDS: Aspirin E.C. 81 MG Tablet PO (08:59)
[2022-11-08] MEDS: Sodium Chloride 1 GM Tablet PO (09:00)
[2022-11-08] MEDS: amLODIPine 5 MG Tablet PO (09:00)
[2022-11-08] MEDS: Glimepiride 2 MG Tablet 3 MG PO (09:00)
[2022-11-08] MEDS: Cholecalciferol (Vit D3) 125 MCG CAPSULE (5,000 UNITS) PO (09:01)
[2022-11-08] MEDS: Cholestyramine/Sucrose 4 GM/PACKET PO (09:01)
[2022-11-08] MEDS: 0.9% Saline Lock 10 ML Syringe IV (09:04)
[2022-11-08] MEDS: Furosemide 40 MG/4 ML Vial IV (09:04)
[2022-11-08 11:50] LABS: Bedside Glucose 284 mg/dL (74-106)
--- NOTE | 2022-11-08 12:15 | CASEMGMT ---
SW received notification that patient was denied by insurance, but physician can do a peer to peer. SW spoke with physician and he agreed to do a peer to peer. SW called [employer] and scheduled a peer to peer . Physician soon thereafter notified SW that patient was approved. SW notified [facility] and patient's family. Plan: d/c to [facility] under skilled level of care. Raisa Trinidad MANAGER VIDEO GLYNN
[2022-11-08] MEDS: Polyethylene Glycol 3350 17 GM PACKET PO (13:34)
--- NOTE | 2022-11-08 13:50 | TREXTCAR_ITS ---
Diet Diet Order/Speech Therapy: 11/06/22 13:21 Diet: Cardiac: Calorie-Controlled Food consistency:: Regular Liquid Consistency:: Regular/Thin Dietary Modifications:: Consistent Carbohydrate Sodium Restricted Fluid restriction:: 1500 mL Diet Comments: distant supervision How many daily calories?: 2000 calorie Wound(s) bilateral lower legs: Wound Type: Stasis Ulcer Therapies Physical Therapy: Eval and Treat Occupational Therapy: Eval and Treat Problem/Diagnosis (1) Acute exacerbation of CHF (congestive heart failure): Status: Chronic Code(s): I50.9 - Heart failure, unspecified Plan: Acute HFpEF EF of 50 to 55% from 2D echocardiogram from November 23, 2021. IV furosemide Continue with losartan Echo with an EF of 55% with a mean aortic valve gradient of 10 mmHg Beta-cedric has previously been held given history of complete heart block. (2) Encephalopathy acute: Status: Acute Code(s): G93.40 - Encephalopathy, unspecified Plan: Worse than previous. Unclear etiology. 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 UA is normal and no sign of infection His and daughter do state that he was diagnosed with mild dementia about a year and a half ago We will hold his Cymbalta for now, can likely restart on discharge Will continue with his Percocet so as not to precipitate withdrawal but to hold the medication if he is very confused. B12 is 818, folate is 18.8, TSH is 1.71, and ferritin is 46 Patient had confusion back in 2020 with concern for stroke. MRI at that time was negative. There was concern for cognitive impairment at that time. PT/OT for evaluation and possible placement (3) Acute hyponatremia: Status: Acute Code(s): E87.1 - Hypo-osmolality and hyponatremia Plan: Sodium is at baseline (4) Anemia: Status: Acute Code(s): D64.9 - Anemia, unspecified Plan: Appears to be chronic. Patient was seeing Dr. Cowart for this. Comment: Discussed anemia work up, Pt agrees to proceed. Plan Chronic conditions * CAD * History of TAVR-echo with aortic valve mean gradient of 10 * Hypertension * Chronic malnutrition * Atrial flutter: Noted on Holter monitor from March 01, 2021. Continue with apixaban VTE prophylaxis: Continue with apixaban Allergies/Procedures Done in Hospital Allergies lisinopril [From Zestril] Allergy (Verified 11/05/22 16:06) Other niacin Allergy (Verified 11/05/22 16:06) Rash pravastatin sodium [From Pravachol] Allergy (Verified 11/05/22 16:06) Other atenolol Adverse Reaction (Severe, Verified 11/05/22 16:06) low HR, pauses clonidine Adverse Reaction (Unknown, Verified 11/05/22 16:06) unknown Ssorzpl-YKA-JvS Reductase Inhibitor [Joouoqq-Fhd-Eda Reductase Inhibitor] Adverse Reaction (Verified 11/05/22 16:06) Other Procedures: None and 2-D Echocardiogram Type of Care/Length of Stay Estimated LOS: Convalescent Care Less Than 30 days Type of Care Needed: Skilled Rehab Potential: Good Prognosis: Good Additional Orders/Day of Discharge Day of Discharge: 11/08/22 Dietary and Speech Recommendations Dietitian Recommendations/Changes: Will adjust diet to 2000 calorie/consistent carbohydrate; cardiac/sodium-restricted with 1500ml FR. ONS as needed if PO regresses at meals, will defer for now as pt is eating well. Discharge Plan Admission Admit Date/Time: 11/05/22 18:28 Attending Provider: Jarret Plummer Primary Care Provider: Juanpablo Stack Consulting Providers: Eliseo Alberto Discharge Orders/Prescriptions Prescriptions: Continued omeprazole 20 mg capsule,delayed release(DR/EC) 20 mg PO QHS mecobalamin (vitamin B12) 5,000 mcg tablet,disintegrating 5,000 mcg PO UD cholestyramine (with sugar) 4 gram powder in packet 4 gm PO DAILY amlodipine 5 mg tablet 5 mg PO DAILY zinc gluconate 50 mg tablet 50 mg PO DAILY aspirin 81 MG tablet,delayed release (DR/EC) 81 mg PO DAILY losartan 100 MG tablet 100 mg PO QHS cholecalciferol (vitamin D3) [Vitamin D3] 125 mcg (5,000 unit) Tablet 125 mcg PO DAILY Kombiglyze XR 2.5-1,000 mg tablet, ER multiphase 24 hr 1 tab PO BID sennosides [senna] 8.6 mg Tablet 8.6 mg PO DAILY PRN (Reason: Constipation) cetirizine 10 mg Tablet 10 mg PO DAILY oxycodone-acetaminophen 5-325 mg tablet 1 tab PO TID PRN (Reason: PAIN ) Multivitamin 50 Plus Tablet 1 tab PO DAILY sodium chloride 1,000 mg tablet,soluble 1,000 mg PO DAILY polysaccharide iron complex [Ferrex 150] 150 mg iron capsule 150 mg PO DAILY Eliquis 5 mg tablet 5 mg PO BID nitroglycerin 0.4 mg tablet, sublingual 0.4 mg SUBLINGUAL Q5M PRN (Reason: Chest Pain) Qty: 25 4RF glimepiride 2 mg tablet 3 mg PO BID Changed furosemide [Lasix] 40 mg tablet 40 mg PO DAILY Qty: 1 0RF Held duloxetine 30 mg capsule,delayed release(DR/EC) 30 mg PO DAILY Hold Instructions: Resume on 11/14/22. Referrals / Follow Up: Juanpablo Stack DO [Primary Care Provider] - Disposition Disposition (needs filled in before D/C Order can be placed): [facility] (1) Anemia Qualifiers: Anemia type: unspecified type Qualified Code(s): D64.9 - Anemia, unspecified
--- NOTE | 2022-11-08 13:51 | CASEMGMT ---
PAUL spoke with Tamiko at [facility]. Tamiko said that they do have a private room for patient. Tamiko did say that they noticed patient has had some confusion. Tamiko said they will try out patient in the private room and if he has troubles with wandering and/or confusion they will have to move him to their secured unit. PAUL went to patient's room and let patient's know this information. Plan: d/c to [facility] under skilled level of care. Raisa MAKI
--- NOTE | 2022-11-08 14:38 | DS.PCM_ITS ---
Providers Date of Admission: 11/05/22 Primary Care Physician: Dr. Juanpablo Stack, Reason For Visit: CHF,ENCEPHALOPATHY,ANEMIA,HYPONATREMIA Diagnosis Discharge Diagnosis (1) Acute exacerbation of CHF (congestive heart failure): Status: Chronic Code(s): I50.9 - Heart failure, unspecified Plan: Acute HFpEF EF of 50 to 55% from 2D echocardiogram from November 23, 2021. IV furosemide Continue with losartan Echo with an EF of 55% with a mean aortic valve gradient of 10 mmHg Beta-cedric has previously been held given history of complete heart block. (2) Encephalopathy acute: Status: Acute Code(s): G93.40 - Encephalopathy, unspecified Plan: Worse than previous. Unclear etiology. 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 UA is normal and no sign of infection His and daughter do state that he was diagnosed with mild dementia about a year and a half ago We will hold his Cymbalta for now, can likely restart on discharge Will continue with his Percocet so as not to precipitate withdrawal but to hold the medication if he is very confused. B12 is 818, folate is 18.8, TSH is 1.71, and ferritin is 46 Patient had confusion back in 2020 with concern for stroke. MRI at that time was negative. There was concern for cognitive impairment at that time. PT/OT for evaluation and possible placement (3) Acute hyponatremia: Status: Acute Code(s): E87.1 - Hypo-osmolality and hyponatremia Plan: Sodium is at baseline (4) Anemia: Status: Acute Code(s): D64.9 - Anemia, unspecified Qualifiers: Anemia type: unspecified type Qualified Code(s): D64.9 - Anemia, unspecified Plan: Appears to be chronic. Patient was seeing Dr. Cowart for this. Plan Chronic conditions * CAD * History of TAVR-echo with aortic valve mean gradient of 10 * Hypertension * Chronic malnutrition * Atrial flutter: Noted on Holter monitor from March 01, 2021. Continue with apixaban VTE prophylaxis: Continue with apixaban Medications at Discharge Home Medications aspirin 81 mg tablet,delayed release 81 mg PO DAILY HEART HEALTH 03/26/16 losartan 100 mg tablet 100 mg PO QHS BLOOD PRESSURE 03/26/16 omeprazole 20 mg capsule,delayed release 20 mg PO QHS ACID REFLUX 01/05/19 cholecalciferol (vitamin D3) 125 mcg (5,000 unit) tablet (Vitamin D3) 125 mcg PO DAILY SUPPLEMENT 02/01/21 cholestyramine (with sugar) 4 gram powder for susp in a packet 4 gm PO DAILY CHOLESTEROL 03/15/21 nitroglycerin 0.4 mg sublingual tablet 0.4 mg sublingual Q5M PRN Chest Pain #25 tabs 09/08/21 saxagliptin 2.5 mg-metformin ER 1,000 mg tablet,extend release 24hr mp (Kombiglyze XR) 1 tab PO BID DIABETES 10/04/21 amlodipine 5 mg tablet 5 mg PO DAILY BLOOD PRESSURE 11/27/21 zinc gluconate 50 mg tablet 50 mg PO DAILY SUPPLEMENT 07/18/22 glimepiride 2 mg tablet 3 mg PO BID DIABETES 08/16/22 mecobalamin (vitamin B12) 5,000 mcg disintegrating tablet 5,000 mcg PO UD SUPPLEMENT 08/16/22 apixaban 5 mg tablet (Eliquis) 5 mg PO BID BLOOD THINNER 11/05/22 cetirizine 10 mg tablet 10 mg PO DAILY ALLERGIES 11/05/22 duloxetine 30 mg capsule,delayed release 30 mg PO DAILY DEPRESSION 11/05/22 gciparrigvuv-ysfzvhql-dwhkrx tablet (Multivitamin 50 Plus tablet) 1 tab PO DAILY HEALTH MAINTENANCE 11/05/22 oxycodone-acetaminophen 5 mg-325 mg tablet 1 tab PO TID PRN PAIN 11/05/22 polysaccharide iron complex 150 mg iron capsule (Ferrex) 150 mg PO DAILY SUPPLEMENT 11/05/22 sennosides 8.6 mg tablet (senna) 8.6 mg PO DAILY PRN Constipation 11/05/22 sodium chloride 1,000 mg soluble tablet 1,000 mg PO DAILY ELECTROLYTES 11/05/22 furosemide 40 mg tablet (Lasix) 40 mg PO DAILY FLUID #1 TAB 11/08/22 Hospital Course Operations None Procedures 2-D Echocardiogram Summary of Care Provided Minutes Spent on Discharge: 37 Hospital Course: Per HPI: KERRI FINK, is a 82 M who presents with increasing confusion.? Patient is confused and defers much of the questioning to his spouse, who is at bedside.? His spouse says that the patient has been confused and says that that is not my bed when looking at their bed and stating that his bed is upstairs or downstairs but they live in a one floor house.? was concerned because this just been going on and not getting any better so she brought him into the hospital.? In the emergency room, patient had hemoglobin of 8.5, which is down from 11.9 from July, his sodium was 126 despite taking sodium tablets daily.? Chest x-ray was concerning for CHF and patient had an elevated BNP of 565.? Patient did receive furosemide in the emergency room.? When asked to the patie nt's had episodes of confusion before the states that he has but this was more severe than those previous bouts.? Patient does have a history of left- sided weakness which she attributes to history of hyponatremia.? Patient does have right shoulder pain and arthritis which she has been seeing physical therapy for. Hospital Course: 1. Acute on chronic diastolic CHF exacerbation with hyponatremia and encephalopathy?82-year-old male presents to the hospital with increasing confusion. According to the family he does have mild to moderate dementia and has what sounds like sundowning at home. He is doing much better today, his edema is down and he is not requiring any oxygen, his echo has an EF of 55% with an aortic valve gradient of 10 mmHg, he is status post a TAVR. This morning he was able to tell me who he is and where he is but he was confused on the date. There is no infectious etiology in the and lab work including B12 folate and TSH are all normal. His ferritin is 46 and he is on iron supplementation for his chronic iron deficiency anemia. The plan for possible discharge with both him and his family and everyone expressed understanding of the risk and benefits of going to the long-term and would like for him to go today to start his rehab. I do recommend that he follow-up with his PCP as an once discharge from the long-term and will can you all of his home meds, his Lasix will be increased from 20 mg daily to 40 mg daily p.o. His hyponatremia has also resolved and he is in the low 130s which is around his baseline we will continue with the salt tabs on discharge. I do recommend holding his Cymbalta as his said that these issues started when he started this medication, could likely be restarted as an outpatient next week and monitored for correlation. 2. Coronary artery disease status post CABG and stents, status post TAVR for aortic stenosis, a flutter, hypertension, hyperlipidemia, GERD are all chronic medical conditions which complicate his care. His home medications were continued where appropriate Physical Exam Narrative General: Alert, Oriented x2, Cooperative, No apparent distress HEENT: Atraumatic, PERRLA, EOMI, Normocephalic Oral: Moist Mucosa Neck: Supple, No JVD Lungs: Clear to auscultation, Normal air movement, No rhonchi, No wheeze, No rales Cardiovascular: Regular rate, Regular Rhythm, Normal S1, Normal S2, No murmurs Abdomen: Soft, Non Tender, Non-Distended, No Hepato-splenomegaly Extremities: trace edema, Capillary Refill Less than 3 Seconds Skin: No rashes, No breakdown Musculoskeletal: No Tenderness to Palpation of Joints or Extremities Neurological: Cranial nerves II-XII grossly intact, has pain diminishing the movement of his right arm as well as ataxia of his left upper extremity which is consistent from his previous CVA Psych/Mental Status: Normal Affect, Appropriate Weight / BMI Weight Weight: 241 lb 13.553 oz Body Mass Index (BMI) 31.0 ABG / Lab / Microbiology Data Result Diagrams: 11/08/22 06:16 11/08/22 06:16 Laboratory: Laboratory Results - last 24 hr 11/07/22 16:11: POC Glucose 242 H 11/07/22 21:59: POC Glucose 226 H 11/08/22 06:16: WBC 9.5, RBC 2.95 L, Hgb 8.6 L, Hct 26.7 L, MCV 90.5, MCH 29.2, MCHC 32.2, RDW Std Deviation 47.9 H, RDW Coeff of Ryan 14.8 H, Plt Count 132 L, MPV 10.8, Immature Gran % (Auto) 0.700, Neut % (Auto) 77.5 H, Lymph % (Auto) 8.3 L, [place] % (Auto) 12.2 H, Eos % (Auto) 0.9, Baso % (Auto) 0.4, Absolute Neuts (auto) 7.4, Absolute Lymphs (auto) 0.79 L, Nucleated RBC % 0 11/08/22 06:16: Sodium 131 L, Potassium 3.7, Chloride 97 L, Carbon Dioxide 24.0, Anion Gap 10, BUN 24 H, Creatinine 1.05, Estim Creat Clear Calc 60.89, Est GFR (MDRD) Af Amer 86, Est GFR (MDRD) Non-Af 71, BUN/Creatinine Ratio 22.9 H, Glucose 185 H, Calcium 9.3 11/08/22 07:01: POC Glucose 183 H 11/08/22 11:31: POC Glucose 284 H Microbiology: Microbiology 11/05/22 16:28 Stool Stool Occult Blood (PATTI) - Final Meaningful Use Info Meaningful Use Diagnoses (Choose all that apply): None applicable Discharge Plan Admission Admit Date/Time: 11/05/22 18:28 Attending Provider: Jarret Plummer Primary Care Provider: Juanpablo Stack Consulting Providers: Eliseo Alberto Discharge Orders/Prescriptions Prescriptions: Continued omeprazole 20 mg capsule,delayed release(DR/EC) 20 mg PO QHS mecobalamin (vitamin B12) 5,000 mcg tablet,disintegrating 5,000 mcg PO UD cholestyramine (with sugar) 4 gram powder in packet 4 gm PO DAILY amlodipine 5 mg tablet 5 mg PO DAILY zinc gluconate 50 mg tablet 50 mg PO DAILY aspirin 81 MG tablet,delayed release (DR/EC) 81 mg PO DAILY losartan 100 MG tablet 100 mg PO QHS cholecalciferol (vitamin D3) [Vitamin D3] 125 mcg (5,000 unit) Tablet 125 mcg PO DAILY Kombiglyze XR 2.5-1,000 mg tablet, ER multiphase 24 hr 1 tab PO BID sennosides [senna] 8.6 mg Tablet 8.6 mg PO DAILY PRN (Reason: Constipation) cetirizine 10 mg Tablet 10 mg PO DAILY oxycodone-acetaminophen 5-325 mg tablet 1 tab PO TID PRN (Reason: PAIN ) Multivitamin 50 Plus Tablet 1 tab PO DAILY sodium chloride 1,000 mg tablet,soluble 1,000 mg PO DAILY polysaccharide iron complex [Ferrex 150] 150 mg iron capsule 150 mg PO DAILY Eliquis 5 mg tablet 5 mg PO BID nitroglycerin 0.4 mg tablet, sublingual 0.4 mg SUBLINGUAL Q5M PRN (Reason: Chest Pain) Qty: 25 4RF glimepiride 2 mg tablet 3 mg PO BID Changed furosemide [Lasix] 40 mg tablet 40 mg PO DAILY Qty: 1 0RF Held duloxetine 30 mg capsule,delayed release(DR/EC) 30 mg PO DAILY Hold Instructions: Resume on 11/14/22. Referrals / Follow Up: Juanpablo Stack DO [Primary Care Provider] - Disposition Disposition (needs filled in before D/C Order can be placed): [facility] Facility Charges/Coding Visit Charges Inpatient E&M: 94760 Disch Hosp >30min
--- NOTE | 2022-11-08 14:41 | CASEMGMT ---
PAUL sent orders to [facility] via [facility]. PAUL called [facility] and arranged for patient to get picked up at 4p via cot. PAUL notified RN, patient, patient's and daughter Robyn, pocket secretary assembler, and [facility]. PAUL completed 7000 on HENS. All in agreement with d/c plan. Plan: d/c to [facility] under skilled level of care on a convalescent stay. Physicians will transport via cot due to Dementia and being alert and oriented X1-2 Raisa Trinidad RETAIL BAKERY MANAGER GLYNN
[2022-11-08 14:54] VITALS: BP 153/68; PULSE 78; RESP 17; TEMP 36.8; O2SAT 100
[2022-11-08 14:55] VITALS: O2SAT 100
--- NOTE | 2022-11-08 15:29 | NURSING ---
Report called to nurse Kortney at [facility].
== END 2022-11-08 15:45 | disposition skilled nursing facility (03) | DRG 291 ==
LOC: ED 18:21 → PCU 18:29
PROVIDERS: Emergency Provider Emergency Medicine; PCP Family Medicine; Visit Provider Family Medicine
DX: I11.0 Hypertensive heart disease with heart failure (principal); F03.B0 Unspecified dementia, moderate, without behavioral disturbance, psychotic disturbance, mood disturbance, and anxiety; I50.33 Acute on chronic diastolic (congestive) heart failure; I48.92 Unspecified atrial flutter; I48.91 Unspecified atrial fibrillation; E11.9 Type 2 diabetes mellitus without complications; G93.40 Encephalopathy, unspecified; E87.1 Hypo-osmolality and hyponatremia; D50.0 Iron deficiency anemia secondary to blood loss (chronic); E78.00 Pure hypercholesterolemia, unspecified; Z79.01 Long term (current) use of anticoagulants; Z95.1 Presence of aortocoronary bypass graft; I25.10 Atherosclerotic heart disease of native coronary artery without angina pectoris; M19.011 Primary osteoarthritis, right shoulder; K21.9 Gastro-esophageal reflux disease without esophagitis; I25.2 Old myocardial infarction; R35.0 Frequency of micturition; Z95.4 Presence of other heart-valve replacement; Z95.5 Presence of coronary angioplasty implant and graft; Z79.82 Long term (current) use of aspirin; Z79.84 Long term (current) use of oral hypoglycemic drugs; Z79.899 Other long term (current) drug therapy; I69.393 Ataxia following cerebral infarction
CPT/HCPCS: 36415; 70450; 71046; 80048; 80053; 81001; 82274; 82607; 82728; 82746; 82962; 83540; 83550; 83880; 83930; 83935; 84443; 84484; 84540; 85025; 87426; 93005; 93306; 96361; 96374; 96376; 97110; 97116; 97162; 97166; 97530; 97535; 97802; 99221; 99284; J7030; Q9957; A4216; C8929; G0378; J1940

== ENCOUNTER → 2022-11-05 | Outpatient (CLI) | payer MEDICARE, SELFPAY ==
[2022-03-14 07:06] VITALS: BMI 29.8
[2022-11-05 13:40] LABS: Absolute Neutrophil Count 6.7 X10^3/uL (2.0-7.7); Basophil# 0.04 X10^3/uL; Basophil% 0.5 % (0-1); Eosinophil# 0.03 X10^3/uL; Eosinophils% 0.4 % (0-5); Hematocrit 25.4 % (40-54); Hemoglobin 8.5 g/dL (13.0-16.5); Lymphocyte % 7.3 % (19-41); Mean Corp Hgb Conc 33.5 g/dL (32-36); Mean Corpuscular Hgb 29.8 pg (27.0-32.0); Mean Corpuscular Volume 89.1 fL (80-94); Mean Platelet Vol. 10.8 fl (6.2-12.0); Monocyte# 0.87 X10^3/uL; Monocyte% 10.5 % (0-10); NRBC Flagged by Analyzer 0 % (0-5); Neutrophil # 6.65 X10^3/uL (2.7-7.7); Neutrophil % 80.6 % (47-70); POSITIVE DIFFERENTIAL YES; Platelet Count 128 K/mm3 (150-450); RBC Distribution Width CV 14.6 % (11.6-14.6); RBC Distribution Width SD 46.5 fl (35.1-43.9); Red Blood Count 2.85 M/mm3 (4.6-6.2); White Blood Count 8.3 K/mm3 (4.4-11.0)
--- NOTE | 2022-11-05 13:40 | RAD_ITS ---
EXAM: XR CHEST, 2 VIEWS CLINICAL INDICATION: Shortness of breath, orthopnea, leg edema TECHNIQUE: Frontal and lateral views of the chest. This report was created using [employer] report generation technology. COMPARISON: 10.04.21 FINDINGS: LUNGS AND PLEURAL SPACES: Unremarkable. No consolidation or edema. No pneumothorax. No effusion. HEART: Unremarkable. Cardiac silhouette not enlarged. MEDIASTINUM: Central airways and mediastinal contour are unremarkable. BONES/JOINTS: Multiple median sternotomy wires are noted consistent for cardiac surgery. SOFT TISSUES: Unremarkable. TUBES, LINES AND DEVICES: tavr. Metallic leads in the spinal canal may suggest spinal stimulator leads. RAD/Chest PA and Lateral IMPRESSION: No acute findings in the chest. Electronically Signed: Jean Claude Boucher MD at 17:19 EST ,
[2022-11-05 13:41] LABS: Differential Indicated SCAN CRITERIA MET
[2022-11-05 14:00] LABS: Anisocytosis 1+; Hypochromasia 1+; Platelet Estimate SLT DEC (ADEQ)
[2022-11-05 14:06] LABS: Anion Gap 14 (5-15); BNP,B-Type NATRIURETIC PEPTIDE 565.4 pg/mL (0-100); BUN 25 mg/dL (7-18); BUN/Creat Ratio 18.1 RATIO (10-20); Calcium,Total 8.9 mg/dL (8.5-10.1); Chloride 91 mmol/L (98-107); Creatinine, Serum 1.38 mg/dL (0.70-1.30); EST Glomerular Filtration Rate 52 mL/min (>60); Est Glom Filt Rate - Afr Amer 63 mL/min (>60); Glucose 316 mg/dL (74-106); Potassium 4.4 mmol/L (3.5-5.1); Sodium Level 126 mmol/L (136-145)
== END | disposition home or self-care (01) ==
PROVIDERS: PCP Family Medicine; Referring Provider Nurse Practitioner Family; Visit Provider Nurse Practitioner Family
DX: R06.01 Orthopnea (principal); I48.91 Unspecified atrial fibrillation; E11.9 Type 2 diabetes mellitus without complications; R06.02 Shortness of breath; R60.0 Localized edema; R41.0 Disorientation, unspecified; I67.9 Cerebrovascular disease, unspecified; E87.1 Hypo-osmolality and hyponatremia; D64.9 Anemia, unspecified; R35.0 Frequency of micturition
CPT/HCPCS: 36415; 71046; 80048; 81001; 83880; 85025